=== PATIENT | female | born 1940 | race Caucasian/White ===

== ENCOUNTER 2016-12-29 13:54 | Emergency (ER) | payer MEDICARE, MEDICAID ==
[~2016-12-29 13:54] MED LIST: /AMLO25TA PO; ALLO300T2 PO; AMLO10TA2 PO; ARANESP IV; ATEN50TA2 PO; CAL-TAB2 PO; CALC25CA PO; COLA50CA3 PO; DOCU10CA PO; DOXYCYCLINE PO; DULC5TAB PO; FERR325T3 PO; FURO40TA2 PO; FURO80TA2 PO; HYDR100T13 PO; HYDR1CR EXT; HYDR50TA PO; INSULADS SC; INSULANT SC; K-TA1TAB PO; LASI80TA PO; MICR10CA PO; MINO2.5T PO; MULTTAB63 PO; NEPHTAB PO; NORV5TAB PO; OMEP10CASR PO; OMEP40CA2 PO; RENATAB5 PO; RENV2TAB PO; SEVE80TAB PO; SPIR25TA2 PO; TYLE325T5 PO; TYLE650T30 PO; VIBR100C PO; ZANT300T PO; [UNRECOGNIZED DRUG - OTHER]
[2016-12-29] MEDS ORDERED: RENV2TAB PO (14:22)
[2016-12-29] MEDS ORDERED: LOSA50TA20 PO (14:22)
[2016-12-29] MEDS ORDERED: ATEN50TA2 PO (14:22)
[2016-12-29 16:18] VITALS: BP 182/72
== END 2016-12-29 16:20 | disposition home or self-care (01) ==
LOC: EDBD 13:54 → M ED 13:54
DX: T82.838A Hemorrhage due to vascular prosthetic devices, implants and grafts, initial encounter (principal); Y92.9 Unspecified place or not applicable; Y93.9 Activity, unspecified; E11.9 Type 2 diabetes mellitus without complications; Z79.4 Long term (current) use of insulin; Z79.899 Other long term (current) drug therapy

== ENCOUNTER → 2017-03-03 | Outpatient (CLI) | payer MEDICARE, MEDICAID ==
[~2017-03-03] MED LIST changes: +ISOVUE-300 61% 50ML VIAL (Q9967) As Ordered ONE; +LOSA50TA20 PO; +MIDAZOLAM INJ 2 MG/2 ML VIAL (J2250) As Ordered ONE; +fentaNYL 100 MCG/2 ML INJECTION (J3010) As Ordered ONE
--- NOTE | 2017-03-17 14:21 | REPKIM ---
DATE OF PROCEDURE: 03/03/2017 ATTENDING SURGEON: Dr. Juan Hodge TRUCK CHAUFFEUR: Margie Cordova and Sarika Ibrahim. PREOPERATIVE DIAGNOSES: End-stage renal disease. Dysfunctional left brachiocephalic arteriovenous fistula with non-maturation. POSTOPERATIVE DIAGNOSES: End-stage renal disease. Dysfunctional left brachiocephalic arteriovenous fistula with non-maturation. PROCEDURE: Left brachiocephalic arteriovenous fistulogram. Retrograde left brachial artery angiogram. Left cephalic vein angioplasty with 8 x 200 balloon. Left subclavian vein angioplasty with 8 x 200 balloon. INDICATION: Patient is a 76-year-old female with a left brachiocephalic arteriovenous fistula with non-maturation and difficulty with cannulation and postoperative bleeding. Patient will undergo a fistulogram with possible angioplasty and/or stent. Risks, benefits, and alternative treatment options were discussed with the patient. ANESTHESIA: Local with sedation with 1 mg of versed, 50 mcg of fentanyl, and 4.5 mL of 2% lidocaine. Sedation time was from 1445 hours to 1500 hours, with the sedation administered by myself, the cardiopulmonary monitoring performed by the nurse in the room. The procedure was performed under my direction and direct supervision, and I was present for and directed the entire case. COMPLICATIONS: None. DRAINS: None. SPECIMENS: None. PROCEDURE: Patient was taken to the angiography suite, placed supine on the angiography room table, and then prepped and draped in standard surgical fashion. The fistula was then cannulated with a micropuncture needle after anesthetizing the overlying skin with 1% lidocaine. The micropuncture wire was advanced through the micropuncture needle which was upsized to a micropuncture sheath. A fistulogram was performed showing stenosis in the cephalic vein in the upper arm, which was approximately 60% as well as stenosis at the cephalic vein, subclavian vein junction, which was approximately 80%. The cephalic vein and subclavian vein were then angioplastied with an 8 x 200 mm balloon with a followup fistulogram showing resolution of the stenoses. A retrograde brachial artery angiogram was performed showing no intervention required. Catheters and wires were removed, and a #2-0 Prolene suture was placed at the puncture site for hemostasis. Dressings were then applied. Patient tolerated the procedure well. All instruments, sponge, and needle counts were correct at the end of the case. There were no complications. Dr. Hodge was present for and directed the entire case. Patient was transferred to the holding area and subsequently discharged once the #2-0 proline suture was removed, and good hemostasis was noted. RADIOLOGIC SUPERVISION AND INTERPRETATION: The initial fistulogram showed stenosis in the cephalic vein as well as the cephalic vein/subclavian vein junction. The cephalic vein and subclavian vein were angioplastied with an 8 x 200 mm balloon with a followup fistulogram showing resolution of the stenosis. A retrograde brachial angiogram was performed showing no stenosis in the translocated portion of cephalic vein, and no intervention required. There was a strong thrill in the fistula at the completion of the angioplasty, which was pulsatile prior to the intervention.
== END | disposition home or self-care (01) ==
LOC: M IRPRO 13:41
PROVIDERS: ATTEND Surgery Vascular Surgery
DX: T82.590A Other mechanical complication of surgically created arteriovenous fistula, initial encounter (principal); I87.1 Compression of vein; N18.6 End stage renal disease
CPT/HCPCS: 36902; 36907; 99152; 99153; C1725; C1769; C1894; J2250; J3010; Q9967

== ENCOUNTER → 2017-06-25 | Outpatient (CLI) | payer MEDICARE, MEDICAID ==
[~2017-06-25] MED LIST changes: -/AMLO25TA PO; -ALLO300T2 PO; -AMLO10TA2 PO; -ARANESP IV; -ATEN50TA2 PO; -CAL-TAB2 PO; -CALC25CA PO; -COLA50CA3 PO; -DOCU10CA PO; -DOXYCYCLINE PO; -DULC5TAB PO; -FERR325T3 PO; -FURO40TA2 PO; -FURO80TA2 PO; -HYDR100T13 PO; -HYDR1CR EXT; -HYDR50TA PO; -INSULADS SC; -INSULANT SC; +ISOVUE-300 61% 50ML VIAL (Q9967) As Ordered; -ISOVUE-300 61% 50ML VIAL (Q9967) As Ordered ONE; -K-TA1TAB PO; -LASI80TA PO; -LOSA50TA20 PO; -MICR10CA PO; +MIDAZOLAM INJ 2 MG/2 ML VIAL (J2250) As Ordered; -MIDAZOLAM INJ 2 MG/2 ML VIAL (J2250) As Ordered ONE; -MINO2.5T PO; -MULTTAB63 PO; -NEPHTAB PO; -NORV5TAB PO; -OMEP10CASR PO; -OMEP40CA2 PO; +ONDANSETRON 4 MG ORAL DISINTEGRATING TAB (S0181) As Ordered; -RENATAB5 PO; -RENV2TAB PO; -SEVE80TAB PO; -SPIR25TA2 PO; -TYLE325T5 PO; -TYLE650T30 PO; -VIBR100C PO; -ZANT300T PO; -[UNRECOGNIZED DRUG - OTHER]; +fentaNYL 100 MCG/2 ML INJECTION (J3010) As Ordered; -fentaNYL 100 MCG/2 ML INJECTION (J3010) As Ordered ONE
== END | disposition home or self-care (01) ==
LOC: M IRPRO 08:26
DX: T82.858A Stenosis of other vascular prosthetic devices, implants and grafts, initial encounter (principal); T82.838A Hemorrhage due to vascular prosthetic devices, implants and grafts, initial encounter; N18.6 End stage renal disease; M25.512 Pain in left shoulder
CPT/HCPCS: 36902

== ENCOUNTER 2017-07-13 21:28 | Emergency (ER) | payer MEDICARE, MEDICAID ==
[2017-07-13] MEDS ORDERED: ISOVUE-370 76% 100ML VIAL (Q9967) As Ordered ×3 (23:04)
[2017-07-13 23:33] LABS: BASO # 0.1 10^3/uL (0.0-0.2); BASO % 0.7 % (0.0-1.0); EOS # 0.3 10^3/uL (0.0-0.50); EOS % 2.8 % (0.0-3.0); HEMATOCRIT 35.6 % (36.0-47.0); HEMOGLOBIN 11.1 g/dl (12.0-16.0); IMMATURE GRANULOCYTE # 0.1 10^3/uL (0-0); IMMATURE GRANULOCYTE % 0.6 % (0-0); MEAN CORPUSCULAR HEMOGLOBIN 29.6 pg (27.0-33.0); MEAN CORPUSCULAR HGB CONC 31.2 g/dl (32.0-36.5); MEAN CORPUSCULAR VOLUME 94.9 fl (80.0-96.0); MONO # 0.4 10^3/uL (0.0-0.8); MONO % 4.8 % (0.0-5.0); NEUTROPHILS # 7.3 10^3/uL (1.8-7.7); NEUTROPHILS % 80.1 % (36.0-66.0); PLATELET COUNT, AUTOMATED 151 10^3/uL (150-450); RED BLOOD COUNT 3.75 10^6/uL (4.00-5.40); RED CELL DISTRIBUTION WIDTH 16.4 % (11.5-14.5); WHITE BLOOD COUNT 9.1 10^3/uL (4.0-10.0)
[2017-07-13 23:42] LABS: INR 1.05; PROTHROMBIN TIME 13.8 SECONDS (12.4-14.5)
[2017-07-13 23:43] LABS: PARTIAL THROMBOPLASTIN TIME 37.6 SECONDS (26.8-37.9)
[2017-07-13] MEDS: MORPHINE 4 MG/ML 1ML VIAL (J2270) IV (23:54)
[2017-07-13] MEDS: ONDANSETRON 4MG/2ML VIAL (J2405) IV ×3 (23:54)
[2017-07-13] MEDS: MORPHINE 4 MG/ML 1ML VIAL IV ×2 (23:54)
[2017-07-13 23:57] LABS: ALBUMIN 3.5 GM/DL (3.2-5.2); ALBUMIN/GLOBULIN RATIO 0.81 (1.00-1.93); ALKALINE PHOSPHATASE 25 U/L (45-117); ALT/SGPT 27 U/L (12-78); ANION GAP 10 MEQ/L (8-16); AST/SGOT 15 U/L (7-37); BILIRUBIN,DIRECT 0.2 MG/DL (0.0-0.2); BILIRUBIN,TOTAL 0.5 MG/DL (0.2-1.0); BLOOD UREA NITROGEN 50 MG/DL (7-18); CALCIUM LEVEL 9.2 MG/DL (8.8-10.2); CARBON DIOXIDE LEVEL 27 MEQ/L (21-32); CHLORIDE LEVEL 102 MEQ/L (98-107); CREATININE FOR GFR 7.31 MG/DL (0.55-1.30); GLOMERULAR FILTRATION RATE 5.8 (>39); GLUCOSE, FASTING 227 MG/DL (70-100); LIPASE 152 U/L (73-393); POTASSIUM SERUM 4.2 MEQ/L (3.5-5.1); SODIUM LEVEL 139 MEQ/L (136-145); TOTAL PROTEIN 7.8 GM/DL (6.4-8.2)
[2017-07-14 01:49] LABS: KETONE, URINE AUTO RFX NEGATIVE (NEGATIVE); NITRITE, URINE AUTO RFX NEGATIVE (NEGATIVE); RBC, URINE AUTO RFX TNTC /HPF (0-3); SPECIFIC GRAVITY UR AUTO RFX 1.024 (1.002-1.035); SQUAM EPITHELIAL CELL UR AURFX 2 /HPF (0-6)
[2017-07-14 01:50] LABS: LEUKOCYTE ESTERASE UR AUTO RFX 1+ (NEGATIVE); WBC, URINE AUTO RFX 34 /HPF (0-3)
[2017-07-14] MEDS: TAMSULOSIN 0.4 MG CAP PO ×3 (02:44)
== END 2017-07-14 05:18 | disposition home or self-care (01) ==
LOC: M ED 07-14 05:18
DX: N20.1 Calculus of ureter (principal); E11.9 Type 2 diabetes mellitus without complications; I10 Essential (primary) hypertension; Z99.2 Dependence on renal dialysis; N26.1 Atrophy of kidney (terminal); K86.89 Other specified diseases of pancreas; M51.36 Other intervertebral disc degeneration, lumbar region; M51.37 Other intervertebral disc degeneration, lumbosacral region; Z79.4 Long term (current) use of insulin; Z79.899 Other long term (current) drug therapy
CPT/HCPCS: J2270; J2405

== ENCOUNTER 2017-08-06 06:06 | Day surgery (SDC) | payer MEDICARE, MEDICAID ==
[2017-08-06] MEDS ORDERED: D5W/0.2% SODIUM CHLORIDE 1,000 ML IV (06:15)
[2017-08-06 06:56] LABS: POTASSIUM SERUM 3.9 MEQ/L (3.5-5.1)
[2017-08-06] MEDS ORDERED: PROPOFOL 200 MG/20 ML VIAL As Ordered (08:09)
[2017-08-06] MEDS ORDERED: LIDOCAINE 2% INJ 100 MG/5 ML SDV (FOR ANES.) As Ordered (08:09)
[2017-08-06] MEDS ORDERED: fentaNYL 100 MCG/2 ML INJECTION (J3010) As Ordered (08:09)
[2017-08-06] MEDS ORDERED: MIDAZOLAM INJ 2 MG/2 ML VIAL (J2250) As Ordered (08:10)
[2017-08-06 09:01] LABS: BEDSIDE GLUCOSE 249 MG/DL (83-110)
[2017-08-06] MEDS ORDERED: ePHEDrine INJ 50 MG/ML VIAL As Ordered (09:31)
[2017-08-06] MEDS: CONRAY-60 60% 50ML VIAL (Q9961) As Ordered (09:41)
[2017-08-06] MEDS ORDERED: ONDANSETRON 4MG/2ML VIAL (J2405) As Ordered (09:53)
[2017-08-06] MEDS ORDERED: HumaLOG INSULIN (NovoLOG) PER UNIT As Ordered (10:09)
[2017-08-06] MEDS: HumaLOG INSULIN (NovoLOG) PER UNIT SC (10:10)
[2017-08-06 10:14] LABS: BEDSIDE GLUCOSE 373 MG/DL (83-110)
[2017-08-06] MEDS ORDERED: ONDANSETRON 4MG/2ML VIAL (J2405) IV (10:30)
[2017-08-06] MEDS ORDERED: LR 1,000 ML IV (10:30)
[2017-08-06] MEDS ORDERED: ACETAMINOPHEN TAB 650MG DOSE (2X325MG) PO (10:30)
[2017-08-06] MEDS ORDERED: fentaNYL 100 MCG/2 ML INJECTION (J3010) IV (10:30)
[2017-08-06] MEDS ORDERED: PERCOCET 5MG/325MG TAB PO (10:30)
[2017-08-06] MEDS: PERCOCET 5MG/325MG TAB PO (11:42)
[2017-08-06 12:40] LABS: BEDSIDE GLUCOSE 209 MG/DL (83-110)
== END 2017-08-06 13:30 | disposition home or self-care (01) ==
LOC: M SDC 06:06
DX: N20.1 Calculus of ureter (principal); I10 Essential (primary) hypertension; E11.9 Type 2 diabetes mellitus without complications; D64.9 Anemia, unspecified; N17.9 Acute kidney failure, unspecified; Z99.2 Dependence on renal dialysis; M10.9 Gout, unspecified; Z91.048 Other nonmedicinal substance allergy status; Z79.899 Other long term (current) drug therapy; Z79.4 Long term (current) use of insulin
CPT/HCPCS: 52352

== ENCOUNTER → 2017-10-04 | Outpatient (CLI) | payer MEDICARE, OTHER, MEDICAID ==
[~2017-10-04] MED LIST changes: +LIDOCAINE 2% MDV 20 ML VIAL As Ordered; -ONDANSETRON 4 MG ORAL DISINTEGRATING TAB (S0181) As Ordered
== END | disposition home or self-care (01) ==
LOC: M IRPRO 07:37
DX: T82.838A Hemorrhage due to vascular prosthetic devices, implants and grafts, initial encounter (principal); E11.22 Type 2 diabetes mellitus with diabetic chronic kidney disease; I12.0 Hypertensive chronic kidney disease with stage 5 chronic kidney disease or end stage renal disease; N18.6 End stage renal disease; E78.00 Pure hypercholesterolemia, unspecified; I25.10 Atherosclerotic heart disease of native coronary artery without angina pectoris; C54.1 Malignant neoplasm of endometrium; Z99.2 Dependence on renal dialysis
CPT/HCPCS: 36902

== ENCOUNTER → 2018-01-07 | Outpatient (CLI) | payer MEDICARE, MEDICAID | END | disposition home or self-care (01) | LOC: M IRPRO 07:31 | DX: T82.858A Stenosis of other vascular prosthetic devices, implants and grafts, initial encounter (principal); T82.838A Hemorrhage due to vascular prosthetic devices, implants and grafts, initial encounter; N18.6 End stage renal disease; Z99.2 Dependence on renal dialysis | CPT/HCPCS: 36902 ==

== ENCOUNTER → 2018-05-02 | Outpatient (CLI) | payer MEDICARE, MEDICAID | END | disposition home or self-care (01) | LOC: M IRPRO 09:20 | DX: T82.898A Other specified complication of vascular prosthetic devices, implants and grafts, initial encounter (principal); N18.6 End stage renal disease; Z99.2 Dependence on renal dialysis | CPT/HCPCS: 36901 ==

== ENCOUNTER 2018-05-06 17:46 | Inpatient (IN) | payer MEDICARE, MEDICAID ==
[2018-05-06] MEDS: ONDANSETRON 4MG/2ML VIAL (J2405) IV (18:57)
[2018-05-06] MEDS: NS 250 ML IV ×6 (18:57→23:01)
[2018-05-06 19:15] LABS: BASO # 0.1 10^3/uL (0.0-0.2); BASO % 0.3 % (0.0-1.0); EOS # 0.2 10^3/uL (0.0-0.50); HEMATOCRIT 34.2 % (36.0-47.0); HEMOGLOBIN 10.9 g/dl (12.0-15.5); IMMATURE GRANULOCYTE % 0.8 % (0-3.0); LYMPH # 0.8 10^3/uL (1.5-4.5); LYMPH % 4.4 % (24.0-44.0); MEAN CORPUSCULAR HGB CONC 31.9 g/dl (32.0-36.5); MEAN CORPUSCULAR VOLUME 97.2 fl (80.0-96.0); MONO # 0.8 10^3/uL (0.0-0.8); MONO % 4.5 % (0.0-5.0); NEUTROPHILS # 15.3 10^3/uL (1.8-7.7); PLATELET COUNT, AUTOMATED 162 10^3/uL (150-450); RED BLOOD COUNT 3.52 10^6/uL (4.00-5.40); RED CELL DISTRIBUTION WIDTH 15.7 % (11.5-14.5); WHITE BLOOD COUNT 17.2 10^3/uL (4.0-10.0)
[2018-05-06 19:17] LABS: INR 0.94; PROTHROMBIN TIME 12.7 SECONDS (12.1-14.4)
[2018-05-06 19:27] LABS: LACTIC ACID SEPSIS PROTOCOL 3.1 MMOL/L (0.4-2.0)
[2018-05-06 19:39] LABS: ALBUMIN 3.4 GM/DL (3.2-5.2); ALBUMIN/GLOBULIN RATIO 0.77 (1.00-1.93); ALKALINE PHOSPHATASE 28 U/L (45-117); ALT/SGPT 22 U/L (12-78); ANION GAP 11 MEQ/L (8-16); AST/SGOT 17 U/L (7-37); BILIRUBIN,DIRECT 0.2 MG/DL (0.0-0.2); BILIRUBIN,TOTAL 0.4 MG/DL (0.2-1.0); BLOOD UREA NITROGEN 21 MG/DL (7-18); CALCIUM LEVEL 8.4 MG/DL (8.8-10.2); CARBON DIOXIDE LEVEL 27 MEQ/L (21-32); CHLORIDE LEVEL 103 MEQ/L (98-107); CK-MB VALUE MASS < 1.0 NG/ML (<3.6); CPK CREATINE PHOSPHOKINASE 62 U/L (26-192); CREATININE FOR GFR 5.55 MG/DL (0.55-1.30); GLOMERULAR FILTRATION RATE 7.9 (>39); GLUCOSE, FASTING 103 MG/DL (70-100); LIPASE 172 U/L (73-393); MB/CK RELATIVE INDEX 1.61 (< OR =4); POTASSIUM SERUM 4.2 MEQ/L (3.5-5.1); SODIUM LEVEL 141 MEQ/L (136-145); TOTAL PROTEIN 7.8 GM/DL (6.4-8.2); TROPONIN I < 0.02 NG/ML (< 0.10)
[2018-05-06] MEDS: SENOKOT S TAB PO (21:00)
[2018-05-06] MEDS: METOPROLOL TART 50 MG TAB PO (21:00)
[2018-05-06] MEDS: LOSARTAN 50 MG TAB PO (21:00)
[2018-05-06] MEDS: HumaLOG INSULIN (NovoLOG) PER UNIT SC (21:00)
[2018-05-06] MEDS: (RENVELA) SEVELAMER **CARBONate** 800 MG TAB PO (21:00)
[2018-05-07] MEDS: PIPERACILLIN/TAZOBACTAM SOD 2.25 GM in D5W MINI-BAG PLUS 50 ML IV
[2018-05-07] MEDS ORDERED: DEXTROSE 50% 50 ML SYRINGE IV (00:15)
[2018-05-07] MEDS ORDERED: ONDANSETRON 4MG/2ML VIAL (J2405) IV (00:15)
[2018-05-07] MEDS ORDERED: GLUCOSE 4 GM CHEW TABLET PO (00:15)
[2018-05-07] MEDS ORDERED: GLUCAGON FOR INJ 1 MG VIAL (J1610) SC (00:15)
[2018-05-07] MEDS: GASTROGRAFIN SOLUTION 30ML PO ×2 (00:50→01:20)
[2018-05-07 01:20] LABS: CK-MB VALUE MASS < 1.0 NG/ML (<3.6); CPK CREATINE PHOSPHOKINASE 71 U/L (26-192); MB/CK RELATIVE INDEX 1.41 (< OR =4); TROPONIN I 0.05 NG/ML (< 0.10)
[2018-05-07 01:20] LABS: LACTIC ACID SEPSIS PROTOCOL 2.1 MMOL/L (0.4-2.0)
[2018-05-07] MEDS: NS 1,000 ML IV (01:30)
[2018-05-07] MEDS ORDERED: ISOVUE-370 76% 100ML VIAL (Q9967) As Ordered (02:04)
[2018-05-07 05:03] LABS: HEMATOCRIT 28.3 % (36.0-47.0); HEMOGLOBIN 9.1 g/dl (12.0-15.5); MEAN CORPUSCULAR HEMOGLOBIN 31.3 pg (27.0-33.0); MEAN CORPUSCULAR HGB CONC 32.2 g/dl (32.0-36.5); MEAN CORPUSCULAR VOLUME 97.3 fl (80.0-96.0); PLATELET COUNT, AUTOMATED 137 10^3/uL (150-450); RED BLOOD COUNT 2.91 10^6/uL (4.00-5.40); RED CELL DISTRIBUTION WIDTH 15.7 % (11.5-14.5); WHITE BLOOD COUNT 14.9 10^3/uL (4.0-10.0)
[2018-05-07 05:30] LABS: ALBUMIN 2.8 GM/DL (3.2-5.2); ALBUMIN/GLOBULIN RATIO 0.68 (1.00-1.93); ALKALINE PHOSPHATASE 23 U/L (45-117); ALT/SGPT 22 U/L (12-78); ANION GAP 7 MEQ/L (8-16); AST/SGOT 15 U/L (7-37); BILIRUBIN,TOTAL 0.4 MG/DL (0.2-1.0); BLOOD UREA NITROGEN 26 MG/DL (7-18); CARBON DIOXIDE LEVEL 28 MEQ/L (21-32); CHLORIDE LEVEL 104 MEQ/L (98-107); CREATININE FOR GFR 5.86 MG/DL (0.55-1.30); GLOMERULAR FILTRATION RATE 7.4 (>39); GLUCOSE, FASTING 95 MG/DL (70-100); POTASSIUM SERUM 4.5 MEQ/L (3.5-5.1); SODIUM LEVEL 139 MEQ/L (136-145); TOTAL PROTEIN 6.9 GM/DL (6.4-8.2)
[2018-05-07] MEDS: HEPARIN SOD (PORCINE) 5000 UNITS/ML VIAL SC ×2 (06:00→17:03)
[2018-05-07 08:11] LABS: BEDSIDE GLUCOSE 123 MG/DL (83-110)
[2018-05-07] MEDS: HumaLOG INSULIN (NovoLOG) PER UNIT SC ×4 (08:33→20:36)
[2018-05-07] MEDS: METOPROLOL TART 50 MG TAB PO ×2 (08:34→20:36)
[2018-05-07] MEDS: SENOKOT S TAB PO ×2 (08:34→20:35)
[2018-05-07] MEDS: DOCUSATE SODIUM 100 MG CAP PO ×2 (08:34→20:35)
[2018-05-07] MEDS: LOSARTAN 50 MG TAB PO ×2 (08:34→20:35)
[2018-05-07] MEDS: LEVEMIR (INSULIN DETEMIR) 1 UNITS/0.01ML SC (09:32)
[2018-05-07] MEDS ORDERED: VANCOMYCIN HCL 750 MG, VIAL MATE ADAPTER 1 EACH in D5W 250 ML IV (12:15)
[2018-05-07] MEDS: VANCOMYCIN HCL 1,000 MG, VIAL MATE ADAPTER 1 EACH in D5W 250 ML IV (15:57)
[2018-05-07 16:19] LABS: ERYTHROCYTE SEDIMENTATION RATE 91 mm/hr (0-30)
[2018-05-07 16:20] LABS: C REACTIVE PROTEIN QUANTITATIV 9.72 MG/DL (0.00-0.30)
[2018-05-07 16:48] LABS: BEDSIDE GLUCOSE 170 MG/DL (83-110)
[2018-05-07 20:10] LABS: BEDSIDE GLUCOSE 84 MG/DL (83-110)
[2018-05-07] MEDS: VANCOMYCIN HCL 750 MG, VIAL MATE ADAPTER 1 EACH in D5W 250 ML IV (20:34)
[2018-05-07] MEDS: (RENVELA) SEVELAMER **CARBONate** 800 MG TAB PO (20:35)
[2018-05-07] MEDS: SLF 3 ML SYR IV (20:36)
[2018-05-07] MEDS ORDERED: ENTER DRUG NAME HERE (PATIENT'S OWN MED) OU ×2 (21:00)
[2018-05-08] MEDS: SLF 3 ML SYR IV ×3 (05:03→20:41)
[2018-05-08] MEDS: HEPARIN SOD (PORCINE) 5000 UNITS/ML VIAL SC ×2 (05:24→17:02)
[2018-05-08 05:31] LABS: HEMATOCRIT 27.2 % (36.0-47.0); HEMOGLOBIN 8.5 g/dl (12.0-15.5); MEAN CORPUSCULAR HEMOGLOBIN 30.2 pg (27.0-33.0); MEAN CORPUSCULAR HGB CONC 31.3 g/dl (32.0-36.5); MEAN CORPUSCULAR VOLUME 96.8 fl (80.0-96.0); PLATELET COUNT, AUTOMATED 121 10^3/uL (150-450); RED BLOOD COUNT 2.81 10^6/uL (4.00-5.40); RED CELL DISTRIBUTION WIDTH 15.8 % (11.5-14.5); WHITE BLOOD COUNT 7.1 10^3/uL (4.0-10.0)
[2018-05-08 05:50] LABS: ALBUMIN 2.4 GM/DL (3.2-5.2); ALKALINE PHOSPHATASE 21 U/L (45-117); ALT/SGPT 23 U/L (12-78); ANION GAP 7 MEQ/L (8-16); AST/SGOT 22 U/L (7-37); BILIRUBIN,TOTAL 0.3 MG/DL (0.2-1.0); BLOOD UREA NITROGEN 13 MG/DL (7-18); C REACTIVE PROTEIN QUANTITATIV 8.66 MG/DL (0.00-0.30); CALCIUM LEVEL 7.4 MG/DL (8.8-10.2); CARBON DIOXIDE LEVEL 29 MEQ/L (21-32); CHLORIDE LEVEL 102 MEQ/L (98-107); CREATININE FOR GFR 4.15 MG/DL (0.55-1.30); GLOMERULAR FILTRATION RATE 11.1 (>39); GLUCOSE, FASTING 118 MG/DL (70-100); MAGNESIUM LEVEL 1.9 MG/DL (1.8-2.4); SODIUM LEVEL 138 MEQ/L (136-145); TOTAL PROTEIN 6.4 GM/DL (6.4-8.2)
[2018-05-08 06:26] LABS: ERYTHROCYTE SEDIMENTATION RATE 79 mm/hr (0-30)
[2018-05-08] MEDS: LEVEMIR (INSULIN DETEMIR) 1 UNITS/0.01ML SC (08:07)
[2018-05-08] MEDS: HumaLOG INSULIN (NovoLOG) PER UNIT SC ×4 (08:07→20:40)
[2018-05-08] MEDS: LOSARTAN 50 MG TAB PO ×2 (08:08→20:39)
[2018-05-08] MEDS: SENOKOT S TAB PO ×2 (08:08→20:40)
[2018-05-08] MEDS: METOPROLOL TART 50 MG TAB PO ×2 (08:08→20:39)
[2018-05-08] MEDS: ACETAMINOPHEN TAB 650MG DOSE (2X325MG) PO (08:09)
[2018-05-08] MEDS: DOCUSATE SODIUM 100 MG CAP PO ×2 (08:09→20:39)
[2018-05-08 11:26] LABS: BEDSIDE GLUCOSE 129 MG/DL (83-110)
[2018-05-08] MEDS ORDERED: VANCOMYCIN HCL 1,000 MG, VIAL MATE ADAPTER 1 EACH in D5W 250 ML IV (12:30)
[2018-05-08] MEDS: **VANCO AFTER HD** MISC XX (13:19)
[2018-05-08 16:36] LABS: BEDSIDE GLUCOSE 83 MG/DL (83-110)
[2018-05-08] MEDS: DARBEPOETIN 100 MCG/0.5 ML *NON-DIALYSIS* SYRINGE (J0881) SQ (17:56)
[2018-05-08 20:06] LABS: BEDSIDE GLUCOSE 160 MG/DL (83-110)
[2018-05-08] MEDS: (RENVELA) SEVELAMER **CARBONate** 800 MG TAB PO (20:41)
[2018-05-09 05:24] LABS: HEMOGLOBIN 8.5 g/dl (12.0-15.5); MEAN CORPUSCULAR HEMOGLOBIN 30.5 pg (27.0-33.0); MEAN CORPUSCULAR HGB CONC 31.5 g/dl (32.0-36.5); MEAN CORPUSCULAR VOLUME 96.8 fl (80.0-96.0); PLATELET COUNT, AUTOMATED 126 10^3/uL (150-450); RED BLOOD COUNT 2.79 10^6/uL (4.00-5.40); RED CELL DISTRIBUTION WIDTH 15.8 % (11.5-14.5); WHITE BLOOD COUNT 5.6 10^3/uL (4.0-10.0)
[2018-05-09 05:43] LABS: ERYTHROCYTE SEDIMENTATION RATE 103 mm/hr (0-30)
[2018-05-09] MEDS: SLF 3 ML SYR IV ×3 (05:47→22:00)
[2018-05-09] MEDS: HEPARIN SOD (PORCINE) 5000 UNITS/ML VIAL SC ×2 (05:47→17:19)
[2018-05-09 06:04] LABS: ALBUMIN 2.5 GM/DL (3.2-5.2); ALBUMIN/GLOBULIN RATIO 0.76 (1.00-1.93); ALKALINE PHOSPHATASE 21 U/L (45-117); ALT/SGPT 25 U/L (12-78); ANION GAP 8 MEQ/L (8-16); AST/SGOT 22 U/L (7-37); BILIRUBIN,TOTAL 0.3 MG/DL (0.2-1.0); BLOOD UREA NITROGEN 23 MG/DL (7-18); C REACTIVE PROTEIN QUANTITATIV 5.57 MG/DL (0.00-0.30); CALCIUM LEVEL 7.5 MG/DL (8.8-10.2); CARBON DIOXIDE LEVEL 28 MEQ/L (21-32); CHLORIDE LEVEL 103 MEQ/L (98-107); FERRITIN 1475 NG/ML (8-252); GLOMERULAR FILTRATION RATE 7.7 (>39); GLUCOSE, FASTING 97 MG/DL (70-100); IRON (FE) 60 UG/DL (50-170); PERCENT SATURATION 47.6 % (13.2-45.0); POTASSIUM SERUM 4.2 MEQ/L (3.5-5.1); SODIUM LEVEL 139 MEQ/L (136-145); TOTAL IRON BINDING CAPACITY 126 UG/DL (250-450); TOTAL PROTEIN 5.8 GM/DL (6.4-8.2)
[2018-05-09] MEDS: HumaLOG INSULIN (NovoLOG) PER UNIT SC ×4 (07:30→21:00)
[2018-05-09] MEDS: SENOKOT S TAB PO ×2 (08:53→21:00)
[2018-05-09] MEDS: DOCUSATE SODIUM 100 MG CAP PO ×2 (08:53→21:00)
[2018-05-09] MEDS: LOSARTAN 50 MG TAB PO ×2 (08:55→21:58)
[2018-05-09] MEDS: cefTRIAXone SOD 1 GM in D5W MINI-BAG PLUS 50 ML IV (08:55)
[2018-05-09] MEDS: LEVEMIR (INSULIN DETEMIR) 1 UNITS/0.01ML SC (08:55)
[2018-05-09] MEDS: METOPROLOL TART 50 MG TAB PO ×2 (08:56→21:57)
[2018-05-09 11:46] LABS: BEDSIDE GLUCOSE 179 MG/DL (83-110)
[2018-05-09] MEDS: **VANCO AFTER HD** MISC XX (16:00)
[2018-05-09 17:11] LABS: BEDSIDE GLUCOSE 137 MG/DL (83-110)
[2018-05-09] MEDS: (RENVELA) SEVELAMER **CARBONate** 800 MG TAB PO (17:19)
[2018-05-09] MEDS: OMEPRAZOLE 20 MG CAP PO (17:19)
[2018-05-09 22:21] LABS: BEDSIDE GLUCOSE 145 MG/DL (83-110)
[2018-05-10 06:00] LABS: HEMATOCRIT 26.3 % (36.0-47.0); HEMOGLOBIN 8.3 g/dl (12.0-15.5); MEAN CORPUSCULAR HEMOGLOBIN 30.3 pg (27.0-33.0); MEAN CORPUSCULAR HGB CONC 31.6 g/dl (32.0-36.5); PLATELET COUNT, AUTOMATED 146 10^3/uL (150-450); RED BLOOD COUNT 2.74 10^6/uL (4.00-5.40); RED CELL DISTRIBUTION WIDTH 15.7 % (11.5-14.5); WHITE BLOOD COUNT 5.9 10^3/uL (4.0-10.0)
[2018-05-10] MEDS: HEPARIN SOD (PORCINE) 5000 UNITS/ML VIAL SC ×2 (06:07→21:47)
[2018-05-10] MEDS: SLF 3 ML SYR IV ×3 (06:07→21:54)
[2018-05-10 06:29] LABS: ERYTHROCYTE SEDIMENTATION RATE 81 mm/hr (0-30)
[2018-05-10 06:30] LABS: ALBUMIN 2.6 GM/DL (3.2-5.2); ALBUMIN/GLOBULIN RATIO 0.67 (1.00-1.93); ALKALINE PHOSPHATASE 22 U/L (45-117); ALT/SGPT 25 U/L (12-78); ANION GAP 7 MEQ/L (8-16); AST/SGOT 20 U/L (7-37); BILIRUBIN,TOTAL 0.3 MG/DL (0.2-1.0); BLOOD UREA NITROGEN 36 MG/DL (7-18); CARBON DIOXIDE LEVEL 29 MEQ/L (21-32); CHLORIDE LEVEL 101 MEQ/L (98-107); CREATININE FOR GFR 7.07 MG/DL (0.55-1.30); GLUCOSE, FASTING 92 MG/DL (70-100); MAGNESIUM LEVEL 2.1 MG/DL (1.8-2.4); POTASSIUM SERUM 4.1 MEQ/L (3.5-5.1); SODIUM LEVEL 137 MEQ/L (136-145); TOTAL PROTEIN 6.5 GM/DL (6.4-8.2)
[2018-05-10] MEDS: HumaLOG INSULIN (NovoLOG) PER UNIT SC ×4 (07:22→21:40)
[2018-05-10] MEDS: LEVEMIR (INSULIN DETEMIR) 1 UNITS/0.01ML SC (09:00)
[2018-05-10] MEDS: DOCUSATE SODIUM 100 MG CAP PO ×2 (09:00→21:00)
[2018-05-10] MEDS: SENOKOT S TAB PO ×2 (09:00→21:00)
[2018-05-10] MEDS: HEPARIN 1,000 UNITS/ML 10ML VIAL (FOR RADIOLOGY& DIALYSIS ONLY) IV (11:15)
[2018-05-10 12:38] LABS: BEDSIDE GLUCOSE 118 MG/DL (83-110)
[2018-05-10] MEDS: LOSARTAN 50 MG TAB PO ×2 (13:09→21:35)
[2018-05-10] MEDS: OMEPRAZOLE 20 MG CAP PO (13:09)
[2018-05-10] MEDS: METOPROLOL TART 50 MG TAB PO ×2 (13:10→21:35)
[2018-05-10] MEDS: cefTRIAXone SOD 1 GM in D5W MINI-BAG PLUS 50 ML IV (13:10)
[2018-05-10] MEDS: (RENVELA) SEVELAMER **CARBONate** 800 MG TAB PO (17:30)
[2018-05-10] MEDS ORDERED: PROPOFOL 200 MG/20 ML VIAL As Ordered (17:33)
[2018-05-10] MEDS ORDERED: fentaNYL 100 MCG/2 ML INJECTION (J3010) As Ordered (17:34)
[2018-05-10] MEDS ORDERED: MIDAZOLAM INJ 2 MG/2 ML VIAL (J2250) As Ordered (17:34)
[2018-05-10] MEDS: CETACAINE SPRAY 5GM As Ordered (17:42)
[2018-05-10] MEDS: LIDOCAINE VISCOUS 2% SOLN 15ML UDC As Ordered (17:42)
[2018-05-10] MEDS ORDERED: ONDANSETRON 4MG/2ML VIAL (J2405) IV (18:45)
[2018-05-10] MEDS: LR 1,000 ML IV (18:45)
[2018-05-10] MEDS ORDERED: fentaNYL 100 MCG/2 ML INJECTION (J3010) IV (18:45)
[2018-05-10 19:44] LABS: BEDSIDE GLUCOSE 258 MG/DL (83-110)
[2018-05-10 21:39] LABS: BEDSIDE GLUCOSE 283 MG/DL (83-110)
[2018-05-11] MEDS: HEPARIN SOD (PORCINE) 5000 UNITS/ML VIAL SC ×2 (05:29→17:39)
[2018-05-11] MEDS: SLF 3 ML SYR IV ×3 (05:30→21:31)
[2018-05-11 05:45] LABS: HEMATOCRIT 26.2 % (36.0-47.0); HEMOGLOBIN 8.3 g/dl (12.0-15.5); MEAN CORPUSCULAR HEMOGLOBIN 30.2 pg (27.0-33.0); MEAN CORPUSCULAR HGB CONC 31.7 g/dl (32.0-36.5); MEAN CORPUSCULAR VOLUME 95.3 fl (80.0-96.0); PLATELET COUNT, AUTOMATED 161 10^3/uL (150-450); RED BLOOD COUNT 2.75 10^6/uL (4.00-5.40); RED CELL DISTRIBUTION WIDTH 15.3 % (11.5-14.5); WHITE BLOOD COUNT 5.9 10^3/uL (4.0-10.0)
[2018-05-11 06:05] LABS: ERYTHROCYTE SEDIMENTATION RATE > 140 mm/hr (0-30)
[2018-05-11 06:12] LABS: ALBUMIN 2.6 GM/DL (3.2-5.2); ALBUMIN/GLOBULIN RATIO 0.63 (1.00-1.93); ALKALINE PHOSPHATASE 23 U/L (45-117); ALT/SGPT 27 U/L (12-78); ANION GAP 7 MEQ/L (8-16); AST/SGOT 17 U/L (7-37); BILIRUBIN,TOTAL 0.4 MG/DL (0.2-1.0); BLOOD UREA NITROGEN 17 MG/DL (7-18); C REACTIVE PROTEIN QUANTITATIV 6.21 MG/DL (0.00-0.30); CALCIUM LEVEL 8.5 MG/DL (8.8-10.2); CARBON DIOXIDE LEVEL 28 MEQ/L (21-32); CHLORIDE LEVEL 99 MEQ/L (98-107); CREATININE FOR GFR 4.34 MG/DL (0.55-1.30); GLOMERULAR FILTRATION RATE 10.5 (>39); GLUCOSE, FASTING 232 MG/DL (70-100); MAGNESIUM LEVEL 2.1 MG/DL (1.8-2.4); POTASSIUM SERUM 4.4 MEQ/L (3.5-5.1); SODIUM LEVEL 134 MEQ/L (136-145); TOTAL PROTEIN 6.7 GM/DL (6.4-8.2)
[2018-05-11] MEDS: LEVEMIR (INSULIN DETEMIR) 1 UNITS/0.01ML SC (08:26)
[2018-05-11] MEDS: METOPROLOL TART 50 MG TAB PO ×2 (08:27→21:00)
[2018-05-11] MEDS: OMEPRAZOLE 20 MG CAP PO (08:27)
[2018-05-11] MEDS: LOSARTAN 50 MG TAB PO ×2 (08:27→21:30)
[2018-05-11] MEDS: cefTRIAXone SOD 1 GM in D5W MINI-BAG PLUS 50 ML IV (08:27)
[2018-05-11] MEDS: HumaLOG INSULIN (NovoLOG) PER UNIT SC ×4 (09:46→21:00)
[2018-05-11 12:15] LABS: BEDSIDE GLUCOSE 254 MG/DL (83-110)
[2018-05-11 17:16] LABS: BEDSIDE GLUCOSE 104 MG/DL (83-110)
[2018-05-11] MEDS: (RENVELA) SEVELAMER **CARBONate** 800 MG TAB PO (17:40)
[2018-05-11 20:35] LABS: BEDSIDE GLUCOSE 214 MG/DL (83-110)
[2018-05-12] MEDS: HEPARIN SOD (PORCINE) 5000 UNITS/ML VIAL SC ×2 (05:33→18:01)
[2018-05-12] MEDS: SLF 3 ML SYR IV ×5 (05:33→21:03)
[2018-05-12 06:03] LABS: BEDSIDE GLUCOSE 177 MG/DL (83-110)
[2018-05-12] MEDS: OMEPRAZOLE 20 MG CAP PO (06:25)
[2018-05-12 06:38] LABS: HEMATOCRIT 25.3 % (36.0-47.0); HEMOGLOBIN 8.2 g/dl (12.0-15.5); MEAN CORPUSCULAR HEMOGLOBIN 30.7 pg (27.0-33.0); MEAN CORPUSCULAR HGB CONC 32.4 g/dl (32.0-36.5); MEAN CORPUSCULAR VOLUME 94.8 fl (80.0-96.0); PLATELET COUNT, AUTOMATED 156 10^3/uL (150-450); RED BLOOD COUNT 2.67 10^6/uL (4.00-5.40); RED CELL DISTRIBUTION WIDTH 15.5 % (11.5-14.5); WHITE BLOOD COUNT 5.4 10^3/uL (4.0-10.0)
[2018-05-12 07:00] LABS: ALBUMIN 2.4 GM/DL (3.2-5.2); ALKALINE PHOSPHATASE 19 U/L (45-117); ALT/SGPT 22 U/L (12-78); ANION GAP 7 MEQ/L (8-16); AST/SGOT 18 U/L (7-37); BILIRUBIN,TOTAL 0.4 MG/DL (0.2-1.0); BLOOD UREA NITROGEN 24 MG/DL (7-18); C REACTIVE PROTEIN QUANTITATIV 6.92 MG/DL (0.00-0.30); CALCIUM LEVEL 7.8 MG/DL (8.8-10.2); CARBON DIOXIDE LEVEL 29 MEQ/L (21-32); CHLORIDE LEVEL 99 MEQ/L (98-107); CREATININE FOR GFR 5.88 MG/DL (0.55-1.30); GLOMERULAR FILTRATION RATE 7.4 (>39); GLUCOSE, FASTING 157 MG/DL (70-100); MAGNESIUM LEVEL 1.9 MG/DL (1.8-2.4); SODIUM LEVEL 135 MEQ/L (136-145); TOTAL PROTEIN 6.4 GM/DL (6.4-8.2)
[2018-05-12] MEDS: HumaLOG INSULIN (NovoLOG) PER UNIT SC ×4 (07:28→20:28)
[2018-05-12] MEDS: LEVEMIR (INSULIN DETEMIR) 1 UNITS/0.01ML SC (08:42)
[2018-05-12] MEDS: METOPROLOL TART 50 MG TAB PO ×2 (09:00→20:23)
[2018-05-12] MEDS: LOSARTAN 50 MG TAB PO ×2 (09:02→20:23)
[2018-05-12 09:38] LABS: ERYTHROCYTE SEDIMENTATION RATE > 140 mm/hr (0-30)
[2018-05-12] MEDS: cefTRIAXone SOD 1 GM in D5W MINI-BAG PLUS 50 ML IV (10:00)
[2018-05-12 12:05] LABS: BEDSIDE GLUCOSE 256 MG/DL (83-110)
[2018-05-12] MEDS ORDERED: ISOVUE-370 76% 100ML VIAL (Q9967) As Ordered (13:10)
[2018-05-12 13:48] LABS: IMMEDIATE SPIN CROSSMATCH 1 1
[2018-05-12] MEDS: HEPARIN 1,000 UNITS/ML 10ML VIAL (FOR RADIOLOGY& DIALYSIS ONLY) IV (17:19)
[2018-05-12 17:52] LABS: BEDSIDE GLUCOSE 86 MG/DL (83-110)
[2018-05-12] MEDS: (RENVELA) SEVELAMER **CARBONate** 800 MG TAB PO (17:59)
[2018-05-12 19:58] LABS: BEDSIDE GLUCOSE 165 MG/DL (83-110)
[2018-05-13] MEDS: SLF 3 ML SYR IV ×2 (04:00→05:26)
[2018-05-13] MEDS: HEPARIN SOD (PORCINE) 5000 UNITS/ML VIAL SC (05:40)
[2018-05-13 06:00] LABS: HEMATOCRIT 31.4 % (36.0-47.0); MEAN CORPUSCULAR HEMOGLOBIN 30.1 pg (27.0-33.0); MEAN CORPUSCULAR HGB CONC 32.8 g/dl (32.0-36.5); MEAN CORPUSCULAR VOLUME 91.8 fl (80.0-96.0); PLATELET COUNT, AUTOMATED 184 10^3/uL (150-450); RED BLOOD COUNT 3.42 10^6/uL (4.00-5.40); RED CELL DISTRIBUTION WIDTH 16.3 % (11.5-14.5); WHITE BLOOD COUNT 6.7 10^3/uL (4.0-10.0)
[2018-05-13 06:03] LABS: HEMOGLOBIN 10.3 g/dl (12.0-15.5)
[2018-05-13 06:21] LABS: ERYTHROCYTE SEDIMENTATION RATE 86 mm/hr (0-30)
[2018-05-13 06:29] LABS: ALBUMIN 2.8 GM/DL (3.2-5.2); ALBUMIN/GLOBULIN RATIO 0.62 (1.00-1.93); ALKALINE PHOSPHATASE 22 U/L (45-117); ALT/SGPT 27 U/L (12-78); ANION GAP 6 MEQ/L (8-16); AST/SGOT 21 U/L (7-37); BILIRUBIN,TOTAL 0.4 MG/DL (0.2-1.0); BLOOD UREA NITROGEN 13 MG/DL (7-18); C REACTIVE PROTEIN QUANTITATIV 5.14 MG/DL (0.00-0.30); CALCIUM LEVEL 8.6 MG/DL (8.8-10.2); CARBON DIOXIDE LEVEL 30 MEQ/L (21-32); CHLORIDE LEVEL 99 MEQ/L (98-107); CREATININE FOR GFR 3.98 MG/DL (0.55-1.30); GLOMERULAR FILTRATION RATE 11.6 (>39); GLUCOSE, FASTING 157 MG/DL (70-100); MAGNESIUM LEVEL 1.8 MG/DL (1.8-2.4); SODIUM LEVEL 135 MEQ/L (136-145); TOTAL PROTEIN 7.3 GM/DL (6.4-8.2)
[2018-05-13] MEDS: OMEPRAZOLE 20 MG CAP PO (08:48)
[2018-05-13] MEDS: METOPROLOL TART 50 MG TAB PO (08:48)
[2018-05-13] MEDS: LOSARTAN 50 MG TAB PO (08:49)
[2018-05-13] MEDS: HumaLOG INSULIN (NovoLOG) PER UNIT SC (08:49)
[2018-05-13] MEDS: LEVEMIR (INSULIN DETEMIR) 1 UNITS/0.01ML SC (08:50)
[2018-05-13] MEDS: cefTRIAXone SOD 1 GM in D5W MINI-BAG PLUS 50 ML IV (08:50)
[2018-05-14] MEDS ORDERED: DARBEPOETIN 300 MCG/0.6 ML *DIALYSIS* SYRINGE (J0882) IV (08:00)
== END 2018-05-13 13:00 | disposition home or self-care (01) | DRG 391 ==
LOC: M ED INP 05-07 00:14 → M ED 17:46 → M PCU 05-07 15:35
PROC: B246ZZ4 Ultrasonography of Right and Left Heart, Transesophageal (ICD-10-PCS; principal; 2018-05-10 07:39)
PROC: 30233N1 Transfusion of Nonautologous Red Blood Cells into Peripheral Vein, Percutaneous Approach (ICD-10-PCS; 2018-05-10 17:40)
DX: A08.4 Viral intestinal infection, unspecified (principal); N18.6 End stage renal disease; R78.81 Bacteremia; E87.2 Acidosis; N20.1 Calculus of ureter; M10.9 Gout, unspecified; E11.9 Type 2 diabetes mellitus without complications; E78.5 Hyperlipidemia, unspecified; B95.5 Unspecified streptococcus as the cause of diseases classified elsewhere; N20.0 Calculus of kidney; Z79.4 Long term (current) use of insulin; Z79.899 Other long term (current) drug therapy; Z88.8 Allergy status to other drugs, medicaments and biological substances; Z88.5 Allergy status to narcotic agent; Z85.44 Personal history of malignant neoplasm of other female genital organs; D72.829 Elevated white blood cell count, unspecified; I15.0 Renovascular hypertension; D63.1 Anemia in chronic kidney disease; I08.1 Rheumatic disorders of both mitral and tricuspid valves

== ENCOUNTER → 2018-07-28 | Outpatient (CLI) | payer MEDICARE, MEDICAID ==
[~2018-07-28] MED LIST changes: +/AMLO25TA PO; +ACET1TAB55 PO; +ALLO300T2 PO; +AMLO10TA2 PO; +AMLO25TA PO; +ARANESP IV; +ATEN50TA2 PO; +B COTAB3 PO; +BIOT10008 PO; +BIOT300T3 PO; +CAL-TAB2 PO; +CALC25CA PO; +COLA50CA3 PO; +DOCU100C16 PO; +DOCU10CA PO; +DOXYCYCLINE PO; +DULC5TAB PO; +FERR325T3 PO; +FLOM0.4C39 PO; +FURO40TA2 PO; +FURO80TA2 PO; +HYDR100T13 PO; +HYDR1CR EXT; +HYDR50TA PO; +INSUHUMDS SC; +INSULADS SC; +INSULANT SC; -ISOVUE-300 61% 50ML VIAL (Q9967) As Ordered; +ISOVUE-300 61% 50ML VIAL (Q9967) As Ordered ONE; +K-TA1TAB PO; +LANTINJ4 SC; +LASI80TA3 PO; -LIDOCAINE 2% MDV 20 ML VIAL As Ordered; +LIDOCAINE 2% MDV 20 ML VIAL As Ordered ONE; +LOSA50TA88 PO; +METO50TA7 PO; +MICR10CA PO; -MIDAZOLAM INJ 2 MG/2 ML VIAL (J2250) As Ordered; +MIDAZOLAM INJ 2 MG/2 ML VIAL (J2250) As Ordered ONE; +MINO2.5T PO; +MULT1TAB18 PO; +MULTTAB63 PO; +NEPHTAB PO; +NORV5TAB PO; +OMEP10CASR PO; +OMEP40CA2 PO; +OXYC1TAB23 PO; +PERC5TAB12 PO; +PROBCAP14 PO; +RED1CAP5 PO; +RENATAB5 PO; +RENV2TAB PO; +SEVE80TAB PO; +SPIR25TA2 PO; +TYLE325T5 PO; +TYLE650T30 PO; +VIBR100C PO; +VITA200038 PO; +ZANT300T PO; +[UNRECOGNIZED DRUG - OTHER]; +[UNRECOGNIZED DRUG - OTHER]; -fentaNYL 100 MCG/2 ML INJECTION (J3010) As Ordered; +fentaNYL 100 MCG/2 ML INJECTION (J3010) As Ordered ONE
--- NOTE | 2018-07-28 11:19 | ROOPDOC ---
[facility] Report Of Operation Report of Operation DATE OF PROCEDURE: 07/28/18 PREPROCEDURE DIAGNOSES: End stage renal disease on hemodialysis with poorly functioning left upper extremity AV fistula. POSTPROCEDURE DIAGNOSES: Same. PROCEDURE: 1. US guided access left cephalic vein 2. LUE AV fistulagram and central venogram 3. Angioplasty left cephalic vein and cephalic-subclavian vein stent with 10mm Hydro balloon 4. Completion fistulagram SURGEON: Sherry Pandya MD ANESTHESIA: Local anesthesia 6 ml lidocaine Light sedation with Versed 0.5mg, Fentanyl 50mcg PROCEDURE START TIME: 856 PROCEDURE END TIME: 954 CONTRAST: 37cc Omnipaque INDICATION FOR PROCEDURE: Ms. Holloway is very pleasant 70-year-old patient with end-stage renal disease on hemodialysis, currently experiencing increased pulsatility in her left upper extremity AV fistula, along with very long bleeding times after dialysis in the past, she has had a problem with several areas of stenosis in the proximal cephalic vein and at this cephalic subclavian vein junction. Yesterday after dialysis. The patient had to hold pressure at her needle sites for over an hour due to significant bleeding. She has a history of stenting at the cephalic subclavian vein junction, and history of angioplasty at the stent and just proximal to it. We discussed the risks, benefits and alternatives to a fistulogram and potential intervention and all questions were answered and the patient was agreeable to proceed. We also discussed that if we were not able to improve flow in the fistula or salvage the fistula for dialysis use that we may need to place a PermCath depending on findings, and we discussed the possibility of failure of the fistula and need for new fistula, but we are hopeful that we will be able to intervene and provide improvement in her outflow. She understands this and is agreeable to proceed. IMAGING INTERPRETATION: 1. There is good inflow through the AV anastomosis with an aneurysmal dilation of the cephalic vein from the antecubital crease to 6 cm more proximal, and more proximal to this. The cephalic vein is approximately 9-10 mm dilated throughout its length except for a focal area of stenosis near the shoulder is approximately 90%. The stent across the cephalic subclavian junction is patent with an 80% stenosis at the distal end in the cephalic vein and a 60% stenosis at the proximal end of the stent in the subclavian vein. The central veins proximal to this are widely patent. 2. After angioplasty with a 10 mm Hydro balloon, the 90% stenosis in the cephalic vein had less than 10% residual stenosis. The 80% stenosis in the distal aspect of the stent within the cephalic vein improved to less than 15% stenosis after angioplasty. The 60% stenosis at the distal end of the stent in the subclavian vein improved to less than 5% stenosis after angioplasty. There was no extravasation, occlusion or dissection noted on completion fistulogram. PROCEDURE NOTE: The patient was brought to the angiographic suite in stable condition and placed supine on the fluoroscopic table. Her left upper extremity was prepped and draped in a sterile fashion. A timeout was performed. Ultrasound was used to examine the fistula in the left upper extremity and local anesthesia was administered to the skin and subcutaneous tissue over the cephalic vein near the antecubital crease just distal to the AV anastomosis microneedle was used to access the fistula under ultrasound guidance. A wire was passed through this access. The needle was removed and a 6 Armenian sheath was placed and flushed with saline. A fistulogram and central venogram were performed and identified stenosis in the cephalic vein proximally near the shoulder as well as at the proximal and distal ends of the stent across the cephalic subclavian junction with patent inflow at the AV anastomosis and outflow through the central veins. Stiff angled Glidewire was navigated under fluoroscopic guidance into the central system through her sheath. We then utilized a 10 x 80 Hydro balloon to angioplasty the proximal cephalic vein, which was slowly dilated up to 14 fly under fluoroscopic guidance until we noted release of the stenosis. We then reduce the atmospheres to 4 and left the balloon inflated for 3 minutes. Following this there was less than 20% stenosis residual at the area. We then balloon to cross the proximal and distal aspects of the stent in a similar fashion for three-minute inflations and less than 20% stenosis was noted after angioplasty. She still had a little bit of pulsatility in her fistula on palpation and a felt it would be worthwhile to perform a second angioplasty across the same areas to see if we can improve her outflow further. Unfortunately, we could not replace the 10 x 80 balloon through the sheath as it has lost some of its low-profile through repetitive inflations. We therefore selected a 10 x 40 testing balloon and placed this through the sheath and repeated angioplasties across each of the 3 areas for three-minute inflations. Following this, completion fistulogram showed remarkable improvement in all 3 areas, and there was an excellent thrill throughout her fistula. The balloon and wire removed through the sheath, and Prolene suture was used to close the access site upon removal of the sheath pressure was held at the site for 3 minutes and good hemostasis was noted and a sterile dressing was applied. The suture will be removed before discharge. The patient tolerated the procedure well. ESTIMATED BLOOD LOSS: Approximately 5 mL. COMPLICATIONS: None. DISCHARGE INSTRUCTIONS: It is okay for the patient to use her left upper extremity AV fistula for dialysis. SHERRY PANDYA MD Jul 28, 2018 11:19
== END | disposition home or self-care (01) ==
LOC: M IRPRO 07:42
PROVIDERS: ATTEND Surgery Vascular Surgery
DX: T82.858A Stenosis of other vascular prosthetic devices, implants and grafts, initial encounter (principal); T82.898A Other specified complication of vascular prosthetic devices, implants and grafts, initial encounter; N18.6 End stage renal disease; Z99.2 Dependence on renal dialysis
CPT/HCPCS: 36903; C1725; C1769; C1894; J2250; J3010; Q9967

== ENCOUNTER → 2018-10-14 | Outpatient (CLI) | payer MEDICARE, MEDICAID ==
[~2018-10-14] MED LIST changes: -/AMLO25TA PO; +CALC1CAP31 PO; -CALC25CA PO; +HYDR-4267 PO; -HYDR1CR EXT; +HYDR1CRE93 EXT; -HYDR50TA PO; +ISOVUE-300 61% 100ML VIAL (Q9967) As Ordered ONE; -ISOVUE-300 61% 50ML VIAL (Q9967) As Ordered ONE; +NEPH1TAB11 PO; -NEPHTAB PO; +NORV2TAB PO; -SEVE80TAB PO
--- NOTE | 2018-10-14 10:03 | ROOPDOC ---
[facility] Report Of Operation Report of Operation DATE OF PROCEDURE: 10/14/18 PREPROCEDURE DIAGNOSES: 1. End-stage renal disease on hemodialysis 2. Poorly functioning left upper extremity brachiocephalic AV fistula POSTPROCEDURE DIAGNOSES: Same PROCEDURE: 1. Left upper extremity fistulogram and central venogram 2. Angioplasty of the left cephalic vein, cephalic to subclavian vein stent, and subclavian vein with a 10 x 80 [place] balloon 3. Completion venogram SURGEON: Sherry Pandya MD ANESTHESIA: Local, 2 mL lidocaine. Moderate intravenous conscious sedation was supervised by Dr. Pandya. The patient was independently monitored by registered nurse assigned to the Department of radiology using automated blood pressure, EKG and pulse oximetry. The detailed conscious record is permanently stored in the hospital information system. The following is the conscious sedation record: Start time 08:28, end time 08:54, Versed 1 mg IV, fentanyl 75 g IV. The patient tolerated sedation without complication and was monitored during and postprocedure and discharged in stable condition. INDICATION FOR PROCEDURE: Ms. Holloway is a very pleasant 78-year-old patient with end-stage renal disease on hemodialysis. She has recently had increased pulsatility in her fistula and significant increase in bleeding times after dialysis access. She is also noted an increase in bruising of her left arm. On exam, there definitely is a significant increase in pulsatility and swelling in the arm. Wrist benefits and alternatives to a fistulogram and potential intervention were explained to the patient. She is agreeable to proceed. Informed consent was obtained. INTERPRETATION: 1. There is widely patent inflow through the AV anastomosis and into the cepha lic vein. There is some aneurysmal dilation of the cephalic vein near the AV anastomosis. 2. The cephalic vein in the upper arm has a focal 85% stenosis, and proximal to this there is a pre-existing proximal cephalic to distal subclavian vein stent that has 60% stenosis at the proximal aspect and 80% stenosis at the distal aspect. 3. There is a 70% stenosis in the subclavian vein across the thoracic outlet as well. Proximal to this, the central veins are widely patent. 4. After angioplasty, each of the areas had residual stenoses of less than 15%. No extravasation or spasm was noted in any of the areas of angioplasty. PROCEDURE: The patient was brought to the angiographic suite in stable condition and placed supine on the fluoroscopic table. Her left upper extremity was prepped and draped in a sterile fashion. A timeout was performed. AV anastomosis was examined with an ultrasound and found to be widely patent. Local anesthesia was administered to the skin and subcutaneous tissue over the cephalic vein near the AV anastomosis. A microneedle was used to access the vein and a wire was passed through this access and a micro-sheath was placed over the wire using a Seldinger technique. A Glidewire was then advanced through the micro-sheath into the central system under fluoroscopic guidance. We then exchanged for 6 Yi sheath and flushed the sheath was saline. Venograms were performed. We noted a focal stenosis in the cephalic vein near the shoulder approximately 85%, the pre-existing cephalic subclavian stent was patent with stenoses noted at both ends of 60% proximal and 80% distal, and there was also a 70% stenosis in the subclavian vein across the thoracic outlet. Central veins otherwise were widely patent. Due to the stenoses around the stent in the thoracic outlet, there was some reflux of contrast into the jugular vein and some other collateral veins prior to intervention. We placed in 10 x 80 [place] balloon across the stenoses in the upper arm and inflated this to 8 fly until the stenosis released and then diminished distal to atmospheres and left inflated for 3 minutes. We then deflated the balloon and advanced it a few centimeters until it was across the distal aspect of the stent within the subclavian vein and reinflated this for another 3 minutes. Venogram confirmed that there was improvement in both areas of stenosis with less than 15% residual stenosis and no extravasation or spasm was noted. We then advanced the balloon across the entire area stent so the proximal stenosis could also be angioplastied along with re-angioplasty the distal end of the stent. After a three-minute inflations, we then deflated the balloon and advanced it across the thoracic outlet and did another three-minute angioplasty in that location. Following this, completion venogram showed less than 15% residual stenosis in all areas of angioplasty proximally. Again, no extravasation or spasm of the vessels were noted. The patient had a dramatic improvement in her thrill and diminishment of pulsatility. There was also less reflux into the jugular vein and collateral veins. Local anesthesia was again administered around the area of the sheath and a Prolene suture was used to close her access site upon removal of the sheath. Pressure was held for 5 minutes and sterile dressings were cyndi lied. The patient was taken back to recovery and monitored. The suture at the access site was removed prior to discharge. She remained stable after her sedation, and was discharged in stable condition. ESTIMATED BLOOD LOSS: Approximately <5 mL. COMPLICATIONS: None. PLAN: We plan to see the patient back to check on her in a few months and make sure she is not having restenosis of these areas. We do not want to lose this access, and will be vigilant to try and maintain the access. We encouraged her to come back if she starts having increased pulsatility or bleeding times before we are scheduled to see her. It is okay to use her fistula for dialysis at this time. SHERRY PANDYA MD October 14, 2018 10:03
== END | disposition home or self-care (01) ==
LOC: M IRPRO 07:14
PROVIDERS: ATTEND Surgery Vascular Surgery
DX: T82.858A Stenosis of other vascular prosthetic devices, implants and grafts, initial encounter (principal); T82.856A Stenosis of peripheral vascular stent, initial encounter; N18.6 End stage renal disease; Z99.2 Dependence on renal dialysis
CPT/HCPCS: 36902; 36907; 99152; 99153; C1725; C1769; C1894; J2250; J3010; Q9967

== ENCOUNTER → 2018-12-23 | Outpatient (CLI) | payer MEDICARE, MEDICAID ==
[~2018-12-23] MED LIST changes: +ACET-683 PO; +AMLO5TAB6 PO; -BIOT300T3 PO; +BIOT300T8 PO; +IRBE300T10 PO; -ISOVUE-300 61% 100ML VIAL (Q9967) As Ordered ONE; +ISOVUE-300 61% 50ML VIAL (Q9967) As Ordered ONE; +METO1TAB7 PO; +METO1TAB87 PO; +MULTCAP PO; +ONDANSETRON 4MG/2ML VIAL (J2405) As Ordered ONE; +RANI150T14 PO; +ZOFR4TAB16 PO
[2018-12-23] MEDS: ONDANSETRON 4MG/2ML VIAL (J2405) IV ONE (14:53)
--- NOTE | 2018-12-23 15:08 | ROOPDOC ---
[facility] Report Of Operation Report of Operation DATE OF PROCEDURE: 12/23/18 PREPROCEDURE DIAGNOSES: End-stage renal disease on hemodialysis with poorly functioning left upper extremity fistula status post infiltration near the shoulder 3 weeks ago POSTPROCEDURE DIAGNOSES: Same PROCEDURE: 1. Right upper extremity venogram through peripheral IV 2. Ultrasound examination left upper extremity cephalic vein fistula and access left cephalic vein under ultrasound guidance 3. Left upper extremity fistulogram and central venogram 4. Angioplasty of the mid and proximal cephalic vein and stent with 10 x 80 Mus padron balloon 5. Completion fistulograms SURGEON: Sherry Pandya MD ANESTHESIA: Local anesthesia 5 mL lidocaine. Moderate intravenous conscious sedation was supervised by Dr. Pandya. The patient was independently monitored by registered nurse assigned to the Department of radiology using automated blood pressure, EKG, and pulse oximetry. The detail conscious sedation record is permanently start in the hospital information system. The following is a conscious sedation record: Start time 13:50, stop time 14:24, Versed 1 mg IV, fentanyl 75 g IV CONTRAST: 30 mL Isovue INDICATION FOR PROCEDURE: This is a very pleasant 78-year-old patient who dialyzes Wednesday for left upper extremity brachiocephalic AV fistula. Every few months, the patient develops pulsatility in her fistula, increased venous pressures, and is prone to infiltrations. She had an infiltration in the upper arm 3 weeks ago, mostly resolved, but they were able to continue using her fistula after that. She definitely has a lot of pulsatility on exam today. We suspected recurrence of her proximal cephalic vein stenosis at the proximal and distal ends of her stent, and at the shoulder. Risks benefits and alternatives to a fistulogram and potential intervention were explained to the patient and she is agreeable to proceed. Informed consent was obtained. Additionally, we have a peripheral IV in the right hand, and since there having so much trouble with the left upper extremity, I told the patient we would perform a quick venogram of the right upper extremity to see if her cephalic and basilic veins might be suitable for future fistulas. She is agreeable to proceed. Informed consent was obtained. INTERPRETATION: 1. RUE basilic an cephalic veins are widely patent. Subclavian vein appears patent, but the contrast washed out at the SVC junction and there may be outflow limitation- will evaluate with ultrasound. 2. US examination of the LUE cephalic vein fistula reveals that between the aneurysmal segments, but not aneurysmal segments R greater than 8 mm diameter and the proximal aspect of the vein is also approximately 8-9 mm diameter but it is approximately 1 cm deep 3. Left upper extremity fistulogram reveals a widely patent upper arm AV fistula, aneurysmal segments are bridged by 8-9 mm diameter segments, no stenosis between the aneurysmal segments is noted. The inflow is excellent. Outflow is somewhat limited by 1 area of 70% stenosis near the shoulder, and then 60% stenosis at the proximal and a visit cephalic subclavian stent, 70% stenosis at the distal end. 4. After angioplasty, there is widely patent outflow through the AV fistula. The pulsatility has resolved. There is an excellent thrill. There is less than 15% residual stenosis. There is no extravasation, embolization, or other complications noted. PROCEDURE: The patient was brought to the angiographic suite in stable condition. Her left upper extremity was prepped and draped in a sterile fashion. A timeout was performed. Prior to performing her left upper extremity fistulogr am, a quick right upper extremity venogram was performed through her peripheral IV in her right hand. This revealed that her cephalic and basilic vein were both widely patent, although they appear to be between 2-4 mm diameter. The subclavian vein is patent distally, but it is difficult to tell if it is patent proximally at the SVC junction. We will obtain an ultrasound to further map the veins in the right upper extremity for possible future fistula. Following this, ultrasound was used to examine the left upper extremity AV fistula. The aneurysmal segments are bridged by patent segments that are a little bit deeper in about 8-9 mm diameter. In the upper arm, the vein is also 8-9 mm diameter, but it is 1 cm deep and this may be too deep for access. Otherwise, I do not see any tight stenoses between the the aneurysmal segments or any concerns at the AV anastomosis. Ultrasound was used to guide access with a microneedle to the cephalic vein near the AV anastomosis. A wire was passed through this access under fluoroscopic guidance a micro-sheath was placed. Through the micro-sheath was advanced Glidewire into the central system under fluoroscopic guidance. We then placed a 6 Kisw[place]ili sheath and flushed the sheath with saline. A fistulogram and central venogram were performed. There was widely patent inflow through the AV anastomosis in the upper arm, but 3 areas of stenosis were noted at the shoulder, the proximal stent, and the distal stent. We advanced an 10 x 80 [place] balloon across the distal to stenoses, and a three-minute inflations low atmospheres was performed. There is a marked improvement in flow. We then passed the balloon into the distal aspect of the stent as well as the proximal aspect of the stent, and another three-minute inflations low atmospheres was performed. There is a marked improvement in flow in a definite improvement in the thrill of the AV fistula following angioplasty of the outflow. Next, we performed an angioplasty in the upper arm just proximal to the aneurysmal segments. The patient felt no pain here and I do not believe there is any stenosis that we have missed. Following angioplasty, completion arteriogram showed widely patent flow, no flow limitations, and no extravasation or embolization or other complications were noted. We then placed a suture at the sheath access site in the sheath was removed. Pressure was held for hemostasis and sterile dressings were applied. The patient was taken back to recovery and monitored postprocedure until standard criteria are met and then she will be discharged in stable condition. ESTIMATED BLOOD LOSS: Approximately 5 mL. COMPLICATIONS: None PLAN: The patient will be discharged home after standard postprocedure criteria are met. It is okay to use her left upper extremity AV fistula for dialysis. She asked me about "making it better in the upper arm "so they can access proximal to the aneurysmal segments, and this area is widely patent but may be too deep (approximately 1 cm deep on ultrasound) for the nurses to access. It measures approximately 8-9 mm in the upper arm. Additionally, we will obtain a vein mapping and bring the patient back to clinic to discuss possibly placing a new access in the right upper extremity. She would be able to use her left upper extremity axis in the interim for maturation of the right upper extremity access, but if they are having so much difficulty with the left upper extremity unfortunately I don't have much other interventions to offer. The fistula is widely patent, there is no stenosis between the aneurysmal segments, and the recurrent proximal cephalic vein stenosis is easily resolved with angioplasty. On her right upper extremity venogram, in the upper arm she has a small but widely patent cephalic vein, small but widely patent basilic vein, but it is difficult to see if she has some outflow obstruction at the proximal subclavian vein due to washout of contrast. I think this will be better visualized on ultrasound, as we are limited to how fast we can push contrast and how much contrast we can push through a peripheral IV in the hand. Further options once we evaluate her vein mapping. SHERRY PANDYA MD Dec 23, 2018 15:08
[2018-12-23 15:21] VITALS: BP 145/65
== END ==
LOC: M IRPRO 11:30
PROVIDERS: ATTEND Surgery Vascular Surgery
DX: N18.6 End stage renal disease (principal); T82.590A Other mechanical complication of surgically created arteriovenous fistula, initial encounter; X58.XXXA Exposure to other specified factors, initial encounter; Y93.9 Activity, unspecified; Y92.9 Unspecified place or not applicable; Y99.9 Unspecified external cause status
CPT/HCPCS: 36005; 36902; 75820; 99152; 99153; C1725; C1769; C1894; J2250; J2405; J3010; Q9967

== ENCOUNTER 2019-01-07 10:18 | Inpatient (IN) | payer MEDICARE, MEDICAID ==
[~2019-01-07] VITALS: Ht 149.9 cm; Wt 100.4 kg
[~2019-01-07 10:18] MED LIST changes: -ACET-683 PO; -AMLO5TAB6 PO; -ISOVUE-300 61% 50ML VIAL (Q9967) As Ordered ONE; -LIDOCAINE 2% MDV 20 ML VIAL As Ordered ONE; -METO1TAB87 PO; -MIDAZOLAM INJ 2 MG/2 ML VIAL (J2250) As Ordered ONE; -MULTCAP PO; -ONDANSETRON 4MG/2ML VIAL (J2405) As Ordered ONE; -RANI150T14 PO; -fentaNYL 100 MCG/2 ML INJECTION (J3010) As Ordered ONE
[2019-01-07] MEDS ORDERED: RANI150T14 PO (10:47)
[2019-01-07] MEDS ORDERED: ISOVUE-370 76% 100ML VIAL (Q9967) As Ordered ONE (11:09)
[2019-01-07] MEDS ORDERED: VANCOMYCIN HCL 1,000 MG, VIAL MATE ADAPTER 1 EACH in D5W 250 ML IV ONE (11:15)
[2019-01-07] MEDS ORDERED: PIPERACILLIN/TAZOBACTAM SOD 2.25 GM in D5W MINI-BAG PLUS 50 ML IV ONE (11:15)
[2019-01-07 11:17] LABS: BASO # 0.1 10^3/uL (0.0-0.2); BASO % 0.9 % (0.0-1.0); EOS # 0.6 10^3/uL (0.0-0.50); EOS % 9.5 % (0.0-3.0); HEMATOCRIT 30.7 % (36.0-47.0); HEMOGLOBIN 9.6 g/dl (12.0-15.5); LYMPH # 0.9 10^3/uL (1.5-4.5); LYMPH % 14.4 % (24.0-44.0); MEAN CORPUSCULAR HEMOGLOBIN 30.4 pg (27.0-33.0); MEAN CORPUSCULAR HGB CONC 31.3 g/dl (32.0-36.5); MEAN CORPUSCULAR VOLUME 97.2 fl (80.0-96.0); MONO # 0.5 10^3/uL (0.0-0.8); MONO % 8.3 % (0.0-5.0); NEUTROPHILS # 4.3 10^3/uL (1.8-7.7); NEUTROPHILS % 66.6 % (36.0-66.0); PLATELET COUNT, AUTOMATED 148 10^3/uL (150-450); RED BLOOD COUNT 3.16 10^6/uL (4.00-5.40); WHITE BLOOD COUNT 6.5 10^3/uL (4.0-10.0)
[2019-01-07 11:48] LABS: ERYTHROCYTE SEDIMENTATION RATE 83 mm/hr (0-30)
[2019-01-07 12:08] LABS: ALBUMIN 3.2 GM/DL (3.2-5.2); BILIRUBIN,TOTAL 0.5 MG/DL (0.2-1.0); C REACTIVE PROTEIN QUANTITATIV 1.86 MG/DL (0.00-0.30); CALCIUM LEVEL 8.7 MG/DL (8.8-10.2); CREATININE FOR GFR 2.3 MG/DL (0.55-1.30); GLOMERULAR FILTRATION RATE 21.8 (>39); POTASSIUM SERUM 3.3 MEQ/L (3.5-5.1); TOTAL PROTEIN 7.5 GM/DL (6.4-8.2)
[2019-01-07] MEDS ORDERED: MOM 30ML SUSPENSION UDC PO PRN (13:00)
[2019-01-07] MEDS ORDERED: ACETAMINOPHEN TAB 650MG DOSE (2X325MG) PO PRN (13:00)
[2019-01-07] MEDS ORDERED: MAALOX 30 ML SUSP *UDC PO PRN (13:00)
[2019-01-07] MEDS ORDERED: METO1TAB87 PO (13:21)
[2019-01-07] MEDS ORDERED: AMLO5TAB6 PO (13:21)
[2019-01-07] MEDS ORDERED: ACET-683 PO (13:21)
[2019-01-07] MEDS ORDERED: MULTCAP PO (13:21)
--- NOTE | 2019-01-07 13:51 | REP ---
Clinical: Left lower extremity pain and swelling Technique: Flores scale and color Doppler evaluation using linear high frequency transducer. Findings: Ultrasound examination of the left lower extremity deep venous structures from the common femoral vein to the popliteal vein demonstrates normal compressibility flow and wave patterns in response to respiration and augmentation. There is no evidence for deep venous thrombosis. Impression: No evidence for deep venous thrombosis. Electronically Signed by Arnie Villarreal MD 01/07/2019 01:42 P
[2019-01-07] MEDS ORDERED: SALIVA SUBSTITUTE(MOUTHKOTE) BTL MT PRN (14:45)
[2019-01-07] MEDS ORDERED: GLUCOSE 4 GM CHEW TABLET PO PRN (15:00)
[2019-01-07] MEDS ORDERED: ONDANSETRON 4 MG TAB (S0181) PO PRN (15:00)
[2019-01-07] MEDS ORDERED: DEXTROSE 50% 50 ML SYRINGE IV PRN (15:00)
[2019-01-07] MEDS ORDERED: GLUCAGON FOR INJ 1 MG VIAL (J1610) SC PRN (15:00)
--- NOTE | 2019-01-07 15:01 | HPEPDOC ---
General Date of Admission 01/07/19 Date of Service: Jan 07, 2019 Primary Care Physician: ARMANDO ROSADO MD Attending Physician: NIDHI GARCIA DO Chief Complaint The patient is a 78-year-old female admitted with a reason for visit of Gen Medical , Renal. Source: Patient Exam Limitations: No limitations Timing/Duration: Day(s) (2-3) Severity: Moderate Associated Symptoms: Loss of appetite, Nausea (chronic x 6 months), Other (dry mouth) History of Present Illness 78 yo female with ESRD developped swelling and pain along left back of neck to back of ear and front of left jaw 2-3 days ago. No associated fever. She had brief episode of clear ear drainage on the RIGHT 3 days ago, which resolved. no ear pain bilaterally. no hearing changes bilaterally. Was seen at ED in [facility] and told neck/jaw pain was "not from my heart" and sent home. She was seen today at dialysis by Dr Rosado and sent to ED for evaluation where she was fou nd to have parotiditis. Patient states no fever, no TAPIA, has chronic nausea x 6 months and no vomiting. occasional SOB , no CP, no Diarrhea, no Constipation. She follows a strict 36 ounce fluid restriction because of ESRD and noticed increasing dry mouth over past 3-4 days. She states she lives in [place], and malfunctioning city water filtration systems was reported. She states started norvasc 2 months ago and since then has had leg edema bilaterally. Home Medications Scheduled Amlodipine Besylate (Amlodipine Besylate) 5 Mg Tablet, 5 MG PO QHS, (Reported) Biotin (Biotin) 300 Mcg Tab, 300 MCG PO QHS, (Reported) Docusate Sodium (Docusate Sodium) 100 Mg Cap, 100 MG PO BID, (Reported) Insulin Glargine,Hum.rec.anlog (Lantus Solostar) 100 Unit/Ml Inj, 42 UNITS SC DAILY, (Reported) Insulin Human Lispro (Humalog) 1 Units/0.01 Ml Inj, 1 UNITS SC ACHS, (Reported) Irbesartan (Irbesartan) 300 Mg Tablet, 300 MG PO QHS, (Reported) Metoprolol Tartrate (Metoprolol Tartrate) 25 Mg Tablet, 25 MG PO BID, (Reported) Multivitamin (Multivitamins) 1 Each Capsule, 1 CAP PO QHS, (Reported) Ranitidine HCl (Ranitidine HCl) 150 Mg Tablet, 1 TAB PO DAILY, (Reported) Vitamin B Complex (Vitamin B Complex) 1 Tab Tab, 1 TAB PO QHS, (Reported) Scheduled PRN Acetaminophen (Acetaminophen) 500 Mg Tablet, 500 MG PO Q6H PRN for PAIN, (Reported) Ondansetron HCl (Zofran) 4 Mg Tablet, 4 MG PO Q6H PRN for NAUSEA OR VOMITING, (Reported) Allergies Coded Allergies: cetirizine (Verified Allergy, Intermediate, RASH, 01/07/19) prednisolone (Verified Allergy, Intermediate, RASH, 01/07/19) tamsulosin (Verified Allergy, Unknown, PER PT HAD A PROBLEM BUT UNSURE WHAT IT WAS, 01/07/19) Bhfdupl-Osd-Jgc Reductase Inhibitor (Verified Adverse Reaction, Severe, CRAMPS, 01/07/19) atorvastatin (Verified Adverse Reaction, Intermediate, CRAMPS, 01/07/19) TAPE (Verified Adverse Reaction, Mild, ITCHING, 05/07/18) oxycodone (Verified Adverse Reaction, Mild, CONSTIPATION, 01/07/19) benzonatate (Verified Adverse Reaction, Unknown, PER PT HAD A PROBLEM WITH IT BUT UNSURE WHY, 01/07/19) fenofibrate (Verified Adverse Reaction, Unknown, PER PT HAD A PROBLEM WITH IT BUT UNSURE WHY, 01/07/19) Past Medical History Medical History HTN ESRD GOUT NIDDM OA HYPERLIPIDEMIA PAST SURGICAL HISTORY: RIGHT ANKLE SURGERY TONSILLECTOMY HYSTERECTOMY DUE TO ENDOMETRIAL CANCER LEFT ARM FISTULA, DIALYSIS [facility] PLACEMENT KIDNEY STONE REMOVAL FAMILY HISTORY: FATHER WITH COPD MOTHER WITH COLON CANCER SOCIAL HISTORY: NO TOBACCO, NO ETOH, NO RECREATIONAL DRUGS A-FIB/CHADSVASC A-FIB History Current/History of A-Fib/PAF?: No Review of Systems Other systems 10 COMPREHENSIVE SYSTEMS REVIEWED AND NEGATIVE EXCEPT PER HPI Physical Examination General Exam: Positive: Alert, Cooperative, No Acute Distress Eye Exam: Positive: PERRLA, Conjunctiva & lids normal, EOMI ENT Exam: Positive: Atraumatic, Mucous membr. moist/pink, Pharynx Normal, Nares Patent, Tympanic Membranes Normal, Ext Auditory Canal Nml, Pinna Normal, Other ENT (swelling along left anterior ear, mandible and submandicular area; no palpable swelling to gum line, upper and lower dentures present; ) Neck Exam: Positive: Supple, +2 carotid pulse wo bruit, Lymphadenopathy (right posterior cervical) Chest Exam: Positive: Clear to auscultation, Normal air movement; Negative: Rales, Rhonchi, Wheezing, Diminished Heart Exam: Positive: Rate Normal, Regular Rhythm, Normal S1, Normal S2 Abdomen Exam: Positive: Normal bowel sounds, Soft (obese, NT ND) Extremity Exam: Positive: Edema (non pitting lymphedema bilateral lower legs (left more than right)); Negative: Clubbing, Cyanosis, Normal pulses, Tenderness, Swelling, Other Skin Exam: Positive: Nl turgor and temperature; Negative: Rash, Breakdown Neuro Exam: Positive: Normal Speech, Strength at 5/5 X4 ext, Normal Tone, Sensation Intact, Cranial Nerves 3-12 NL Psych Exam: Positive: Mental status NL, Mood NL, Oriented x [address] SCAN neck/face: (images/report not available for review thru [facility]) - verbal report from ED doc: parotiditis with cellulitis, no abscess US lower legs - pending Vital Signs Vital Signs Date Time Temp Pulse Resp B/P (MAP) Pulse Ox O2 Delivery O2 Flow Rate FiO2 01/07/19 10:23 96.8 80 16 193/76 97 Room Air Laboratory Data Labs 24H Laboratory Tests 2 01/07/19 11:09: Immature Granulocyte % (Auto) 0.3, White Blood Count 6.5, Red Blood Count 3.16L, Hemoglobin 9.6L, Hematocrit 30.7L, Mean Corpuscular Volume 97.2H, Mean Corpuscular Hemoglobin 30.4, Mean Corpuscular Hemoglobin Concent 31.3L, Red Cell Distribution Width 15.0H, Platelet Count 148L, Neutrophils (%) (Auto) 66.6H, Lymphocytes (%) (Auto) 14.4L, Monocytes (%) (Auto) 8.3H, Eosinophils (%) (Auto) 9.5H, Basophils (%) (Auto) 0.9, Neutrophils # (Auto) 4.3, Lymphocytes # (Auto) 0.9L, Monocytes # (Auto) 0.5, Eosinophils # (Auto) 0.6H, Basophils # (Auto) 0.1, Nucleated Red Blood Cells % (auto) 0.0, Erythrocyte Sedimentation Rate 83H, Anion Gap 5L, Glomerular Filtration Rate 21.8L, Blood Urea Nitrogen 5L, Creatinine 2.30H, Sodium Level 142, Potassium Level 3.3L, Chloride Level 104, Carbon Dioxide Level 33H, Calcium Level 8.7L, Aspartate Amino Transf (AST/SGOT) 16, Alanine Aminotransferase (ALT/SGPT) 23, Alkaline Phosphatase 23L, Total Bilirubin 0.5, Total Protein 7.5, Albumin 3.2, C-Reactive Protein, Quantitative 1.86H, Albumin/Globulin Ratio 0.74L 01/07/19 12:31: Bedside Glucose (Misc Panel) 107 CBC/BMP Laboratory Tests 01/07/19 11:09 Red Blood Count 3.16 L, Mean Corpuscular Volume 97.2 H, Mean Corpuscular Hemoglobin 30.4, Mean Corpuscular Hemoglobin Concent 31.3 L, Red Cell Distribution Width 15.0 H, Neutrophils (%) (Auto) 66.6 H, Lymphocytes (%) (Auto) 14.4 L, Monocytes (%) (Auto) 8.3 H, Eosinophils (%) (Auto) 9.5 H, Basophils (%) (Auto) 0.9, Neutrophils # (Auto) 4.3, Lymphocytes # (Auto) 0.9 L, Monocytes # (Auto) 0.5, Eosinophils # (Auto) 0.6 H, Basophils # (Auto) 0.1, Calcium Level 8.7 L, Aspartate Amino Transf (AST/SGOT) 16, Alanine Aminotransferase (ALT/SGPT) 23, Alkaline Phosphatase 23 L, Total Bilirubin 0.5, Total Protein 7.5, Albumin 3.2 Microbiology Microbiology 01/07/19 Blood Culture, Received Pending 01/07/19 Blood Culture, Received Pending Assessment/Plan 1) acute parotiditis with facial cellulitis and no abscess clear liquids until swelling decreases; given IV Vanc x1 and IV zosyn in ED. Will continue with IV amp/sublactam as per UpToDate recommendations. BC pending. If improved swelling after 48 hours, then d/c home with augmentin. If not improved after 48 hours IV antibiotcs, then consulte ENT or oral surgery for evaluation. 2) HTN - continue home regiimen 3) ESRD - on dialysis , and WED. received dialysis prior to coming to ED. Is on 36 ounce (1000cc) fluid restriction. Dr Rosado following 4) Diabetes - with long term insulin use and without hyperglycemia - SSI; decrease levemir from 42 units to 30 units while on clears in hospital, adjust to cover blood sugars. hold oral agents CODE: DNR DVT PROPHYLAXS: Enoxaprin renal dose Plan / VTE VTE Prophylaxis Ordered?: Yes NIDHI GARCIA DO Jan 07, 2019 12:58
[2019-01-07 15:41] VITALS: BP 139/64
[2019-01-07 15:45] VITALS: BP 139/64
[2019-01-07] MEDS: HumaLOG INSULIN (NovoLOG) PER UNIT SC SCH ×2 (17:30→20:51)
[2019-01-07] MEDS: AMPICILLIN SOD/SULBACTAM SOD 3 GM in D5W MINI-BAG PLUS 100 ML IV SCH (18:57)
[2019-01-07] MEDS: VITAMIN B COMPLEX/VIT C CAP PO SCH (18:57)
[2019-01-07] MEDS: ENOXAPARIN 30 MG/0.3 ML SYR (J1650) SC SCH (18:57)
[2019-01-07 20:34] VITALS: BP 140/62
[2019-01-07] MEDS ORDERED: LEVEMIR (INSULIN DETEMIR) 1 UNITS/0.01ML SC SCH (21:00)
[2019-01-07] MEDS: MULTIVITAMINS/MINERALS THERAP 1 TAB PO SCH (21:01)
[2019-01-07] MEDS: amLODIPine 5 MG TAB PO SCH (21:01)
[2019-01-07] MEDS: DOCUSATE SODIUM 100 MG CAP PO SCH (21:01)
[2019-01-07] MEDS: METOPROLOL TART 25 MG TABLET PO SCH (21:01)
[2019-01-07] MEDS: IRBESARTAN 150 MG TAB PO SCH (21:02)
[2019-01-08 06:06] VITALS: BP 140/60
[2019-01-08 06:50] LABS: ALBUMIN 2.7 GM/DL (3.2-5.2); BILIRUBIN,TOTAL 0.4 MG/DL (0.2-1.0); CALCIUM LEVEL 8.2 MG/DL (8.8-10.2); CREATININE FOR GFR 3.76 MG/DL (0.55-1.30); GLOMERULAR FILTRATION RATE 12.4 (>39); POTASSIUM SERUM 3.8 MEQ/L (3.5-5.1); TOTAL PROTEIN 7.1 GM/DL (6.4-8.2)
[2019-01-08] MEDS: HumaLOG INSULIN (NovoLOG) PER UNIT SC SCH ×4 (07:30→20:28)
[2019-01-08 08:36] LABS: HEMATOCRIT 30.1 % (36.0-47.0); HEMOGLOBIN 9.2 g/dl (12.0-15.5); MEAN CORPUSCULAR HEMOGLOBIN 30.3 pg (27.0-33.0); MEAN CORPUSCULAR HGB CONC 30.6 g/dl (32.0-36.5); PLATELET COUNT, AUTOMATED 146 10^3/uL (150-450); RED BLOOD COUNT 3.04 10^6/uL (4.00-5.40); WHITE BLOOD COUNT 6.6 10^3/uL (4.0-10.0)
[2019-01-08] MEDS ORDERED: PREVNAR 13 VACCINE SYRINGE (CPT CODE:90670) IM ONE (09:00)
[2019-01-08] MEDS ORDERED: FAMOTIDINE 20 MG TAB PO SCH (09:00)
--- NOTE | 2019-01-08 09:36 | IPNPDOC ---
Text Note Date of Service The patient was seen on 01/08/19. NOTE S: patient states feels better. no pain with swallowing, no pain to jaw. states swelling less. chronic nausea, no CP no SOB. had hypoglycemia this AM O: Vitals as below General: pleasant, NAD AAOX3 HEENT: left facial erythema - resolved; left swelling about 2cm (improved) preauricular/mandible area. no posterior or anterior cervical adenopathy HRRR LCTA A/P: 1) acute parotiditis with facial cellulitis and no abscess Advance diet. given IV Vanc x1 and IV zosyn in ED on 01/07/19. Continue with IV amp/sublactam as per UpToDate recommendations. Continue IV unasyn until dialysis on 01/10/19 and if continues to improve, change to po augmentin. If swelling worsens or fever - then consult oral surgeon or ENT for eval. 2) HTN - continue home regiimen 3) ESRD - on dialysis , TH and SAT. Is on 36 ounce (1000cc) fluid restriction. Dr Rosado following. Anticipate dialysis in hospital on 01/10/19 and then discharge if parotiditis resolved on 01/10 or 01/11 4) Diabetes - with long term insulin use and WITH HYPOGLYCEMIA, without hyperglycemia - SSI; decrease levemir from 25 units and advance diet. treat hypoglycemia per protocol. VS,Fishbone, I+O VS, Fishbone, I+O Laboratory Tests 01/07/19 11:09 Red Blood Count 3.16 L, Mean Corpuscular Volume 97.2 H, Mean Corpuscular Hemoglobin 30.4, Mean Corpuscular Hemoglobin Concent 31.3 L, Red Cell Distribution Width 15.0 H, Neutrophils (%) (Auto) 66.6 H, Lymphocytes (%) (Auto) 14.4 L, Monocytes (%) (Auto) 8.3 H, Eosinophils (%) (Auto) 9.5 H, Basophils (%) (Auto) 0.9, Neutrophils # (Auto) 4.3, Lymphocytes # (Auto) 0.9 L, Monocytes # (Auto) 0.5, Eosinophils # (Auto) 0.6 H, Basophils # (Auto) 0.1, Calcium Level 8.7 L, Aspartate Amino Transf (AST/SGOT) 16, Alanine Aminotransferase (ALT/SGPT) 23, Alkaline Phosphatase 23 L, Total Bilirubin 0.5, Total Protein 7.5, Albumin 3.2 01/08/19 06:01 Red Blood Count 3.04 L, Mean Corpuscular Volume 99.0 H, Mean Corpuscular Hemoglobin 30.3, Mean Corpuscular Hemoglobin Concent 30.6 L, Red Cell Distribution Width 15.3 H, Calcium Level 8.2 L, Aspartate Amino Transf (AST/SGOT) 12, Alanine Aminotransferase (ALT/SGPT) 17, Alkaline Phosphatase 21 L, Total Bilirubin 0.4, Total Protein 7.1, Albumin 2.7 L Vital Signs Date Time Temp Pulse Resp B/P (MAP) Pulse Ox O2 Delivery O2 Flow Rate FiO2 01/08/19 06:06 98.8 62 20 140/60 (86) 96 01/07/19 15:17 Room Air I&O- Last 24 Hours up to 6 AM 01/08/19 06:00 Intake Total 1070 ml Output Total 0 ml Balance 1070 ml NIDHI GARCIA DO Jan 08, 2019 09:36
[2019-01-08] MEDS: ENOXAPARIN 30 MG/0.3 ML SYR (J1650) SC SCH (09:40)
[2019-01-08] MEDS: METOPROLOL TART 25 MG TABLET PO SCH ×2 (09:41→20:27)
[2019-01-08] MEDS: DOCUSATE SODIUM 100 MG CAP PO SCH ×2 (09:42→20:28)
[2019-01-08] MEDS: VITAMIN B COMPLEX/VIT C CAP PO SCH (09:42)
[2019-01-08 14:00] VITALS: BP 176/100
[2019-01-08 17:41] VITALS: BP 132/66
[2019-01-08] MEDS: AMPICILLIN SOD/SULBACTAM SOD 3 GM in D5W MINI-BAG PLUS 100 ML IV SCH (18:46)
[2019-01-08 19:51] VITALS: BP 145/64
[2019-01-08] MEDS ORDERED: DARBEPOETIN 100 MCG/0.5 ML *DIALYSIS* SYRINGE (J0882) IV SCH (20:15)
[2019-01-08] MEDS: IRBESARTAN 150 MG TAB PO SCH (20:27)
[2019-01-08] MEDS: MULTIVITAMINS/MINERALS THERAP 1 TAB PO SCH (20:27)
[2019-01-08] MEDS: amLODIPine 5 MG TAB PO SCH (20:27)
[2019-01-08] MEDS ORDERED: LEVEMIR (INSULIN DETEMIR) 1 UNITS/0.01ML SC SCH (21:00)
--- NOTE | 2019-01-08 22:53 | CR ---
DATE OF CONSULTATION: 01/08/2019 REQUESTING PHYSICIAN: Alyssia Smith MD CONSULTING PHYSICIAN: Oralia Rosado MD REASON FOR CONSULTATION: Management of end-stage renal disease on hemodialysis. CHIEF COMPLAINT: The patient presents to the hospital because of left-sided facial tenderness and swelling. HISTORY OF PRESENT ILLNESS: Karolyn Holloway is a 78-year-old female with past medical history of end-stage renal disease on hemodialysis every Wednesday, , Wednesday, history of hypertension, diabetes mellitus, insulin dependent, multiple other comorbidities. She presented to the hospital yesterday after finishing dialysis. The patient reported that she was having left-sided jaw pain for about 3 days. She presented to [facility] initially for this pain; and at that time, she was diagnosed with otalgia. No imaging was done. However, since after visiting the emergency room (ER), she was not given any antibiotics. This swelling is getting worse and pain is getting worse as well. She denies any fevers or chills. The patient was evaluated in the emergency room (ER) she was found to have acute parotitis. She was admitted under the hospitalist service. She was started on IV antibiotics. Initially, she was given vancomycin and Zosyn in the ER. Nephrology service was called for further help in the management of end-stage renal disease and hemodialysis with its associated complications. I saw and evaluated the patient today morning at the bedside. The patient reported that after starting antibiotics, the pain and swelling is getting significantly better. She denies any other active complaints. 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 PAST SURGICAL HISTORY: History of right ankle surgery, history of tonsillectomy, hysterectomy due to endometrial cancer, left arm AV fistula and history of kidney stone removal in the past. ALLERGIES: The patient is allergic to STATINS, TAPE, BENZONATATE, CETIRIZINE, FENOFIBRATE, OXYCODONE, PREDNISONE TAMSULOSIN FAMILY HISTORY: No significant family history of end-stage renal disease requiring hemodialysis. REVIEW OF SYSTEMS: Constitutional: She denies any fevers and chills. Eyes: She denies any blurry vision. ENT: She reports left-sided facial pain. Otherwise no dysphagia, odynophagia. Cardiovascular: She denies any chest pain, palpitation. Respiratory: She denies any shortness of breath or cough. GI: She denies any nausea, vomiting. Genitourinary: She denies any dysuria or hematuria. Musculoskeletal: She denies any muscle aches and pains. Skin: She denies any rashes or ulcers. 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 Endocrine: She reports a history of diabetes. Hematology/Oncology: She denies any easy bleeding or bruising. All other review of systems is negative. PHYSICAL EXAMINATION: General: The patient is awake, alert, oriented x3, sitting up in the bed in no apparent distress. Vital signs: Temperature is 98.1 degrees Fahrenheit., blood pressure 132/66, pulse is 72, respiratory of 20, saturating 100% on room air. Head and neck exam: Extraocular muscles intact. Pupils equally round, reactive to light. The patient has a left-sided hard, tender swelling anterior to the left ear. Neck is supple. There is no jugular venous distension (JVD). There is no lymphadenopathy noted. Cardiovascular: S1, S2 regular rate. No edema of the bilateral lower extremities. Respiratory: Chest is clear to auscultation bilaterally. Bilateral equal air entry. No rales or rhonchi. Abdomen: Soft. Positive bowel sounds. No organomegaly. She has old surgical scars on the abdomen. Musculoskeletal: No clubbing or cyanosis. Pulses are 2+. 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 Power is 5/5 in all extremities. AV axis: The patient has a left arm AV fistula with positive thrill and bruit. LABORATORY REVIEW: Complete blood count (CBC) showed white blood count (WBC) of 6.6, hemoglobin 9.2, platelets 146. Basic metabolic panel (BMP) showed sodium 139, potassium 3.8, chloride 104, bicarb 29, BUN 9, creatinine is 3.7, calcium 8.2, albumin is 2.7. MICROBIOLOGY: Blood cultures are negative so far. IMAGING: CT scan of the head and neck was review. Official report is pending. The patient has less than 1 cm swelling in the left-sided parotid gland. CURRENT INPATIENT MEDICATIONS: The patient's medications were all reviewed by me. She is currently on Unasyn 3 grams IV q. 24 hourly. She is on Mylanta as needed, amlodipine 5 mg daily, Colace 100 mg by mouth twice a day, Lovenox 30 mg subcutaneous daily, Pepcid 20 mg every 48 hours, insulin Levemir 25 units subcutaneous daily, insulin lispro sliding scale, irbesartan 300 mg at bedtime (q.h.s.), metoprolol 25 mg by mouth twice a day, Milk of Magnesium as needed, multivitamin, Zofran as needed. She was started on saliva substitute one spray, every 1 hour as needed for dry mouth and vitamin B complex. ASSESSMENT: 78-year-old female with end-stage renal disease on hemodialysis, history of hypertension, insulin dependent diabetic, admitted at this time acute with acute the left-sided parotitis. PLAN: 1. Acute left-sided parotitis. The patient is currently on IV Unasyn, dose is adequate according to renal function. She was given a dose of vancomycin and Zosyn in the ER as well. She is clinically improving. Hopefully, she can be switched to oral antibiotics over the next 24 hours. 2. End-stage renal disease on hemodialysis. The patient's regular dialysis days are Wednesday, , Wednesday. She was dialyzed yesterday according to her regular schedule. No urgent need of dialysis at this time. However, she got IV contrast. If she stays overnight, she will be dialyzed tomorrow morning. 3. Hypertension with end-stage renal disease. Blood pressures are optimal. Continue current dose of amlodipine 5 mg daily, irbesartan 300 mg by mouth at bedtime (q.h.s.) and metoprolol 25 mg by mouth twice a day. 4. Anemia and end-stage renal disease, hemoglobin is 9.2. The patient will be given a dose of Aranesp with dialysis tomorrow morning. 5. Diabetes mellitus type 2 insulin dependent. The patient's insulin dose has been decreased to Levemir 25 units subcutaneous at bedtime (q.h.s) because of low blood sugar readings today. Continue insulin sliding scale as needed. Thank you for involving me in the care of this patient. I shall be happy to follow the patient along with you tomorrow morning.
[2019-01-09 05:55] VITALS: BP 148/57
[2019-01-09 05:56] VITALS: BP 148/57
[2019-01-09] MEDS: METOPROLOL TART 25 MG TABLET PO SCH (05:56)
[2019-01-09] MEDS: VITAMIN B COMPLEX/VIT C CAP PO SCH (05:56)
[2019-01-09] MEDS: DOCUSATE SODIUM 100 MG CAP PO SCH (05:57)
[2019-01-09] MEDS: ENOXAPARIN 30 MG/0.3 ML SYR (J1650) SC SCH (05:57)
--- NOTE | 2019-01-09 07:52 | REP ---
Clinical: Swelling. Rule out abscess. Technique: Axial contrast enhanced images through the maxillofacial region to include the mandible with coronal and sagittal re-formations using 75 ml Isovue 370 intravenous contrast material. Findings: Significant left facial subcutaneous inflammatory changes and swelling appreciated along with scattered reactive lymph nodes measuring up to approximately 10 mm extends along the left temporal region and through the left inframammary basilar subcutaneous tissues suggesting cellulitis and parotitis. No phlegmon, abnormal fluid collection or drainable abscess appreciated. The adjacent osseous structures are intact and normal. The left auditory canal appears normal. The sinuses and mastoid air cells are clear. The bilateral orbits are symmetric and normal. Impression: Left-sided inflammatory changes suggesting cellulitis and possible parotitis. No drainable collection/abscess. Electronically Signed by Arnie Villarreal MD 01/07/2019 11:39 A
[2019-01-09] MEDS: HumaLOG INSULIN (NovoLOG) PER UNIT SC SCH ×2 (08:26→12:00)
[2019-01-09] MEDS ORDERED: AUGMENTIN 500 MG TAB PO SCH (09:00)
[2019-01-09] MEDS ORDERED: AMOX500T2 PO (11:23)
[2019-01-09] MEDS ORDERED: HEPARIN 1,000 UNITS/ML 10ML VIAL (FOR RADIOLOGY& DIALYSIS ONLY) IV ONE (11:30)
--- NOTE | 2019-01-09 17:45 | IPN ---
DATE: 01/09/2019 SUBJECTIVE: Patient was seen and examined at the bedside today morning. She is afebrile, hemodynamically stable. She reports that her left-sided facial swelling is getting better. She continues to been intravenous (IV) antibiotics. Patient's regular dialysis days are Wednesday, , Wednesday; however, she is going to be dialyzed today because she got IV contrast when she came to the emergency room (ER). OBJECTIVE: VITAL SIGNS: Temperature is 96.8 degrees Fahrenheit, blood pressure 148/57, pulse is 68, respiratory rate of 16, saturating 98% on room air. INTAKE AND OUTPUT: There is no urine output recorded. Weight in the bed scale is not available. PHYSICAL EXAMINATION: GENERAL: Patient is awake, alert, oriented times three, sitting up in the bed in no apparent distress. HEAD AND NECK EXAM: Pupils equally round and reactive to light. Mucous membranes are moist. She has very mild swelling in front of the left ear, which is mildly tender. CARDIOVASCULAR: S1, S2. Regular rate. No edema of the bilateral lower extremities. RESPIRATORY: Chest is clear to auscultation bilaterally. Bilateral equal air entry. No rales or rhonchi. ABDOMEN: Soft, obese, positive bowel sounds. Nontender. No organomegaly. MUSCULOSKELETAL: No clubbing or cyanosis. Pulses are 2+. 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 Power is 5/5 in all extremities. LABORATORY REVIEW: Complete blood count (CBC) is from yesterday. Basic metabolic panel (BMP) is also from yesterday. IMAGING STUDIES: Maxilla facial CT scan was done on arrival. Report is available which showed left-sided inflammatory changes suggesting cellulitis and possible parotitis. No drainable abscess was noted. CURRENT INPATIENT MEDICATIONS: Patient's medications were all reviewed by me. She is currently on IV Unasyn, which has been stopped, and she has been started on Augmentin 500 mg by mouth daily. No other change in the medications today as compared with yesterday. ASSESSMENT AND PLAN: 1. End-stage renal disease on hemodialysis. Patient's regular dialysis days are Wednesday, , Wednesday; however, she will be dialyzed today to remove the contrast. If she gets dialyzed today, she will not need to be dialyzed again tomorrow morning. 2. Acute left-sided parotitis. Patient was on IV Unasyn. Swelling is better. She has been switched to oral Augmentin now. 3. Anemia in end-stage renal disease. Patient is going to get a dose of Aranesp with dialysis today. DISPOSITION: Hopefully, patient should be stable enough to be discharged tomorrow morning.
--- NOTE | 2019-01-09 21:54 | DS.PDOC ---
Discharge Summary General Date of Admission Jan 07, 2019 at 12:59 Date of Discharge 01/09/19 Attending Physician: NIDHI GARCIA DO Specialist/Consultants Involve: ARMANDO ADHIKARI MD Specialist/Consultants Involve SEND COPY OF NOTE TO PCP - DR Jose A LAMAR Discharge Summary PROCEDURES PERFORMED DURING STAY: Dialysis 01/09/19 ADMITTING DIAGNOSES: Acute parotiditis with facila cellulitis and no abscess HTN ESRD Diabetes with care home insulin use , with hypoglycemia, without hyperglycemia DISCHARGE DIAGNOSES: 1) acute parotiditis with facial cellulitis and no abscess 2) HTN 3) ESRD - 4) Diabetes - with care home insulin use and WITH HYPOGLYCEMIA, without hyperglycemia - COMPLICATIONS/CHIEF COMPLAINT: Parotiditis. HISTORY OF PRESENT ILLNESS: 78 yo female with ESRD developped swelling and pain along left back of neck to back of ear and front of left jaw 2-3 days ago. No associated fever. She had brief episode of clear ear drainage on the RIGHT 3 days ago, which resolved. no ear pain bilaterally. no hearing changes bilaterally. Was seen at ED in [facility] and told neck/jaw pain was "not from my heart" and sent home. She was seen today at dialysis by Dr Adhikari and sent to ED for evaluation where she was found to have parotiditis. Patient states no fever, no TAPIA, has chronic nausea x 6 months and no vomiting. occasional SOB , no CP, no Diarrhea, no Constipation. She follows a strict 36 ounce fluid restriction because of ESRD and noticed increasing dry mouth over past 3-4 days. She states she lives in [place], and malfunctioning city water filtration systems was reported. She states started norvasc 2 months ago and since then has had leg edema bilaterally. See H&P for details HOSPITAL COURSE: Patient admitted, started on Vanc and IV zosyn in ED and changed to IV unasyn for 2 days. Her facial erythema and parotid swelling on left greatly improved and she was transitioned to renal dose augmentin 500mg daily. She had episodes of hypoglycemia and insulin regimen adjusted. She had dialysis on 01/09/19 and per case management recommendation, since patient was medically improved, she discharged after dialysis. Patient had no further left face, neck or jaw pain after 24 hours of antibiotic. DISCHARGE MEDICATIONS: Please see below. ALLERGIES: Please see below. PHYSICAL EXAMINATION ON DISCHARGE: VITAL SIGNS: Please see below. General: pleasant NAD AAOX3 HEENT: minimal swelling (dime size) to left jaw anterior to pinna, no submandibular swelling , no facial erythema HRRR LCTA LABORATORY DATA: Please see below. ACTIVITY: as tolerated DIET: renal DISCHARGE PLAN: discharge home DISCHARGE INSTRUCTIONS: FOLLOW UP 5-7 DAYS WITH PCP - DR Jose A LAMAR FOR RECHECK OF CELLULITIS/PAROTIDITIS DISCHARGE CONDITION: stable TIME SPENT ON DISCHARGE: 30 minutes. Vital Signs/I&Os Vital Signs Date Time Temp Pulse Resp B/P (MAP) Pulse Ox O2 Delivery O2 Flow Rate FiO2 01/09/19 06:12 96.8 98 01/09/19 05:56 58 148/57 01/09/19 05:55 16 01/07/19 15:17 Room Air I&O- Last 24 Hours up to 6 AM 01/09/19 06:00 Intake Total 730 ml Output Total 100 ml Balance 630 ml Laboratory Data Labs 24H Laboratory Tests 2 01/08/19 11:58: Bedside Glucose (Misc Panel) 117H 01/08/19 17:02: Bedside Glucose (Misc Panel) 109 01/08/19 19:52: Bedside Glucose (Misc Panel) 150H 01/09/19 08:02: Bedside Glucose (Misc Panel) 174H FSBS Laboratory Tests Test 01/08/19 11:58 01/08/19 17:02 01/08/19 19:52 01/09/19 08:02 Range/Units Bedside Glucose (Misc Panel) 117 109 150 174 83-110 MG/DL Microbiology Microbiology 01/07/19 Blood Culture - Preliminary, Resulted No growth after 24 hours . All specim... 01/07/19 Blood Culture - Preliminary, Resulted No Growth after 48 hours. All Specime... Discharge Medications Scheduled Amlodipine Besylate (Amlodipine Besylate) 5 Mg Tablet, 5 MG PO QHS, (Reported) Amoxicillin/Potassium Clav (Amox-Clav 500-125 mg Tablet) 1 Each Tablet, 500 MG PO DAILY Biotin (Biotin) 300 Mcg Tab, 300 MCG PO QHS, (Reported) Docusate Sodium (Docusate Sodium) 100 Mg Cap, 100 MG PO BID, (Reported) Insulin Glargine,Hum.rec.anlog (Lantus Solostar) 100 Unit/Ml Inj, 42 UNITS SC DAILY, (Reported) Insulin Human Lispro (Humalog) 1 Units/0.01 Ml Inj, 1 UNITS SC ACHS, (Reported) Irbesartan (Irbesartan) 300 Mg Tablet, 300 MG PO QHS, (Reported) Metoprolol Tartrate (Metoprolol Tartrate) 25 Mg Tablet, 25 MG PO BID, (Reported) Multivitamin (Multivitamins) 1 Each Capsule, 1 CAP PO QHS, (Reported) Ranitidine HCl (Ranitidine HCl) 150 Mg Tablet, 1 TAB PO DAILY, (Reported) Vitamin B Complex (Vitamin B Complex) 1 Tab Tab, 1 TAB PO QHS, (Reported) Scheduled PRN Acetaminophen (Acetaminophen) 500 Mg Tablet, 500 MG PO Q6H PRN for PAIN, (Reported) Ondansetron HCl (Zofran) 4 Mg Tablet, 4 MG PO Q6H PRN for NAUSEA OR VOMITING, (Reported) Allergies Coded Allergies: cetirizine (Verified Allergy, Intermediate, RASH, 01/07/19) prednisolone (Verified Allergy, Intermediate, RASH, 01/07/19) tamsulosin (Verified Allergy, Unknown, PER PT HAD A PROBLEM BUT UNSURE WHAT IT WAS, 01/07/19) Aswybgw-Eme-Wkq Reductase Inhibitor (Verified Adverse Reaction, Severe, CRAMPS, 01/07/19) atorvastatin (Verified Adverse Reaction, Intermediate, CRAMPS, 01/07/19) TAPE (Verified Adverse Reaction, Mild, ITCHING, 05/07/18) oxycodone (Verified Adverse Reaction, Mild, CONSTIPATION, 01/07/19) benzonatate (Verified Adverse Reaction, Unknown, PER PT HAD A PROBLEM WITH IT BUT UNSURE WHY, 01/07/19) fenofibrate (Verified Adverse Reaction, Unknown, PER PT HAD A PROBLEM WITH IT BUT UNSURE WHY, 01/07/19) NIDHI GARCIA DO Jan 09, 2019 11:25
== END 2019-01-09 17:35 | disposition home or self-care (01) | DRG 154 ==
LOC: M ED 10:18 → EDBD 10:18 → M ED INP 12:59 → M MS5PR 15:20
PROVIDERS: ADMIT Family Medicine; ATTEND Family Medicine
PROC: 5A1D70Z Performance of Urinary Filtration, Intermittent, Less than 6 Hours Per Day (ICD-10-PCS; principal; 2019-01-07)
DX: K11.21 Acute sialoadenitis (principal); N18.6 End stage renal disease; I12.0 Hypertensive chronic kidney disease with stage 5 chronic kidney disease or end stage renal disease; L03.211 Cellulitis of face; E11.65 Type 2 diabetes mellitus with hyperglycemia; Z79.4 Long term (current) use of insulin; Z79.899 Other long term (current) drug therapy; Z88.5 Allergy status to narcotic agent; Z88.8 Allergy status to other drugs, medicaments and biological substances; M10.30 Gout due to renal impairment, unspecified site; M19.90 Unspecified osteoarthritis, unspecified site; Z87.442 Personal history of urinary calculi; Z66 Do not resuscitate; Z85.89 Personal history of malignant neoplasm of other organs and systems; D63.1 Anemia in chronic kidney disease

== ENCOUNTER → 2019-01-11 | Outpatient (CLI) | payer MEDICARE, MEDICAID ==
[~2019-01-11] MED LIST changes: +ACET-683 PO; +AMLO5TAB6 PO; +AMOX500T2 PO; +DIAL800T3 PO; +METO1TAB87 PO; +MULTCAP PO; -OMEP40CA2 PO; +OMEP40CA97 PO; +PANT40TA3 PO; +RANI150T14 PO; +RED600TA PO
--- NOTE | 2019-01-12 07:42 | REP ---
RIGHT UPPER EXTREMITY DUPLEX DOPPLER VENOUS AND ARTERIAL ULTRASOUND FOR MAPPING FOR ARTERIOVENOUS FISTULA. Real-time ultrasound evaluation and duplex Doppler interrogation of the right upper extremity venous and arterial systems performed. No definite deep vein thrombosis is seen of the right upper extremity deep venous system. There is partial nonocclusive thrombosis of the right median cubital vein. Right basilic vein measures 4 mm at the upper and lower humerus, 2 mm in the upper forearm and 1 mm in the lower forearm and wrist. The medial cubital vein measures 2 mm. Right cephalic vein measures 3 mm at the upper humerus, 4 mm at the lower humerus, 3 mm in the upper forearm and 2 mm in the lower forearm and wrist. Right upper extremity arterial structures demonstrate normal flow velocities with biphasic and triphasic waveforms. Right axillary artery measures 5 mm, brachial artery 4 mm, radial artery 3 mm and ulnar artery 4 mm. Electronically Signed by Robles Flores MD 01/12/2019 10:11 A
== END ==
LOC: M RAD 12:59
PROVIDERS: ATTEND Surgery Vascular Surgery
DX: N18.6 End stage renal disease (principal)

== ENCOUNTER 2019-02-22 07:00 | Observation (INO) | payer MEDICARE, MEDICAID ==
[~2019-02-22] VITALS: Ht 172.7 cm; Wt 97.9 kg
[~2019-02-22 07:00] MED LIST changes: -DIAL800T3 PO; +NS 1,000 ML IV ONE; +OMEP40CA2 PO; -OMEP40CA97 PO; +ceFAZolin SOD 2 GM in IV 1 EA IV ONE
[2019-02-22] MEDS ORDERED: LIDOCAINE 2% MDV *ALTO* 20 ML VIAL ONE (07:01)
[2019-02-22] MEDS ORDERED: dexameTHASONE 10 MG/1 ML VIAL PRES.FREE (J1100) ONE (07:01)
[2019-02-22] MEDS ORDERED: ROPIvacaine 0.5% 30 ML INJECTION (J2795 PER 1MG) ONE (07:01)
[2019-02-22] MEDS ORDERED: dexameTHASONE 4 MG/ML 1ML VIAL (J1100) As Ordered ONE (08:40)
[2019-02-22] MEDS ORDERED: ONDANSETRON 4MG/2ML VIAL (J2405) As Ordered ONE (08:40)
[2019-02-22] MEDS ORDERED: LIDOCAINE 2% INJ 100 MG/5 ML SDV (FOR ANES.) As Ordered ONE (08:40)
[2019-02-22] MEDS ORDERED: PROPOFOL 200 MG/20 ML VIAL As Ordered ONE (08:40)
[2019-02-22] MEDS ORDERED: fentaNYL 100 MCG/2 ML INJECTION (J3010) As Ordered ONE ×2 (08:41→10:12)
[2019-02-22] MEDS ORDERED: MIDAZOLAM INJ 2 MG/2 ML VIAL (J2250) As Ordered ONE (10:12)
[2019-02-22] MEDS: MIDAZOLAM INJ 2 MG/2 ML VIAL (J2250) IV SCH ×2 (10:41→10:42)
[2019-02-22] MEDS: fentaNYL 100 MCG/2 ML INJECTION (J3010) IV SCH ×2 (10:41→10:44)
[2019-02-22] MEDS ORDERED: HEPARIN SOD (PORCINE) 5000 UNITS/ML VIAL As Ordered ONE (10:56)
[2019-02-22] MEDS ORDERED: LIDOCAINE 1% SDV INJ 30 ML VIAL As Ordered ONE (10:56)
[2019-02-22] MEDS ORDERED: METOCLOPRAMIDE INJ 10MG/2ML VIAL (J2765) As Ordered ONE (12:00)
[2019-02-22] MEDS ORDERED: ONDANSETRON 4MG/2ML VIAL (J2405) IV PRN (13:30)
[2019-02-22] MEDS ORDERED: LR 1,000 ML IV SCH (13:30)
--- NOTE | 2019-02-22 14:33 | REP ---
REASON: Dyspnea. COMPARISON: 05/07/2018, the latest prior also portable. The technique utilized in obtaining the radiograph has magnified the cardiac silhouette and accentuated the interstitial markings. The interstitial markings are increased, however, the lung sanon are hypoexpanded. The cardiac silhouette is magnified by technique. There is cardiomegaly. No acute patchy parenchymal opacities or pleural effusions have developed. IMPRESSION: Technical factors as described above. The interstitial markings are increased, but accentuated by technique. There is cardiomegaly also accentuated by technique. Mild interstitial edema cannot be ruled out by this exam. Electronically Signed by Ariel Ford DO 02/22/2019 04:29 P
[2019-02-22 14:38] VITALS: BP 153/88
[2019-02-22] MEDS ORDERED: ONDANSETRON 4 MG TAB (S0181) PO PRN (14:45)
[2019-02-22] MEDS ORDERED: ACETAMINOPHEN 500 MG TAB PO PRN (14:45)
[2019-02-22 15:00] VITALS: BP 161/84
[2019-02-22] MEDS ORDERED: GLUCOSE 4 GM CHEW TABLET PO PRN (15:15)
[2019-02-22] MEDS ORDERED: GLUCAGON FOR INJ 1 MG VIAL (J1610) SC PRN (15:15)
[2019-02-22] MEDS ORDERED: DEXTROSE 50% 50 ML SYRINGE IV PRN (15:15)
--- NOTE | 2019-02-22 15:16 | HPEPDOC ---
[facility] Medical History & Physical Date of Admission Feb 22, 2019 Date of Service: Feb 22, 2019 History and Physical CHIEF COMPLAINT: Shortness of breath HISTORY OF PRESENT ILLNESS: This is a 78-year-old female with known end-stage renal disease on hemodialysis who is been having fluid taken off during her re gular HD sessions Wednesday. Patient presented today for outpatient elective creation of a right brachial AV fistula to be used as a future hemodialysis access. The seizure was completed and patient tolerated the procedure well by Dr. Pandya of vascular surgery. Following the procedure the patient was quite sleepy and hypoxic while sleeping and also complained of some shortness of breath which she did not have prior to the procedure. Patient was also noted to be hypertensive she did take her evening BP meds last night but held this a.m. is prior to the procedure. Patient did receive some normal saline and lactated Ringer's periprocedurally. At this time the patient tells me she is breathing well on 2 L although she has no baseline home O2 requirement or baseline shortness of breath Otherwise patient denies weight loss, hair loss, headache, visual changes, chest pain, cough, nausea, vomiting, diarrhea, abdominal pain, muscle aches, worsening arthritis, change in mood PAST MEDICAL HISTORY: 1. End-stage renal disease on hemodialysis Wednesday. 2. Anemia of end-stage renal disease. 3. And insulin-dependent diabetes mellitus 4. Hypertension 5. Os arthritis 6. Dyslipidemia 7. Endometrial cancer. HOME MEDICATIONS: Please see below. ALLERGIES: Please see below PAST SURGICAL HISTORY: 1. Right ankle surgery. 2. Tonsillectomy. 3. Hysterectomy for endometrial cancer 4. Left arm AV fistula development. SOCIAL HISTORY: Employment: Not working, Tobacco use: Denies. ETOH: Denies, [place] licit drug use: Denies, CODE STATUS: Full code FAMILY HISTORY:Reviewed and noncontributory REVIEW OF SYSTEMS: 10 systems reviewed and negative other than HPI PHYSICAL EXAMINATION: VITAL SIGNS: Temperature 97.5, pulse 64, respiratory rate 18, blood pressure 1 93/81, pulse oximetry 97 % on 2 L. GENERAL: Pleasant obese elderly womansitting up in bed awake alert oriented speaking in complete sentences no acute distress HEENT: Moist mucous membranes exam is difficult secondary to body habitus however there does appear to be some elevation in CVP CARDIOVASCULAR: S1 S2 regular no additional heart sounds appreciated. RESPIRATORY: Scattered bibasilar Rales ABDOMINAL: Bowel sounds present abdomen soft and nontender, obese EXTREMITIES: No clubbing cyanosis, 1+ edema, right surgical site dressing clean dry and intact left AV fistula palpable thrill NEUROLOGICAL: Spontaneously moves all 4 extremities cranial 2 through 12 grossly intact no gross focal deficits appreciated PSYCHOLOGICAL: Appropriate LABORATORY DATA: See below. MICROBIOLOGY: Please see below. IMAGING: Chest x-ray:Technical factors as described above. The interstitial markings are increased, but accentuated by technique. There is cardiomegaly also accentuated by technique. Mild interstitial edema cannot be ruled out by this exam. ASSESSMENT & PLAN: This is a 78-year-old female postop day 0 for right AV fistula creation who has been admitted for shortness of breath. PROBLEMS: 1. Shortness of breath: I suspect secondary to decompensated congestive heart failure related to her end-stage renal disease. I suspect that she had some extra fluid prior to her procedure and received additional fluids and has some mild pulmonary edema. I restart to the nephrology service will see the patient in consultation I suspect she'll benefit from inpatient hemodialysis session tomorrow on her regular day to see if she is able to have improvement in her blood pressure and breathing. Given that happened after anesthesia and while she slept there is also some concern for obstructive sleep apnea she certainly has the body habitus suggestive of this I will place on the OC protocol however I do feel this is less likely. 2. End-stage renal disease on hemodialysis: Normal schedule Wednesday nephrology consult placed and hopefully greatly appreciated 3. Hypertension: I will give her her home metoprolol at this time continue with her usual dosing as well as her usual irbesartan later this evening and monitor until hemodialysis tomorrow 4. Diabetes: I'll place her on a renal consistent carb diet put her on sliding scale as well as decrease her basal insulin 5. Gastroesophageal reflux disease: Continue with pantoprazole DVT PROPHYLAXIS: Heparin twice a day DISPOSITION: Admitted to [facility] observation status as per vascular surgery's post procedural orders Vital Signs Vital Signs Date Time Temp Pulse Resp B/P (MAP) Pulse Ox O2 Delivery O2 Flow Rate FiO2 02/22/19 14:00 97.5 64 18 193/81 (118) 97 2 Laboratory Data Labs 24H Laboratory Tests 2 02/22/19 08:37: Bedside Glucose (Misc Panel) 95 02/22/19 12:06: Bedside Glucose (Misc Panel) 92 02/22/19 13:08: Bedside Glucose (Misc Panel) 87 CBC/BMP Laboratory Tests 02/22/19 07:23 Home Medications Scheduled Amlodipine Besylate (Amlodipine Besylate) 5 Mg Tablet, 5 MG PO QHS Biotin (Biotin) 300 Mcg Tab, 300 MCG PO QHS Docusate Sodium (Docusate Sodium) 100 Mg Cap, 100 MG PO BID Insulin Glargine,Hum.rec.anlog (Lantus Solostar) 100 Unit/Ml Inj, 42 UNITS SC DAILY Insulin Human Lispro (Humalog) 1 Units/0.01 Ml Inj, 1 UNITS SC ACHS Irbesartan (Irbesartan) 300 Mg Tablet, 300 MG PO QHS Metoprolol Tartrate (Metoprolol Tartrate) 25 Mg Tablet, 25 MG PO BID Multivitamin (Multivitamins) 1 Each Capsule, 1 CAP PO QHS Pantoprazole Sodium (Pantoprazole Sodium) 40 Mg Tablet.dr, 40 MG PO QPM Ranitidine HCl (Ranitidine HCl) 150 Mg Tablet, 1 TAB PO DAILY Red Yeast Rice (Red Yeast Rice) 600 Mg Tablet, 600 MG PO DAILY Vitamin B Complex (Vitamin B Complex) 1 Tab Tab, 1 TAB PO QHS Scheduled PRN Acetaminophen (Acetaminophen) 500 Mg Tablet, 500 MG PO Q6H PRN for PAIN Ondansetron HCl (Zofran) 4 Mg Tablet, 4 MG PO Q6H PRN for NAUSEA OR VOMITING Allergies Coded Allergies: cetirizine (Verified Allergy, Intermediate, RASH, 02/22/19) Crsmgid-Cwv-Pdh Reductase Inhibitor (Verified Adverse Reaction, Intermediate, CRAMPS, 02/07/19) atorvastatin (Verified Adverse Reaction, Intermediate, CRAMPS, 01/07/19) prednisolone (Verified Adverse Reaction, Intermediate, ELEVATES BLOOD SUGAR, PT DIABETIC, 02/07/19) TAPE (Verified Adverse Reaction, Mild, ITCHING, 05/07/18) oxycodone (Verified Adverse Reaction, Mild, CONSTIPATION, 01/07/19) benzonatate (Verified Adverse Reaction, Unknown, PER PT HAD A PROBLEM WITH IT BUT UNSURE WHY, 01/07/19) fenofibrate (Verified Adverse Reaction, Unknown, PER PT HAD A PROBLEM WITH IT BUT UNSURE WHY, 01/07/19) tamsulosin (Verified Adverse Reaction, Unknown, PER PT HAD A PROBLEM BUT UNSURE WHAT IT WAS, 02/07/19) A-FIB/CHADSVASC A-FIB History Current/History of A-Fib/PAF?: No EMANUEL BLACKMON MD Feb 22, 2019 15:16
[2019-02-22 15:30] VITALS: BP 169/81
[2019-02-22 16:30] VITALS: BP 189/74
[2019-02-22] MEDS: HumaLOG INSULIN (NovoLOG) PER UNIT SC SCH (16:45)
[2019-02-22] MEDS: METOPROLOL TART 25 MG TABLET PO SCH ×2 (16:49→21:57)
--- NOTE | 2019-02-22 17:31 | ROOPDOC ---
[facility] Report Of Operation Report of Operation DATE OF PROCEDURE: 02/22/19 PREPROCEDURE DIAGNOSES: End-stage renal disease with poorly functioning left upper extremity AV fistula in need of new AV access. POSTPROCEDURE DIAGNOSES: Same PROCEDURE: Creation of right brachiocephalic AV fistula SURGEON: Sherry Pandya MD ANESTHESIA: LMA, nerve block, local anesthesia. INDICATION FOR PROCEDURE: This is a very pleasant 78-year-old patient who has been dialyzing for sometime with the left upper extremity AV fistula that has been challenging to maintain patency and she has had multiple problems with in filtrations, central stenosis, subclavian stenosis, and proximal cephalic vein stenosis. She requires frequent angioplasties to maintain patency, and this is still somewhat unsuccessful in keeping her for away from complications such as infiltrations and poor flows well on dialysis. We discussed the risks benefits and alternatives for a new AV fistula creation and vein mapping suggested the patient likely had a suitable right cephalic vein for fistula creation. Risks benefits and alternatives were thoroughly explained and she was agreeable to proceed. Informed consent was obtained. REPORT OF OPERATION: The patient was brought to the OR in stable condition after her right upper extremity scalene block was performed by our anesthesia colleagues in preop holding. LMA anesthesia and antibiotics were administered without complication. Her right upper extremity was prepped and draped in a sterile fashion. A timeout was performed. A transverse incision was made 1 cm distal to the antecubital crease over the brachial artery pulse. This was carried down to the subcutaneous tissue with Bovie cautery. The cephalic vein was identified and skeletonized proximally and distally within the incision. Distal branches were suture ligated divided and combined to make a larger patch for anastomosis. Small branches were also suture ligated and divided. The vein was serially dilated with dilators measuring 3 mm, 3.5 mm, 4 mm, 4.5 mm. All dilators passed easily. I felt the vein was suitable for fistula creation. We dissected through the fascia to the brachial artery and it was skeletonized proximally and distally. A vessel loop was placed proximally in the brachial artery and distally on the radial artery, ulnar artery, and interosseous artery. We then secured the vessel loops, and a 5 mm arteriotomy was made. We then anastomosis the vein to the artery and an end-to-side fashion with 6-0 Prolene suture. Before the final sutures were placed, we flushed the inflow and outflow arteries as well as the vein and irrigated with heparinized saline. We then placed our final sutures and restored flow first to the vein, second the inflow from the brachial artery and lastly restoring flow to the hand. We had a good pulse at the wrist in a good thrill in the fistula. There was a good strong signal with Doppler at the palmar arch and the hand was warm and pink and well perfused. We then irrigated our incision with copious amounts of saline. Local anesthesia was administered to the skin and subcutaneous tissue and the deeper tissues were reapproximated with 2 layers of 3-0 Vicryl suture. The skin was closed with a running septic Monocryl suture. Mastisol and Steri-Strips were p laced the length of the wound for final dressing. The patient was allowed to awaken from anesthesia and was taken to PACU in stable condition. DRAINS: None SPECIMENS: None ESTIMATED BLOOD LOSS: Approximately 25 mL. COMPLICATIONS: None. REMARKS: The patient was short of breath persistently postop in PACU, and I ordered a chest x-ray for evaluation. I have reviewed this chest x-ray, and it appears the patient has a new finding of right hemidiaphragm, possibly secondary to scalene nerve block, in addition to known cardiomegaly and diffuse infiltrates likely secondary to volume overload from chronic renal insufficiency. She will be monitored overnight, and depending on her respiratory condition in the morning, it is possible she may be discharged. We will see how she does. Frequently phrenic nerve palsies after scalene block are transient, and hopefully her respiratory status will improve by morning. SHERRY PANDYA MD Feb 22, 2019 17:31
[2019-02-22 18:22] LABS: BASO % 0.6 % (0.0-1.0); EOS % 0.3 % (0.0-3.0); HEMATOCRIT 39.2 % (36.0-47.0); HEMOGLOBIN 12.1 g/dl (12.0-15.5); LYMPH # 0.5 10^3/uL (1.5-5.0); LYMPH % 7.6 % (24.0-44.0); MEAN CORPUSCULAR HEMOGLOBIN 29.4 pg (27.0-33.0); MEAN CORPUSCULAR HGB CONC 30.9 g/dl (32.0-36.5); MEAN CORPUSCULAR VOLUME 95.1 fl (80.0-96.0); MONO # 0.1 10^3/uL (0.0-0.8); MONO % 0.9 % (0.0-5.0); NEUTROPHILS # 5.9 10^3/uL (1.5-8.5); PLATELET COUNT, AUTOMATED 141 10^3/uL (150-450); RED BLOOD COUNT 4.12 10^6/uL (4.00-5.40); WHITE BLOOD COUNT 6.6 10^3/uL (4.0-10.0)
[2019-02-22 18:43] LABS: ALBUMIN 3.3 GM/DL (3.2-5.2); BILIRUBIN,TOTAL 0.4 MG/DL (0.2-1.0); CALCIUM LEVEL 9.5 MG/DL (8.8-10.2); CREATININE FOR GFR 5.17 MG/DL (0.55-1.30); GLOMERULAR FILTRATION RATE 8.6 (>39); POTASSIUM SERUM 4.6 MEQ/L (3.5-5.1); TOTAL PROTEIN 7.1 GM/DL (6.4-8.2); TROPONIN I 0.02 NG/ML (< 0.10)
[2019-02-22] MEDS ORDERED: HumaLOG INSULIN (NovoLOG) PER UNIT SC SCH (21:00)
[2019-02-22] MEDS ORDERED: IRBESARTAN 150 MG TAB PO SCH (21:00)
[2019-02-22] MEDS ORDERED: PANTOPRAZOLE 40MG TAB (PROTONIX) PO SCH (21:00)
[2019-02-22] MEDS: HEPARIN SOD (PORCINE) 5000 UNITS/ML VIAL SC SCH (21:00)
[2019-02-22] MEDS: DOCUSATE SODIUM 100 MG CAP PO SCH (21:00)
[2019-02-22 22:00] VITALS: BP 151/95
--- NOTE | 2019-02-22 22:56 | CR ---
DATE OF CONSULTATION: 02/22/2019 REQUESTING PHYSICIAN: Dr. Martin Peralta CONSULTING PHYSICIAN: Oralia Rosado MD REASON FOR CONSULTATION: Management of end-stage renal disease and fluid overload. CHIEF COMPLAINT The patient was admitted to the hospital from same-day surgery center because of shortness of breath after the procedure. HISTORY OF PRESENT ILLNESS Karolyn Holloway is a 78-year-old female with past medical history of end-stage renal disease on hemodialysis every Wednesday, , Wednesday. She was dialyzed as per her regular schedule yesterday. She has an aneurysmal left upper arm AV fistula which is having a lot of issues including difficult cannulation and a lot of bleeding after dialysis. She came as outpatient to have a right upper arm AV fistula placed by vascular surgery. Fistula was placed under general anesthesia, however, after that she was very hypoxic and sleepy and her blood pressure was also elevated. Patient has also received some IV fluids including normal saline and Ringer's lactate perioperatively. He was placed on 2 liters by nasal cannula. Chest x-ray was done which showed some interstitial infiltrates. Nephrology service was called for further help in the management of end-stage renal disease and management of the volume status. The patient needed my immediate attention. I saw and evaluated the patient at the bedside in the evening. The patient reported that she was still short of breath and tomorrow morning is her regular day of dialysis. Given her shortness of breath, I advised her to do the hemodialysis tonight and she agreed to have dialysis inpatient in the hospital. PAST MEDICAL HISTORY Past medical history of end-stage renal disease on hemodialysis every Wednesday, , Wednesday, history of hypertension with hypertensive heart disease, diabetes mellitus type 2, insulin dependent, osteoarthritis, history of endometrial cancer in the past, hyperlipidemia. PAST SURGICAL HISTORY History of left upper arm AV fistula in the past, history of right ankle surgery, tonsillectomy in the past, hysterectomy for endometrial cancer and she got right upper arm AV fistula placed today. ALLERGIES: The patient is allergic to STATINS, TAPE, BENZONETATE, CETIRIZINE, FENOFEBRATE, OXYCODONE, PREDNISOLONE, AND TAMSULOSIN. FAMILY HISTORY No significant family history of end-stage renal disease. SOCIAL HISTORY She denies any smoking, illicit drug abuse or alcohol abuse. REVIEW OF SYSTEMS Constitutional: She denies any fevers and chills. Eyes: She denies any blurry vision, double vision. ENT: She denies any dysphagia, odynophagia. Cardiovascular: She does report some chest pressure and shortness of breath. Respiratory: She reports shortness of breath and some cough. She denies any fever. GI: She denies any nausea, vomiting. Genitourinary: She denies any dysuria, hematuria. Musculoskeletal: She denies any muscle aches and pains. Skin: She denies any rashes or ulcers. Psych: She denies any depression or anxiety. COMMUTATOR OPERATOR: She denies any strokes or seizures. All other review of systems is negative. PHYSICAL EXAMINATION General: The patient is awake, alert, oriented times three, laying in bed, mild respiratory distress. Vitals: T98F,BP170/60P68 RR18,Sat98% Head and neck examination: Extraocular muscles intact. Pupils equally round and reactive to light. Mucous membranes are moist. Neck is supple. There is mildly elevated JVD. Cardiovascular: S1, S2, regular rate. 1+ edema of the bilateral lower extremities. Respiratory: Decreased breath sounds at the bases, mild respiratory crackles bilaterally at the bases. Abdomen: Soft, obese, positive bowel sounds. Nontender. Musculoskeletal: No clubbing or cyanosis. Pulses are 2+. She has left upper arm aneurysmal AV fistula with thrill and bruit and she has a new AV fistula placed with a dressing on the right upper arm. COMMUTATOR OPERATOR: No focal deficit. Power is 5/5 in all extremities. LAB REVIEW: CBC showed a WBC 6.6, hemoglobin 12.1, platelets are 141. BMP showed sodium 139, potassium 4.6, chloride 104, bicarb 26, BUN 23, creatinine is 5.1. Pro-BNP is 14,181, albumin is 3.3. IMAGING STUDIES Chest x-ray was done which showed bilateral interstitial infiltrates. CURRENT INPATIENT MEDICATIONS The patient's medications were all reviewed by me. She is currently on Ancef 2 grams IV; one dose was given. She was getting normal saline at 100 mL an hour which has been stopped now. She is on Colace 100 mg by mouth (p.o.) twice a day, heparin subcutaneous, insulin Levemir 20 units subcu daily, insulin sliding scale, irbesartan 300 mg at bedtime, metoprolol 25 mg by mouth twice a day, Zofran as needed (p.r.n.), Protonix 40 mg at night. ASSESSMENT 78-year-old female with past medical history of end-stage renal disease on hemodialysis every Wednesday, , Wednesday status post right upper arm AV fistula placement admitted this time because of shortness of breath and fluid overload. PLAN 1. Acute decompensated congestive heart failure with preserved ejection fraction. The patient got IV fluids and she is due for dialysis tomorrow morning. Because of volume overload I have arranged for urgent hemodialysis to be done in the evening. I will dialyzed her for 3 hours and try to remove at least 2 kg of fluid as tolerated by blood pressure. Avoid further IV fluid hydration. I have stopped the IV fluids now. 2. End-stage renal disease, on hemodialysis. Normal dialysis day is tomorrow. However, because of fluid overload she will be dialyzed today. She can be discharged tomorrow morning and she can get her regular dialysis as outpatient. 3. Hypertension with hypertensive heart disease and end-stage renal disease. Continue current dose of irbesartan, avoid further use of IV fluids. 4. Diabetes mellitus type 2 insulin dependent. Continue current dose of insulin Levemir and insulin sliding scale. She can resume her medications when she goes home. Thank you for involving me in the care of this patient. I shall be happy to follow the patient along with you tomorrow morning. I am hopeful that by tomorrow morning her blood pressures and breathing status should improve and she should be able to go home. TERRYD
[2019-02-23 06:00] VITALS: BP 154/49
[2019-02-23] MEDS: DOCUSATE SODIUM 100 MG CAP PO SCH (07:53)
[2019-02-23] MEDS: HEPARIN SOD (PORCINE) 5000 UNITS/ML VIAL SC SCH (07:53)
[2019-02-23] MEDS: HumaLOG INSULIN (NovoLOG) PER UNIT SC SCH (07:59)
[2019-02-23 08:14] VITALS: BP 126/50
[2019-02-23] MEDS: METOPROLOL TART 25 MG TABLET PO SCH (08:14)
[2019-02-23 09:00] VITALS: BP 126/50
[2019-02-23] MEDS ORDERED: LEVEMIR (INSULIN DETEMIR) 1 UNITS/0.01ML SC SCH (09:00)
--- NOTE | 2019-02-23 09:09 | IPNPDOC ---
Date Seen The patient was seen on 02/23/19. Progress Note Ms Holloway is a very pleasant 78-year-old patient one day postop from the right brachiocephalic AV fistula creation. The patient underwent a preoperative nerve block with our anesthesia colleagues and was and was monitored overnight due to shortness of breath in PACU. I ordered a chest x-ray which reveals a right hemidiaphragm, as well as significant infiltrates secondary to volume overload. The patient did not go to dialysis on her to stay schedule, and our nephrology colleagues were kind enough to dialyze her last night which significantly improved her oxygen saturation. She may dialyze again today at their discretion, since this is her scheduled day, but we will leave this decision to Dr. Yanez. I would like the patient to have respiratory teacher incentive spirometry to help with expansion of her lungs, and I would like her to be consistent with her dialysis. Frequently phrenic nerve palsies will resolve with time, and she already seems to be improved this morning. She is currently off oxygen at rest with saturations 96-98%, but I would like her to walk with physical therapy and make sure she does not have exercise-induced hypoxemia. If she is stable from a respiratory standpoint, it is okay for discharge from a vascular surgery standpoint. On my exam, the patient is stable in no distress, and says she is feeling well. Her left upper extremity fistula is pulsatile, and will likely need another fistulogram and central vein angioplasty to maintain patency while developing her new right upper extremity brachiocephalic AV fistula. Her right upper extremity brachiocephalic fistula has a good thrill, no pulsatility, and the incision is clean dry and intact with minimal bruising. She has a good pulse at the wrist, and her hand is warm and well-perfused. PLAN: 1. Ambulate with physical therapy and monitor for hypoxia. Incentive spirometry. Okay to discharge from vascular surgery standpoint when stable from respiratory standpoint. 2. Patient dialyzes Wednesday, and we will leave additional dialysis today up to the discretion of the nephrology team. 3. We will continue to try to maintain patency in her left upper extremity fistula until we can mature her right upper extremity brachiocephalic fistula. 4. It is okay for blood draws in the distal forearms and hands bilaterally. 5. Follow up in clinic within a week to discuss fistulogram left upper extremity and check incision and thrill in new fistula in the right upper extremity. VS, I&O, 24H, [facility] Vital Signs/I&O Vital Signs Date Time Temp Pulse Resp B/P (MAP) Pulse Ox O2 Delivery O2 Flow Rate FiO2 02/23/19 08:14 71 126/50 02/23/19 06:00 98.0 16 96 02/22/19 22:00 0.5 I&O- Last 24 Hours up to 6 AM 02/23/19 05:59 Intake Total 260 ml Output Total 2025 ml Balance -1765 ml Laboratory Data 24H LABS Laboratory Tests 2 02/22/19 12:06: Bedside Glucose (Misc Panel) 92 02/22/19 13:08: Bedside Glucose (Misc Panel) 87 02/22/19 16:27: Bedside Glucose (Misc Panel) 139H 02/22/19 17:58: Immature Granulocyte % (Auto) 0.6, White Blood Count 6.6, Red Blood Count 4.12, Hemoglobin 12.1, Hematocrit 39.2, Mean Corpuscular Volume 95.1, Mean Corpuscular Hemoglobin 29.4, Mean Corpuscular Hemoglobin Concent 30.9L, Red Cell Distribution Width 15.7H, Platelet Count 141L, Neutrophils (%) (Auto) 90.0H, Lymphocytes (%) (Auto) 7.6L, Monocytes (%) (Auto) 0.9, Eosinophils (%) (Auto) 0.3, Basophils (%) (Auto) 0.6, Neutrophils # (Auto) 5.9, Lymphocytes # (Auto) 0.5L, Monocytes # (Auto) 0.1, Eosinophils # (Auto) 0.0, Basophils # (Auto) 0.0, Nucleated Red Blood Cells % (auto) 0.0, Anion Gap 9, Glomerular Filtration Rate 8.6L, Blood Urea Nitrogen 23H, Creatinine 5.17H, Sodium Level 139, Potassium Level 4.6, Chloride Level 104, Carbon Dioxide Level 26, Calcium Level 9.5, Phosphorus Level 4.0, Aspartate Amino Transf (AST/SGOT) 18, Alanine Aminotransferase (ALT/SGPT) 16, Alkaline Phosphatase 23L, Total Bilirubin 0.4, Total Protein 7.1, Albumin 3.3, Troponin I 0.02, XA-Nak-Z-Type Natriuretic Peptide 10307U, Albumin/Globulin Ratio 0.87L 02/22/19 20:56: Troponin I < 0.02 02/22/19 21:46: Bedside Glucose (Misc Panel) 142H 02/23/19 06:48: Bedside Glucose (Misc Panel) 190H CBC/BMP Laboratory Tests 02/22/19 17:58 Red Blood Count 4.12, Mean Corpuscular Volume 95.1, Mean Corpuscular Hemoglobin 29.4, Mean Corpuscular Hemoglobin Concent 30.9 L, Red Cell Distribution Width 15.7 H, Neutrophils (%) (Auto) 90.0 H, Lymphocytes (%) (Auto) 7.6 L, Monocytes (%) (Auto) 0.9, Eosinophils (%) (Auto) 0.3, Basophils (%) (Auto) 0.6, Neutrophils # (Auto) 5.9, Lymphocytes # (Auto) 0.5 L, Monocytes # (Auto) 0.1, Eosinophils # (Auto) 0.0, Basophils # (Auto) 0.0, Calcium Level 9.5, Phosphorus Level 4.0, Aspartate Amino Transf (AST/SGOT) 18, Alanine Aminotransferase (ALT/SGPT) 16, Alkaline Phosphatase 23 L, Total Bilirubin 0.4, Total Protein 7.1, Albumin 3.3 SHERRY JACOME MD Feb 23, 2019 09:09
[2019-02-23 09:33] LABS: HEMOGLOBIN 10.9 g/dl (12.0-15.5); MEAN CORPUSCULAR HEMOGLOBIN 28.6 pg (27.0-33.0); MEAN CORPUSCULAR HGB CONC 31.1 g/dl (32.0-36.5); MEAN CORPUSCULAR VOLUME 91.9 fl (80.0-96.0); PLATELET COUNT, AUTOMATED 151 10^3/uL (150-450); RED BLOOD COUNT 3.81 10^6/uL (4.00-5.40); WHITE BLOOD COUNT 6.6 10^3/uL (4.0-10.0)
[2019-02-23 10:05] LABS: BLOOD UREA NITROGEN 16 MG/DL (7-18); CALCIUM LEVEL 8.8 MG/DL (8.8-10.2); CARBON DIOXIDE LEVEL 28 MEQ/L (21-32); CHLORIDE LEVEL 101 MEQ/L (98-107); CREATININE FOR GFR 3.73 MG/DL (0.55-1.30); GLOMERULAR FILTRATION RATE 12.5 (>39); GLUCOSE, FASTING 194 MG/DL (70-100); POTASSIUM SERUM 4.3 MEQ/L (3.5-5.1); SODIUM LEVEL 137 MEQ/L (136-145); TROPONIN I < 0.02 NG/ML (< 0.10)
--- NOTE | 2019-02-23 10:07 | IPNPDOC ---
Text Note Date of Service SHERYL,Annemarie, I+O VS, Annemarie, I+O Laboratory Tests 02/22/19 17:58 Red Blood Count 4.12, Mean Corpuscular Volume 95.1, Mean Corpuscular Hemoglobin 29.4, Mean Corpuscular Hemoglobin Concent 30.9 L, Red Cell Distribution Width 15.7 H, Neutrophils (%) (Auto) 90.0 H, Lymphocytes (%) (Auto) 7.6 L, Monocytes (%) (Auto) 0.9, Eosinophils (%) (Auto) 0.3, Basophils (%) (Auto) 0.6, Neutrophils # (Auto) 5.9, Lymphocytes # (Auto) 0.5 L, Monocytes # (Auto) 0.1, Eosinophils # (Auto) 0.0, Basophils # (Auto) 0.0, Calcium Level 9.5, Phosphorus Level 4.0, Aspartate Amino Transf (AST/SGOT) 18, Alanine Aminotransferase (ALT/SGPT) 16, Alkaline Phosphatase 23 L, Total Bilirubin 0.4, Total Protein 7.1, Albumin 3.3 02/23/19 09:05 Red Blood Count 3.81 L, Mean Corpuscular Volume 91.9, Mean Corpuscular Hemoglobin 28.6, Mean Corpuscular Hemoglobin Concent 31.1 L, Red Cell Distribution Width 15.7 H, Calcium Level 8.8 Vital Signs Date Time Temp Pulse Resp B/P (MAP) Pulse Ox O2 Delivery O2 Flow Rate FiO2 02/23/19 09:00 96.8 71 16 126/50 (75) 97 02/22/19 22:00 0.5 I&O- Last 24 Hours up to 6 AM 02/23/19 06:00 Intake Total 410 ml Output Total 5 ml Balance -1615 ml CARLOS MATAMOROS OMS-3 Feb 23, 2019 10:07 EMANUEL BLACKMON MD Feb 24, 2019 09:50 NAVDEEP CHUNG DO Feb 25, 2019 17:23
--- NOTE | 2019-02-23 10:20 | REP ---
PA and lateral chest: Comparison is 02/22/2019. The interstitial infiltrates have improved. Cardiomegaly persists. The blanca, mediastinum, skeletal structures are unchanged. There is an endovascular stent in the left axilla. This is unchanged. Impression: Improved interstitial infiltrates. Electronically Signed by Robles Loyd MD 02/23/2019 10:11 A
--- NOTE | 2019-02-23 11:29 | DS.PDOC ---
Discharge Summary General Date of Admission Feb 23, 2019 at 07:57 Date of Discharge 02/23/2019 Attending Physician: EMANUEL BLACKMON MD Specialist/Consultants Involve: SHERRY JACOME MD Specialist/Consultants Involve Dr. Rosado Discharge Summary PROCEDURES PERFORMED DURING STAY: None. 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 Patient presented for elective outpatient procedure and creation of a right brachial AV fistula to be used as a future site for hemodialysis access. Procedure was completed successfully by Dr. Quinonez of vascular surgery and any postop area the patient became sleepy and hypoxic, complaining of shortness of breath which was not present prior to the procedure. She was placed on supplemental oxygen and a chest x-ray was done that showed some signs of fluid overload in the setting of mild pulmonary edema. Nephrology service was consulted and the patient was dialyzed that night. Her shortness of breath impr augustus and she had no problems overnight with difficulty breathing. The following morning a repeat x-ray was done which showed improvement in the pulmonary edema and also demonstrated a right hemidiaphragm likely caused by the scalene nerve block, which was thought to also have contributed to her shortness of breath. Patient was evaluated by physical therapy off of oxygen and was deemed stable for discharge. DISCHARGE MEDICATIONS: Please see below. ALLERGIES: Please see below. Vitals: (see below) General: No acute distress, laying comfortably in bed. HEENT: Normocephalic, atraumatic. EOMI. No scleral icterus. Moist mucous membranes. Neck: No JVD, lymphadenopathy, or thyromegaly. Cardiac: RRR, Normal S1 and S2, No murmurs, gallops, rubs. Pulm: Clear to auscultation b/l. Symmetric thorax. No wheezing, crackles, rhonchi Abd: Bowel Sounds present. Abdomen is soft, non-tender, non-distended. Ext: Non-pitting edema in bilateral lower extremities. Bilateral fistulas in bilateral upper extremities. Skin: No skin changes Neuro: No focal neuro deficits Psych: Appropriate affect LABORATORY DATA: Please see below. IMAGIN02/23/19 Chest x-ray: Technical factors as described above. The interstitial markings are increased, but accentuated by technique. There is cardiomegaly also accentuated by technique. Mild interstitial edema cannot be ruled out by this exam. 02/23/2019 chest x-ray: The interstitial infiltrates have improved. Cardiomegaly persists. The blanca, mediastinum, skeletal structures are unchanged. There is an endovascular stent in the left axilla. This is unchanged. Impression: Improved interstitial infiltrates. PROGNOSIS: fair ACTIVITY: As tolerated. DIET: renal and consistent carb diet DISCHARGE PLAN: Discharge to home, dialysis at 12:15PM today DISCHARGE INSTRUCTIONS: 1. Please follow up with PCP in the next 7-10 days. 2. Please follow-up with Dr. Danielson's office in the next 7-10 days and resume regular dialysis schedule 3. Please follow-up with vascular surgery within a week to discuss fistulogram of left upper extremity, check incision, and check thrill in new fistula. Per vascular surgery, blood draws ok in distal forearms and hands bilaterally. DISCHARGE CONDITION: Stable. I saw and evaluated the patient. I agree with the findings and plan of care as documented in the documenters note. I spent 45 minutes coordinating this patient's discharge. Vital Signs/I&Os Vital Signs Date Time Temp Pulse Resp B/P (MAP) Pulse Ox O2 Delivery O2 Flow Rate FiO2 02/23/19 09:00 96.8 71 16 126/50 (75) 97 02/22/19 22:00 0.5 I&O- Last 24 Hours up to 6 AM 02/23/19 06:00 Intake Total 410 ml Output Total 2025 ml Balance -1615 ml Laboratory Data Labs 24H Laboratory Tests 2 02/22/19 12:06: Bedside Glucose (Misc Panel) 92 02/22/19 13:08: Bedside Glucose (Misc Panel) 87 02/22/19 16:27: Bedside Glucose (Misc Panel) 139H 02/22/19 17:58: Immature Granulocyte % (Auto) 0.6, White Blood Count 6.6, Red Blood Count 4.12, Hemoglobin 12.1, Hematocrit 39.2, Mean Corpuscular Volume 95.1, Mean Corpuscular Hemoglobin 29.4, Mean Corpuscular Hemoglobin Concent 30.9L, Red Cell Distribution Width 15.7H, Platelet Count 141L, Neutrophils (%) (Auto) 90.0H, Lymphocytes (%) (Auto) 7.6L, Monocytes (%) (Auto) 0.9, Eosinophils (%) (Auto) 0.3, Basophils (%) (Auto) 0.6, Neutrophils # (Auto) 5.9, Lymphocytes # (Auto) 0.5L, Monocytes # (Auto) 0.1, Eosinophils # (Auto) 0.0, Basophils # (Auto) 0.0, Nucleated Red Blood Cells % (auto) 0.0, Anion Gap 9, Glomerular Filtration Rate 8.6L, Blood Urea Nitrogen 23H, Creatinine 5.17H, Sodium Level 139, Potassium Level 4.6, Chloride Level 104, Carbon Dioxide Level 26, Calcium Level 9.5, Phosphorus Level 4.0, Aspartate Amino Transf (AST/SGOT) 18, Alanine Aminotransferase (ALT/SGPT) 16, Alkaline Phosphatase 23L, Total Bilirubin 0.4, Total Protein 7.1, Albumin 3.3, Troponin I 0.02, DT-Owc-H-Type Natriuretic Peptide [id number], Albumin/Globulin Ratio 0.87L 02/22/19 20:56: Troponin I < 0.02 02/22/19 21:46: Bedside Glucose (Misc Panel) 142H 02/23/19 06:48: Bedside Glucose (Misc Panel) 190H 02/23/19 09:05: Troponin I < 0.02, Nucleated Red Blood Cells % (auto) 0.0, Anion Gap 8, Glomerular Filtration Rate 12.5L, Blood Urea Nitrogen 16, Creatinine 3.73H, Sodium Level 137, Potassium Level 4.3, Chloride Level 101, Carbon Dioxide Level 28, Calcium Level 8.8 02/23/19 10:40: CBC/BMP Laboratory Tests 02/22/19 17:58 Red Blood Count 4.12, Mean Corpuscular Volume 95.1, Mean Corpuscular Hemoglobin 29.4, Mean Corpuscular Hemoglobin Concent 30.9 L, Red Cell Distribution Width 15.7 H, Neutrophils (%) (Auto) 90.0 H, Lymphocytes (%) (Auto) 7.6 L, Monocytes (%) (Auto) 0.9, Eosinophils (%) (Auto) 0.3, Basophils (%) (Auto) 0.6, Neutrophils # (Auto) 5.9, Lymphocytes # (Auto) 0.5 L, Monocytes # (Auto) 0.1, Eosinophils # (Auto) 0.0, Basophils # (Auto) 0.0, Calcium Level 9.5, Phosphorus Level 4.0, Aspartate Amino Transf (AST/SGOT) 18, Alanine Aminotransferase (ALT/SGPT) 16, Alkaline Phosphatase 23 L, Total Bilirubin 0.4, Total Protein 7.1, Albumin 3.3 02/23/19 09:05 Red Blood Count 3.81 L, Mean Corpuscular Volume 91.9, Mean Corpuscular Hemoglobin 28.6, Mean Corpuscular Hemoglobin Concent 31.1 L, Red Cell Distribution Width 15.7 H, Calcium Level 8.8 FSBS Laboratory Tests Test 02/22/19 12:06 02/22/19 13:08 02/22/19 16:27 02/22/19 21:46 Range/Units Bedside Glucose (Misc Panel) 92 87 139 142 83-110 MG/DL Test 02/23/19 06:48 Range/Units Bedside Glucose (Misc Panel) 190 83-110 MG/DL Discharge Medications Scheduled Amlodipine Besylate (Amlodipine Besylate) 5 Mg Tablet, 5 MG PO QHS, (Reported) Biotin (Biotin) 300 Mcg Tab, 300 MCG PO QHS, (Reported) Docusate Sodium (Docusate Sodium) 100 Mg Cap, 100 MG PO BID, (Reported) Insulin Glargine,Hum.rec.anlog (Lantus Solostar) 100 Unit/Ml Inj, 42 UNITS SC DAILY, (Reported) Insulin Human Lispro (Humalog) 1 Units/0.01 Ml Inj, 1 UNITS SC ACHS, (Reported) Irbesartan (Irbesartan) 300 Mg Tablet, 300 MG PO QHS, (Reported) Metoprolol Tartrate (Metoprolol Tartrate) 25 Mg Tablet, 25 MG PO BID, (Reported) Multivitamin (Multivitamins) 1 Each Capsule, 1 CAP PO QHS, (Reported) Pantoprazole Sodium (Pantoprazole Sodium) 40 Mg Tablet.dr, 40 MG PO QPM, (Reported) Ranitidine HCl (Ranitidine HCl) 150 Mg Tablet, 1 TAB PO DAILY, (Reported) Red Yeast Rice (Red Yeast Rice) 600 Mg Tablet, 600 MG PO DAILY, (Reported) Vitamin B Complex (Vitamin B Complex) 1 Tab Tab, 1 TAB PO QHS, (Reported) Scheduled PRN Acetaminophen (Acetaminophen) 500 Mg Tablet, 500 MG PO Q6H PRN for PAIN, (Reported) Ondansetron HCl (Zofran) 4 Mg Tablet, 4 MG PO Q6H PRN for NAUSEA OR VOMITING, (Reported) Allergies Coded Allergies: cetirizine (Verified Allergy, Intermediate, RASH, 02/22/19) Sdeyqjg-Rbv-Omm Reductase Inhibitor (Verified Adverse Reaction, Intermediate, CRAMPS, 02/07/19) atorvastatin (Verified Adverse Reaction, Intermediate, CRAMPS, 01/07/19) prednisolone (Verified Adverse Reaction, Intermediate, ELEVATES BLOOD SUGAR, PT DIABETIC, 02/07/19) TAPE (Verified Adverse Reaction, Mild, ITCHING, 05/07/18) oxycodone (Verified Adverse Reaction, Mild, CONSTIPATION, 01/07/19) benzonatate (Verified Adverse Reaction, Unknown, PER PT HAD A PROBLEM WITH IT BUT UNSURE WHY, 01/07/19) fenofibrate (Verified Adverse Reaction, Unknown, PER PT HAD A PROBLEM WITH IT BUT UNSURE WHY, 01/07/19) tamsulosin (Verified Adverse Reaction, Unknown, PER PT HAD A PROBLEM BUT UNSURE WHAT IT WAS, 02/07/19) GME ATTESTATION GME ATTESTATION My faculty preceptor for this patient encounter was physically present during the encounter and was fully available. All aspects of the patient interview, examination, medical decision making process, and medical care plan development were reviewed and approved by the faculty preceptor. The faculty preceptor is aware and concurs with the plan as stated in the body of this note and will at test to such by his/her cosignature. NAVDEEP CHUNG DO Feb 23, 2019 11:29 EMANUEL BLACKMON MD Feb 24, 2019 09:58
--- NOTE | 2019-02-23 13:40 | IPN ---
DATE: 02/23/2019 SUBJECTIVE: The patient was seen and examined the bedside this morning. She was dialyzed yesterday emergently because of fluid overload. She tolerated the hemodialysis procedure well. 2 liters of fluid was removed. The patient reports that she is feeling much better today and today's the regular day of dialysis but she is getting ready to be discharged today and she would need dialysis as outpatient. OBJECTIVE: VITAL SIGNS: Temperature is 96.8 degrees Fahrenheit, blood pressure 126/50, pulse is 71, respiratory of 16, saturating 97% on room air. Intake and output: There is no urine output recorded. Ultrafiltration with hemodialysis was 2 liters. Weight in the bed scale is 97.9. kg. PHYSICAL EXAMINATION GENERAL: The patient is awake, alert, oriented times three, laying in bed in no apparent distress. HEAD AND NECK EXAM: Extraocular muscles intact. Pupils equally round and reactive to light. Mucous membranes are moist. NECK: Neck is supple. There is no jugular venous distention (JVD). CARDIOVASCULAR: S1, S2 regular rate. No edema of the bilateral lower extremities. RESPIRATORY: Chest is clear to auscultation bilaterally. Bilateral equal air entry. No rales or rhonchi. ABDOMEN: Soft, obese, positive bowel sounds. Nontender. MUSCULOSKELETAL: No clubbing or cyanosis. Pulses are 2+. AV AXIS: She has a left upper arm arteriovenous fistula with thrill and bruit and a new right upper arm AV fistula which was placed yesterday. CENTRAL NERVOUS SYSTEM (AUTOMATIC PRESSER): No focal deficit. Power is 5/5 in all extremities. LAB REVIEW: CBC showed WBC of 6.6, hemoglobin 10.9, platelets of 151. BMP showed sodium 137, potassium 4.3, chloride 101, bicarb 28, BUN 16, creatinine is 3.7. IMAGING STUDIES: A chest x-ray was done this morning which showed improved interstitial infiltrates. CURRENT INPATIENT MEDICATIONS: The patient's medications were all reviewed by me. There is no change in the medications today as compared with yesterday. ASSESSMENT/PLAN: 1. End-stage renal disease on hemodialysis: The patient's regular dialysis days are Wednesday, and Wednesday. She will be dialyzed today as outpatient. 2. Acute decompensated diastolic congestive heart failure. The patient was dialyzed emergency yesterday. 2 liter of fluid was removed. Volume status is optimal. Chest x-ray is clear. 3. Hypertension with hypertensive heart disease. Continue current dose of irbesartan. Blood pressures are significantly better with fluid removal. DISPOSITION: It is okay to discharge the patient from nephrology standpoint. She will be dialyzed in the afternoon as outpatient.
== END 2019-02-23 11:40 | disposition home or self-care (01) ==
LOC: M SDC 07:00 → M MSPAV 07:01 → M SDC 14:20 → M MSPAV 02-23 07:56 → UNDOADMOB 02-23 07:57 → M MSPAV 02-23 07:57 → UNDODISOB 02-23 11:40
PROVIDERS: ADMIT Internal Medicine; ATTEND Internal Medicine
DX: N18.6 End stage renal disease (principal); D63.1 Anemia in chronic kidney disease; I50.9 Heart failure, unspecified; J98.6 Disorders of diaphragm; I12.0 Hypertensive chronic kidney disease with stage 5 chronic kidney disease or end stage renal disease; E11.9 Type 2 diabetes mellitus without complications; K21.9 Gastro-esophageal reflux disease without esophagitis; E78.5 Hyperlipidemia, unspecified; I73.9 Peripheral vascular disease, unspecified; C54.1 Malignant neoplasm of endometrium; Z88.5 Allergy status to narcotic agent; Z88.8 Allergy status to other drugs, medicaments and biological substances; Z79.4 Long term (current) use of insulin; Z79.899 Other long term (current) drug therapy
CPT/HCPCS: 36415; 36821; 64415; 71045; 71046; 80048; 80053; 83880; 84132; 84484; 85025; 85027; 87641; 97116; 97161; G0257; G0378; J0690; J1100; J2250; J2405; J2765; J2795; J3010

== ENCOUNTER → 2019-03-03 | Outpatient (CLI) | payer MEDICARE, MEDICAID ==
[~2019-03-03] MED LIST changes: +ISOVUE-300 61% 50ML VIAL (Q9967) As Ordered ONE; +LIDOCAINE 1% MDV 20ML VIAL As Ordered ONE; +MIDAZOLAM INJ 2 MG/2 ML VIAL (J2250) As Ordered ONE; -NS 1,000 ML IV ONE; -ceFAZolin SOD 2 GM in IV 1 EA IV ONE; +fentaNYL 100 MCG/2 ML INJECTION (J3010) As Ordered ONE
[2019-03-03 14:19] VITALS: BP 109/72
--- NOTE | 2019-03-03 14:34 | ROOPDOC ---
[facility] Report Of Operation Report of Operation DATE OF PROCEDURE: 03/03/19 PREPROCEDURE DIAGNOSES: End-stage renal disease on hemodialysis with increased pulsatility and bleeding after dialysis treatments left upper extremity AV fistula POSTPROCEDURE DIAGNOSES: Same PROCEDURE: 1. Ultrasound-guided access left brachial cephalic AV fistula 2. Left upper extremity fistulogram and central venogram 3. Angioplasty of the cephalic vein and subclavian vein stent with 10 x 80 [place] ang balloon 4. Completion venogram SURGEON: Sherry Pandya MD ANESTHESIA: Local anesthesia of 5 mL lidocaine. Moderate intravenous conscious sedation was supervised by Dr. Pandya. The patient was independent we monitored by a registered nurse assigned to the Department of radiology using automated blood pressure, EKG, and pulse oximetry. The detail conscious sedation record is probably started in the hospital information system. The following is a conscious sedation record: Start time 13:33, stop time 14:11, fentanyl 50 g IV, Versed 0.5 mg IV. INDICATION FOR PROCEDURE: Ms. 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 Because of this, we did place a new right upper extremity brachiocephalic AV fistula but it will take a few months before it is ready for use. In the meantime, we'll bring her back today for another angioplasty of her left upper extremity AV access in order to maintain patency and improve flow rates and decreased bleeding times after the procedures. Risks benefits and alternatives were explained. Informed consent was obtained. INTERPRETATION: There is a few areas of mild stenosis proximal to the aneurysmal segments in the cephalic vein in the mid upper arm, and then a 90% stenosis near the shoulder, and 80% stenosis is at the distal end of the subclavian stent, and a 40% stenosis at the proximal end of the subclavian stent. After angioplasty, there is less than 20% residual stenosis in each area and widely patent flow to the central system. The pulsatility had resolved, and there was an excellent thrill and the fistula. No extravasation or spasm was noted after angioplasty. REPORT OF OPERATION: The patient was brought to the angiographic suite in stable condition. Her left upper extremity was prepped and draped in sterile fashion. A timeout was performed. Local anesthesia was a tensioning machine operator to skin and subcutaneous tissue over the cephalic vein near the AV anastomosis. A microneedle was used to access under ultrasound guidance and a wire was passed through this access under fluoroscopic guidance and then a micro-sheath was placed. Through this access, I would Glidewire was advanced into the central system under fluoroscopic guidance and the sheath was exchanged for 6 Vietnamese sheath and flushed with saline. A fistulogram and central venogram were performed. Several areas of stenosis in the cephalic vein and proximal and distal to the subclavian stent were noted and these are the areas of her current stenosis that we have had to angioplasty repeatedly in the past. We advanced a 10 x 80 balloon for three-minute inflations across the proximal and distal aspects of the stent, then several times across the tight stenosis in the shoulder, then more distally towards the aneurysmal segments near the AV anastomosis. After completing three-minute inflations across all areas, we had widely patent flow through the central system and dramatic improvement in the thrill in resolution of the pulsatility within the fistula. There was no extravasation or venous injury noted. There was less than 20% residual stenosis at any of the areas noted prior to angioplasty. This concluded her procedure. A [id number] suture was placed at the sheath site the sheath was removed and the suture was secured Steri-Strips were placed in a sterile dressing pressure was held for 2 minutes for good hemostasis and the patient was taken to recovery in stable condition and will remove the suture prior to her leaving and monitor for for at least 30 minutes after the procedure to make sure she does well after sedation area and so far she tolerated the sensation very well. ESTIMATED BLOOD LOSS: Approximately 5 mL. COMPLICATIONS: None. PLAN: Our plan is for the patient to discharge today. It is okay to use her left upper extremity AV fistula for dialysis. We plan to see her back in 2-3 weeks to check her new right upper extremity AV fistula maturation and see how she is doing with her left upper extremity fistula during dialysis. SHERRY PANDYA MD Mar 03, 2019 14:34
== END ==
LOC: M IRPRO 11:12
PROVIDERS: ATTEND Surgery Vascular Surgery
DX: T82.598A Other mechanical complication of other cardiac and vascular devices and implants, initial encounter (principal); N18.6 End stage renal disease
CPT/HCPCS: 36902; 99152; 99153; C1725; C1769; C1894; J2250; J3010; Q9967

== ENCOUNTER → 2019-04-14 | Outpatient (CLI) | payer MEDICARE, MEDICAID ==
[~2019-04-14] MED LIST changes: +DIAL800T3 PO; -OMEP40CA2 PO; +OMEP40CA97 PO
--- NOTE | 2019-04-14 08:41 | ROOPDOC ---
[facility] Report Of Operation Report of Operation DATE OF PROCEDURE: 04/14/19 PREPROCEDURE DIAGNOSES: End-stage renal disease on hemodialysis with poorly functioning left upper extremity AV fistula with increased bleeding times after dialysis and high venous pressures POSTPROCEDURE DIAGNOSES: Same PROCEDURE: 1. Ultrasound-guided access left brachiocephalic fistula 2. Left upper extremity fistulogram and central venogram 3. Angioplasty cephalic vein and stent from cephalic vein to subclavian vein with 8 x 20 time balloon and 10 x 80 [place] balloon 4. Completion venograms SURGEON: Sherry Pandya MD ANESTHESIA: Local anesthesia 2 mL lidocaine. Moderate intravenous conscious sedation was administered by Dr. Pandya. The patient was independently monitored by registered nurse assigned to the Department of radiology using automated blood pressure, EKG, and pulse oximetry. The detailed sedation record is permanently [facility] information system. The following is the brief sedation record: Start time 07:58, stop time 08:23, Versed 1 mg IV, fentanyl 25 g IV. CONTRAST: 30 mL Isovue INDICATION FOR PROCEDURE: Ms. Holloway is a very pleasant 78-year-old patient with end-stage renal disease currently dialyzing with her left upper extremity brachiocephalic AV fistula. In the past, she has had extensive amount work done on this fistula by Dr. Hodge including a left cephalic to subclavian stent. She has recurrent stenosis in the cephalic vein near the shoulder, as well as at the proximal and distal ends of the stent. This is required extensive angioplasty to maintain patency. Because of this frequent angioplasty and recurrent stenosis, a right upper extremity brachiocephalic fistula was created, but it is still maturing. In the meantime, we are trying to help her maintain use of her left upper extremity access for dialysis. The patient is experiencing increased bleeding times with 55 minutes of pressure held at dialysis times. She is also having poor venous flows and high venous pressures on dialysis. Wrist benefits and alternatives to a fistulogram and intervention were explained to the patient and she is agreeable to proceed. Informed consent was obtained. INTERPRETATION: 1. There is widely patent inflow through the AV anastomosis and an aneurysmal segment 5 cm proximal to the AV anastomosis. More proximally up the arm, the cephalic vein is patent and then narrowest to an 80% stenosis near the shoulder focally, and then has 70% stenosis at the proximal and distal end of the cepha lic subclavian stent. The central veins are widely patent. 2. After angioplasty with an 8 x 20 cutting balloon and 10 x 80 [place] balloon, there is still 30% residual stenosis in the cephalic vein at the shoulder, and 20% residual stenosis at the proximal distal end of the stent. Despite repeat angioplasty, the stenoses persists, but there is definitely an improvement. The pulsatility in the fistula has resolved on exam and there is an excellent thrill. No extravasation is noted on imaging after angioplasty. REPORT OF OPERATION: The patient was brought to the angiographic suite in stable condition and placed supine on the fluoroscopic table. Her left upper extremity was prepped and draped in a sterile fashion. A timeout was performed. Local anesthesia was a commercial green retrofit architect to skin and subcutaneous tissue near the AV anastomosis over the cephalic vein. Ultrasound was used to guide access with a microneedle. A wire was passed through this access the needle was removed and a micro-sheath was placed using a Seldinger technique. The inner cannula and wire were removed and a Glidewire was advanced through this access into the central system under fluoroscopic guidance. We then placed a 6 Welsh sheath and flushed sheath with saline. A fistulogram and central venogram were performed. Please see interpretation above. We exchange the Glidewire for an O18 wire and advanced an 8 x 20 cutting balloon across the stenosis in the shoulder and repeated angioplasty was performed, and we advanced the balloon to the proximal end of th e stent and repeat angioplasty was performed and then the distal end of the stent and repeat angioplasty was performed. Following this, there was no extravasation noted on venogram. We then removed the cutting balloon and placed a 10 x 80 [place] balloon and angioplasty across all areas of stenosis for three-minute inflations at first high atmospheres of pressure and then two atmos pheres. Following this, there was still 30% residual stenosis in the cephalic vein at the shoulder and 20% at the proximal and distal end of the stent, and repeat angioplasty was performed, and we also angioplasty along the entire length of the cephalic vein proximal to the aneurysmal segment to make sure there were no stenoses that we were missing on imaging. We did not note any new stenoses other than the 3 we had addressed previously, and after repeat angioplasty across those areas are still was the same amount of residual stenosis. The stenoses are very resistant to angioplasty, but definitely a significant improvement from her original imaging. This concluded her procedure. A Prolene suture was placed at the access site and the sheath was removed. Press ure was held for 5 minutes for good hemostasis and the patient was taken to recovery in stable condition. ESTIMATED BLOOD LOSS: Approximately 2 mL. COMPLICATIONS: None. PLAN: Our plan is to try to continue maintaining flow through the left upper extremity until the right upper extremity fistula is matured and able to be used for dialysis. It has an excellent thrill, but also little bit of pulsatility and we may need to do an angioplasty to help with maturation in the right upper extremity, but not urgently. We will see the patient in clinic in 1-2 weeks and see how she is doing. Continue to use left upper extremity access for dialysis at this time. SHERRY PANDYA MD Apr 14, 2019 08:41
[2019-04-14 09:09] VITALS: BP 127/53
== END ==
LOC: M IRPRO 06:35
PROVIDERS: ATTEND Surgery Vascular Surgery
DX: T82.898A Other specified complication of vascular prosthetic devices, implants and grafts, initial encounter (principal); N18.6 End stage renal disease; X58.XXXA Exposure to other specified factors, initial encounter; Y93.9 Activity, unspecified; Y92.9 Unspecified place or not applicable; Y99.9 Unspecified external cause status
CPT/HCPCS: 36902; 36907; 99152; 99153; C1725; C1769; C1894; J2250; J3010; Q9967

== ENCOUNTER → 2019-05-19 | Outpatient (CLI) | payer MEDICARE, MEDICAID ==
--- NOTE | 2019-05-19 17:18 | ROOPDOC ---
[facility] Report Of Operation Report of Operation DATE OF PROCEDURE: 05/19/19 PREPROCEDURE DIAGNOSES: End-stage renal disease with increased pulsatility and increased postdialysis bleeding left upper extremity AV fistula. POSTPROCEDURE DIAGNOSES: Same. PROCEDURE: 1. Ultrasound-guided access left upper extremity brachiocephalic AV fistula 2. Left upper extremity fistulogram and central venogram 3. Angioplasty left cephalic vein, subclavian vein, and stent through cephalic subclavian junction with 10 x 80 [place] balloon 4. Completion venograms SURGEON: Sherry Pandya MD ANESTHESIA: Local anesthesia 1 mL lidocaine. Intravenous moderate conscious sedation was administered by Dr. Pandya. The patient was independently monitored by a registered nurse at signs at the Department of radiology using automated blood pressure, EKG, and pulse oximetry. The detailed sedation record is terminally stored in the hospital information system. Following is a presedation Recker: Start time 16:14, stop time 16:40, Versed 1 mg IV, fentanyl 50 g IV. CONTRAST: 20 mL Isovue-300 INDICATION FOR PROCEDURE: Ms. Holloway is a very pleasant 78-year-old patient with end-stage renal disease currently dialyzing with a left upper extremity brachiocephalic AV fistula that has severe frequent restenosis causing increased bleeding, pulsatility and poor venous outflow. We placed a new right upper extremity fistula but it is not yet mature or ready for use and we are trying to maintain patency in the left upper extremity until it is mature. Today we break the patient in for a fistulogram and intervention due to of 1 hour bleeding time yesterday postdialysis. Risks benefits and alternatives were explained and she is agreeable to proceed. Informed consent was obtained. INTERPRETATION: 1. The AV anastomosis and inflow through the aneurysmal segment proximal to the AV anastomosis is widely patent. The cephalic vein in the upper arm is widely patent except for an area of 80% stenosis near the shoulder. There is then a 50% stenosis at the proximal and distal end of the stent that crosses from the cephalic vein into the subclavian vein. There is a 40% stenosis in the subclavian vein proximal to the stent near the thoracic outlet. The central veins are widely patent. 2. After angioplasty of the cephalic vein and subclavian vein, there is less than 20% stenosis remaining in each area of severe stenosis. There is a remarkable improvement in thrill in the fistula, and diminishment of pulsatility. REPORT OF OPERATION: Patient was brought to the angiographic suite in stable condition. She was placed supine on the fluoroscopic table. Her left upper extremity was prepped and draped in a sterile fashion. A timeout was performed. Local anesthesia was administered to the skin and subcutaneous tissue over the cephalic vein near the AV anastomosis and ultrasound was used to guide access with a microneedle. A wire was passed through this under fluoroscopic guidance and a small incision was made at the skin and the needle was exchanged for micro-sheath. Through this access Glidewire was advanced into the central system under fluoroscopic guidance in the sheath was exchanged for 6 Serbian sheath and flushed with saline. A fistulogram and central venogram were performed, please see interpretation above. Next, we performed an angioplasty for centrally across the stent for three-minute inflations, then across the distal aspect of the stent and the tight stenosis in the shoulder within the cephalic vein for three- minute inflations, then across the proximal end of the stent and the subclavian vein stenosis near the thoracic outlet for three-minute inflations, and then to be sure we do not miss any stenoses in the upper arm, we did a quick inflation across the entire cephalic vein. Following this, there was a marked improvement inflow and less than 20% residual stenosis at each area of focal stenosis. There was no extravasation noted. This concluded the procedure. We placed a Prolene suture at the sheath site and removed the sheath and secured the suture with Steri-Strips. We were removed the suture prior to discharge. We then placed sterile dressings and held pressure for 5 minutes for good hemostasis and the patient was taken to recovery in stable condition. ESTIMATED BLOOD LOSS: Approximately 2 mL. COMPLICATIONS: None. PLAN: It is okay to use her left upper extremity fistula for dialysis. We'll see her back in a few weeks to check the progress of her right upper extremity fistula. She should continue to use her squeeze ball to help with maturation. SHERRY PANDYA MD May 19, 2019 17:18
[2019-05-19 17:49] VITALS: BP 128/49
== END ==
LOC: M IRPRO 13:51
PROVIDERS: ATTEND Surgery Vascular Surgery
DX: T82.858A Stenosis of other vascular prosthetic devices, implants and grafts, initial encounter (principal); N18.6 End stage renal disease; I12.0 Hypertensive chronic kidney disease with stage 5 chronic kidney disease or end stage renal disease; E11.22 Type 2 diabetes mellitus with diabetic chronic kidney disease; M19.90 Unspecified osteoarthritis, unspecified site; X58.XXXA Exposure to other specified factors, initial encounter; Y93.9 Activity, unspecified; Y92.9 Unspecified place or not applicable; Y99.9 Unspecified external cause status; Z85.42 Personal history of malignant neoplasm of other parts of uterus
CPT/HCPCS: 36902; C1725; C1769; C1894; J2250; J3010; Q9967

== ENCOUNTER → 2019-06-27 | Outpatient (CLI) | payer MEDICARE, MEDICAID ==
[~2019-06-27] MED LIST changes: +RANI150T PO
--- NOTE | 2019-06-27 14:28 | ROOPDOC ---
[facility] Report Of Operation Report of Operation DATE OF PROCEDURE: 06/27/19 PREPROCEDURE DIAGNOSES: End-stage renal disease with poorly functioning left upper extremity AV fistula with increased bleeding times after dialysis up to 1 hour. POSTPROCEDURE DIAGNOSES: Same. PROCEDURE: 1. Left upper extremity fistulogram and central venogram 2. Angioplasty left cephalic vein and pre-existing cephalic to subclavian vein stent with 10 x 80 [place] balloon 3. Completion venogram SURGEON: Sherry Pandya MD ANESTHESIA: Local anesthesia 4 cc lidocaine. Moderate intravenous conscious sedation was administered by Dr. Pandya. The patient was independently monitored by registered nurse + at the Department of radiology using automated blood pressure, EKG, and pulse oximetry. The detailed sedation record is permanently stored in the hospital information system. The following is the brief sedation record: Start time 13:30, stop time 14:02, Versed 1 mg IV fentanyl 25 g IV. CONTRAST: 28 mL Isovue 300 INDICATION FOR PROCEDURE: This is a very pleasant 78-year-old patient with a poorly functioning left upper extremity AV fistula. The fistula has had recurrent stenosis in the cephalic vein near the shoulder and in the cephalic vein to subclavian vein for existing stent proximally and distally that has required frequent re-interventions for angioplasty to keep the vessel open and the fistula running. The patient had to hold pressure for an hour after dialysis on Wednesday, and notified us and we bring her in today for repeat fistulogram and angioplasty. Unfortunately, she is only lasting about 5 weeks between these procedures before needing a repeat angioplasty, therefore a few months ago we placed the right upper extremity brachiocephalic AV fistula so she will have a new access, but it is still maturing. We plan to bring her back in the next few weeks for right upper [place] a fistulogram and angioplasty. I've ultrasounded her right arm and the fistula is approximately 1 cm deep and I estimate it is about 5 or 6 mm diameter we would like to get it to about 8 or 9 mm diameter. I think it angioplasty will be helpful to accelerate her maturation so hopefully we can abandon this left upper extremity axis that has been so problematic for her. Risks benefits and alternatives to fistulogram on the left upper extremity were explained to the patient she is agreeable to proceed. Informed consent was obtained. INTERPRETATION: 1. There is rapid inflow through the AV access and through the upper arm mildly aneurysmal segments. There is a 90% stenosis focally in the cephalic vein in the shoulder, and then 60% stenosis at the origin of the cephalic subclavian pre- existing stent, and 50% stenosis within the subclavian vein at the end of the stent. The central veins are widely patent. 2. After repeat angioplasties across all 3 areas for three-minute inflations, there was widely patent flow to the central system. The pulsatility in the fistula had resolved, and there was an excellent thrill. There was less than 20% residual stenoses at each area. The residual stenoses were not flow-limiting. REPORT OF OPERATION: The patient was brought to the angiographic suite in stable condition and placed supine on the fluoroscopic table. Her left upper extremity was prepped and draped in a sterile fashion. A timeout was performed. Local anesthesia was a resin mixer to skin and subcutaneous tissue over the fistula and a microneedle was used to access the fistula and a wire was passed through this access under fluoroscopic guidance and the needle was removed. A micro-sheath was placed over the wire using a Seldinger technique in the inner cannula and wire were removed. A Glidewire was advanced through the micro-sheath into the central system under fluoroscopic guidance. We exchanged sheath for 6 Latvian sheath and flushed the sheath with saline. A fistulogram and central venogram were performed, please see interpretation above. We advanced a 10 x 80 [place] balloon across the proximal stenoses for three-minute inflations and then across the more distal stenoses for three-minute inflations. Following this, there was still residual stenosis in the cephalic vein at the shoulder and a repeat angioplasty for 3 minutes was performed. Following this repeat angioplasty, there was widely patent flow the central system with less than 20% residual stenosis that was not flow-limiting and an excellent thrill and the fistula. This concluded our procedure. A Prolene suture was placed in a [id number] fashion at the sheath exit site and the sheath was removed. Pressure was held for 5 minutes for good hemostasis Steri-Strips were placed across the suture and sterile dressings were applied. The patient tolerated the procedure and sedation well and there were no complications. ESTIMATED BLOOD LOSS: Approximately 4 mL. COMPLICATIONS: None PLAN: It is okay to use left upper extremity fistula for dialysis. We will set the patient up for a right upper extremity fistulogram and angioplasty to help accelerate maturation, so hopefully we can begin using the right upper extremity fistula and 1 successful, we can abandon the problematic left upper extremity AV access. SHERRY PANDYA MD Jun 27, 2019 14:28
[2019-06-27 15:05] VITALS: BP 130/55
== END ==
LOC: M IRPRO 10:56
PROVIDERS: ATTEND Surgery Vascular Surgery
DX: T82.898A Other specified complication of vascular prosthetic devices, implants and grafts, initial encounter (principal); N18.6 End stage renal disease; X58.XXXA Exposure to other specified factors, initial encounter; Y93.9 Activity, unspecified; Y92.9 Unspecified place or not applicable; Y99.9 Unspecified external cause status
CPT/HCPCS: 36902; 36907; 99152; 99153; C1725; C1769; C1894; J2250; J3010; Q9967

== ENCOUNTER → 2019-07-04 | Outpatient (CLI) | payer MEDICARE, MEDICAID ==
[2019-07-04 16:40] VITALS: BP 94/44
--- NOTE | 2019-07-04 18:24 | ROOPDOC ---
[facility] Report Of Operation Report of Operation DATE OF PROCEDURE: 07/04/19 PREPROCEDURE DIAGNOSES: End-stage renal disease with slow maturation right brachiocephalic AV fistula POSTPROCEDURE DIAGNOSES: Same PROCEDURE: 1. Ultrasound-guided access right cephalic vein near AV anastomosis 2. Right upper extremity fistulogram and central venogram 3. Angioplasty of the cephalic vein throughout the upper arm across into the subclavian vein with a 7 x 200 [place] balloon 4. Completion arteriograms SURGEON: Sherry Pandya MD ANESTHESIA: Local anesthesia only, 5 mL lidocaine INDICATION FOR PROCEDURE: This is a very pleasant 78-year-old patient with end- stage renal disease currently dialyzing with a failing left upper extremity AV access that is requiring aggressive intervention every 4-5 weeks to maintain patency. We have placed a new right brachiocephalic AV fistula and/or trying to help this to mature so we can abandon the left upper extremity failing access. It has been a bit slow to mature and is still a little smaller in size and we would like before trying to access. Risks benefits and alternatives to a fistulogram and potential intervention were explained to the patient and she is agreeable to proceed. Informed consent was obtained. INTERPRETATION: 1. AV anastomosis is widely patent and there is a large cephalic vein near the AV anastomosis. On fistulogram it appears that there is a mild stenosis where the sheath is accessing the vein, but on ultrasound it was widely patent and this is likely just due to some spasm from the sheath placement. There is a large retrograde branch near the AV anastomosis. The cephalic vein throughout the upper arm is widely patent without stenosis, but is smaller in size estimated about 5 mm diameter. There is good inflow through the subclavian vein into the central system and no stenosis is noted in that area. 2. After angioplasty at the cephalic vein along its length with a 7 x 200 [place] balloon for 2 three-minute inflations, there was widely patent inflow through the vein with no spasm noted an excellent thrill. No extravasation was noted. REPORT OF OPERATION: The patient was brought to the angiographic suite in stable condition and placed supine on the fluoroscopic table. Her right upper extremity was prepped and draped in a sterile fashion. A timeout was performed. Her blood pressure was a bit low after dialysis, and we discussed with her that we would try to do the procedure if she could tolerate it without any sedation. She was agreeable to this plan. Local anesthesia was administered to the skin and subcutaneous tissue over the cephalic vein near the AV anastomosis and a microneedle was used to access the vein under ultrasound guidance. A wire was passed through this access and the needle was removed and a micro-sheath was placed and flushed with saline. We advanced a Glidewire through the sheath into the central system under fluoroscopic guidance exchanged sheath for 6 Bulgarian sheath and flushed sheath with saline. We then performed a fistulogram and central venogram. Please see interpretation above. We advanced a 7 x 200 [place] balloon across the proximal cephalic vein into the subclavian vein and due to three-minute inflations, and retracted the balloon following this into the cephalic vein at the sheath, and it is second three-minute inflations. Following this there was widely patent inflow to the central system with an excellent thrill. The 7 mm balloon is 2 mm bigger than the vessel, and I felt this was enough dilation for single procedure with a 2 mm difference. Hopefully this will help with maturation. We then secured a Prolene suture at at the sheath site and secured it and removed the sheath. Pressure was held for 5 minutes for good hemostasis and Steri-Strips were applied. That suture will be removed prior to leaving today. The patient was then taken to recovery in stable condition. Her blood pressure continued to improve with eating and drinking after the procedure, and was likely secondary to dialysis earlier today with little PO intake and also that we have to measure her blood pressure on her forearms fistulas in both upper extremities. The patient was feeling well and discharged in stable condition. No sedation was used for the procedure. ESTIMATED BLOOD LOSS: Approximately 2 mL. COMPLICATIONS: None. PLAN: Continue to use left upper extremity feeling AV access until right upper extremity access is suitably matured. I'm hoping that we'll be within the next few weeks. We plan to see the patient back in clinic to check and see how she is doing and we will assess the fistula at that time. Okay to resume home diet medications. SHERRY PANDYA MD Jul 04, 2019 18:24
== END ==
LOC: M IRPRO 14:02
PROVIDERS: ATTEND Surgery Vascular Surgery
DX: T82.590A Other mechanical complication of surgically created arteriovenous fistula, initial encounter (principal); N18.6 End stage renal disease; I12.0 Hypertensive chronic kidney disease with stage 5 chronic kidney disease or end stage renal disease; E11.22 Type 2 diabetes mellitus with diabetic chronic kidney disease; X58.XXXA Exposure to other specified factors, initial encounter; Y92.9 Unspecified place or not applicable; Y93.9 Activity, unspecified; Y99.9 Unspecified external cause status
CPT/HCPCS: 36902; C1725; C1769; C1894; J1644; Q9967

== ENCOUNTER → 2019-08-01 | Outpatient (CLI) | payer MEDICARE, MEDICAID ==
[~2019-08-01] MED LIST changes: -IRBE300T10 PO; +IRBE300T7 PO
--- NOTE | 2019-08-01 17:11 | ROOPDOC ---
[facility] Report Of Operation Report of Operation DATE OF PROCEDURE: 08/01/19 PREPROCEDURE DIAGNOSES: End-stage renal disease with increased bleeding times and poor flows on dialysis with left upper extremity AV access. POSTPROCEDURE DIAGNOSES: Same PROCEDURE: 1. Ultrasound-guided access left cephalic vein 2. Fistulogram and central venogram left upper extremity 3. Angioplasty cephalic vein and cephalic vein into subclavian pre-existing stent with 10 x 80 Taylor balloon 4. Completion venograms SURGEON: Sherry Pandya MD ANESTHESIA: Local anesthesia with 4 mL lidocaine. Moderate intravenous conscious sedation was supervised by Dr. Pandya. The patient's detail sedation crackers probably stored in the hospital information system. The following is a brief sedation record: Start time 16:39, stop time 17:04, Versed 0.5 mg IV, fentanyl 25 g IV. CONTRAST: 15 mL Isovue 300 INDICATION FOR PROCEDURE: This is a very pleasant 79-year-old patient with a failing left upper extremity AV access that we are trying to maintain for use for dialysis until her right upper extremity new brachiocephalic AV axis is ready for use. Risks benefits and alternatives to a fistulogram and potential intervention were explained to the patient. She had an hour of bleeding time after her most recent dialysis with the left upper extremity, and poor flows as well. We plan on angioplasty in her stent and her cephalic vein in the shoulder which are areas of frequent restenosis. Informed consent was obtained. INTERPRETATION: 1. The AV anastomosis is widely patent and the cephalic vein proximal to the AV anastomosis is largely aneurysmal. The cephalic vein in the upper arm is widely patent at about 9 mm diameter but there is a 90% stenosis at the shoulder. Proximal to this, there is a stent from the cephalic vein through into the the subclavian vein which has stenosis at the proximal and distal ends, proximally 70%. The rest of the central vein outflow is widely patent. 2. After angioplasty with an 8 x 20 cutting balloon and a 10 x 80 Taylor balloon, there is widely patent inflow through to the central system with less than 20% residual stenosis at each of the 3 areas. The patient has an excellent thrill although she still has some pulsatility in the fistula, likely from the area stented, as there is recurrent intimal hyperplasia proximally and distally that can only be treated somewhat with angioplasty. There is always still some residual stenosis, although less than 20% today. No extravasation dissection or embolization noted after angioplasty. REPORT OF OPERATION: The patient was brought to the angiographic suite in stable condition. Her left upper extremity was prepped and draped in a sterile fashion. A timeout was performed. Local anesthesia was administered to skin and subcutaneous tissue over the cephalic vein near the AV anastomosis. Ultrasound was used to guide access with a microneedle, and a wire was passed through this access and a micro-sheath was placed. A Glidewire was advanced through this acc ess into the central system under fluoroscopic guidance and a 7 Bengali sheath was placed and flushed with saline. A fistulogram and central venogram were performed. Please see interpretation above. An O18 wire was advanced into the central system and an 8 x 20 cutting balloon was advanced over the wire and used to angioplasty the cephalic vein and the stent from the cephalic vein to the subclavian vein with multiple angioplasties. Following this, a 10 x 80 Taylor balloon was used to angioplasty across both areas for three-minute inflations. Completion venogram showed some residual stenosis at this shoulder that I felt might be better treated with a second angioplasty, and another three-minute ablation was performed. Following this, there is widely patent outflow through the central system with no flow limitations. There is still 20% residual stenosis at the proximal and distal end of the stent from the cephalic vein to the subclavian vein, due to intimal hyperplasia. However, it was much improved. There is still some pulsatility in the fistula, but overall it has a marked improvement in thrill and I believe outflow is markedly improved. A Prolene suture was placed in a [id number] pattern at the sheath site and the sheath was removed. Pressure was held for 3 minutes for good hemostasis and dressings were applied. The patient was taken to recovery in stable condition. She tolerated the procedure and the sedation well without complication. ESTIMATED BLOOD LOSS: Approximately 2 mL. COMPLICATIONS: None. PLAN: Until the right upper extremity access is ready for use, it is okay to continue to use left upper extremity fistula for dialysis. We will see the patient on Wednesday for balloon-assisted maturation and intervention including possible coiling of branches to try to help with maturation of her right upper extremity brachiocephalic AV fistula so we can abandon the failing left upper extremity access. Okay to resume home medications and diet. SHERRY PANDYA MD Aug 01, 2019 17:11
[2019-08-01 17:30] VITALS: BP 115/50
== END ==
LOC: M IRPRO 14:24
PROVIDERS: ATTEND Surgery Vascular Surgery
DX: T82.590A Other mechanical complication of surgically created arteriovenous fistula, initial encounter (principal); N18.6 End stage renal disease; X58.XXXA Exposure to other specified factors, initial encounter; Y93.9 Activity, unspecified; Y92.9 Unspecified place or not applicable; Y99.9 Unspecified external cause status
CPT/HCPCS: 36902; 99152; 99153; C1725; C1769; C1894; J1644; J2250; J3010; Q9967

== ENCOUNTER → 2019-08-11 | Outpatient (CLI) | payer MEDICARE, MEDICAID ==
[2019-08-11 13:55] VITALS: BP 118/67
--- NOTE | 2019-08-11 15:48 | ROOPDOC ---
[facility] Report Of Operation Report of Operation DATE OF PROCEDURE: 08/11/19 PREPROCEDURE DIAGNOSES: End-stage renal disease with slow maturation right upper extremity AV fistula and failing left upper extremity AV fistula POSTPROCEDURE DIAGNOSES: Same PROCEDURE: 1. Ultrasound-guided access right brachiocephalic AV fistula 2. Left upper extremity fistulogram and central venogram 3. Coiling of cephalic vein branch proximal to AV anastomosis with 8 x 8 sherrell coil and 5 x 3 Tornado coil 4. Angioplasty cephalic vein with 8 x 200 [place] 5. Completion venogram SURGEON: Sherry Pandya MD ANESTHESIA: Local anesthesia 3 mL lidocaine. Moderate intravenous conscious sedation was supervised by Dr. Pandya. The patient was independently monitored by a registered nurse assigned to the Department of radiology using automated blood pressure, EKG, and pulse oximetry. The detailed sedation record is primarily stored in the hospital information system. The following is the brief sedation record: Start time 12:47, stop time 13:06, Versed 0.5 mg IV, fentanyl 25 g IV. INDICATION FOR PROCEDURE: This is a very pleasant 79-year-old patient with end- stage renal disease currently dialyzing with a left upper extremity failing AV fistula that's requiring aggressive intervention to maintain patency, and this has become more and more frequent. We placed a right brachiocephalic AV fistula and are trying to mature this so we can abandon the failing left upper extremity AV fistula. Risks benefits and alternatives to a fistulogram and potential intervention to help with maturation were explained to the patient and she is agreeable to proceed. Informed consent was obtained. INTERPRETATION: 1. The AV anastomosis is widely patent and there is a large branch off of the cephalic vein near the AV anastomosis that is stealing a considerable amount of blood flow in the fistula. Proximal to this, there is a mild stenosis in the mid cephalic vein in the upper arm and no severe stenosis is noted along the length of the cephalic vein to the junction with the subclavian vein and the central veins are widely patent. 2. An 8 mm and a 5 mm coil or successfully placed in the branch of the cephalic vein proximal to the AV anastomosis, and although the coils incompletely occlude the branch on completion imaging, the flow is markedly reduced and I suspect it will thrombose over the next week. 3. After angioplasty of the cephalic vein, subclavian vein, back to the central veins with an 8 x 200 [place] balloon for three-minute inflations along the outflow tract, there is no significant residual stenosis along the tract in the vessel shows widely patent flow to the central system. There is a marked improvement in thrill after angioplasty and coiling. REPORT OF OPERATION: Patient was brought to the angiographic suite in stable condition. Her right upper extremity was prepped and draped in a sterile fas hion. A timeout was performed. Ultrasound was used to examine the fistula. There is wide the patent flow through the AV anastomosis and the vein is dilated to approximately 9 mm near the AV anastomosis and then diminishes in size proximal to a large branch that appears to be stealing quite a bit of flow from the fistula. Local anesthesia was administered to the skin and subcutaneous tissue over the cephalic vein near the AV anastomosis. A microneedle was used to access the vein under ultrasound guidance. A wire was passed through this access and a 4 Namibian glide sheath was placed and flushed with saline. A fistulogram and central venogram were performed. Please see interpretation above. We then passive Glidewire through this access and an Omni flushed catheter and accessed the branch in a retrograde fashion. We confirm we were well into the branch with adequate contrast injection and then flushed the catheter with heparinized saline. Next, we deployed and 8 x 8 sherrell coil into the branch, and followed this with a 5 x 3 [place]orn[place] coil. It was difficult to tell if we could add another coil without the catheter bouncing out of the branch into the main fistula, so we elected to stop with just two coils placed. This did not completely occlude the branch, but flow was markedly diminished and I suspect the branch we'll slowly clot off over the next week. It certainly slow down the amount of flow from the fistula into the branch, which is the main goal of the coiling. Now more flow can go into the fistula proper to help with maturation and to improve flows with dialysis access in the future. We then exchange the sheath over wire for 6 [place] sheath and flushed the sheath with saline. An 8 x 200 [place] balloon was passed through the sheath and we did three-minute inflations angioplasty across the cephalic vein in the upper arm and the proximal cephalic vein into the subclavian vein and the central system. Following this, there was a marked improvement in flow and dilation of the vein and we're hopeful this will significantly help maturation. There were no residual significant stenoses, no embolization, no extravasation. There was an excellent thrill and the fistula. We then placed additional local anesthesia around the sheath and a Prolene suture was placed in a [id number] pattern around the sheath and secured as the sheath was removed. Pressure was held for 5 minutes for good hemostasis and sterile dressings were applied. The suture will be removed before the patient leaves the hospital. ESTIMATED BLOOD LOSS: Approximately 2 mL. COMPLICATIONS: None. PLAN: The patient should continue use her left upper extremity fistula for now. We will see her back in 2 weeks to check her right upper extremity fistula. Hopefully, by that point, the vein will be suitable for cannulation and to start using for dialysis. Once we are successful with the right upper extremity access, we can abandon the left upper extremity access. It is okay for the patient to resume her home diet and medications and activity. We appreciate the opportunity to produce patent the care of this patient. SHERRY PANDYA MD Aug 11, 2019 15:48
== END ==
LOC: M IRPRO 10:43
PROVIDERS: ATTEND Surgery Vascular Surgery
DX: T82.590A Other mechanical complication of surgically created arteriovenous fistula, initial encounter (principal); N18.6 End stage renal disease; X58.XXXA Exposure to other specified factors, initial encounter; Y93.9 Activity, unspecified; Y92.9 Unspecified place or not applicable; Y99.9 Unspecified external cause status
CPT/HCPCS: 36902; 99152; 99153; C1725; C1769; C1887; C1894; J1644; J2250; J3010; Q9967

== ENCOUNTER → 2019-08-30 | Outpatient (CLI) | payer MEDICARE, MEDICAID ==
--- NOTE | 2019-08-30 08:37 | ROOPDOC ---
[facility] Report Of Operation Report of Operation DATE OF PROCEDURE: 08/30/19 PREPROCEDURE DIAGNOSES: End-stage renal disease with failing left upper extremity AV access and poorly maturing right upper extremity brachiocephalic AV fistula POSTPROCEDURE DIAGNOSES: Same PROCEDURE: 1. Ultrasound-guided access right cephalic vein 2. Right upper extremity fistulogram and central venogram 3. Angioplasty of the cephalic vein and subclavian vein with an 8 x 200 Ideal balloon and 9 x 80 Ideal balloon 4. Completion venograms SURGEON: Yasmine Pandya MD ANESTHESIA: Local anesthesia with 3 mL lidocaine. Moderate intravenous conscious sedation was administered by Dr. Pandya. The patient was independently monitored by a registered nurse assigned to the Department of radiology using automated blood pressure, EKG, and pulse oximetry. The detailed sedation record is permanently stored in the hospital information system. The following is the brief sedation record: Start time 07:49, stop time 08:22, Versed 1.5 mg IV, fentanyl 75 g IV. INDICATION FOR PROCEDURE: This is a very pleasant 79-year-old patient with end- stage renal disease on dialysis who has a failing left upper extremity AV access requiring monthly angioplasty to maintain patency. The repeated procedures have gotten stressful for the patient and we placed a right upper extremity brachiocephalic AV fistula as a new access, but it is been slow to mature. The patient is elderly and has small fragile veins, but we have slowly been able to angioplasty the vein sequentially over time up to a diameter 7 mm and today we will try to dilate to 8 mm. We coiled a large branch at her last procedure that was stealing blood, and we would like to see if this has also helped with maturation. The patient is obese, and her veins are somewhat fragile, and I believe she will have an easier time with cannulation if we get the vein to a larger size to make it easier for the nurses. Risks benefits and alternatives to intervention were explained and the patient is agreeable to proceed. Informed consent was obtained. INTERPRETATION: 1. On ultrasound, the patient has a widely patent AV anastomosis. Successful single-stick cannulation with ultrasound guidance. 2. Fistulogram reveals the cephalic vein to be widely patent. It appears to be approximately 7 mm diameter. The large branch is successfully coiled although there is a small amount of flow out through a small branch off of the proximal branch just proximal to the coils. I do not believe this is an flow to sterile blood from the fistula however, and therefore we did not place additional coils. Near the shoulder, the cephalic vein is slightly more diminutive in size, and I estimate about 6 mm diameter, and about 5 mm at the cephalic subclavian juncti on. She also has a 50% stenosis in the subclavian near its junction with the SVC. Otherwise, central veins are widely patent. 3. After angioplasty of the entire cephalic vein and across the subclavian vein with an 8 x 200 [place] balloon for three-minute inflations, there was a marked improvement in flow, but we still saw irregularity and stenosis in the subclavian and proximal cephalic vein in the shoulder. After second angioplasty with a 9 x 80 Ideal balloon along these areas for three-minute inflations, there was a marked improvement and central flow as well. No extravasation was noted. There was less than 10% residual stenosis at any of the areas and a marked improvement in thrill in the fistula near the AV anastomosis. REPORT OF OPERATION: The patient was brought to the angiographic suite in stable condition. Her right upper extremity was prepped and draped in a sterile fashi on. A timeout was performed. Ultrasound was used to examine the AV anastomosis and it was found to be widely patent. Local anesthesia was administered to the skin and subcutaneous tissue over the right cephalic vein and a microneedle was used to access the vein under ultrasound guidance. A wire was passed through this access under fluoroscopic guidance the needle was removed and a 4 Slovak glide sheath was placed and flushed with saline. A Glidewire was advanced under fluoroscopy into the central system. Sedation was administered without complication. A fistulogram and central venogram were performed. Please interpretation's above. An 8 x 200 Ideal balloon was advanced into the central system across the subclavian and the proximal cephalic vein and a three-minute inflation was performed. We then retracted the balloon across the shoulder and the upper arm and another three-minute inflation was performed. We then retracted the balloon back towards the AV anastomosis and another three-minute inflation was performed. Following this, there is widely patent inflow with an increase in diameter after balloon-assisted maturation. No extravasation was noted. We then exchange the balloon for 9 x 80 Ideal balloon and did three- minute inflations across the subclavian and proximal cephalic vein, and the subclavian vein in the shoulder. Following this, there was widely patent flow with no significant residual stenosis noted. There is a marked improvement in thrill. No extravasation was noted. We then placed a [id number] Prolene suture at the she site and removed the sheath and held pressure for 5 minutes for good hemostasis. Sterile dressings were applied. The patient was taken back to recovery in stable condition. ESTIMATED BLOOD LOSS: Approximately 2 mL. COMPLICATIONS: None. PLAN: Our plan will be to see the patient back in clinic in a week and at that time we will ajay her fistula and allow the nurses to try to access. For now, the patient should continue to use her left upper extremity AV access for dialysis and it is okay to resume her home medications and diet. YASMINE PANDYA MD Aug 30, 2019 08:37
[2019-08-30 10:00] VITALS: BP 111/47
== END ==
LOC: M IRPRO 06:00
PROVIDERS: ATTEND Surgery Vascular Surgery
DX: T82.590A Other mechanical complication of surgically created arteriovenous fistula, initial encounter (principal); N18.6 End stage renal disease; X58.XXXA Exposure to other specified factors, initial encounter

== ENCOUNTER → 2019-09-13 | Outpatient (CLI) | payer MEDICARE, MEDICAID ==
[~2019-09-13] MED LIST changes: +DEXTROSE 50% 50 ML VIAL As Ordered ONE; +OSTE1TAB2 PO
[2019-09-13 14:58] LABS: BEDSIDE GLUCOSE 63 MG/DL (83-110)
[2019-09-13 17:45] VITALS: BP 105/51
[2019-09-13 17:49] LABS: BEDSIDE GLUCOSE 104 MG/DL (83-110)
--- NOTE | 2019-09-13 17:49 | ROOPDOC ---
[facility] Report Of Operation Report of Operation DATE OF PROCEDURE: 09/13/19 PREPROCEDURE DIAGNOSES: End-stage renal disease with poorly functioning left upper extremity AV fistula and increased bleeding with treatments POSTPROCEDURE DIAGNOSES: Same PROCEDURE: 1. Left upper extremity fistulogram and central venogram 2. Angioplasty left cephalic vein, cephalic to subclavian pre-existing stent, and subclavian vein with 10 x 80 [place] balloon 3. Completion venogram SURGEON: Yasmine Pandya MD ANESTHESIA: Local anesthesia with 4 mL lidocaine. Moderate intravenous conscious sedation was administered by Dr. Pandya. The patient was independently monitored by registered nurse assigned to the Department of radiology using au tomated blood pressure, EKG, and pulse oximetry. The detailed sedation record is permanently stored in the hospital information system. The following is a brief sedation record: Start time 16:42, stop time 17:14, half an amp of D50 IV, Versed 1.5 mg IV, fentanyl 75 g IV. Preop the patient had an Accu-Chek of 63, but she was asymptomatic and feeling fine. We therefore did give her half an amp of D50 IV prior to starting the procedure and we'll recheck her Accu-Chek postprocedure. She will also get a late lunch postprocedure is well. CONTRAST: 12 mL Isovue-300 INDICATION FOR PROCEDURE: This is a very pleasant 79-year-old patient with end- stage renal disease currently dialyzing with the failing left upper extremity brachiocephalic AV fistula with pre-existing cephalic to subclavian stent placed by a different provider. She has recurrent stenosis at 3 areas, including the proximal and distal aspect of the stent, and also in her cephalic vein at the shoulder. We basically have to angioplasty these areas every 4-5 weeks in order to maintain patency and function of her fistula, and towards the end of that time. The patient usually experiences bleeding times of 20-40 minutes with each dialysis treatment. This is obviously problematic for her. We placed a new right upper extremity brachiocephalic AV fistula and have done multiple fistulograms and balloon-assisted maturation's as well as coiling of her branch to improve thrill and help the fistula to mature. I feel it is almost ready to start using, but after her last balloon-assisted maturation, I wanted to give it enough time to settle prior to trying cannulation. The vein can be a bit weak directly after angioplasty, but this usually resolves after a week or 2. We plan to see the patient back next week to examine her fistula with ultrasound and ajay the fistula on the skin for the nurses to try cannulation. Unfortunately, new fistula's can be difficult to cannulate, especially with obesity, therefore we bike to keep the left arm running until the nurses are very satisfied with her right upper extremity access. Currently, the patient is having 20-30 minutes bleeding time after her procedures, she has increased pulsatility in the fistula, she has pain in the shoulder, and she has poor circulation on dialysis. Risks benefits and alternatives to a left upper extremity fistulogram and intervention were explained and the patient was agreeable to proceed. Informed consent was obtained. INTERPRETATION: 1. The cephalic vein is widely patent in the upper arm, aneurysmal near the areas of frequent access near the AV anastomosis, but approximately 10 mm diameter throughout the upper arm over the bicep and the shoulder. There is then a 90% stenosis at the shoulder, this is focal, and then again the vein is approximately 10 mm. It then narrows 60% at the proximal aspect of the cephalic to subclavian stent, and 70% at the distal aspect of the stent. There is also a 50% stenosis in the mid subclavian artery as well. The central veins are otherwise widely patent. 2. After angioplasty of the cephalic vein, the stent, and the subclavian vein, there is widely patent inflow through to the central system with a marked improvement in thrill in the fistula, and no extravasation or embolization were noted. REPORT OF OPERATION: The patient was brought to the angiographic suite in stable condition and placed supine on the fluoroscopic table. Her left upper extremity was prepped and draped in a sterile fashion. A timeout was performed. Local anesthesia was administered to the skin and subcutaneous tissue over the left cephalic vein and a microneedle was used to access the vein. A wire was passed through this access and the needle was removed and a 4 [place] glide sheath was placed and flushed with saline. Through this access, half an amp of D50 was a dministered, along with sedation. We then performed a fistulogram and central venogram, please interpretation above. We then advanced a Glidewire across to the central system and we advanced a 10 x 80 [place] balloon into the central system. Three-minute inflations were done across the subclavian stenosis, the stenoses at the proximal and distal end of the stent, and the cephalic vein in the shoulder. Following this there was widely patent flow to the central system with less than 10% residual stenosis at any of the areas of previous stenoses. There is no extravasation or embolization noted and there was a marked improvement in thrill. We then added additional local anesthesia around the sheath and a Prolene suture was placed in a [id number] pattern around the sheath exit site at the skin. We secured the suture upon removal of the sheath and pressure was held for 2 minutes for good hemostasis and Steri-Strips were applied to secure the suture along with sterile dressings. The suture will be removed prior to discharge today. The patient was then taken to recovery in stable condition. She tolerated the sedation in the procedure well. ESTIMATED BLOOD LOSS: Approximately 2 mL. COMPLICATIONS: None. PLAN: We plan to see the patient back next week to do an office ultrasound exam of her right upper extremity fistula and hopefully it is ready for use and we will ajay it for access at that time. However, the patient is obese and has a large amount of adipose tissue in her upper arm, and I anticipate it may be a bit challenging for the nurses to access her fistula until it has been used consistently for a while. Therefore, until were sure it won't infiltrate frequently or they will have difficulty, and like to keep the left upper extremity access going. Eventually, we like to ligate the left upper extremity access once we are satisfied with using the right upper extremity access. However, I think this may be a few months away. Wire, the patient can use her left upper extremity fistula for dialysis. It is also okay for her to resume her home diet medications. YASMINE PANDYA MD Sep 13, 2019 17:49
== END ==
LOC: M IRPRO 14:40
PROVIDERS: ATTEND Surgery Vascular Surgery
DX: T82.590A Other mechanical complication of surgically created arteriovenous fistula, initial encounter (principal); N18.6 End stage renal disease; X58.XXXA Exposure to other specified factors, initial encounter; Y93.9 Activity, unspecified; Y92.9 Unspecified place or not applicable; Y99.9 Unspecified external cause status

== ENCOUNTER → 2019-12-15 | Outpatient (CLI) | payer MEDICARE, MEDICAID ==
[~2019-12-15] MED LIST changes: -DEXTROSE 50% 50 ML VIAL As Ordered ONE; -ISOVUE-300 61% 50ML VIAL (Q9967) As Ordered ONE; +ISOVUE-300 61% 50ML VIAL As Ordered ONE; -MIDAZOLAM INJ 2 MG/2 ML VIAL (J2250) As Ordered ONE; +MIDAZOLAM INJ 2MG/2ML VIAL (J2250 PER 1MG) As Ordered ONE
--- NOTE | 2019-12-15 14:17 | ROOPDOC ---
[facility] Report Of Operation Report of Operation DATE OF PROCEDURE: 12/15/19 PREPROCEDURE DIAGNOSES: End-stage renal disease with increased bleeding and venous pressures after dialysis. POSTPROCEDURE DIAGNOSES: Same PROCEDURE: 1. Ultrasound-guided access right brachiocephalic AV fistula 2. Right upper extremity fistulogram and central venogram 3. Angioplasty right cephalic vein and subclavian vein with 9 x 80 [place] balloon 4. Completion venogram SURGEON: Sherry Pandya MD ANESTHESIA: Local anesthesia 3 mL lidocaine. Moderate intravenous conscious sedation was administered by Dr. Pandya. The patient was independently monitored by registered nurse assigned to the Department of radiology using automated blood pressure, EKG, and pulse oximetry. The detailed sedation record is permanently stored in the hospital information system. The following is a brief sedation record: Start time 13:40, stop time 14:02, Versed 1 mg IV, fentanyl 50 g IV. INDICATION FOR PROCEDURE: This is a very pleasant 79-year-old patient with end- stage renal disease currently dialyzing with her new right upper extremity br achiocephalic AV fistula. She has noticed some difficulty with cannulation depending on the nurse, as well as a bit more increased bleeding and increased venous pressures during dialysis. Risks benefits alternatives to a fistulogram potential intervention were explained to the patient she is agreeable to proceed. Informed consent was obtained. INTERPRETATION: 1. The arteriovenous anastomosis is widely patent. 2. The cephalic vein is widely patent throughout the upper arm, with only a few areas of focal 30% stenoses. One of the stenoses is located near the large branch that we coiled on an earlier procedure, one is in the mid arm over the bicep, the others is more proximal towards the shoulder. The junction of the subclavian vein with the SVC has a 50% stenosis. Otherwise, the central veins are widely patent. 3. After angioplasty of the cephalic vein and the subclavian vein SVC junction with 9 x 80 [place] balloon, there was widely patent flow throughout the cephalic vein into the central system with no significant residual stenosis. There is an excellent thrill and the fistula. REPORT OF OPERATION: The patient was brought to the angiographic suite in stable condition. Her right upper extremity was prepped and draped in a sterile fashion. A timeout was performed. Local anesthesia was administered to the skin and subcutaneous tissue over the right cephalic vein near the AV anastomosis. Ultrasound was used to examine AV anastomosis and we saw good flow without signs of stenosis, and an ultrasound was used to guide access with a microneedle. A wire was passed through this access and confirmed to be in the true lumen of the fistula with ultrasound. The needle was removed and a 4 [place] sheath was placed and flushed with saline. A fistulogram and central venogram were performed. Please see interpretation above. A Glidewire was advanced into the central system under fluoroscopic guidance and the sheath was exchanged for 6 [place] sheath and flushed with saline. A 9 x 80 [place] balloon was used to perform sequential angioplasty from the subclavian SVC junction back towards the AV anastomosis. Remitted inflations were performed proximally and shorter inflations were performed more distally towards the AV anastomosis. Following this, there is widely patent flow throughout the fistula with an excellent thrill. No significant residual stenosis was noted. No extravasation was noted. This concluded the procedure. Local anesthesia was administered around the sheath and a gzayjc-ex-rrwoz Prolene suture was secured as the sheath was removed. Pressure was held for 2 minutes for good hemostasis and sterile dressings were applied. The patient was then taken to recovery in stable condition. She tolerated the sedation and the procedure well. ESTIMATED BLOOD LOSS: Approximately 2 mL. COMPLICATIONS: None. PLAN: It is okay to use right upper extremity AV fistula for dialysis. Patient may resume home diet medications. She is very good at monitoring her fistula and letting us know when there are any problems and we would like to see her back whenever she needs are assistance in the future. She has been counseled about this and is agreeable. We appreciate the opportunity to participate in the care of this patient. SHERRY PANDYA MD Dec 15, 2019 14:17
[2019-12-15 16:06] VITALS: BP 133/59
== END ==
LOC: M IRPRO 12:24
PROVIDERS: ATTEND Surgery Vascular Surgery
DX: T82.590A Other mechanical complication of surgically created arteriovenous fistula, initial encounter (principal); N18.6 End stage renal disease; X58.XXXA Exposure to other specified factors, initial encounter
CPT/HCPCS: 36902; 99152; C1725; C1769; C1894; J1644; J2250; J3010; Q9967

== ENCOUNTER → 2020-02-02 | Outpatient (CLI) | payer MEDICARE, MEDICAID ==
[~2020-02-02] MED LIST changes: +AMLO1TAB24 PO; -AMLO5TAB6 PO; +DEXTROSE 50% 50 ML SYRINGE As Ordered ONE; +PANT40TA29 PO; -PANT40TA3 PO; +VELP5CHW PO; +VITAMIN D PO
--- NOTE | 2020-02-02 16:22 | ROOPDOC ---
[facility] Report Of Operation Report of Operation DATE OF PROCEDURE: 02/02/20 PREPROCEDURE DIAGNOSES: End-stage renal disease increased bleeding after dialysis procedures POSTPROCEDURE DIAGNOSES: Same PROCEDURE: 1. Ultrasound-guided access right brachiocephalic AV fistula 2. Right upper extremity fistulogram and central venogram 3. Angioplasty subclavian vein and thoracic outlet with a 10 x 40 [place] balloon 4. Completion venogram SURGEON: Yasmine Pandya MD ANESTHESIA: Local anesthesia 2 mL lidocaine. Moderate intravenous conscious sedation was administered by Dr. Pandya. The patient was independently monitored by registered nurse assigned to the Department of radiology using automated blood pressure, EKG, and pulse oximetry. The detailed sedation record is permanently stored in the hospital information system. The following is a brief sedation record: Start time 15:48, stop time 16:00, Versed 0.5 mg IV, fentanyl 50 g IV, dextrose 25 g IV. CONTRAST: 12 mL Isovue-300 INDICATION FOR PROCEDURE: This is a very pleasant 79-year-old patient with end- stage renal disease currently dialyzing with her right upper extremity brachiocephalic AV fistula. She said dialysis going well, but she starting to have increased bleeding after dialysis treatments. Risks benefits and alternatives to a fistulogram potential intervention were explained to the patient she is agreeable to proceed. Informed consent was obtained. INTERPRETATION: 1. Ultrasound was used to examine the AV anastomosis and it was noted to be widely patent. 2. The cephalic vein is widely patent throughout its course and no areas of stenosis were noted. 3. The subclavian vein is widely patent but narrows 70% at the thoracic outlet and then the central veins are widely patent. 4. After angioplasty the subclavian vein with a 10 x 40 [place] balloon for four-minute inflation, there is widely patent flow with less than 20% residual stenosis and an excellent thrill and AV fistula. REPORT OF OPERATION: The patient was brought to the angiographic suite in stable condition and placed supine on the table. Her right upper extremity was prepped and draped in a sterile fashion. A timeout was performed. Local anesthesia was administered to skin and subcutaneous tissue over the cephalic vein near the AV anastomosis. Ultrasound was used to examine the AV anastomosis and it was noted to be widely patent. Ultrasound was used to access the cephalic vein with a microneedle and a wire was passed through this access and the needle was removed. 4 [place] sheath was placed and flushed with saline. A fistulogram and central venogram were performed. Please see interpretation above. Next, a Glidewire was advanced into the central system under fluoroscopic guidance in the sheath was exchanged for a 6 [place] sheath and flushed with saline. We advanced a 10 x 40 [place] balloon across the thoracic outlet stenosis in the subclavian vein and a four-minute inflation was performed. Following this, there was a dramatic improvement in flow with little residual stenosis, no extravasation noted. This concluded the procedure. The patient had an excellent thrill and her fistula. Local anesthesia was administered around the sheath and a rjfmma-cw-smqxe Prolene suture was placed and secured as the sheath was removed. Sterile dressings were applied. We then utilized ultrasound to ajay the fistula on the skin. It is okay to use the fistula for dialysis. The patient was then taken to recovery in stable condition. She tolerated the procedure and the sedation well. ESTIMATED BLOOD LOSS: Approximately 2 mL. COMPLICATIONS: None. PLAN: It is okay to use the fistula for dialysis. I've asked the patient to let us know if she has any problems in the future, with increased bleeding or with increased venous pressures during dialysis. She is agreeable to this plan. She is excellent at keeping track of her fistula and letting us know when she is having any difficulties. We appreciate the opportunity a chest pain in the care of this patient. YASMINE PANDYA MD Feb 02, 2020 16:22
[2020-02-02 16:55] VITALS: BP 129/60
== END ==
LOC: M IRPRO 12:36
PROVIDERS: ATTEND Surgery Vascular Surgery
DX: T82.590A Other mechanical complication of surgically created arteriovenous fistula, initial encounter (principal); N18.6 End stage renal disease; E11.22 Type 2 diabetes mellitus with diabetic chronic kidney disease; I12.0 Hypertensive chronic kidney disease with stage 5 chronic kidney disease or end stage renal disease; E78.00 Pure hypercholesterolemia, unspecified; M12.9 Arthropathy, unspecified; X58.XXXA Exposure to other specified factors, initial encounter; Z79.899 Other long term (current) drug therapy; Z79.4 Long term (current) use of insulin; Z88.5 Allergy status to narcotic agent; Z88.8 Allergy status to other drugs, medicaments and biological substances; Z91.048 Other nonmedicinal substance allergy status; Z99.2 Dependence on renal dialysis
CPT/HCPCS: 36902; 99152; C1725; C1769; C1894; J1644; J2250; J3010; Q9967

== ENCOUNTER 2020-03-04 13:01 | Emergency (ER) | payer MEDICARE, MEDICAID ==
[~2020-03-04] VITALS: Ht 149.9 cm; Wt 101.3 kg
[~2020-03-04 13:01] MED LIST changes: -DEXTROSE 50% 50 ML SYRINGE As Ordered ONE; -ISOVUE-300 61% 50ML VIAL As Ordered ONE; -LIDOCAINE 1% MDV 20ML VIAL As Ordered ONE; -MIDAZOLAM INJ 2MG/2ML VIAL (J2250 PER 1MG) As Ordered ONE; -fentaNYL 100 MCG/2 ML INJECTION (J3010) As Ordered ONE
[2020-03-04 14:32] LABS: BASO # 0.1 10^3/uL (0.0-0.2); BASO % 0.5 % (0.0-1.0); EOS # 0.4 10^3/uL (0.0-0.5); EOS % 3.5 % (0.0-3.0); HEMATOCRIT 28.9 % (36.0-47.0); HEMOGLOBIN 9.2 g/dl (12.0-15.5); LYMPH % 8.8 % (24.0-44.0); MEAN CORPUSCULAR HEMOGLOBIN 30.7 pg (27.0-33.0); MEAN CORPUSCULAR HGB CONC 31.8 g/dl (32.0-36.5); MEAN CORPUSCULAR VOLUME 96.3 fl (80.0-96.0); MONO # 0.6 10^3/uL (0.0-0.8); MONO % 5.4 % (0.0-5.0); NEUTROPHILS # 9.3 10^3/uL (1.5-8.5); NEUTROPHILS % 81.2 % (36.0-66.0); PLATELET COUNT, AUTOMATED 203 10^3/uL (150-450); WHITE BLOOD COUNT 11.5 10^3/uL (4.0-10.0)
[2020-03-04 14:55] LABS: ALBUMIN 2.9 GM/DL (3.2-5.2); BILIRUBIN,DIRECT 0.1 MG/DL (0.0-0.2); BILIRUBIN,TOTAL 0.5 MG/DL (0.2-1.0); TOTAL PROTEIN 6.9 GM/DL (6.4-8.2)
[2020-03-04] MEDS: GASTROGRAFIN SOLUTION 30ML PO SCH ×2 (16:24→16:53)
[2020-03-04] MEDS ORDERED: ISOVUE-370 76% 100ML VIAL As Ordered ONE (17:24)
--- NOTE | 2020-03-04 18:27 | REPVR ---
PROCEDURE INFORMATION: Exam: CT Abdomen And Pelvis With Contrast Exam date and time: 03/04/2020 5:48 PM Age: 79 years old Clinical indication: Abdominal pain; Additional info: Llq pain, R/O diverticulitis (esrd with dialysis tomorrow) TECHNIQUE: Imaging protocol: Computed tomography of the abdomen and pelvis with intravenous contrast. Radiation optimization: All CT scans at this facility use at least one of these dose optimization techniques: automated exposure control; mA and/or kV adjustment per patient size (includes targeted exams where dose is matched to clinical indication); or iterative reconstruction. Contrast material: ISOVUE 370; Contrast volume: 100 ml; Contrast route: INTRAVENOUS (IV); COMPARISON: CT ABD PELVIS WITH CONTRAST 05/07/2018 2:10 AM FINDINGS: Heart: Cardiomegaly. Liver: There is a diffuse decrease in hepatic parenchymal density, consistent with steatosis. Gallbladder and bile ducts: Normal. No calcified stones. No ductal dilation. Pancreas: There are punctate pancreatic parenchymal calcifications, consistent with chronic pancreatitis. Diffuse pancreatic atrophy. Stable dilatation of the pancreatic duct. Spleen: Stable indeterminate hypodensity in the inferior aspect of the spleen. Spleen otherwise unremarkable. Adrenals: Normal. No mass. Kidneys and ureters: Multiple bilateral nonobstructive renal calculi measure up to 8 mm in the right kidney. Bilateral renal parenchymal atrophy consistent with advanced patient age/ESRD. There is a 6mm. obstructive ureteral calculus located proximal right ureter at the UP junction resulting in mild proximal hydroureteronephrosis. There is no significant periureteral and perinephric stranding. No urinoma demonstrated. Small renal cysts measure up to 1.2 cm in the left kidney. No follow-up suggested. Stomach and bowel: Unremarkable. No obstruction. No mucosal thickening. Appendix: No evidence of appendicitis. Intraperitoneal space: Unremarkable. No free air. No significant fluid collection. Vasculature: The aortoiliac vessels demonstrate moderate atherosclerotic calcification. Lymph nodes: Unremarkable. No enlarged lymph nodes. Urinary bladder: Unremarkable as visualized. Reproductive: There has been a hysterectomy. Bones/joints: Severe central spinal stenosis at L4-L5 with endplate irregularity at the inferior endplate of L4 and superior endplate of L5 with sclerosis. Findings may be the sequelae of age indeterminate discitis. Of note the endplate irregularity appears to have progressed in comparison to the 2018 examination. Bilateral facet joint arthropathy L5-S1. Soft tissues: Large diastasis in the abdomen with marked thinning of the rectus musculature. IMPRESSION: 1. Severe central spinal stenosis at L4-L5 with endplate irregularity at the inferior endplate of L4 and superior endplate of L5 with sclerosis. Findings may be the sequelae of age indeterminate discitis. Of note the endplate irregularity appears to have progressed in comparison to the 2018 examination. 2. There is a diffuse decrease in hepatic parenchymal density, consistent with steatosis. 3. There are punctate pancreatic parenchymal calcifications, consistent with chronic pancreatitis. Diffuse pancreatic atrophy. Stable dilatation of the pancreatic duct. 4. Multiple bilateral nonobstructive renal calculi measure up to 8 mm in the right kidney. 5. Bilateral renal parenchymal atrophy consistent with advanced patient age/ESRD. 6. There is a 6mm. obstructive ureteral calculus located proximal right ureter at the UP junction resulting in mild proximal hydroureteronephrosis. There is no significant periureteral and perinephric stranding. No urinoma demonstrated. 7. There has been a hysterectomy. 8. Large diastasis in the abdomen with marked thinning of the rectus musculature. Electronically signed by: Carroll Dunham On 03/04/2020 18:27:36 PM
[2020-03-04 19:45] VITALS: BP 143/64
--- NOTE | 2020-03-05 09:07 | ECGEPIP ---
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 Order Number: [id number] Reading MD: Rocael Mcnally Measurements Intervals [place] Rate: 73 P: 55 IN: 202 QRS: -56 QRSD: 151 T: 60 QT: 427 QTc: 472 Interpretive Statements SINUS RHYTHM WITH SINUS ARRHYTHMIA RIGHT BUNDLE BRANCH BLOCK LEFT ANTERIOR FASCICULAR BLOCK LEFT VENTRICULAR HYPERTROPHY AND ST-T CHANGE SIMILAR TO 05/06/18 Electronically Signed on 03-05-2020 9:07:08 EDT by Rocael Mcnally
--- NOTE | 2020-03-06 18:26 | ED PDOC ---
Post-Departure Follow-Up ct abd/p faxed formal report to [facility]ia [place] for Vianney Arellano MD Mar 06, 2020 18:26
== END 2020-03-04 20:03 | disposition home or self-care (01) ==
LOC: M ED 13:01
DX: A08.4 Viral intestinal infection, unspecified (principal); I12.0 Hypertensive chronic kidney disease with stage 5 chronic kidney disease or end stage renal disease; Z99.2 Dependence on renal dialysis; N13.1 Hydronephrosis with ureteral stricture, not elsewhere classified; N20.0 Calculus of kidney; R94.31 Abnormal electrocardiogram [ECG] [EKG]; M48.061 Spinal stenosis, lumbar region without neurogenic claudication; K86.89 Other specified diseases of pancreas; E11.9 Type 2 diabetes mellitus without complications; E78.5 Hyperlipidemia, unspecified; Z90.710 Acquired absence of both cervix and uterus; Z88.8 Allergy status to other drugs, medicaments and biological substances; Z88.6 Allergy status to analgesic agent; Z79.899 Other long term (current) drug therapy
CPT/HCPCS: 36415; 74177; 80047; 80076; 83690; 84484; 85025; 87040; 93005; 93041; 94760; 99285; Q9963; Q9967

== ENCOUNTER → 2020-04-05 | Outpatient (CLI) | payer MEDICARE, MEDICAID ==
[~2020-04-05] MED LIST changes: +ISOVUE-300 61% 50ML VIAL As Ordered ONE; +LIDOCAINE 1% MDV 20ML VIAL As Ordered ONE; +MIDAZOLAM INJ 2MG/2ML VIAL (J2250 PER 1MG) As Ordered ONE; +fentaNYL 100 MCG/2 ML INJECTION (J3010) As Ordered ONE
[2020-04-05 12:30] VITALS: BP 101/63
--- NOTE | 2020-04-05 13:20 | ROOPDOC ---
[facility] Report Of Operation Report of Operation DATE OF PROCEDURE: 04/05/20 PREPROCEDURE DIAGNOSES: End-stage renal disease with infiltration and increased pulsatility right upper extremity brachiocephalic AV fistula POSTPROCEDURE DIAGNOSES: Same PROCEDURE: 1. Ultrasound-guided access right cephalic vein 2. Right upper extremity fistulogram and central venogram 3. Angioplasty subclavian vein at the thoracic outlet with 10 x 40 Walthall balloon and 10 x 40 conquest balloon 4. Completion venogram SURGEON: Sherry Pandya MD ANESTHESIA: Local anesthesia 2 mL lidocaine. Moderate intravenous conscious sedation was administered by Dr. Pandya. The patient was independent we monitored by registered nurse + at the Department of radiology using automated blood pressure, EKG, and pulse oximetry. A detailed sedation record is permanently stored in the hospital information system. The following is a brief sedation record: Start time 11:56, stop time 12:18, Versed 0.5 mg IV, fentanyl 50 g IV. CONTRAST: 16 mL Isovue-300 INDICATION FOR PROCEDURE: This is a very pleasant 79-year-old patient with end-stage renal disease who has had infiltration of her right upper extremity fistula and increased pulsatility. Risks benefits alternatives to a fistulogram were explained and she is agreeable to proceed. Informed consent was obtained. INTERPRETATION: 1. AV anastomosis was examined with ultrasound and noted to be widely patent. We also examined the cephalic vein over the arm in the area of infiltration. It appears that the patient likely had a needle that went through the side of her fistula more proximally over the bicep from the area of frequent access. The vein is a little tortuous in this area, which may have led to the extravasation event. I marked the fistula on the skin to make access easier for dialysis nurses. 2. Fistulogram reveals widely patent cephalic vein over the bicep in the shoulder with a widely patent junction with the subclavian vein, 60% stenosis in the subclavian vein for thoracic outlet and widely patent inflow into the central veins. 3. After angioplasty of the subclavian vein with a 10 x 40 Walthall balloon, there was still 40-50% residual stenosis, 70 exchanged the balloon for A. fib 10 x 40 conquest high-pressure balloon and a three-minute inflations was performed. Following this there was a marked improvement flow through the subclavian vein with no significant residual stenosis in a marked improvement in thrill in the fistula. No extravasation noted. REPORT OF OPERATION: Patient was brought the angiographic suite in stable condition. Her right upper extremity was prepped and draped in a sterile fashion. A timeout was performed. Local anesthesia was administered to the skin and subcutaneous tissue over the cephalic vein near the AV anastomosis. Ultrasound was used to examine the AV anastomosis and the cephalic vein in the area of infiltration, please interpretation above. We then accessed the vein under ultrasound guidance a wire was passed through this access needle was removed and a 4 Luxembourger sheath was placed and flushed with saline. Sedation was administered without complication. Fistulogram was performed, please interpretation above. Next, an O35 Glidewire was advanced into the central system under fluoroscopic guidance. The sheath was exchanged for some Luxembourger sheath and flushed with saline. Angioplasty was performed with a 10 x 40 Walthall balloon across the subclavian at the thoracic outlet for three-minute inflations area following this, there was not a significant improvement inflow at the area of stenosis, and the balloon was exchanged for high-pressure conquest balloon, 10 x 40, and another three-minute inflations higher pressures was performed. Following this, there was a widely patent inflow through the subclavian vein with no significant residual stenosis. her sensation was noted. This concluded the procedure. Local anesthesia was a service center appraiser around the sheath in a [id number] Prolene suture was secured at the sheath was removed. Good hemostasis was noted and sterile dressings were applied. Patient was then taken to recovery stable condition. She tolerated the procedure and the sedation well. ESTIMATED BLOOD LOSS: Approximately 2 mL. COMPLICATIONS: None. PLAN: It is okay to use the fistula for dialysis. It is okay to resume home diet and medications. Follow-up for any fistula concerns. We appreciate the opportunity to participate in the care of this patient. SHERRY PANDYA MD Apr 05, 2020 13:20
== END ==
LOC: M IRPRO 10:59
PROVIDERS: ATTEND Surgery Vascular Surgery
DX: T82.590A Other mechanical complication of surgically created arteriovenous fistula, initial encounter (principal); N18.6 End stage renal disease; X58.XXXA Exposure to other specified factors, initial encounter
CPT/HCPCS: 36902; 99152; C1725; C1769; C1894; J1644; J2250; J3010; Q9967

== ENCOUNTER 2020-05-16 11:05 | Inpatient (IN) | payer MEDICARE, MEDICAID ==
[~2020-05-16] VITALS: Ht 147.3 cm; Wt 98.1 kg
[~2020-05-16 11:05] MED LIST changes: -ISOVUE-300 61% 50ML VIAL As Ordered ONE; -LIDOCAINE 1% MDV 20ML VIAL As Ordered ONE; -MIDAZOLAM INJ 2MG/2ML VIAL (J2250 PER 1MG) As Ordered ONE; -fentaNYL 100 MCG/2 ML INJECTION (J3010) As Ordered ONE
--- NOTE | 2020-05-16 12:22 | REP ---
INDICATION: hip pain. COMPARISON: Comparison study 02/23/2019.. TECHNIQUE: Upright AP radiograph. FINDINGS: Moderate cardiac enlargement is again noted. Pulmonary vasculature is cephalized. No focal infiltrate is seen. The pleural angles are sharp. There is a vascular stent projecting in the left subclavicular soft tissues as before. No significant bony abnormality. IMPRESSION: Cardiomegaly. Vascular stent in the left subclavian region. Otherwise no acute disease. <Electronically signed by Nahun Cole > 05/16/20 [id number]
--- NOTE | 2020-05-16 12:23 | REP ---
INDICATION: hip pain. COMPARISON: None. TECHNIQUE: AP view of the pelvis. FINDINGS: The bony pelvic ring is intact. No pelvic or sacral fracture is seen. There is degenerative sclerosis in the symphysis pubis. Femoral heads are smooth and rounded hip joint spaces are preserved. There is mild diffuse osteopenia. Vascular calcification is noted overlying the sacrum. IMPRESSION: No fracture seen. Degenerative sclerosis at the symphysis pubis. <Electronically signed by Nahun Cole > 05/16/20 [id number]
--- NOTE | 2020-05-16 12:27 | REP ---
INDICATION: hip pain. COMPARISON: Abdomen pelvis CT dated 03/04/2020. TECHNIQUE: There are three views. FINDINGS: There is no fracture or dislocation. There is joint space narrowing suggestive of arthropathy. There is no femoral head deformity. There are no calcifications or foreign bodies. IMPRESSION: Joint space narrowing, otherwise negative left hip. <Electronically signed by Robles Loyd > 05/16/20 [id number]
[2020-05-16 12:46] LABS: BASO # 0.1 10^3/uL (0.0-0.2); BASO % 0.6 % (0.0-1.0); EOS # 0.3 10^3/uL (0.0-0.5); EOS % 3.5 % (0.0-3.0); HEMATOCRIT 29.8 % (36.0-47.0); HEMOGLOBIN 9.1 g/dl (12.0-15.5); LYMPH % 10.8 % (24.0-44.0); MEAN CORPUSCULAR HEMOGLOBIN 30.2 pg (27.0-33.0); MEAN CORPUSCULAR HGB CONC 30.5 g/dl (32.0-36.5); MONO # 0.6 10^3/uL (0.0-0.8); MONO % 6.5 % (0.0-5.0); NEUTROPHILS # 7.5 10^3/uL (1.5-8.5); NEUTROPHILS % 77.9 % (36.0-66.0); PLATELET COUNT, AUTOMATED 167 10^3/uL (150-450); RED BLOOD COUNT 3.01 10^6/uL (4.00-5.40); WHITE BLOOD COUNT 9.6 10^3/uL (4.0-10.0)
[2020-05-16 13:17] LABS: ALBUMIN 2.8 GM/DL (3.2-5.2); ALT/SGPT 20 U/L (12-78); BILIRUBIN,DIRECT < 0.1 MG/DL (0.0-0.2); BILIRUBIN,TOTAL 0.4 MG/DL (0.2-1.0); BLOOD UREA NITROGEN 28 MG/DL (7-18); C REACTIVE PROTEIN QUANTITATIV 4.65 MG/DL (0.00-0.30); CALCIUM LEVEL 8.2 MG/DL (8.8-10.2); CARBON DIOXIDE LEVEL 25 MEQ/L (21-32); CHLORIDE LEVEL 104 MEQ/L (98-107); CREATININE FOR GFR 6.39 MG/DL (0.55-1.30); GLOMERULAR FILTRATION RATE 6.7 (>39); GLUCOSE, FASTING 179 MG/DL (70-100); LIPASE 89 U/L (73-393); POTASSIUM SERUM 3.7 MEQ/L (3.5-5.1); SODIUM LEVEL 138 MEQ/L (136-145); TOTAL PROTEIN 6.9 GM/DL (6.4-8.2)
[2020-05-16 13:46] LABS: ERYTHROCYTE SEDIMENTATION RATE 82 mm/hr (0-30)
[2020-05-16] MEDS ORDERED: D31000TA2 PO (15:10)
[2020-05-16] MEDS ORDERED: ULTR5TAB PO (15:10)
[2020-05-16] MEDS ORDERED: CALC1CAP31 PO (15:10)
[2020-05-16] MEDS ORDERED: COLA100C5 PO (15:10)
[2020-05-16 15:25] LABS: RSV AMPLIFICATION NEGATIVE (NEGATIVE)
[2020-05-16] MEDS ORDERED: GLUCAGON INJ 1MG VIAL SC PRN (16:15)
[2020-05-16] MEDS ORDERED: MOM 30ML SUSPENSION UDC PO PRN (16:15)
[2020-05-16] MEDS ORDERED: DEXTROSE 50% 50 ML SYRINGE IV PRN (16:15)
[2020-05-16] MEDS ORDERED: GLUCOSE 4GM CHEW TABLET PO PRN (16:15)
[2020-05-16] MEDS ORDERED: traMADol 50 MG TAB PO PRN (16:45)
[2020-05-16] MEDS: HumaLOG INSULIN (NovoLOG) PER UNIT SC SCH ×2 (17:30→20:07)
--- NOTE | 2020-05-16 17:59 | HPEPDOC ---
[facility] Medical History & Physical Date of Admission May 16, 2020 Date of Service: May 16, 2020 Attending Physician: ROSA DEAN MD History and Physical CHIEF COMPLAINT: Left hip pain HISTORY OF PRESENT ILLNESS: Ms. Holloway is a 79 year old female presenting with left hip pain. PMH includes end-stage renal disease on hemodialysis, anemia of end-stage renal disease, insulin dependent diabetes mellitus, HTN, osteoarthritis, dyslipidemia and hx of endometrial cancer s/p complete hysterectomy. Pts hip pain started around 2 weeks ago and has progressively worsened to the point where she can hardly walk. This morning, it was the worst its been and that prompted her to come to the ED. She denies any recent fall or trauma. Pt describes the pain as sharp that wraps around the side of her hip with the most tenderness on the side. Pain is worst when standing and bearing weight, making it difficult for her to get around. She was seen at [facility] recently where imaging was negative for any acute trauma and she was prescribed topical diclofenac which did not provide any relief. She has also been taking Tylenol 500 mg 3 times a day and using ice/heat which also did not provide any pain relief. Imaging done in the ED was negative for fracture. PAST MEDICAL HISTORY: End-stage renal disease on hemodialysis //Wed. Anemia of end-stage renal disease Insulin-dependent diabetes mellitus HTN Osteoarthritis Dyslipidemia Hx of endometrial cancer s/p hysterectomy 1994 PAST SURGICAL HISTORY: Right ankle surgery Tonsillectomy Hysterectomy for endometrial cancer SOCIAL HISTORY: Tobacco Never. Alcohol Very rarely Recreational drug use Never. No recent travel. 13 year old granddaughter recently moved in with her. FAMILY HISTORY: Mother colon cancer Father emphysema, arthritis Maternal grandmother OR Paternal grandmother HTN Paternal grandfather throat cancer MEDICATIONS: See below ALLERGIES: See below REVIEW OF SYSTEMS: CONSTITUTIONAL: Denies fever, chills, night sweats and weight changes. HEENT: Denies headache, vision changes, ear pain, sinus congestion or trouble swallowing. CARDIOVASCULAR: Denies chest pain, palpitations, and racing heart. RESPIRATORY: Denies shortness of breath, cough and wheezing. GASTROINTESTINAL: Admits to some chronic nausea for the last year and some periodic diarrhea and constipation. Denies blood in stool. GENITOURINARY: Denies dysuria, hematuria. Pt admits to producing very little urine due to CKD. SKIN: Denies skin changes, rashes, lesions, wounds and itching. MUSCULOSKELETAL: Admits to left hip pain. Admits to some chronic arthritis pain in neck and right ankle. NEUROLOGICAL: Denies dizziness, lightheadedness, numbness and tingling in hands and feet. PSYCHIATRIC: Denies anxiety and depression. PHYSICAL EXAMINATION GENERAL: Appears comfortable lying in bed with no respiratory distress. HEENT: PERRL. EOM intact. No difficulty swallowing. Moist mucus membranes. Pt wears dentures. NECK: Supple. No lymphadenopathy present. CARDIOVASCULAR: S1S2 normal. RRR. 3/6 systolic ejection murmur appreciated in upper left sternal border. No rubs or gallops. RESPIRATORY: Clear to auscultation in all lung sanon. No wheezing, rhonchi or rales appreciated. GASTROINTESTINAL: Soft, nontender, nondistended abdomen. Normoactive bowel sounds heard in all 4 quadrants. MUSCULOSKELETAL: Tenderness to palpation on lateral hip. Unable to raise leg against resistance due to pain. Otherwise normal ROM in all other joints. EXTREMITIES: AV fistula present in bilateral upper extremities, thrill auscultated. 1+ bilateral LE edema noted up to the mid calf. NEUROLOGICAL: AAO x3, All CN intact. No obvious focal neurologic deficits. PSYCHIATRIC: Normal mood and affect LABORATORY DATA: See below MICROBIOLOGY: See below IMAGING: (interpretation per radiologist report) - CXR: Cardiomegaly. Vascular stent in the left subclavian region. Otherwise no acute disease. - Hip XR: Joint space narrowing, otherwise negative left hip. - Pelvis XR: No fracture seen. Degenerative sclerosis at the symphysis pubis. ASSESSMENT: Ms. Holloway is a 79 year old female with PMH of end-stage renal disease on hemodialysis, anemia of end-stage renal disease, insulin dependent diabetes mellitus, HTN, osteoarthritis, dyslipidemia and hx of endometrial cancer s/p complete hysterectomy presents with left hip pain. Imaging done in ED was negative for acute fracture or trauma. Pt is being admitted for pain management, hemodialysis, and PT evaluation and treatment. PLAN: #Left hip pain -Hip and Pelvis X-ray showed no fracture or dislocation. -Tramadol HCl 50 mg Q6H PRN. Tylenol 650 mg Q4H PRN. -PT/OT evaluation and treatment #End-stage renal disease requiring hemodialysis -Pt was unable to make dialysis appointment today. -Nephrology consult placed for hemodialysis treatment during hospital stay. #Diabetes Mellitus type 2 -Insulin Detemir 20 units BID -SSI with FSBS ACHS. consistent carb diet -Hypoglycemic protocol # Chronic anemia - likely 2/2 ESRD. monitor CBC daily DVT PROPHYLAXIS: Heparin 5000 units Q12H DISPOSITION: Pending PT/OT eval and treatment Vital Signs Vital Signs Date Time Temp Pulse Resp B/P (MAP) Pulse Ox O2 Delivery O2 Flow Rate FiO2 05/16/20 16:20 77 18 100 Room Air 05/16/20 16:00 111/59 (76) 05/16/20 11:13 97.9 Laboratory Data Labs 24H Laboratory Tests 2 05/16/20 11:58: Immature Granulocyte % (Auto) 0.7, Neutrophils (%) (Auto) 77.9H, Lymphocytes (%) (Auto) 10.8L, Monocytes (%) (Auto) 6.5H, Eosinophils (%) (Auto) 3.5H, Basophils (%) (Auto) 0.6, Neutrophils # (Auto) 7.5, Lymphocytes # (Auto) 1.0L, Monocytes # (Auto) 0.6, Eosinophils # (Auto) 0.3, Basophils # (Auto) 0.1, Nucleated Red Blood Cells % (auto) 0.0, Erythrocyte Sedimentation Rate 82H, Anion Gap 9, Corinna merular Filtration Rate 6.7L, Calcium Level 8.2L, Total Bilirubin 0.4, Direct Bilirubin < 0.1, Aspartate Amino Transf (AST/SGOT) 24, Alanine Aminotransferase (ALT/SGPT) 20, Alkaline Phosphatase 32L, C-Reactive Protein, Quantitative 4.65H, Total Protein 6.9, Albumin 2.8L, Albumin/Globulin Ratio 0.7L, Lipase 89 05/16/20 14:42: Coronavirus (COVID-19)(PCR) NEGATIVE, Influenza Type A (RT-PCR) NEGATIVE, Influenza Type B (RT-PCR) NEGATIVE, Respiratory Syncytial Virus (PCR) NEGATIVE CBC/BMP Laboratory Tests 05/16/20 11:58 Home Medications Scheduled Biotin (Biotin) 5,000 Mcg Tab.rapdis, 5,000 MCG PO QHS Calcitriol (Calcitriol) 0.25 Mcg Capsule, 0.25 MCG PO 3XW TUES, THURS, SAT AT DIALYSIS Cholecalciferol (Vitamin D3) (Vitamin D3) 1,000 Unit Tablet, 5,000 UNITS PO QHS Docusate Sodium (Docusate Sodium) 100 Mg Cap, 100 MG PO 3XW DAILY AFTER DIALYSIS Docusate Sodium (Colace) 100 Mg Capsule, 100 MG PO 4XWK BID ON SUN Wed Folic Acid/Vit B Complex and C (Dialyvite 800 Tablet) 0.8 Mg Tablet, 1 TAB PO QHS Insulin Glargine,Hum.rec.anlog (Lantus Solostar) 100 Unit/Ml Inj, 42 UNITS SC DAILY Insulin Human Lispro (Humalog) 1 Units/0.01 Ml Inj, 1 DOSE SC ACHS PER SLIDING SCALE Red Yeast Rice (Red Yeast Rice) 600 Mg Tablet, 600 MG PO QHS Allergies Coded Allergies: cetirizine (Verified Allergy, Intermediate, RASH, 02/22/19) amlodipine (Verified Allergy, Unknown, 03/04/20) pantoprazole (Verified Allergy, Unknown, 03/04/20) Kgklwxz-Wqp-Tst Reductase Inhibitor (Verified Adverse Reaction, Intermediate, CRAMPS, 02/07/19) atorvastatin (Verified Adverse Reaction, Intermediate, CRAMPS, 01/07/19) prednisolone (Verified Adverse Reaction, Intermediate, ELEVATES BLOOD SUGAR, PT DIABETIC, 02/07/19) TAPE (Verified Adverse Reaction, Mild, ITCHING, 05/07/18) oxycodone (Verified Adverse Reaction, Mild, CONSTIPATION, 01/07/19) benzonatate (Verified Adverse Reaction, Unknown, PER PT HAD A PROBLEM WITH IT BUT UNSURE WHY, 01/07/19) fenofibrate (Verified Adverse Reaction, Unknown, PER PT HAD A PROBLEM WITH IT BUT UNSURE WHY, 01/07/19) tamsulosin (Verified Adverse Reaction, Unknown, PER PT HAD A PROBLEM BUT UNSURE WHAT IT WAS, 02/07/19) VANDANA BRANCH D.O. May 16, 2020 17:59
[2020-05-16 19:20] VITALS: BP 127/58
[2020-05-16] MEDS: VITAMIN D 1,000 INTERNATIONAL UNITS TABLET PO SCH (20:14)
[2020-05-16] MEDS: HEPARIN SOD (PORCINE) 5000UNITS/ML 1ML VIAL/SYRINGE SC SCH (20:15)
[2020-05-16] MEDS: LEVEMIR (INSULIN DETEMIR) 1 UNITS/0.01ML SC SCH (20:15)
[2020-05-17 06:00] VITALS: BP 110/54
[2020-05-17 07:04] LABS: HEMATOCRIT 27.2 % (36.0-47.0); HEMOGLOBIN 8.5 g/dl (12.0-15.5); MEAN CORPUSCULAR HEMOGLOBIN 30.6 pg (27.0-33.0); MEAN CORPUSCULAR HGB CONC 31.3 g/dl (32.0-36.5); MEAN CORPUSCULAR VOLUME 97.8 fl (80.0-96.0); PLATELET COUNT, AUTOMATED 163 10^3/uL (150-450); RED BLOOD COUNT 2.78 10^6/uL (4.00-5.40); WHITE BLOOD COUNT 9.1 10^3/uL (4.0-10.0)
[2020-05-17 07:27] LABS: CALCIUM LEVEL 8.5 MG/DL (8.8-10.2); CREATININE FOR GFR 7.31 MG/DL (0.55-1.30); GLOMERULAR FILTRATION RATE 5.7 (>39); MAGNESIUM LEVEL 2.3 MG/DL (1.8-2.4); POTASSIUM SERUM 3.3 MEQ/L (3.5-5.1)
[2020-05-17] MEDS: HumaLOG INSULIN (NovoLOG) PER UNIT SC SCH ×4 (07:30→21:00)
[2020-05-17] MEDS: LEVEMIR (INSULIN DETEMIR) 1 UNITS/0.01ML SC SCH ×2 (08:07→21:23)
[2020-05-17] MEDS: DOCUSATE SODIUM 100MG CAPSULE PO SCH (08:21)
[2020-05-17] MEDS: HEPARIN SOD (PORCINE) 5000UNITS/ML 1ML VIAL/SYRINGE SC SCH ×2 (08:22→21:24)
[2020-05-17] MEDS ORDERED: DARBEPOETIN 100 MCG/0.5 ML *DIALYSIS* SYRINGE (J0882) IV SCH (11:00)
[2020-05-17 11:14] LABS: PERCENT SATURATION 19.5 % (13.2-45.0)
--- NOTE | 2020-05-17 13:00 | IPNPDOC ---
Text Note Date of Service The patient was seen on 05/17/20. NOTE SUBJECTIVE: Patient was seen and examined this morning at bedside. She states she is feeling well. Her hip pain has improved somewhat. She has not yet had hemodialysis or worked with physical therapy. She has not required any tramadol for pain. She does note some lesions on her abdomen from her cat scratching her. She states one of these is very red and tender at times. OBJECTIVE: VITAL SIGNS: See below GENERAL: Alert, comfortable, in no acute distress HEENT: Normocephalic, atraumatic, EOMI, moist mucous membranes CARDIOVASCULAR: Regular rate and rhythm, normal S1 and S2. III/ systolic ejection murmur appreciated in upper left sternal border. RESPIRATORY: Clear to auscultation bilaterally with equal air entry bilaterally. No wheezing, rhonchi, or rales. ABDOMEN: Soft, nontender, nondistended, bowel sounds present, no masses or hepatosplenomegaly appreciated EXTREMITIES: Bilateral 2+ pitting edema up to the mid calf. AV fistulas present in bilateral upper extremities SKIN: Small superficial wound on the right lower abdominal wall with surround erythema, warmth, and tenderness. No drainage or fluctuance. MUSCULOSKELETAL: Tenderness to palpation on lateral hip. Unable to raise leg against resistance due to pain. Otherwise normal ROM in all other joints. NEUROLOGIC: Alert and oriented x3 to person, place and time. Cranial nerves 2-12 grossly intact. No focal deficits appreciated PSYCHIATRIC: Mood and affect appropriate ASSESSMENT/PLAN: 79 year old female who presents with left hip pain, found to have decreased functional status and unable to care for herself at home, admitted for pain management, hemodialysis, and PT evaluation and treatment. #Left hip pain -Hip and Pelvis X-ray showed no fracture or dislocation. -Tylenol 650 mg Q4H PRN. Will d/c tramadol as she has not needed this and her pain is improved. -PT/OT evaluation and treatment # Cellulitis on abdomen - pt reports cat scratches often cause these spots on her body - started doxycycline 100mg BID day #1 of #End-stage renal disease on hemodialysis -Missed HD session on the day of admission -Nephrology consult placed for hemodialysis treatment during hospital stay -Plan for HD today. #Diabetes Mellitus type 2 -Insulin Detemir 20 units BID -SSI with FSBS ACHS. consistent carb diet -Hypoglycemic protocol # Chronic anemia - iron studies suggest anemia of chronic disease, likely 2/2 ESRD - monitor CBC daily. consider transfusion for Hg<7 DVT PROPHYLAXIS: Heparin 5000 units Q12H DISPOSITION: Pending PT/OT eval and treatment, possible rehab prior to return home. Attending note: Patient seen and examined independently. Agree with resident's note. VS,Fishbone, I+O VS, Fishbone, I+O Laboratory Tests 05/17/20 06:33 Vital Signs Date Time Temp Pulse Resp B/P (MAP) Pulse Ox O2 Delivery O2 Flow Rate FiO2 05/17/20 06:00 98.5 82 18 110/54 (72) 92 Room Air I&O- Last 24 Hours up to 6 AM 05/17/20 06:00 Intake Total 0 ml Output Total 0 ml Balance 0 ml VANDANA BRANCH D.O. May 17, 2020 12:51 ROSA DEAN MD May 18, 2020 18:06
[2020-05-17 14:00] VITALS: BP 117/43
[2020-05-17] MEDS: DOXYCYCLINE HYCLATE 100MG TABLET PO SCH ×2 (14:10→21:26)
[2020-05-17] MEDS: VITAMIN D 1,000 INTERNATIONAL UNITS TABLET PO SCH (21:24)
[2020-05-17 22:00] VITALS: BP 138/45
[2020-05-18] MEDS: HEPARIN SOD (PORCINE) 5000UNITS/ML 1ML VIAL/SYRINGE SC SCH ×2 (05:52→21:28)
[2020-05-18] MEDS: DOCUSATE SODIUM 100MG CAPSULE PO SCH (05:52)
[2020-05-18] MEDS: DOXYCYCLINE HYCLATE 100MG TABLET PO SCH ×2 (05:53→21:32)
[2020-05-18] MEDS: ACETAMINOPHEN TAB 650MG DOSE (2X325MG) PO PRN ×3 (05:54→21:33)
[2020-05-18 06:00] VITALS: BP 101/47
[2020-05-18] MEDS: HumaLOG INSULIN (NovoLOG) PER UNIT SC SCH ×4 (07:30→21:29)
[2020-05-18] MEDS: LEVEMIR (INSULIN DETEMIR) 1 UNITS/0.01ML SC SCH ×2 (09:00→21:30)
[2020-05-18 09:08] LABS: HEMATOCRIT 30.4 % (36.0-47.0); HEMOGLOBIN 9.4 g/dl (12.0-15.5); MEAN CORPUSCULAR HEMOGLOBIN 30.6 pg (27.0-33.0); MEAN CORPUSCULAR HGB CONC 30.9 g/dl (32.0-36.5); PLATELET COUNT, AUTOMATED 168 10^3/uL (150-450); RED BLOOD COUNT 3.07 10^6/uL (4.00-5.40); WHITE BLOOD COUNT 7.7 10^3/uL (4.0-10.0)
[2020-05-18 09:26] LABS: ALBUMIN 2.7 GM/DL (3.2-5.2); CALCIUM LEVEL 8.9 MG/DL (8.8-10.2); CREATININE FOR GFR 4.65 MG/DL (0.55-1.30); GLOMERULAR FILTRATION RATE 9.7 (>39); PHOSPHORUS LEVEL 3.2 MG/DL (2.5-4.9); POTASSIUM SERUM 3.6 MEQ/L (3.5-5.1)
--- NOTE | 2020-05-18 09:40 | IPNPDOC ---
Text Note Date of Service The patient was seen on 05/18/20. NOTE SUBJECTIVE: Patient was seen and examined this morning at bedside. She states she worked with PT yesterday. She states her hip was more sore afterward but she is feeling well this morning. No fevers. OBJECTIVE: VITAL SIGNS: See below GENERAL: Alert, comfortable, in no acute distress HEENT: Normocephalic, atraumatic, EOMI, moist mucous membranes CARDIOVASCULAR: Regular rate and rhythm, normal S1 and S2. III/ systolic ejection murmur appreciated in upper left sternal border. RESPIRATORY: Clear to auscultation bilaterally with equal air entry bilaterally. No wheezing, rhonchi, or rales. ABDOMEN: Soft, nontender, nondistended, bowel sounds present, no masses or hepatosplenomegaly appreciated EXTREMITIES: Bilateral 2+ pitting edema up to the mid calf. AV fistulas present in bilateral upper extremities SKIN: Small superficial wound on the right lower abdominal wall with surround erythema, warmth, and tenderness. No drainage or fluctuance. MUSCULOSKELETAL: Tenderness to palpation on lateral hip. Unable to raise leg against resistance due to pain. Otherwise normal ROM in all other joints. NEUROLOGIC: Alert and oriented x3 to person, place and time. No focal deficits appreciated PSYCHIATRIC: Mood and affect appropriate ASSESSMENT/PLAN: 79 year old female who presents with left hip pain, found to have decreased functional status and unable to care for herself at home, admitted for pain management, hemodialysis, and PT evaluation and treatment. #Left hip pain -Hip and Pelvis X-ray showed no fracture or dislocation. -Tylenol 650 mg Q4H PRN. Will d/c tramadol as she has not needed this and her pain is improved. -PT/OT evaluation and treatment, will likely need rehab before return home # Cellulitis on abdomen - pt reports cat scratches often cause these spots on her body - started doxycycline 100mg BID day #2 of 7 #End-stage renal disease on hemodialysis -Missed HD session on the day of admission -Nephrology consult placed for hemodialysis treatment during hospital stay -She had HD yesterday, plan for HD again today -continue calcitriol #Diabetes Mellitus type 2 -has been hypoglycemic the past two mornings. She takes 42 units basal insulin at home and is on 20 BID in the hospital -hold AM levemir. will decrease levemir insulin to 10 units BID -SSI with FSBS ACHS. consistent carb diet -Hypoglycemic protocol # Chronic anemia - iron studies suggest anemia of chronic disease, likely 2/2 ESRD - receiving venofer and aranesp with HD - monitor CBC daily. consider transfusion for Hg<7 DVT PROPHYLAXIS: Heparin 5000 units Q12H DISPOSITION: Pending possible rehab prior to return home Attending note: Patient seen and examined independently. Agree with resident's note. VS,Fishbone, I+O VS, Fishbone, I+O Laboratory Tests 05/18/20 06:19 Vital Signs Date Time Temp Pulse Resp B/P (MAP) Pulse Ox O2 Delivery O2 Flow Rate FiO2 05/18/20 06:00 97.7 79 16 101/47 (65) 93 Room Air I&O- Last 24 Hours up to 6 AM 05/18/20 05:59 Intake Total 920 ml Output Total 2000 ml Balance -1080 ml VANDANA BRANCH D.O. May 18, 2020 09:40 ROSA DEAN MD May 18, 2020 18:09
[2020-05-18] MEDS: IRON SUCROSE 100MG 5ML VIAL (J1756 PER 1MG) IV SCH (10:49)
[2020-05-18 14:11] VITALS: BP 100/47
[2020-05-18] MEDS: CALCITRIOL 0.25 MCG CAP (S0169) PO SCH (17:37)
[2020-05-18] MEDS: VITAMIN D 1,000 INTERNATIONAL UNITS TABLET PO SCH (21:30)
[2020-05-18 22:00] VITALS: BP 102/57
[2020-05-19 06:00] VITALS: BP 105/46
[2020-05-19] MEDS: DOXYCYCLINE HYCLATE 100MG TABLET PO SCH ×2 (07:58→20:47)
[2020-05-19] MEDS: DOCUSATE SODIUM 100MG CAPSULE PO SCH (07:58)
[2020-05-19] MEDS: HumaLOG INSULIN (NovoLOG) PER UNIT SC SCH ×4 (07:59→20:47)
[2020-05-19] MEDS: LEVEMIR (INSULIN DETEMIR) 1 UNITS/0.01ML SC SCH ×2 (07:59→20:48)
[2020-05-19] MEDS: HEPARIN SOD (PORCINE) 5000UNITS/ML 1ML VIAL/SYRINGE SC SCH ×2 (08:00→20:45)
--- NOTE | 2020-05-19 12:04 | IPNPDOC ---
Text Note Date of Service The patient was seen on 05/19/20. NOTE SUBJECTIVE: Patient seen and examined at bedside. No acute overnight events reported. No new medical complaints today. OBJECTIVE: VITAL SIGNS: See below GENERAL: Alert, comfortable, in no acute distress HEENT: Normocephalic, atraumatic, EOMI, moist mucous membranes CARDIOVASCULAR: Regular rate and rhythm, normal S1 and S2. III/ systolic ejection murmur appreciated in upper left sternal border. RESPIRATORY: Clear to auscultation bilaterally with equal air entry bilaterally. No wheezing, rhonchi, or rales. ABDOMEN: Soft, nontender, nondistended, bowel sounds present, no masses or hepatosplenomegaly appreciated EXTREMITIES: Bilateral 2+ pitting edema up to the mid calf. AV fistulas present in bilateral upper extremities SKIN: Small superficial wound on the right lower abdominal wall with surround erythema, warmth, and tenderness. No drainage or fluctuance. MUSCULOSKELETAL: Tenderness to palpation on left lateral hip. Unable to raise leg against resistance due to pain. Otherwise normal ROM in all other joints. NEUROLOGIC: Alert and oriented x3 to person, place and time. No focal deficits appreciated PSYCHIATRIC: Mood and affect appropriate A/P: 79F with left hip pain, found to have decreased functional status and unable to care for herself at home, admitted for pain management, hemodialysis, and PT evaluation and treatment. #Left hip pain -Hip and Pelvis X-ray showed no fracture or dislocation. - will obtain CT hip/pelvis/femus today - ortho c/s pending -Tylenol 650 mg Q4H PRN. Will d/c tramadol as she has not needed this and her pain is improved. -PT/OT evaluation and treatment, will likely need rehab before return home # Cellulitis on abdomen - pt reports cat scratches often cause these spots on her body - started doxycycline 100mg BID day #3 of 7 #ESRD/HD -Missed HD session on the day of admission -Nephrology consult placed for hemodialysis treatment during hospital stay -continue calcitriol #DM2 -has been hypoglycemic the past two mornings. She takes 42 units basal insulin at home and is on 20 BID in the hospital -hold AM levemir. will decrease levemir insulin to 10 units BID -SSI with FSBS ACHS. consistent carb diet -Hypoglycemic protocol # Chronic anemia - iron studies suggest anemia of chronic disease, likely 2/2 ESRD - receiving venofer and aranesp with HD - monitor CBC daily. consider transfusion for Hg<7 DVT PROPHYLAXIS: Heparin 5000 units Q12H DISPOSITION: Pending further imaging for left hip pain, clinical improvement VS,Annemarie, I+O VS, Annemarie, I+O Vital Signs Date Time Temp Pulse Resp B/P (MAP) Pulse Ox O2 Delivery O2 Flow Rate FiO2 05/19/20 06:00 98.0 71 18 105/46 (65) 96 05/18/20 14:00 Room Air I&O- Last 24 Hours up to 6 AM 05/19/20 06:00 Intake Total 1120 ml Output Total 1000 ml Balance 120 ml ROSA DEAN MD May 19, 2020 12:04
--- NOTE | 2020-05-19 12:56 | REP ---
INDICATION: hip pain/ eval for fracture. COMPARISON: 03/04/2020. TECHNIQUE: CT pelvis performed in the axial plane. Sagittal and coronal reconstruction images are performed. FINDINGS: I see no evidence of acute fracture or dislocation. Moderate degenerative changes are seen of the visualized lower lumbar spine. There is mild narrowing with subchondral sclerosis at the sacroiliac joints bilaterally. There are mild arthritic changes at both hips. There is a 7 mm calculus at the right ureteral pelvic junction. No hydronephrosis is seen of the visualized kidneys. There is a 5 mm calculus in the distal end of the left ureter without dilatation of the ureter more proximally. There are bilateral renal calculi in the visualized lower poles of the kidneys. There is an oval mildly hyperdense nodule in the lower pole the left kidney with a maximum diameter of 1.4 cm. This could represent a hyperdense cyst or solid nodule. No abnormality is seen of the visualized bowel loops. Patient has had a prior hysterectomy. Urinary bladder is not well distended and not well evaluated. No adenopathy is seen in the pelvis. There is no free fluid. IMPRESSION: No evidence of fracture of the visualized osseous structures. In the visualized lower kidneys renal calculi are seen. There is a 7 mm calculus at the right ureteral pelvic junction without evidence of right hydronephrosis. There is a 5 mm calculus in the distal end of the left ureter without evidence of left-sided hydroureteronephrosis. There is an oval mildly hyperdense nodule in the lower pole of the left kidney with a maximum diameter of 1.4 cm. This could represent a hyperdense cyst or a solid nodule. Recommend further evaluation with dedicated pre and post contrast CT or MRI of the kidneys. <Electronically signed by Robles Flores > 05/19/20 [id number]
--- NOTE | 2020-05-19 12:59 | REP ---
INDICATION: hip pain/ eval for fracture. COMPARISON: None. TECHNIQUE: CT left femur performed in the axial plane. Sagittal and coronal reconstruction images are performed. FINDINGS: There is no evidence of fracture or dislocation. No bone lesion is seen. There are mild degenerative changes at the hip joint. There degenerative changes at the knee joint. Scattered vascular calcifications are seen in the soft tissues. There appears to be a small joint effusion of the knee. IMPRESSION: No evidence of acute fracture. Degenerative changes of hip and knee. <Electronically signed by Robles Flores > 05/19/20 0456
[2020-05-19 14:00] VITALS: BP 115/48
[2020-05-19] MEDS: VITAMIN D 1,000 INTERNATIONAL UNITS TABLET PO SCH (20:45)
--- NOTE | 2020-05-19 20:45 | IPN ---
PROGRESS NOTE DATE: 05/19/2020 SUBJECTIVE: Mrs. Holloway is seen this morning on her bedside. She is sitting in the chair at the time of my visit. She reports left hip pain when she walks. Her initial hip x-ray was negative for any fracture. She has difficulty walking into her house and walking out to the curb side to get into the transportation for dialysis. She denies any falls or trauma. PHYSICAL EXAMINATION: VITALS: Temperature 98 degrees Fahrenheit, heart rate 70 per minute, respiratory rate 18 per minute, blood pressure 105/46 mmHg and oxygen saturation 96% on room air. HEENT: Head is atraumatic. Neck is supple and without JVD or thyroid enlargement. HEART: Heart sounds are regular. LUNGS: Clear to auscultation. ABDOMEN: Obese, soft and nontender. Bowel sounds are normal. EXTREMITIES: Without any cyanosis or clubbing. Right arm AV fistula is patent. NEUROLOGIC: She is without a focal deficit. PROBLEMS: 1. End-stage renal disease: Patient was dialyzed yesterday and she will be due for next dialysis on 05/21/2020. A present, there is no emergent need for dialysis today. 2. Congestive heart failure: Volume status is very well compensated at present and no emergent need for dialysis. I think she can wait for next dialysis treatment on 05/21/2020. 3. Anemia: Her anemia has been stable and there is no need for any urgent intervention. 4. Left hip pain: Initial x-ray was negative for fracture. I have discussed with Dr. Gutierrez and suggested to consider getting a CT scan to rule out any subclinical fracture which may have been missed by x-rays. She has been getting physical therapy and wants to go home. From a renal standpoint, she can probably be discharged and will try to get the motorcycle delivery driver to come into her driveway and pick her up and drop her off in the driveway. It remains to be seen if that can be achieved.
[2020-05-19] MEDS: ACETAMINOPHEN TAB 650MG DOSE (2X325MG) PO PRN (20:49)
[2020-05-19 22:00] VITALS: BP 126/51
[2020-05-20 06:00] VITALS: BP 130/45
--- NOTE | 2020-05-20 07:39 | CR ---
CONSULTATION DATE: 05/19/2020 at 7:00 p.m. SERVICE CONSULTED: Orthopedic Surgery. PHYSICIAN CONSULTED: Jared Sanders M.D. HISTORY OF PRESENT ILLNESS: This was a 79-year-old female who presented to [facility] with left hip pain on the May. The patient endorsed 2 1/2 weeks of left hip pain which has affected her ability to ambulate. Patient requires use of a walker for ambulation at this point in time. The patient did not report any traumatic event and reports increased pain with weightbearing to the left lower extremity which he localizes to the left hip, groin and greater trochanteric region. PAST MEDICAL HISTORY: Endstage renal disease on hemodialysis, anemia of endstage renal disease, insulin dependent diabetes mellitus, hypertension, osteoarthritis, dyslipidemia and a history of endometrial cancer status post complete hysterectomy. The patient was recently seen at [facility] where her imaging was negative for any acute trauma or obvious hip fracture in which she was prescribed local analgesic as well as Tylenol 500 three times a day. This did not provide any relief and so she presented to the [facility]. PAST MEDICAL HISTORY: 1. Endstage renal disease on hemodialysis. 2. Anemia of endstage renal disease. 3. Insulin dependent diabetes mellitus. 4. Hypertension. 5. Osteoarthritis. 6. Dyslipidemia. 7. History of endometrial cancer status post hysterectomy in 1994. PAST SURGICAL HISTORY: 1. Right ankle surgery, ORIF. 2. Tonsillectomy. 3. Hysterectomy. SOCIAL HISTORY: Tobacco: Never. Alcohol: Very rarely. Recreational drug use: Never. No recent travel. She lives with 13-year-old granddaughter. FAMILY HISTORY: Mother had colon cancer, father had emphysema and arthritis. Maternal grandmother had an [place]. Maternal grandfather had hypertension. Paternal grandfather had throat cancer. MEDICATIONS: Please see Hospitalist note. ALLERGIES: Please see Hospitalist note. REVIEW OF SYSTEMS: A 14 point review of systems is negative unless otherwise as stated in HPI above. PHYSICAL EXAMINATION: GENERAL: Alert to person, time and place. LEFT LOWER EXTREMITY: The patient had a palpable dorsalis pedis and posterior tibial arterial pulse, 5/5 motor strength of the EHL, FHL, tibialis anterior and gastroc soleus complex musculature. Sensation intact to light touch to the deep and superficial peroneal, sural, saphenous and tibial nerve distributions. She did have tenderness to palpation about the left greater trochanter. Positive log roll exam and pain with partial weightbearing to the left lower extremity. There is no ecchymosis about the left hip. IMAGING: The left hip imaging demonstrated no obvious fracture line. There did appear to be a very small radiolucent body within the femoral head/neck juncture. CT scan demonstrated possible radiolucencies within the inferior half of the femoral head and neck juncture which may be concerning for a possible metastatic lesion. IMPRESSION: This is a 79-year-old female with a history of endometrial cancer and left hip pain of unknown etiology. At this point in time, she requires a further workup. PLAN: Given the fact that this patient had left hip pain for three weeks limiting her weightbearing status and a history of endometrial cancer, it is important that we rule out metastatic disease of the left hip. Given the questionable findings of her CT scan which include based on my assessment radiolucencies, I feel that a thorough workup for metastatic disease is warranted. I do believe that we also need to rule out an occult hip fracture at this point in time despite negative x-ray and CT scan, she would be indicated for a left hip MRI which is the most sensitive examination for hip fractures to rule out an occult left hip fracture at this point in time. In addition to that, she does require a more extensive metastatic disease workup which include complete left femur x-rays, left knee x-ray, labs to include a CMC, CMP (serum calcium, magnesium, phosphorus, albumin, LDH, ALT), PT/PTT/INR and cancer markers if indicated. She also will require either a total body scan versus a PET CT. I believe that a total body bone scan can be acquired at [facility]. After this workup is complete and the imaging is complete, I have requested that the Hospitalist follow-up with Orthopedic Surgery in order to continue our plan of care. We will be able to proceed with a treatment plan from an Orthopedic Surgery standpoint once we have established a diagnosis. Given either of these two diagnoses of occult left hip fracture of the femoral neck or a metastatic lesion, she may be a candidate for surgical intervention. ROSELINE
--- NOTE | 2020-05-20 08:39 | IPNPDOC ---
Text Note Date of Service The patient was seen on 05/20/20. NOTE SUBJECTIVE: Patient seen and examined at bedside. No acute overnight events reported. No new medical complaints today. OBJECTIVE: VITAL SIGNS: See below GENERAL: NAD, lying comfortably in bed, hirsute, pleasant HEENT: Normocephalic, atraumatic, EOMI, moist mucous membranes CARDIOVASCULAR: Regular rate and rhythm, normal S1 and S2. III/ systolic ejection murmur appreciated in upper left sternal border. RESPIRATORY: Clear to auscultation bilaterally with equal air entry bilaterally. No wheezing, rhonchi, or rales. ABDOMEN: Soft, nontender, nondistended, obese, bowel sounds present, no masses or hepatosplenomegaly appreciated EXTREMITIES: Bilateral 2+ pitting edema up to the mid calf. AV fistulas present in bilateral upper extremities SKIN: Small superficial wound on the right lower abdominal wall with surround erythema, warmth, and tenderness. No drainage or fluctuance. MUSCULOSKELETAL: Tenderness to palpation on left lateral hip A/P: 79F with left hip pain, found to have decreased functional status and unable to care for herself at home, admitted for pain management, hemodialysis, and PT evaluation and treatment. #Left hip pain -Hip and Pelvis X-ray showed no fracture or dislocation. - discussed with ortho - assistance appreciated - some concern for metastatic disease based on CT - MRI and bone scan pending -Tylenol 650 mg Q4H PRN -PT/OT evaluation and treatment, will likely need rehab before return home # Cellulitis on abdomen - pt reports cat scratches often cause these spots on her body - started doxycycline 100mg BID day #4 of 7 #ESRD/HD -Missed HD session on the day of admission -Nephrology consult placed for hemodialysis treatment during hospital stay -continue calcitriol #DM2 -SSI with FSBS ACHS. consistent carb diet; decreased her home insulin regimen while in hospital -Hypoglycemic protocol # Chronic anemia - iron studies suggest anemia of chronic disease, likely 2/2 ESRD - receiving venofer and aranesp with HD - monitor CBC daily. consider transfusion for Hg<7 DVT PROPHYLAXIS: Heparin 5000 units Q12H DISPOSITION: Pending further imaging for left hip pain, clinical improvement VS,Fishbone, I+O VS, Fishbone, I+O Vital Signs Date Time Temp Pulse Resp B/P (MAP) Pulse Ox O2 Delivery O2 Flow Rate FiO2 05/20/20 06:00 98.2 77 18 130/45 (73) 98 Room Air I&O- Last 24 Hours up to 6 AM 05/20/20 06:00 Intake Total 300 ml Output Total 0 ml Balance 300 ml ROSA DEAN MD May 20, 2020 08:39
[2020-05-20 09:34] LABS: HEMATOCRIT 29.5 % (36.0-47.0); HEMOGLOBIN 8.8 g/dl (12.0-15.5); MEAN CORPUSCULAR HEMOGLOBIN 29.4 pg (27.0-33.0); MEAN CORPUSCULAR HGB CONC 29.8 g/dl (32.0-36.5); MEAN CORPUSCULAR VOLUME 98.7 fl (80.0-96.0); PLATELET COUNT, AUTOMATED 166 10^3/uL (150-450); RED BLOOD COUNT 2.99 10^6/uL (4.00-5.40); WHITE BLOOD COUNT 5.8 10^3/uL (4.0-10.0)
[2020-05-20] MEDS: DOXYCYCLINE HYCLATE 100MG TABLET PO SCH ×2 (09:50→22:32)
[2020-05-20] MEDS: LEVEMIR (INSULIN DETEMIR) 1 UNITS/0.01ML SC SCH ×2 (09:50→22:31)
[2020-05-20] MEDS: HumaLOG INSULIN (NovoLOG) PER UNIT SC SCH ×4 (09:50→21:00)
[2020-05-20] MEDS: HEPARIN SOD (PORCINE) 5000UNITS/ML 1ML VIAL/SYRINGE SC SCH ×2 (09:51→22:31)
[2020-05-20] MEDS: DOCUSATE SODIUM 100MG CAPSULE PO SCH (09:51)
[2020-05-20] MEDS: ACETAMINOPHEN TAB 650MG DOSE (2X325MG) PO PRN ×2 (09:51→22:31)
[2020-05-20 10:12] LABS: ALBUMIN 2.7 GM/DL (3.2-5.2); BILIRUBIN,TOTAL 0.4 MG/DL (0.2-1.0); CALCIUM LEVEL 8.9 MG/DL (8.8-10.2); CREATININE FOR GFR 5.37 MG/DL (0.55-1.30); GLOMERULAR FILTRATION RATE 8.2 (>39); TOTAL PROTEIN 6.6 GM/DL (6.4-8.2)
--- NOTE | 2020-05-20 12:03 | REP ---
INDICATION: metastatic/ occult? fx. COMPARISON: Comparison is made with CT study of the pelvis and left femur from May 19, 2020. Pelvic radiograph 05/16/2020 is also reviewed.. TECHNIQUE: A larger field of view coronal T1 and T2 fat sat images are acquired of both hips. Smaller [id number] T2 fat sat images of the left hip were acquired in all 3 planes. FINDINGS: There is no evidence of a hip joint effusion on either side. There is an area of somewhat asymmetric low T1 signal intensity in the distal femoral neck region on the left. No pathologic fracture is seen. No definite signal abnormality is observed to correspond with this on T2 fat sat images. There is no other evidence of focal skeletal metastatic disease. There are mild degenerative spur changes at the SI joints and the symphysis pubis. No pelvic mass is seen. Urinary bladder is unremarkable. No soft tissue mass is seen. There is some soft tissue edema adjacent to the inter trochanteric femur on the left. Hamstring tendon insertion sites are unremarkable. No periarticular cyst is seen. IMPRESSION: There is a asymmetric 2 cm area of low T1 signal intensity in the femoral neck on the left medially. This is nonspecific. There is no evidence of pathologic fracture. There is some soft tissue edema in the Christine trochanteric soft tissues adjacent to the left proximal femur. Otherwise negative. <Electronically signed by Nahun Cole > 05/20/20 1200
--- NOTE | 2020-05-20 13:26 | CR ---
CONSULTATION DATE: 05/19/2020 REQUESTING PHYSICIAN: Dr. Gutierrez CONSULTING PHYSICIAN: Sumit Paez DO REASON FOR CONSULTATION: Management of end-stage renal disease. CHIEF COMPLAINT: Left hip pain. HISTORY OF PRESENT ILLNESS: Karolyn is 78-year-old female well-known to me from the outpatient hemodialysis unit with a past medical history of end-stage renal disease every Wednesday, and Wednesday. She missed her dialysis yesterday. She complains of left hip pain that has been progressing over the past two weeks and she has been having increased difficulty with ambulation. She has voluntary divers to transport her to and from her hemodialysis unit. She was unable to walk out of the home and down the [address] to the end of the driveway where the volunteer assembly line driver transportation was; so she missed her dialysis on and she subsequently came to the emergency room at [facility] for further evaluation and then came subsequently to [facility]. Hip x-ray was negative for fracture. She was admitted for pain control and the nephrology evaluation was requested for arrangement of her hemodialysis. PAST MEDICAL HISTORY: 1. Endstage renal disease on hemodialysis. 2. Anemia of endstage renal disease. 3. Insulin dependent diabetes mellitus. 4. Hypertension 5. Osteoarthritis. 6. Dyslipidemia. 7. History of endometrial cancer status post hysterectomy in 1994 8. secondary hyperparthyroidism PAST SURGICAL HISTORY: Left arm AV fistula, right ankle surgery, tonsillectomy, hysterectomy, right arm AV fistula ALLERGIES: STATINS, TAPE and BENZONATATE, CETIRIZINE, FENOFIBRATE, OXYCODONE, PREDNISOLONE and FLOMAX. FAMILY HISTORY: No significant family history of end-stage renal disease. SOCIAL HISTORY: She denies smoking or illicit drug use or alcohol abuse. She lives at home. REVIEW OF SYSTEMS: Constitutional: She denies fevers or chills. Eyes: She denies visual tearing or blurriness. ENT: Denies rhinorrhea or odynophagia. Cardiac: Denies chest pain or palpitations. Respiratory: Denies shortness of breath or cough. Gastrointestinal: Denies nausea, vomiting or diarrhea. Endocrine: Reports secondary hyperparathyroidism and diabetes. Hematologic: Reports anemia. Denies anticoagulant use. Musculoskeletal: Complains of trouble ambulating and left hip pain and denies any new rashes or ulcers. Neurologic: No seizures or syncope. Remainder of review of systems is negative or as history of present illness. PHYSICAL EXAMINATION: Temperature 98.5, pulse 82, respiratory rate 18, blood pressure 110/54, saturating 92 to 99% on room air. General: The patient is seen in the hemodialysis unit receiving her treatment. She is awake, alert, oriented times three, comfortable and in no apparent distress. Extraocular muscles are intact. Tongue is moist. Neck is supple. Jugular veins are mildly elevated. Heart: Sounds S1, S2, regular rate and rhythm, 1+ leg edema. Lungs: Anterior auscultation only. Clear bilaterally. No wheezing, rale or rhonchi. Abdomen: Soft and obese and nontender. Extremities: There is 1+ leg edema. There is a fistula in the arm, which is presently in use. Neurologic: She is oriented times 3, interactive and at baseline mentation. Psychiatric: Appropriate mood and affect. LABORATORY DATA: White count 9.1, hemoglobin 8.5, platelets 163. Sodium 138, potassium 3.3, bicarbonate 26, transferrin saturation 19%. Hip x-ray: No acute fracture. Pelvis x-ray: Degenerative sclerosis of symphysis pubis. INPATIENT MEDICATIONS: Tylenol as needed, Mylanta as needed, calcitriol 0.25 mcg Wednesday, , Wednesday, Aranesp 100 mcg IV dialysis, Colace 100 mg by mouth daily, doxycycline 100 mg by mouth bid, heparin 5000 units subcutaneous q12 hours, insulin, milk of magnesia as needed, vitamin D 5000 units by mouth q.h.s. PROBLEMS: 1. End-stage renal disease on hemodialysis on Tuesdays, , Wednesday schedule. The patient missed her dialysis on . She is dialyzed this morning with 2 liters of fluid removed. She will be dialyzed again on Wednesday to get her back to her usual schedule. She missed her outpt dialysis on because she could not walk down the length of her driveway to reach the volunteer medical transport. 2. Anemia of chronic renal failure. Hemoglobin is suboptimal at 8.5. She is in for Aranesp and we will also give Venofer with dialysis. Her transferrin saturation is less than 20%. 3. Progressive left hip pain. Her hip and pelvic x-rays were negative for hip fracture. She states her pain is improved since she was admitted. Further workup as per primary team and she is getting physical therapy evaluation and treatment. 4. Abdominal cellulitis, primary team is treated for doxycycline. There is no leukocytosis and no fever. 5. Hypokalemia. She was treated with a higher potassium of concentration dialysis bath. MTDD
[2020-05-20 14:00] VITALS: BP 125/46
--- NOTE | 2020-05-20 14:37 | IPN ---
PROGRESS NOTE DATE: 05/19/2020 The patient is seen during hemodialysis this morning. She has complained of pain in her left hip, and nursing staff just gave her Tylenol. She denies any nausea or vomiting. She did miss one dialysis due to inability to get to outpatient dialysis clinic. Apparently she has a long driveway, and her volunteer local company hazmat driver can only pickup driver at the curbside. She is not able to walk down her driveway due to left hip pain, due to which she was admitted. PHYSICAL EXAMINATION: Temperature 97.7 degrees Fahrenheit, heart rate 80 per minute, and respiratory rate 16 per minute, blood pressure 130/45 mm of mercury, and oxygen saturation 97% on room air. HEAD: Traumatic. NECK: Supple and jugular venous distention (JVD) not abnormally elevated. HEART: Sounds are irregular in rhythm, and lungs sound clear to auscultation. ABDOMEN: Obese and nontender, and bowel sounds are normal. EXTREMITIES: Without any cyanosis or clubbing. Left hip area is tender to deep pressure. NEUROLOGIC: She is awake and at her baseline mentation. Today's labs show WBC count 7.7, hemoglobin 9.5, and hematocrit 30.4. Sodium 139, potassium 3.6, CO2 of 30, BUN 19, and creatinine 4.65. Glucose 58 and calcium 8.9. PROBLEMS: 1. End-stage renal disease. Patient is being dialyzed today, and she is tolerating her dialysis treatment very well. Her volume status is well compensated, and electrolytes are within normal range. 2. Hypokalemia. Yesterday her potassium was 3.3 and improved to 3.6 today. We will dialyze her with high potassium bath today. 3. Hypertension. Blood pressure well controlled on current antihypertensive medications, and no changes are being made today. 4. Anemia. Her anemia is stable at this time, and we will continue to monitor without any further intervention. She will receive intravenous iron and Mircera with hemodialysis. 5. Left hip pain. Most likely this is degenerative arthritis, and she should continue with analgesics. She will need orthopedic evaluation if her pain persists.
--- NOTE | 2020-05-20 15:52 | REP ---
INDICATION: r/o fx. Patient gives a history of uterine cancer. End-stage renal disease on dialysis. COMPARISON: No comparison bone scan. Comparison MRI study of the left hip is from 05/20/2020. Recent CT study left hip and pelvis x-ray and hip x-rays also reviewed.. TECHNIQUE: 21.4 mCi of technetium 99 M MDP is injected and standard 3 phase imaging is acquired. Imaging of the pelvis and hips. FINDINGS: Anterior and posterior flow study is normal. Blood pool imaging shows no abnormal tracer localization in or about the pelvis or hips. Delayed scan images demonstrate a focus of increased uptake asymmetrically involving the left proximal femur on posterior images in the region of the base of the femoral neck or intertrochanteric region. This is felt to correspond with the area of low signal intensity on today's MRI study. No other abnormal tracer localization is seen. Very faint bilateral renal uptake is observed. IMPRESSION: Focus of increased uptake in the left proximal femur neck/intertrochanteric region. This corresponds to an area of low signal intensity on T1 weighted MR images today. Absence of T2 edema mitigates against fracture. I cannot exclude an early metastatic focus in this location. No other focal abnormality is seen on scintigraphy. <Electronically signed by Nahun Cole > 05/20/20 0900
[2020-05-20 22:00] VITALS: BP 126/51
[2020-05-20] MEDS: VITAMIN D 1,000 INTERNATIONAL UNITS TABLET PO SCH (22:30)
[2020-05-20] MEDS: MAALOX 30 ML SUSP *UDC PO PRN (22:31)
[2020-05-21 06:00] VITALS: BP 134/80
[2020-05-21] MEDS: DOXYCYCLINE HYCLATE 100MG TABLET PO SCH (06:12)
[2020-05-21] MEDS: HEPARIN SOD (PORCINE) 5000UNITS/ML 1ML VIAL/SYRINGE SC SCH ×2 (06:13→21:39)
[2020-05-21 08:10] LABS: BASO # 0.1 10^3/uL (0.0-0.2); BASO % 1.4 % (0.0-1.0); EOS # 0.4 10^3/uL (0.0-0.5); EOS % 6.4 % (0.0-3.0); HEMOGLOBIN 9.3 g/dl (12.0-15.5); LYMPH # 1.3 10^3/uL (1.5-5.0); LYMPH % 20.6 % (24.0-44.0); MEAN CORPUSCULAR HEMOGLOBIN 29.5 pg (27.0-33.0); MEAN CORPUSCULAR VOLUME 98.4 fl (80.0-96.0); MONO # 0.6 10^3/uL (0.0-0.8); MONO % 9.4 % (0.0-5.0); NEUTROPHILS # 3.9 10^3/uL (1.5-8.5); NEUTROPHILS % 60.8 % (36.0-66.0); PLATELET COUNT, AUTOMATED 179 10^3/uL (150-450); RED BLOOD COUNT 3.15 10^6/uL (4.00-5.40); WHITE BLOOD COUNT 6.4 10^3/uL (4.0-10.0)
[2020-05-21] MEDS: MAALOX 30 ML SUSP *UDC PO PRN (08:12)
[2020-05-21 08:27] LABS: CALCIUM LEVEL 8.8 MG/DL (8.8-10.2); CREATININE FOR GFR 6.6 MG/DL (0.55-1.30); GLOMERULAR FILTRATION RATE 6.5 (>39); MAGNESIUM LEVEL 2.2 MG/DL (1.8-2.4); POTASSIUM SERUM 4.4 MEQ/L (3.5-5.1)
[2020-05-21] MEDS: LEVEMIR (INSULIN DETEMIR) 1 UNITS/0.01ML SC SCH ×2 (08:41→21:39)
[2020-05-21] MEDS: HumaLOG INSULIN (NovoLOG) PER UNIT SC SCH ×4 (08:41→21:00)
[2020-05-21] MEDS: IRON SUCROSE 100MG 5ML VIAL (J1756 PER 1MG) IV SCH (09:59)
--- NOTE | 2020-05-21 10:18 | IPNPDOC ---
Text Note Date of Service The patient was seen on 05/21/20. NOTE Subjective: Patient is a 79-year-old female with left hip pain and decreased mobility presented to the ER for further evaluation. Patient was admitted to hospital service and orthopedic surgery was called on consultation. Patient was seen and examined at the bedside, during HD. Currently patient denies any chest pain, shortness of breath or palpitations. Does report that she feels weak today was seen during dialysis. Patient reports that her left hip pain is constant 3 out of 10. However, when she gets up to ambulate it does worsen. Objective: Vitals (See below) General: Lying in bed, no acute distress, comfortable, AAOx3 HEENT: NC, AT CVS: +S1S2 Lungs: Fair air entry b/l, -w/r/r Abdomen: Soft, ND, NT Extremities: No evidence of edema, - Calf tenderness Assessment and plan: Left hip pain - Imaging reviewed without any evidence of fracture, however, suggesting possibly metastatic lesion - Orthopedic surgery has ordered a bone biopsy to confirm lesion - c/w pain control and PT/OT - May require further rehabilitation - Orthopedic surgery on consultation; we appreciate their input Cellulitis on abdomen - possibly 2/2 cat scratches often cause these spots on her body - c/w Doxycycline 100mg BID (Day #5 of 7) ESRD on HD (TTS) - Missed HD session on the day of admission - Nephrology on consultation IDDM2 - c/w ISS and adjusted dose of Levemir Chronic anemia - iron studies suggest anemia of chronic disease, likely 2/2 ESRD - c/w Venofer and Aranesp DVT prophylaxis - c/w Heparin Disposition: - Plan for IR guided biopsy of left femoral neck VS,Annemarie, I+O VS, Fishbone, I+O Laboratory Tests 05/21/20 07:36 Vital Signs Date Time Temp Pulse Resp B/P (MAP) Pulse Ox O2 Delivery O2 Flow Rate FiO2 05/21/20 06:00 97.9 69 18 134/80 (98) 97 Room Air I&O- Last 24 Hours up to 6 AM 05/21/20 06:00 Intake Total 870 ml Output Total 0 ml Balance 870 ml SCOTTIE RANKIN MD May 21, 2020 10:18
[2020-05-21 14:00] VITALS: BP 118/48
[2020-05-21] MEDS ORDERED: LIDOCAINE 1% MDV 20ML VIAL As Ordered ONE (14:36)
[2020-05-21] MEDS: CALCITRIOL 0.25 MCG CAP (S0169) PO SCH (17:00)
[2020-05-21] MEDS: DOCUSATE SODIUM 100MG CAPSULE PO SCH (17:00)
--- NOTE | 2020-05-21 17:18 | REP ---
INDICATION: bone biopsy left hip r/o metastasis. COMPARISON: None. TECHNIQUE: The procedure was performed under the personal supervision of Dr. Cole. The risks and benefits of the procedure were explained to the patient and informed consent was obtained. The left femoral neck lesion was localized using CT guidance. The skin was prepped and draped in a sterile fashion. 1% lidocaine was used as a local anesthetic. Using CT guidance an 11 gauge bone biopsy needle system was inserted and 3 core biopsy samples were obtained and sent to the lab. The patient tolerated the procedure well and there were no immediate complications. After the appropriate amount to monitor convalescence the patient was discharged from the department. FINDINGS: None IMPRESSION: CT-guided left femoral neck bone biopsy yielding 3 cores. <Electronically signed by Tim Mckinley > 05/21/20 [id number] <Electronically signed by Nahun Cole > 05/21/20 [id number]
[2020-05-21] MEDS ORDERED: traMADol 50 MG TAB PO PRN (18:15)
--- NOTE | 2020-05-21 18:53 | IPN ---
PROGRESS NOTE DATE: 05/21/2020 SUBJECTIVE: Mrs. Holloway is seen this morning during hemodialysis. She is feeling well and denies any new complaints. Her left hip pain is gradually improving. She had an MRI and bone scan, which did show a suspicious area in the neck of the left femur. No pathological fracture is noticed. She has a remote history of endometrial cancer in 1994, but no other recent history of any malignancy. OBJECTIVE: VITAL SIGNS: Temperature 97.4 degrees Fahrenheit, heart rate 70 per minute, respiratory rate 18 per minute, blood pressure 134/80 mmHg, and oxygen saturation 97% on room air. HEENT: Head is atraumatic. NECK: Supple and without JVD or thyroid enlargement. HEART: Sounds are regular. LUNGS: Clear to auscultation. ABDOMEN: Soft and nontender. Bowel sounds are normal. EXTREMITIES: Without any cyanosis or clubbing. Her AV fistula is being used for dialysis in her right arm. NEUROLOGIC: She is awake, alert, and oriented x3. LABORATORY DATA: Today's labs show WBC count 6.4, hemoglobin 9.3, hematocrit 31. Sodium 136, potassium 4.4, CO2 of 26, BUN 41, and creatinine 6.6. PROBLEMS: 1. End-stage renal disease. The patient is currently being dialyzed and she is tolerating her dialysis treatment well. Electrolytes are within normal range. Volume status is well compensated and we are removing about 1.5 liters of fluid. 2. Hypertension. Blood pressure has been well controlled on current antihypertensive medications and no changes are being made today. 3. Anemia. Her anemia is related to end-stage renal disease and is currently stable. She will be given Aranesp 100 mcg once a week with dialysis treatment. She is also receiving intravenous iron 100 mg with each dialysis. 4. Hyperparathyroidism. The patient remains on Calcitriol 0.25 mcg three times a week. 5. Left hip pain. Etiology remains uncertain. She certainly has some arthritis, but there is also a suspicious area in the neck of the left femur. Her endometrial cancer was in 1994 and I doubt that this is recurrence of her endometrial cancer. Further workup will be per orthopedic recommendations.
[2020-05-21] MEDS: VITAMIN D 1,000 INTERNATIONAL UNITS TABLET PO SCH (21:39)
[2020-05-21 22:00] VITALS: BP 126/45
[2020-05-22 06:00] VITALS: BP 131/55
[2020-05-22 08:22] LABS: BASO # 0.1 10^3/uL (0.0-0.2); BASO % 0.9 % (0.0-1.0); EOS # 0.3 10^3/uL (0.0-0.5); EOS % 5.4 % (0.0-3.0); HEMATOCRIT 31.3 % (36.0-47.0); HEMOGLOBIN 9.5 g/dl (12.0-15.5); LYMPH # 1.2 10^3/uL (1.5-5.0); LYMPH % 20.5 % (24.0-44.0); MEAN CORPUSCULAR HEMOGLOBIN 30.3 pg (27.0-33.0); MEAN CORPUSCULAR HGB CONC 30.4 g/dl (32.0-36.5); MEAN CORPUSCULAR VOLUME 99.7 fl (80.0-96.0); MONO # 0.7 10^3/uL (0.0-0.8); MONO % 12.5 % (0.0-5.0); NEUTROPHILS # 3.4 10^3/uL (1.5-8.5); NEUTROPHILS % 59.7 % (36.0-66.0); PLATELET COUNT, AUTOMATED 155 10^3/uL (150-450); RED BLOOD COUNT 3.14 10^6/uL (4.00-5.40); WHITE BLOOD COUNT 5.8 10^3/uL (4.0-10.0)
[2020-05-22 08:53] LABS: CALCIUM LEVEL 9.2 MG/DL (8.8-10.2); CREATININE FOR GFR 4.15 MG/DL (0.55-1.30); MAGNESIUM LEVEL 2.2 MG/DL (1.8-2.4); POTASSIUM SERUM 4.1 MEQ/L (3.5-5.1)
[2020-05-22] MEDS: DOCUSATE SODIUM 100MG CAPSULE PO SCH (09:00)
[2020-05-22] MEDS ORDERED: LANTINJ4 SC (09:05)
[2020-05-22] MEDS ORDERED: TRAM-533 PO ×2 (09:05→11:57)
[2020-05-22] MEDS: HumaLOG INSULIN (NovoLOG) PER UNIT SC SCH ×2 (09:07→12:00)
[2020-05-22] MEDS: LEVEMIR (INSULIN DETEMIR) 1 UNITS/0.01ML SC SCH (09:08)
[2020-05-22] MEDS: HEPARIN SOD (PORCINE) 5000UNITS/ML 1ML VIAL/SYRINGE SC SCH (09:08)
--- NOTE | 2020-05-22 11:33 | DS.PDOC ---
Discharge Summary General Date of Admission May 19, 2020 at 11:47 Date of Discharge 05/22/2020 Discharge Summary PROCEDURES PERFORMED DURING STAY: IR Guided biopsy of L femoral neck 05/21/2020 ADMITTING DIAGNOSES / DISCHARGE DIAGNOSES: Left hip pain Cellulitis on abdomen - possibly 2/2 cat scratches often cause these spots on her body ESRD on HD (TTS) IDDM2 Chronic anemia DVT prophylaxis COMPLICATIONS/CHIEF COMPLAINT: Left hip pain HISTORY OF PRESENT ILLNESS: Patient is a 79-year-old female with left hip pain and decreased mobility presented to the ER for further evaluation. Patient was admitted to hospital service and orthopedic surgery was called on consultation. HOSPITAL COURSE: Left hip pain - Imaging reviewed without any evidence of fracture, however, suggesting possibly metastatic lesion - s/p bone biopsy to confirm lesion; pathology pending - c/w pain control and PT/OT - cleared for DC home - Orthopedic surgery on consultation; will have outpatient follow up within 7 days fro results of biopsy Cellulitis on abdomen - possibly 2/2 cat scratches often cause these spots on her body - c/w Doxycycline 100mg BID (Day #6 of 7) ESRD on HD (TTS) - Missed HD session on the day of admission - Nephrology on consultation IDDM2 - c/w ISS and adjusted dose of Levemir Chronic anemia - Iron studies suggest anemia of chronic disease, likely 2/2 ESRD - c/w Venofer and Aranesp DVT prophylaxis - c/w Heparin DISCHARGE MEDICATIONS: Please see below. ALLERGIES: Please see below. PHYSICAL EXAMINATION ON DISCHARGE: Vitals (See below) General: Lying in bed, appears comfortable, AAOx3 HEENT: NC, AT CVS: +S1S2 Lungs: Fair air entry b/l, no appreciable wheezing, rhonchi or rales Abdomen: Soft, non-distended, non-tender Extremities: LE are without any edema, - Calf tenderness LABORATORY DATA: Please see below. ACTIVITY: [As tolerated]. DISCHARGE PLAN: Follow up with PCP within 7 days and Ortho within 1 week Remain compliant with treatment plan and medications Return to the ER if you experience any problems DISPOSITION: Home with services DISCHARGE CONDITION: [Stable]. TIME SPENT ON DISCHARGE: 35 minutes Vital Signs/I&Os Vital Signs Date Time Temp Pulse Resp B/P (MAP) Pulse Ox O2 Delivery O2 Flow Rate FiO2 05/22/20 06:00 98.2 77 18 131/55 (80) 98 Room Air I&O- Last 24 Hours up to 6 AM 05/22/20 05:59 Intake Total 950 ml Output Total 1500 ml Balance -550 ml Laboratory Data Labs 24H Laboratory Tests 2 05/21/20 12:42: Hepatitis B Surface Antigen NEGATIVE 05/21/20 13:37: Bedside Glucose (Misc Panel) 69L 05/21/20 16:54: Bedside Glucose (Misc Panel) 101 05/21/20 21:29: Bedside Glucose (Misc Panel) 154H 05/22/20 07:55: Immature Granulocyte % (Auto) 1.0, Neutrophils (%) (Auto) 59.7, Lymphocytes (%) (Auto) 20.5L, Monocytes (%) (Auto) 12.5H, Eosinophils (%) (Auto) 5.4H, Basophils (%) (Auto) 0.9, Neutrophils # (Auto) 3.4, Lymphocytes # (Auto) 1.2L, Monocytes # (Auto) 0.7, Eosinophils # (Auto) 0.3, Basophils # (Auto) 0.1, Nucleated Red Blood Cells % (auto) 0.3H, Anion Gap 9, Glomerular Filtration Rate 11.0L, Calcium Level 9.2, Magnesium Level 2.2 CBC/BMP Laboratory Tests 05/22/20 07:55 FSBS Laboratory Tests Test 05/21/20 13:37 05/21/20 16:54 05/21/20 21:29 Range/Units Bedside Glucose (Misc Panel) 69 101 154 83-110 MG/DL Discharge Medications Scheduled Biotin (Biotin) 5,000 Mcg Tab.rapdis, 5,000 MCG PO QHS, (Reported) Calcitriol (Calcitriol) 0.25 Mcg Capsule, 0.25 MCG PO 3XW, (Reported) , , SAT AT DIALYSIS Cholecalciferol (Vitamin D3) (Vitamin D3) 1,000 Unit Tablet, 5,000 UNITS PO QHS, (Reported) Docusate Sodium (Docusate Sodium) 100 Mg Cap, 100 MG PO 3XW, (Reported) DAILY AFTER DIALYSIS Docusate Sodium (Colace) 100 Mg Capsule, 100 MG PO 4XWK, (Reported) BID ON SUN Wed Folic Acid/Vit B Complex and C (Dialyvite 800 Tablet) 0.8 Mg Tablet, 1 TAB PO QHS, (Reported) Insulin Glargine,Hum.rec.anlog (Lantus Solostar) 100 Unit/Ml Inj, 10 UNITS SC BID Insulin Human Lispro (Humalog) 1 Units/0.01 Ml Inj, 1 DOSE SC ACHS, (Reported) PER SLIDING SCALE Red Yeast Rice (Red Yeast Rice) 600 Mg Tablet, 600 MG PO QHS, (Reported) Scheduled PRN Tramadol HCl (Tramadol Hydrochloride) 50 Mg Tablet, 1 TAB PO BIDP PRN for pain Allergies Coded Allergies: cetirizine (Verified Allergy, Intermediate, RASH, 02/22/19) amlodipine (Verified Allergy, Unknown, 03/04/20) pantoprazole (Verified Allergy, Unknown, 03/04/20) Fbustke-Ava-Hfy Reductase Inhibitor (Verified Adverse Reaction, Intermediate, CRAMPS, 02/07/19) atorvastatin (Verified Adverse Reaction, Intermediate, CRAMPS, 01/07/19) prednisolone (Verified Adverse Reaction, Intermediate, ELEVATES BLOOD SUGAR, PT DIABETIC, 02/07/19) TAPE (Verified Adverse Reaction, Mild, ITCHING, 05/07/18) oxycodone (Verified Adverse Reaction, Mild, CONSTIPATION, 01/07/19) benzonatate (Verified Adverse Reaction, Unknown, PER PT HAD A PROBLEM WITH IT BUT UNSURE WHY, 01/07/19) fenofibrate (Verified Adverse Reaction, Unknown, PER PT HAD A PROBLEM WITH IT BUT UNSURE WHY, 01/07/19) tamsulosin (Verified Adverse Reaction, Unknown, PER PT HAD A PROBLEM BUT UNSURE WHAT IT WAS, 02/07/19) SCOTTIE RANKIN MD May 22, 2020 11:33
--- NOTE | 2020-05-22 12:35 | IPN ---
NEPHROLOGY PROGRESS NOTE DATE: 05/22/2020 SUBJECTIVE: Ms. Rosenthal seen this morning on her bedside. She is feeling well and reports that her left hip pain is better. She had a biopsy done yesterday under CT guidance. Results are still pending. Patient denies any fever, chills, dyspnea or chest pain. She was dialyzed yesterday which she tolerated well. PHYSICAL EXAMINATION: Temperature 98.2 degrees Fahrenheit, heart rate 76 per minute and respiratory rate 18 per minute. Blood pressure 131/55 mmHg and oxygen saturation 98% on room air. Head: Atraumatic. Neck: Supple and without JVD or thyroid enlargement. Heart: Sounds are irregular in rhythm. Lungs: Clear to auscultation. Abdomen: Soft and nontender and bowel sounds are normal. Extremities: Without any cyanosis or clubbing. Neurologically: She is awake, alert an oriented times 3. LABORATORY DATA: Today's labs show WBC count 5.8, hemoglobin 9.5, hematocrit 31.3 and platelets 155. Sodium 139, potassium 4.1, CO2 30, BUN 20, creatinine 4.1, glucose 147 and calcium 9.2. PROBLEMS/PLAN: 1. End-stage renal disease: Patient was dialyzed yesterday and she tolerated her dialysis treatment very well. Her next dialysis is due tomorrow. 2. Hypertension: Blood pressure very well controlled on current medications and she should continue with the same. 3. Anemia: Her anemia is stable and no intervention is needed at present. We will give her Aranesp if she is still here for her next dialysis treatment. 4. Left hip pain: Patient had needle biopsy of her hip lesion yesterday and results are still pending. Her pain has improved and she gets pain only when she walks more than 50 foot.
== END 2020-05-22 13:38 | disposition home or self-care (01) | DRG 477 ==
LOC: EDBD 11:05 → M ED 11:05 → M ED INP 11:06 → ENRESERV 18:27 → M MSPAV 19:40 → OBSVTOIN 05-19 11:47 → EEVIPCON 05-19 11:47
PROVIDERS: ADMIT Internal Medicine; ATTEND Internal Medicine
PROC: 0QB73ZX Excision of Left Upper Femur, Percutaneous Approach, Diagnostic (ICD-10-PCS; principal; 2020-05-21 15:00)
DX: M25.552 Pain in left hip (principal); N18.6 End stage renal disease; L03.311 Cellulitis of abdominal wall; I13.11 Hypertensive heart and chronic kidney disease without heart failure, with stage 5 chronic kidney disease, or end stage renal disease; E11.9 Type 2 diabetes mellitus without complications; D64.9 Anemia, unspecified; Z79.899 Other long term (current) drug therapy; Z88.8 Allergy status to other drugs, medicaments and biological substances; Z88.5 Allergy status to narcotic agent; D63.1 Anemia in chronic kidney disease; Z79.4 Long term (current) use of insulin; M19.90 Unspecified osteoarthritis, unspecified site; Z85.41 Personal history of malignant neoplasm of cervix uteri; E78.5 Hyperlipidemia, unspecified; I50.9 Heart failure, unspecified; E87.6 Hypokalemia

== ENCOUNTER 2020-06-11 12:49 | Inpatient (IN) | payer MEDICARE, MEDICAID ==
[~2020-06-11] VITALS: Ht 147.3 cm; Wt 95.6 kg
[2020-06-11] MEDS: VITAMIN D 1,000 INTERNATIONAL UNITS TABLET PO SCH (00:43)
[2020-06-11] MEDS: NYSTATIN 100,000 UNITS/GM TOPICAL PWD 15 GM TOP SCH (01:47)
[~2020-06-11 12:49] MED LIST changes: +COLA100C5 PO; +D31000TA2 PO; +LEVEMIR (INSULIN DETEMIR) 1 UNITS/0.01ML SC SCH; +TRAM-533 PO; +ULTR5TAB PO
[2020-06-11] MEDS ORDERED: MORPHINE 4 MG/ML 1ML VIAL/SYRINGE (J2270) IV ONE (13:30)
--- NOTE | 2020-06-11 13:46 | REP ---
INDICATION: trauma COMPARISON: 05/30/2014 TECHNIQUE: Axial noncontrast images from the skull base to the thoracic inlet with coronal reformations. This CT examination was performed using the following dose reduction techniques: Automated exposure control, adjustment of mA and/or kv according to the patient's size, and use of iterative reconstruction technique. FINDINGS: Age-related atrophy and microvascular ischemic changes are appreciated. The ventricles and sulci are symmetric. Flores-white differentiation is maintained. There is no evidence for acute intracranial hemorrhage, mass/mass effect, pathology or infarction. No extra-axial fluid collection. Calvarium is intact with evidence for benign hyperostosis frontalis. Paranasal sinuses and mastoid air cells are clear. IMPRESSION: Age related atrophy and microvascular ischemic changes. No acute intracranial hemorrhage, infarction, or mass/mass effect. <Electronically signed by Arnie Villarreal > 06/11/20 [id number]
--- NOTE | 2020-06-11 13:47 | REP ---
INDICATION: trauma. COMPARISON: None. TECHNIQUE: Helical scanning is acquired and overlapping 2 mm high resolution axial images were generated and reviewed at bone and soft tissue window settings. Coronal and sagittal multiplanar re-formations images are generated. FINDINGS: There is no evidence of cervical spine element fracture. No skull base fracture is seen. Cervical vertebral body heights are preserved. Alignment is normal. Facet joints are normally aligned bilaterally at each cervical level on multiplanar re-formations images. There is no evidence of intraspinal or paraspinal hematoma. No extra vertebral abnormality is seen. Vascular calcification is noted. There are degenerative spondylosis changes in the cervical spine with diffuse disc bulging at C3-4 and disc bulging and osteophytic ridging at C4-5 and C5-6 mild in degree. IMPRESSION: Degenerative spondylosis changes, otherwise negative CT study of the cervical spine. No traumatic abnormality is observed.. <Electronically signed by Nahun Cole > 06/11/20 [id number]
--- NOTE | 2020-06-11 13:59 | REP ---
INDICATION: trauma Nontraumatic hip pain. COMPARISON: None. TECHNIQUE: Frontal view of the pelvis with neutral and frog lateral views of the left hip. FINDINGS: Angulated fracture through the left femoral neck. Remainder of the visualized osseous structures are intact. IMPRESSION: Acute angulated left femoral neck fracture. <Electronically signed by Arnie Villarreal > 06/11/20 [id number]
--- NOTE | 2020-06-11 14:00 | REP ---
INDICATION: trauma COMPARISON: Left hip series of the same day TECHNIQUE: AP and cross-table lateral views of the mid to distal femur. FINDINGS: Visualized portions of the femur are intact. Evaluation of the knee is incomplete. IMPRESSION: No fracture to the visualized mid to distal femur. Known acute femoral neck fracture. <Electronically signed by Arnie Villarreal > 06/11/20 [id number]
[2020-06-11] MEDS ORDERED: LANTINJ4 SC (14:02)
--- NOTE | 2020-06-11 14:09 | REP ---
INDICATION: trauma COMPARISON: 05/16/2020 TECHNIQUE: Portable AP view of the chest FINDINGS: The mediastinum and cardiac silhouette are stable and marked cardiomegaly is again noted. The lung sanon are clear without acute consolidation, effusion, or pneumothorax. Skeletal structures appear intact. Left subclavian stent again identified. IMPRESSION: Stable marked cardiomegaly. No acute consolidation or effusion. <Electronically signed by Arnie Villarreal > 06/11/20 [id number]
[2020-06-11 14:27] LABS: BASO # 0.1 10^3/uL (0.0-0.2); BASO % 0.8 % (0.0-1.0); EOS # 0.1 10^3/uL (0.0-0.5); EOS % 1.9 % (0.0-3.0); HEMATOCRIT 36.6 % (36.0-47.0); HEMOGLOBIN 11.1 g/dl (12.0-15.5); LYMPH # 0.9 10^3/uL (1.5-5.0); LYMPH % 11.5 % (24.0-44.0); MEAN CORPUSCULAR HGB CONC 30.3 g/dl (32.0-36.5); MEAN CORPUSCULAR VOLUME 98.9 fl (80.0-96.0); MONO # 0.4 10^3/uL (0.0-0.8); MONO % 5.7 % (0.0-5.0); NEUTROPHILS % 78.9 % (36.0-66.0); PLATELET COUNT, AUTOMATED 177 10^3/uL (150-450); WHITE BLOOD COUNT 7.6 10^3/uL (4.0-10.0)
[2020-06-11 14:39] LABS: INR 1.04; PROTHROMBIN TIME 13.8 SECONDS (12.5-14.3)
[2020-06-11 14:40] LABS: PARTIAL THROMBOPLASTIN TIME 37.9 SECONDS (24.2-38.5)
[2020-06-11 15:00] LABS: ALBUMIN 3.1 GM/DL (3.2-5.2); ALT/SGPT 22 U/L (12-78); BILIRUBIN,DIRECT 0.1 MG/DL (0.0-0.2); BILIRUBIN,TOTAL 0.4 MG/DL (0.2-1.0); BLOOD UREA NITROGEN 9 MG/DL (7-18); CALCIUM LEVEL 8.9 MG/DL (8.8-10.2); CARBON DIOXIDE LEVEL 27 MEQ/L (21-32); CHLORIDE LEVEL 104 MEQ/L (98-107); CK-MB VALUE MASS 1.3 NG/ML (<3.6); CPK CREATINE PHOSPHOKINASE 44 U/L (26-192); CREATININE FOR GFR 3.61 MG/DL (0.55-1.30); GLOMERULAR FILTRATION RATE 12.9 (>39); GLUCOSE, FASTING 131 MG/DL (70-100); MB/CK RELATIVE INDEX 2.95 (< OR =4); POTASSIUM SERUM 3.4 MEQ/L (3.5-5.1); SODIUM LEVEL 140 MEQ/L (136-145); TOTAL PROTEIN 7.2 GM/DL (6.4-8.2); TROPONIN I < 0.02 NG/ML (< 0.10)
[2020-06-11 15:10] LABS: RSV AMPLIFICATION NEGATIVE (NEGATIVE)
--- NOTE | 2020-06-11 15:10 | HPEPDOC ---
[facility] Medical History & Physical Date of Admission Jun 11, 2020 Date of Service: Jun 11, 2020 History and Physical CHIEF COMPLAINT: Fall HISTORY OF PRESENT ILLNESS: 79 female with PMHx as indicated presents for left hip pain after mechanical fall. She states after HD she returned home and slipped on some ice and fell down. She denied head trauma, headaches, dizziness, or any prodromal symptoms. She denies shortness of breath, abdominal pain, N/V/D. She was otherwise in her usual state of health last night, and this mor lida. She states she is able to walk several blocks without any chest pain or shortness of breath. She denies every having any anginal symptoms. PAST MEDICAL HISTORY: #Left hip pain - biopsy negative for metastatic disease - remote history of endometrial CA #recent Cellulitis on abdomen - possibly 2/2 cat scratches #ESRD on HD (TTS) #IDDM2 #Chronic anemia ALLERGIES: Please see below. REVIEW OF SYSTEMS: Negative except as per HPI. HOME MEDICATIONS: Please see below. PHYSICAL EXAMINATION: VITAL SIGNS: See below General: NAD, lying comfortably in bed HEENT: NC/AT, EOMI Lungs: CTA B/L Heart: +S1S2, irregular, no murmurs, rubs or gallops Abd: obese, soft, NT, ND, +BS Ext: no edema LABORATORY DATA: See below. MICROBIOLOGY: Please see below. A/P: 79 F for mechanical fall today, slipping on ice, sustaining left femoral neck fracture, with PMHx ESRD/HD #Left hip pain - s/p mechanical fall - was recently admitted for same - workup grossly unrevealing, with imaging with some suspicion for early metastatic disease - biopsy negative for metastatic disease - she states she easily attains 4 METS activity with no anginal symptoms, has no history of CHF, CVA or ischemic cardiac disease. #arrhythmia - she has a history of a sinus arrhtyhmia as per documentation, and PVC's - today's ECG is suspicious for a-fib - waiting for official read - telemetry monitoring, echocardiogram, check thyroid panel #ESRD on HD (TTS) - follow as per nephrology - appears well compensated with regards to volume status - had HD this morning #IDDM2 - insulin sliding scale - npo for anticipated surgery #Chronic anemia - H/H stable Dispo: Patient is medically optimized for surgical intervention, and is considered Class II risk, scoring one point using the revised cardiac risk index for pre-operative risk. Vital Signs Vital Signs Date Time Temp Pulse Resp B/P (MAP) Pulse Ox O2 Delivery O2 Flow Rate FiO2 06/11/20 14:22 18 06/11/20 13:16 96.4 85 147/63 99 Room Air Laboratory Data Labs 24H Laboratory Tests 2 06/11/20 14:18: Immature Granulocyte % (Auto) 1.2, Neutrophils (%) (Auto) 78.9H, Lymphocytes (%) (Auto) 11.5L, Monocytes (%) (Auto) 5.7H, Eosinophils (%) (Auto) 1.9, Basophils (%) (Auto) 0.8, Neutrophils # (Auto) 6.0, Lymphocytes # (Auto) 0.9L, Monocytes # (Auto) 0.4, Eosinophils # (Auto) 0.1, Basophils # (Auto) 0.1, Nucleated Red Blood Cells % (auto) 0.0, Prothrombin Time 13.8, Prothromb Time International Ratio 1.04, Activated Partial Thromboplast Time 37.9, Anion Gap 9, Glomerular Filtration Rate 12.9L, Calcium Level 8.9, Total Bilirubin 0.4, Direct Bilirubin 0.1, Aspartate Amino Transf (AST/SGOT) 20, Alanine Aminotransferase (ALT/SGPT) 22, Alkaline Phosphatase 35L, Total Creatine Kinase 44, Creatine Kinase MB 1.3, Creatine Kinase MB Relative Index 2.95, Troponin I < 0.02, Total Protein 7.2, Albumin 3.1L, Albumin/Globulin Ratio 0.8L CBC/BMP Laboratory Tests 06/11/20 14:18 Home Medications Scheduled Biotin (Biotin) 5,000 Mcg Tab.rapdis, 5,000 MCG PO QHS Calcitriol (Calcitriol) 0.25 Mcg Capsule, 0.25 MCG PO 3XW TU, TH, SAT AT DIALYSIS Cholecalciferol (Vitamin D3) (Vitamin D3) 1,000 Unit Tablet, 5,000 UNITS PO QHS Docusate Sodium (Docusate Sodium) 100 Mg Cap, 100 MG PO 3XW DAILY AFTER DIALYSIS TUE//SAT Docusate Sodium (Colace) 100 Mg Capsule, 100 MG PO 4XWK BID ON SUN Wed Folic Acid/Vit B Complex and C (Dialyvite 800 Tablet) 0.8 Mg Tablet, 1 TAB PO QHS Insulin Glargine,Hum.rec.anlog (Lantus Solostar) 100 Unit/1 Ml Insuln.pen, 30 UNITS SC DAILY Insulin Human Lispro (Humalog) 1 Units/0.01 Ml Inj, 1 DOSE SC ACHS PER SLIDING SCALE Red Yeast Rice (Red Yeast Rice) 600 Mg Tablet, 600 MG PO QHS Scheduled PRN Tramadol HCl (Tramadol Hydrochloride) 50 Mg Tablet, 1 TAB PO BIDP PRN for pain . Allergies Coded Allergies: cetirizine (Verified Allergy, Intermediate, RASH, 02/22/19) amlodipine (Verified Allergy, Unknown, 03/04/20) pantoprazole (Verified Allergy, Unknown, 03/04/20) Tkxvemv-Spq-Rec Reductase Inhibitor (Verified Adverse Reaction, Intermedi ate, CRAMPS, 02/07/19) atorvastatin (Verified Adverse Reaction, Intermediate, CRAMPS, 01/07/19) prednisolone (Verified Adverse Reaction, Intermediate, ELEVATES BLOOD SUGAR, PT DIABETIC, 02/07/19) TAPE (Verified Adverse Reaction, Mild, ITCHING, 05/07/18) oxycodone (Verified Adverse Reaction, Mild, CONSTIPATION, 01/07/19) benzonatate (Verified Adverse Reaction, Unknown, PER PT HAD A PROBLEM WITH IT BUT UNSURE WHY, 01/07/19) fenofibrate (Verified Adverse Reaction, Unknown, PER PT HAD A PROBLEM WITH IT BUT UNSURE WHY, 01/07/19) tamsulosin (Verified Adverse Reaction, Unknown, PER PT HAD A PROBLEM BUT UNSURE WHAT IT WAS, 02/07/19) A-FIB/CHADSVASC A-FIB History Current/History of A-Fib/PAF?: No ROSA DEAN MD Jun 11, 2020 15:10
[2020-06-11] MEDS ORDERED: ceFAZolin SOD 2 GM in IV 1 EA IV ONE (15:30)
[2020-06-11] MEDS ORDERED: ceFAZolin SOD 3 GM in IV 1 EA IV ONE (15:30)
[2020-06-11] MEDS ORDERED: ceFAZolin SOD 1 GM in D5W MINI-BAG PLUS 50 ML IV ONE (15:30)
[2020-06-11] MEDS ORDERED: GLUCOSE 4GM CHEW TABLET PO PRN (15:45)
[2020-06-11] MEDS ORDERED: DEXTROSE 50% 50 ML SYRINGE IV PRN (15:45)
[2020-06-11] MEDS ORDERED: GLUCAGON INJ 1MG VIAL SC PRN (15:45)
--- NOTE | 2020-06-11 15:47 | CR ---
CONSULTATION DATE: 06/11/2020 CHIEF COMPLAINT: Left hip pain. HISTORY: This is a 79 woman with multiple medical problems, who was actually in the hospital approximately 3 weeks ago with a left hip pain, difficulty walking. She had a biopsy done under interventional radiology that came back negative for cancer. She then was discharged. Was able to get around okay but then earlier today had a fall, injuring her left hip. She says her leg slipped out from under her, and she landed hard, inuring her left hip. She was noted to have a left femoral neck fracture. She denies any other injury. I as asked to see her for displaced femoral neck fracture. She does have a history of endometrial cancer many years ago treated with hysterectomy but has not reported any evidence of metastatic disease. MEDICAL HISTORY: Notable for: 1. End-stage renal disease. 2. Anemia. 3. Insulin-dependent diabetes for many years. 4. Hypertension. 5. Osteoarthritis. 6. Dyslipidemia. 7. History of endometrial cancer. 8. Morbid obesity. SURGICAL HISTORY: 1. Right ankle surgery. 2. Tonsillectomy. 3. Hysterectomy. SOCIAL HISTORY: Denies tobacco use. Occasionally uses alcohol. Never uses drugs. No recent travel. She lives with a caregiver and her 13-year-old granddaughter. FAMILY HISTORY: Notable for colon cancer, emphysema, myocardial infarction (ME), hypertension, throat cancer. MEDICATIONS: Biotin, calcitriol, vitamin D3, Colace, folic acid, vitamin B, insulin, red yeast rice. ALLERGIES: CETIRIZINE, AMLODIPINE, PANTOPRAZOLE, STATINS, ATORVASTATIN, PREDNISONE, TAPE, OXYCODONE, BENZONATATE, FENOFIBRATE, TAMSULOSIN. PHYSICAL EXAMINATION: She is an alert and oriented, obese woman in no acute distress. She has slight shortening of the left lower extremity. HEENT: Extraocular muscles intact. PULMONARY: She has nonlabored breathing. CARDIAC: Some irregularity of her pulse with a history of atrial fibrillation. ABDOMEN: Obese. Left hip demonstrates mild shortening. Irritability with any range of motion of her hip. She has some bilateral lower extremity edema. Grossly neurologically intact in terms of moving her foot and ankle. REVIEW OF SYSTEMS: Denies any current chest pain, cough, shortness of breath. Denies any abdominal pain. Does have a history of some chronic nausea intermittently. Denies hematuria. MUSCULOSKELETAL: Left hip pain as noted above. PSYCHIATRIC: Denies anxiety or depression. X-ray is reviewed, and it shows evidence of a displaced femoral neck fracture. It looks like a basilar neck fracture. IMPRESSION: A 79-year-old with multiple medical problems with morbid obesity with a left femoral neck fracture with a recent biopsy having been done that did not show any evidence of metastatic disease or cancer. This appears to be a traumatic fracture stemming from a fall. No other injury noted. I would recommend that if the patient is cleared from a medical standpoint that we could proceed with a left hip hemiarthroplasty. I have explained this and the nature of the procedure. I have not gone through the formal consent form, because I am not sure who is going to be proceeding with the surgery. For now, since she has been nothing by mouth for only a couple of hours, we will have her admitted to the hospitalist service, wait for clearance, and in the meantime thromboembolic deterrents (TEDs) and sequentials for deep venous thrombosis (DVT) prophylaxis.
[2020-06-11 17:04] LABS: FREE THYROXINE INDEX 2.3 % (1.3-4.8); MAGNESIUM LEVEL 2.2 MG/DL (1.8-2.4); T UPTAKE 33 % (30-39)
--- NOTE | 2020-06-11 17:42 | ECGEPIP ---
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
[2020-06-11] MEDS: HumaLOG INSULIN (NovoLOG) PER UNIT SC SCH (18:00)
[2020-06-11] MEDS: MORPHINE 2 MG/ML 1ML VIAL (J2270) IV PRN (23:50)
[2020-06-11 23:55] VITALS: BP 141/65
[2020-06-12] VITALS (7 sets, daily range): BP systolic 108–129; BP diastolic 50–76
[2020-06-12] MEDS ORDERED: ONDANSETRON 4MG/2ML VIAL IV ONE (01:00)
[2020-06-12] MEDS: HumaLOG INSULIN (NovoLOG) PER UNIT SC SCH ×4 (06:00→18:00)
[2020-06-12 06:22] LABS: HEMATOCRIT 34.6 % (36.0-47.0); HEMOGLOBIN 10.2 g/dl (12.0-15.5); MEAN CORPUSCULAR HEMOGLOBIN 29.5 pg (27.0-33.0); MEAN CORPUSCULAR HGB CONC 29.5 g/dl (32.0-36.5); PLATELET COUNT, AUTOMATED 180 10^3/uL (150-450); RED BLOOD COUNT 3.46 10^6/uL (4.00-5.40); WHITE BLOOD COUNT 7.6 10^3/uL (4.0-10.0)
[2020-06-12 06:50] LABS: CREATININE FOR GFR 4.69 MG/DL (0.55-1.30); GLOMERULAR FILTRATION RATE 9.6 (>39); POTASSIUM SERUM 3.7 MEQ/L (3.5-5.1)
[2020-06-12] MEDS: LEVEMIR (INSULIN DETEMIR) 1 UNITS/0.01ML SC SCH (07:41)
[2020-06-12] MEDS: NYSTATIN 100,000 UNITS/GM TOPICAL PWD 15 GM TOP SCH ×2 (08:59→20:49)
[2020-06-12] MEDS: MORPHINE 2 MG/ML 1ML VIAL (J2270) IV PRN (08:59)
[2020-06-12] MEDS ORDERED: ceFAZolin SOD 2 GM in IV 1 EA IV ONE (12:00)
--- NOTE | 2020-06-12 12:03 | IPNPDOC ---
Text Note Date of Service The patient was seen on 06/12/20. NOTE Subjective: Patient seen and examined at bedside. No acute overnight events reported. Patient notes left hip pain, otherwise no other medical complaints. Objective: VITAL SIGNS: See below General: NAD, lying comfortably in bed HEENT: NC/AT, EOMI Lungs: CTA B/L Heart: +S1S2, irregular, no murmurs, rubs or gallops Abd: obese, soft, NT, ND, +BS Ext: no edema A/P: 79 F for mechanical fall today, slipping on ice, sustaining left femoral neck fracture, with PMHx ESRD/HD, recent left hip pain - biopsy negative for metastatic disease - remote history of endometrial CA, IDDM, chronic anemia. #left femoral neck fracture/Left hip pain - s/p mechanical fall - was recently admitted for same - workup grossly unrevealing, with imaging with some suspicion for early metastatic disease - biopsy negative for metastatic disease #arrhythmia/afib - she has a history of a sinus arrhtyhmia as per documentation, and PVC's - telemetry monitoring, echocardiogram, check thyroid panel #ESRD on HD (TTS) - follow as per nephrology #IDDM2 - insulin sliding scale - npo for anticipated surgery #Chronic anemia - H/H stable Dispo: Pending surgical intervention today VS,Kinzae, I+O VS, Jonathanbone, I+O Laboratory Tests 06/11/20 14:18 06/12/20 06:04 Vital Signs Date Time Temp Pulse Resp B/P (MAP) Pulse Ox O2 Delivery O2 Flow Rate FiO2 06/12/20 09:09 18 06/12/20 06:00 97.9 83 129/76 (93) 96 Room Air I&O- Last 24 Hours up to 6 AM 06/12/20 05:59 Intake Total 0 ml Balance 0 ml ROSA DEAN MD Jun 12, 2020 12:03
--- NOTE | 2020-06-12 13:00 | CR ---
CONSULTATION DATE: 06/12/2020 REQUESTING PHYSICIAN: ROSA DEAN M.D. CONSULTING PHYSICIAN: ROBYN GREENE DO REASON FOR CONSULTATION: Management of endstage renal disease on hemodialysis. CHIEF COMPLAINT: Displaced left femoral neck fracture. HISTORY OF PRESENT ILLNESS: Ms. Holloway is well-known to me. She is a 78-year-old female with a past medical history of endstage renal disease on hemodialysis on Wednesday, and Wednesday schedule and other comorbid conditions mentioned below. The patient was returning from her uneventful dialysis treatment yesterday and was walking in her driveway to her home after being dropped off by the volunteer medical assisting instructor. She felt her leg buckle under her and sustained a fall with subsequent fracture of the left femoral neck and she is admitted to the hospital for the same and a Nephrology evaluation is requested for management of her hemodialysis. The patient is seen and examined this morning at the bedside. She is pending OR later this afternoon and she reports her pain is adequately controlled. She denies any dizziness or presyncopal feelings that provoked the fall. She simply felt her legs give out underneath her. PAST MEDICAL HISTORY: 1. Endstage renal disease on hemodialysis (compliant). 2. Anemia of endstage renal disease. 3. Insulin dependent diabetes mellitus. 4. Hypertension. 5. Osteoarthritis. 6. Obesity. 7. Dyslipidemia. 8. History of endometrial cancer status post hysterectomy in 1994. 9. Secondary hyperparathyroidism of renal origin. PAST SURGICAL HISTORY: 1. Left arm AV fistula. 2. Right ankle surgery. 3. Tonsillectomy. 4. Hysterectomy. 5. Right arm AV fistula. ALLERGIES: Statin, tape, benzonatate, cetrizine, fenofibrate, oxycodone, prednisolone and Flomax. FAMILY HISTORY: No significant family history of endstage renal disease. SOCIAL HISTORY: She denies smoking, illicit drug use or alcohol use. REVIEW OF SYSTEMS: Constitutional: Denies fevers or chills. Eyes: Denies visual tearing or blurring. ENT: Denies rhinorrhea or odynophagia. Cardiac: Denies chest pain or palpitations. Respiratory: Denies shortness of breath or cough. Gastrointestinal: Denies nausea, vomiting or diarrhea. Endocrine: Reports secondary hyperparathyroidism and diabetes. Hematologic: Reports anemia. Denies anticoagulant use. Musculoskeletal: Recent left femoral neck fracture and fall. Reports pain is controlled. Neurologic: Denies seizures or syncope. Psychiatric: Denies anxiety or depression. Skin: Denies any new rashes or ulcers. REVIEW OF SYSTEMS: The remainder of the review of systems is negative or as per HPI. PHYSICAL EXAMINATION: VITAL SIGNS: Temperature is 97.9, pulse is 83, respiratory rate 18, blood pressure is 129/76, saturating 96% on room air. GENERAL: The patient is seen lying completely flat in bed. HEENT: Extraocular muscles are intact. Tongue is moist. NECK: Supple. Jugular veins are not elevated. HEART: Heart sounds are regular. S1 and S2. There is no edema. LUNGS: Clear to auscultation bilaterally. No crackle or rale. ABDOMEN: Soft, obese and nontender. EXTREMITIES: Negative for clubbing, cyanosis or edema. There is a fistula in the arm which is patent with thrill and bruit. NEUROLOGIC: She is oriented x3, interactive and conversational. LABS: White count is 7.6, hemoglobin is 10.2, platelets 180,000, sodium 140, potassium 3.7, bicarbonate 31, BUN 13, creatinine 4.6. Head CT done yesterday shows no acute findings. Chest x-ray done yesterday shows clear lung sanon. Femur x-ray done yesterday shows acute femoral neck fracture. INPATIENT MEDICATIONS: Cefazolin 1 gram IV x1, insulin 15 units sub q. daily, Morphine 2 mg IV q. 4 hourly, Zofran 4 mg IV x1, vitamin D 5000 units p.o. q.h.s. PROBLEMS: 1. Endstage renal disease on hemodialysis on a Wednesday, and Wednesday schedule. Patient is well dialyzed, volume status is well-compensated. Electrolytes are acceptable. Anemia is optimized. From a Nephrology point of view, she is stable for the OR for left hip hemiarthroplasty. Her next hemodialysis treatment will be on June 13. 2. Left acute femoral neck fracture status post fall and pending left hip hemiarthroplasty. Pain management, anticoagulation is all per primary and orthopedic team. Patient is pending OR later today. 3. Anemia of chronic renal failure. Hemoglobin is stable and at goal. We will resume Aranesp when appropriate. 4. Insulin dependent diabetes mellitus. The patient is presently NPO pending OR. She had a fingerstick reading of 78 this afternoon. Her insulin is as per primary team. She has p.r.n. glucose and D50 ordered as well. Thank you for involving me in the care of Ms. Holloway. I would happy to follow her along with you.
[2020-06-12] MEDS ORDERED: TRANEXAMIC ACID 100 MG/ML 10ML VIAL As Ordered ONE (14:40)
[2020-06-12] MEDS ORDERED: EPINEPHrine INJ 1 MG/ML 1ML AMP As Ordered ONE ×2 (14:40→15:11)
[2020-06-12] MEDS ORDERED: BUPIVACAINE HCL 0.25% 10ML VIAL As Ordered ONE (14:40)
[2020-06-12] MEDS ORDERED: ceFAZolin 1GM VIAL (J0690 PER 500MG) As Ordered ONE ×2 (14:40→15:30)
[2020-06-12] MEDS ORDERED: BUPIVACAINE LIPOSOME/PF 1.3% 20ML VIAL (13.3MG/ML)(EXPAREL)(C9290 PER1MG) As Ordered ONE (14:41)
--- NOTE | 2020-06-12 15:26 | IPN ---
PROGRESS NOTE DATE: 06/12/2020 Patient seen and examined. She wishes to proceed with a left hip hemiarthroplasty for a femoral neck fracture. She understands the nature of the procedure, the risks of bleeding, infection, damage to nerves and/or vessels, persistent pain, wear, loosening, dislocation, leg length inequality, blood clots, medical problems, and among others. Preop clearance was obtained. She was consented.
[2020-06-12] MEDS ORDERED: ceFAZolin 2 GM/D5W 50 ML IV BAG (J0690 PER 500MG) As Ordered ONE (15:30)
[2020-06-12] MEDS ORDERED: LIDOCAINE 2% 100MG/5ML SDV (FOR ANES.) As Ordered ONE (16:01)
[2020-06-12] MEDS ORDERED: MIDAZOLAM INJ 2MG/2ML VIAL (J2250 PER 1MG) As Ordered ONE (16:01)
[2020-06-12] MEDS ORDERED: ROCURONIUM BROMIDE 50 MG/5 ML VIAL As Ordered ONE (16:01)
[2020-06-12] MEDS ORDERED: fentaNYL 100 MCG/2 ML INJECTION (J3010) As Ordered ONE ×3 (16:01→17:35)
[2020-06-12] MEDS ORDERED: propofoL 200 MG/20 ML VIAL As Ordered ONE (16:01)
[2020-06-12] MEDS ORDERED: PHENYLephrine HCL 500 MCG/5 ML (100MCG/ML) SYRINGE (J2370) As Ordered ONE (16:37)
[2020-06-12] MEDS ORDERED: SUGAMMADEX SODIUM 500 MG/5 ML VIAL (BRIDION) As Ordered ONE (16:38)
[2020-06-12] MEDS ORDERED: ONDANSETRON 4MG/2ML VIAL As Ordered ONE (16:38)
[2020-06-12] MEDS ORDERED: HYDROmorphone HCL 2 MG/ML 1ML VIAL (J1170) As Ordered ONE (17:09)
[2020-06-12] MEDS ORDERED: oxyCODONE 5MG TAB As Ordered ONE (17:35)
[2020-06-12] MEDS ORDERED: HYDROMORPHONE HCL 0.5 MG/ 0.5 ML SYRINGE (J1170 PER 1) As Ordered ONE (17:46)
[2020-06-12] MEDS: HYDROMORPHONE HCL 0.5 MG/ 0.5 ML SYRINGE (J1170 PER 1) IV PRN ×2 (17:48→18:38)
[2020-06-12] MEDS ORDERED: PERCOCET 5MG/325MG TAB PO PRN (18:15)
[2020-06-12] MEDS ORDERED: ACETAMINOPHEN TAB 650MG DOSE (2X325MG) PO PRN (18:15)
[2020-06-12] MEDS ORDERED: MORPHINE 2 MG/ML 1ML VIAL (J2270) IV PRN (18:15)
[2020-06-12] MEDS ORDERED: oxyCODONE 5MG TAB PO PRN (18:15)
[2020-06-12] MEDS ORDERED: ONDANSETRON 4MG/2ML VIAL IV PRN (18:15)
[2020-06-12] MEDS ORDERED: LR 1,000 ML IV SCH (18:15)
[2020-06-12] MEDS ORDERED: MORPHINE 4 MG/ML 1ML VIAL/SYRINGE (J2270) IV PRN (18:15)
[2020-06-12] MEDS ORDERED: fentaNYL 100 MCG/2 ML INJECTION (J3010) IV PRN (18:15)
--- NOTE | 2020-06-12 18:16 | REP ---
INDICATION: POST OP. COMPARISON: 06/11/2020. TECHNIQUE: AP and cross-table lateral views of the left hip performed. FINDINGS: Metallic prosthesis is noted of the proximal left femur, in good position. The visualized osseous structures are intact and well aligned. Metallic skin andressa are seen laterally. Vascular calcifications are seen medially. IMPRESSION: Metallic prosthesis proximal left femur in good position. <Electronically signed by Robles Flores > 06/12/20 [id number]
--- NOTE | 2020-06-12 18:54 | RO ---
OPERATIVE NOTE DATE OF OPERATION: 06/12/2020 PREOPERATIVE DIAGNOSIS: Left hip femoral neck fracture, displaced. POSTOPERATIVE DIAGNOSIS: Left hip femoral neck fracture, displaced. PROCEDURE: Left hip hemiarthroplasty using a size 2 cemented stem, 42 ball and a +0 neck. SURGEON: Jarert Castillo M.D. DIRECTOR OF REAL ESTATE: Jordan Jaramillo PA-C ANESTHESIA: General ESTIMATED BLOOD LOSS: 200. COMPLICATIONS: None. INDICATIONS: A 79-year-old woman with multiple medical problems, fell yesterday and sustained a displaced hip fracture. She wished to go ahead with surgical treatment. She understood the nature of this, the risks of bleeding, infection, damage to nerves and vessels, persistent pain, wear, loosening, dislocation, leg length inequality, blood clots, medical problems, among others. She and her daughter understood that she has a significantly higher risk for this fracture and the required surgery due to her multiple medical problems and her morbid obesity. Her BMI is close to 45. PROCEDURE: The patient was taken to the operating room and placed in the right lateral decubitus position on a [place] positioner. All areas were padded appropriately. The left hip was prepped and draped in the usual sterile fashion. I the created a longitudinal incision over the lateral aspect of the left hip after a timeout was performed. Sharp dissection was carried down through subcutaneous tissue which was very deep until I identified the fascia kitty and incised this. I then identified the abductors and divided the anterior 40% of the abductors off of the anterior aspect of the hip and exposing the fracture which was actually quite low just above the lesser trochanter. I then used a canal initiating reamer, the canal finding reamer and the lateralizing reamer and then used one reamer which had actually good purchase. She had pretty small bone. I then removed the femoral head, measured it to be a 42. I removed any remaining debris and soft tissue from the acetabulum. The canal was prepared. I irrigated copiously. I then used the canal brush irrigation system and placed the size 3 cement restrictor an appropriate distance down the canal. I then used an epinephrine soaked vaginal pack and the dry sponges down the canal. The executive marketing assistant prepared the bone cement in the modern technique. Prior to this, I had broached up to a size 2 which had a good fit and fill and did a trial reduction with a +0, 42 ball and this actually had good soft tissue tension and minimal shuck in full extension, excellent stability in extension, external rotation, flexion and internal rotation so we had selected these sizes. I then continued to prepare the canal and once the canal was carefully dried, I retrograde filled the canal with the cement, pressurized it and then placed a size 2 cemented Clay stem with the cementralizer on down the canal and held it in place while the cement hardened. The anteversion was dialed in based on the patient's anatomy. Once the cement hardened, I again copiously irrigated, checked the acetabulum. I removed sponges from there that I had previously placed to protect the cement from getting in the acetabulum. I then dried the [place] taper and impacted it on the +0, 42 ball-neck combination, made sure it was well seated and then reduced the hip with the executive marketing assistant's help, put the hip through a range of motion. I again was very pleased with the stability and position and soft tissue tension. I then copiously irrigated, placed a TXA deep in the wound, the repaired the minimus with #1 Vicryl suture, the abductor with #1 Vicryl suture and a reasonably good repair was obtained given her soft tissue quality. I then repaired the fascia kitty with #1 Vicryl suture and a running Stratafix in both directions and then placed the Exparel deep in the tissues. I then again irrigated and repaired the subcu in layers. I used a running double-ended Stratafix to close the deep subcu which was again very copious. This closed the fairly well. I then closed the subcu with 2-0 Vicryl and the skin with andressa. A sterile dressing was applied and she was taken to the recovery room in stable condition. There were no known complications. The plan will be routine postop. The executive marketing assistant was instrumental in holding retractors and assisting in reducing and dislocating the hip and assisting in wound closure. This is coded as an unusually difficult procedure due to the patient's morbid obesity. This added significant difficulty and time to the case and the exposure. It made it much more difficult to access the femur and to carry out the procedure and reduce and dislocate the hip. The bone will be sent for pathologic specimen because there was some concern a few weeks ago about her having a lesion in the femoral neck.
[2020-06-12] MEDS: VITAMIN D 1,000 INTERNATIONAL UNITS TABLET PO SCH (20:47)
[2020-06-13] MEDS: ceFAZolin SOD 1 GM in D5W MINI-BAG PLUS 50 ML IV SCH ×2 (00:47→06:33)
[2020-06-13] MEDS: ceFAZolin SOD 2 GM in IV 1 EA IV SCH ×2 (01:40→10:10)
[2020-06-13 02:00] VITALS: BP 106/72
[2020-06-13] MEDS: PERCOCET 5MG/325MG TAB PO PRN ×3 (05:47→18:20)
[2020-06-13 06:00] VITALS: BP 121/60
[2020-06-13 06:29] LABS: HEMOGLOBIN 10.2 g/dl (12.0-15.5); MEAN CORPUSCULAR HEMOGLOBIN 30.4 pg (27.0-33.0); MEAN CORPUSCULAR VOLUME 101.2 fl (80.0-96.0); PLATELET COUNT, AUTOMATED 158 10^3/uL (150-450); RED BLOOD COUNT 3.36 10^6/uL (4.00-5.40); WHITE BLOOD COUNT 9.1 10^3/uL (4.0-10.0)
[2020-06-13] MEDS: HumaLOG INSULIN (NovoLOG) PER UNIT SC SCH ×4 (06:32→18:00)
[2020-06-13 06:57] LABS: CALCIUM LEVEL 8.1 MG/DL (8.8-10.2); CREATININE FOR GFR 6.03 MG/DL (0.55-1.30); GLOMERULAR FILTRATION RATE 7.2 (>39); POTASSIUM SERUM 4.1 MEQ/L (3.5-5.1)
[2020-06-13] MEDS: LEVEMIR (INSULIN DETEMIR) 1 UNITS/0.01ML SC SCH (07:13)
[2020-06-13] MEDS: MIRALAX *UNIT DOSE* 17GM PACKET PO SCH (09:00)
[2020-06-13] MEDS: MOM 30ML SUSPENSION UDC PO SCH (09:00)
[2020-06-13 10:00] VITALS: BP 114/45
[2020-06-13] MEDS: NYSTATIN 100,000 UNITS/GM TOPICAL PWD 15 GM TOP SCH ×2 (10:11→21:13)
[2020-06-13] MEDS ORDERED: SODIUM CHLORIDE 0.9% 1000ML IV PRN (10:30)
[2020-06-13] MEDS ORDERED: LIDOCAINE 1% SDV 5ML VIAL SC PRN (10:30)
[2020-06-13 13:01] LABS: PERCENT SATURATION 20.3 % (13.2-45.0)
--- NOTE | 2020-06-13 13:08 | IPN ---
PROGRESS NOTE DATE: 06/13/2020 SUBJECTIVE: Patient is seen and examined this morning at the bedside. She is postoperative day #1 from left hip hemiarthroplasty. Her pain is well controlled. She is tolerating clear liquid diet. Anticoagulation is being started this evening. She is for dialysis this afternoon. She denies any shortness of breath. Temperature 98.9, pulse 95, respiratory rate 17, blood pressure 121/60, saturating 94% on room air. Intake yesterday was 410. Weight in the bed scale today is not recorded. General: Patient is seen lying flat in bed. Elderly female in no apparent distress. Appears fatigued. Extraocular muscles are intact. Tongue is moist. Neck is supple. Jugular veins are not elevated. Heart sounds are regular, S1, S2. There is no edema in the right lower extremity, but there is 1+ edema all throughout the left leg. Lungs are clear to auscultation bilaterally. No crackle or rale. Abdomen is soft, obese, and nontender. There are bowel sounds. Extremities are negative for clubbing or cyanosis. There is a fistula in the right arm, which is patent with thrill and bruit. There is dressing on the left hip at the site of hemiarthroplasty. Neurologic: She is alert and oriented times three, interactive and conversational. Skin: Normal temperature and turgor. LABORATORY DATA: White count 9.1, hemoglobin 10.2, platelets 158. Sodium 136, potassium 4.1, BUN 19, creatinine 6.0. INPATIENT MEDICATIONS: Reviewed by myself, and perioperative medications are noted. Her insulin was adjusted by the primary service. Her oxycodone and morphine were adjusted as well. She is to start on Xarelto 10 mg at 6 p.m. tonight along with MiraLax as well. Remainder of medications are unchanged from prior. PROBLEMS: 1. End-stage renal disease, on hemodialysis on Wednesday, , Wednesday schedule. Patient is going to be dialyzed this afternoon. We will reduce her heparin with dialysis given that she is going to be on a low-dose Xarelto now as well. Her electrolytes are acceptable, as is her volume status. Her anemia is stable. No change to the current dialysis prescription. 2. Left acute femoral neck fracture, status post left hemiarthroplasty, postoperative day #1. Pain management, bowel management, and diet is as per orthopedics/primary team. 3. Anemia of chronic renal failure. Hemoglobin is stable and at goal. We will resume Aranesp when indicated. I will check iron panels as well. 4. Insulin-dependent diabetes mellitus. She is on a clear liquid diet. Insulin is adjusted by primary team, and sugars are well controlled.
--- NOTE | 2020-06-13 13:46 | IPNPDOC ---
Text Note Date of Service The patient was seen on 06/13/20. NOTE Subjective: Patient seen and examined at bedside. POD#1 left hip hemiarthoplasty. No acute overnight events reported. Patient notes left hip pain, otherwise no other medical complaints. Objective: VITAL SIGNS: See below General: NAD, lying comfortably in bed HEENT: NC/AT, EOMI Lungs: CTA B/L Heart: +S1S2, irregular, no murmurs, rubs or gallops Abd: obese, soft, NT, ND, +BS Ext: no edema A/P: 79 F for mechanical fall today, slipping on ice, sustaining left femoral neck fracture, with PMHx ESRD/HD, recent left hip pain - biopsy negative for metastatic disease - remote history of endometrial CA, IDDM, chronic anemia. #left femoral neck fracture/Left hip pain - POD #1 left hip hemiarthroplasty - follow as per ortho #arrhythmia/afib - she has a history of a sinus arrhtyhmia as per documentation, and PVC's - echo pending - can dc tele #ESRD on HD (TTS) - follow as per nephrology #IDDM2 - insulin sliding scale #Chronic anemia - H/H stable Dispo: follow as per ortho VS,Fishbone, I+O VS, Fishbone, I+O Laboratory Tests 06/13/20 06:07 Vital Signs Date Time Temp Pulse Resp B/P (MAP) Pulse Ox O2 Delivery O2 Flow Rate FiO2 06/13/20 13:21 18 06/13/20 10:00 99.1 101 114/45 (68) 94 Room Air 06/12/20 19:13 2.0 I&O- Last 24 Hours up to 6 AM 06/13/20 06:00 Intake Total 710 ml Output Total 200 ml Balance 510 ml ROSA DEAN MD Jun 13, 2020 13:46
[2020-06-13 14:00] VITALS: BP 115/55
[2020-06-13] MEDS: RIVAROXABAN 10 MG TAB (XARELTO) PO SCH (18:20)
[2020-06-13] MEDS: VITAMIN D 1,000 INTERNATIONAL UNITS TABLET PO SCH (21:13)
[2020-06-13 22:00] VITALS: BP 121/57
[2020-06-14 02:00] VITALS: BP 113/58
[2020-06-14] MEDS: PERCOCET 5MG/325MG TAB PO PRN ×3 (05:22→19:55)
[2020-06-14 06:00] VITALS: BP 118/55
[2020-06-14 06:57] LABS: HEMATOCRIT 32.7 % (36.0-47.0); HEMOGLOBIN 9.8 g/dl (12.0-15.5); MEAN CORPUSCULAR HEMOGLOBIN 29.9 pg (27.0-33.0); MEAN CORPUSCULAR VOLUME 99.7 fl (80.0-96.0); PLATELET COUNT, AUTOMATED 147 10^3/uL (150-450); RED BLOOD COUNT 3.28 10^6/uL (4.00-5.40)
[2020-06-14] MEDS: HumaLOG INSULIN (NovoLOG) PER UNIT SC SCH ×4 (06:59→18:00)
[2020-06-14 07:21] LABS: CALCIUM LEVEL 8.6 MG/DL (8.8-10.2); CREATININE FOR GFR 3.97 MG/DL (0.55-1.30); GLOMERULAR FILTRATION RATE 11.6 (>39); POTASSIUM SERUM 4.3 MEQ/L (3.5-5.1)
[2020-06-14] MEDS: LEVEMIR (INSULIN DETEMIR) 1 UNITS/0.01ML SC SCH (08:28)
[2020-06-14] MEDS: MOM 30ML SUSPENSION UDC PO SCH (08:28)
[2020-06-14] MEDS: NYSTATIN 100,000 UNITS/GM TOPICAL PWD 15 GM TOP SCH ×2 (08:32→19:55)
[2020-06-14] MEDS: MIRALAX *UNIT DOSE* 17GM PACKET PO SCH (09:16)
[2020-06-14] MEDS ORDERED: DARBEPOETIN 100 MCG/0.5 ML *DIALYSIS* SYRINGE (J0882) IV SCH (10:00)
[2020-06-14] MEDS ORDERED: IRON SUCROSE 100MG 5ML VIAL (J1756 PER 1MG) IV SCH (10:00)
--- NOTE | 2020-06-14 11:56 | IPN ---
PROGRESS NOTE DATE: 06/14/2020 SUBJECTIVE: Karolyn is seen and examined this morning at the bedside. She reports no complaints. No shortness of breath. Pain is adequately controlled. She was dialyzed yesterday and her treatment was uneventful. PHYSICAL EXAMINATION: VITAL SIGNS: Temperature was 97.5, pulse 88, respiratory rate 19, blood pressure 118/55, saturating 95% on room air. INTAKE AND OUTPUT: Intake yesterday was 1 liter, dialysis removed 1 liters, equivalent fluid balance. GENERAL: The patient is seen lying in bed, elderly and morbidly obese female in no apparent distress. HEENT: Extraocular muscles are intact. Tongue is moist. NECK: Supple. Jugular veins are not elevated. HEART: Heart sounds are regular. S1 and S2. There is 1+ leg edema in the left lower extremity. No edema in the right leg. LUNGS: Clear to auscultation bilaterally. No crackle or rale. ABDOMEN: Soft, obese and nontender. There are bowel sounds. EXTREMITIES: Fistula in the right arm which is patent with thrill and bruit. There is 1+ edema in the left leg and no clubbing or cyanosis. There is a dressing also at the left hip site of hemiarthroplasty. NEUROLOGIC: She is oriented x3, interactive and conversational. SKIN: Normal temperature and turgor. LABORATORY DATA: Today's labs show white count 11.0, hemoglobin 9.8, platelets 147,000, sodium 136, potassium 4.3, iron of 28 and transferrin saturation of 20%. INPATIENT MEDICATIONS: She is ordered for Venofer with hemodialysis and Aranesp with hemodialysis. Her remainder of medications are unchanged as compared to yesterday. PROBLEMS: 1. Endstage renal disease on hemodialysis on a Wednesday, and Wednesday schedule. Continue maintenance schedule. One liter was removed yesterday and her next dialysis will be on June 15. Her electrolytes and volume status are acceptable. No changes made to the current dialysis prescription. 2. Left acute femoral neck fracture status post left hemiarthroplasty, postoperative day #2, the patient is doing well. She is on a bowel regime and reports adequate pain control and diet is advanced as per the Orthopedics Primary Team. Her intake has been on the low side, hence we only removed 1 liter with her dialysis treatment yesterday. She is going to need rehab. 3. Anemia of chronic renal failure along with iron deficiency, hemoglobin is below goal. Aranesp is ordered and Venofer is ordered as well.
[2020-06-14] MEDS: ONDANSETRON 4MG/2ML VIAL IV PRN (13:23)
--- NOTE | 2020-06-14 13:58 | IPNPDOC ---
Text Note Date of Service The patient was seen on 06/14/20. NOTE Subjective: Patient seen and examined at bedside. POD#2 left hip hemiarthoplasty. No acute overnight events reported. Feels much better today. Objective: VITAL SIGNS: See below General: NAD, lying comfortably in bed, hirsute HEENT: NC/AT, EOMI Lungs: CTA B/L Heart: +S1S2, irregular, no murmurs, rubs or gallops Abd: obese, soft, NT, ND, +BS Ext: no edema A/P: 79 F for mechanical fall today, slipping on ice, sustaining left femoral neck fracture, with PMHx ESRD/HD, recent left hip pain - biopsy negative for metastatic disease - remote history of endometrial CA, IDDM, chronic anemia. #left femoral neck fracture/Left hip pain - POD #2 left hip hemiarthroplasty - follow as per ortho #arrhythmia/afib - she has a history of a sinus arrhtyhmia as per documentation, and PVC's - echo pending - can dc tele #ESRD on HD (TTS) - follow as per nephrology #IDDM2 - insulin sliding scale #Chronic anemia - H/H stable Dispo: follow as per ortho VS,Fishbone, I+O VS, Fishbone, I+O Laboratory Tests 06/14/20 06:27 Vital Signs Date Time Temp Pulse Resp B/P (MAP) Pulse Ox O2 Delivery O2 Flow Rate FiO2 06/14/20 13:21 18 06/14/20 06:00 97.5 88 118/55 (76) 95 Room Air 06/12/20 19:13 2.0 I&O- Last 24 Hours up to 6 AM 06/14/20 06:00 Intake Total 850 ml Output Total 1000 ml Balance -150 ml ROSA DEAN MD Jun 14, 2020 13:58
[2020-06-14 14:00] VITALS: BP 109/49
[2020-06-14 14:30] VITALS: BP 133/74
[2020-06-14] MEDS: RIVAROXABAN 10 MG TAB (XARELTO) PO SCH (18:41)
[2020-06-14 19:53] VITALS: BP 103/52
[2020-06-14] MEDS: VITAMIN D 1,000 INTERNATIONAL UNITS TABLET PO SCH (19:55)
[2020-06-15 05:27] VITALS: BP 99/49
[2020-06-15] MEDS: HumaLOG INSULIN (NovoLOG) PER UNIT SC SCH ×4 (06:00→18:36)
[2020-06-15] MEDS: PERCOCET 5MG/325MG TAB PO PRN ×2 (06:19→20:14)
[2020-06-15] MEDS: LEVEMIR (INSULIN DETEMIR) 1 UNITS/0.01ML SC SCH (06:57)
[2020-06-15] MEDS: MOM 30ML SUSPENSION UDC PO SCH (07:40)
[2020-06-15] MEDS: MIRALAX *UNIT DOSE* 17GM PACKET PO SCH (07:40)
[2020-06-15] MEDS ORDERED: LIDOCAINE 1% SDV 5ML VIAL SC PRN (08:00)
[2020-06-15 08:19] LABS: HEMATOCRIT 31.3 % (36.0-47.0); HEMOGLOBIN 9.4 g/dl (12.0-15.5); MEAN CORPUSCULAR HEMOGLOBIN 29.7 pg (27.0-33.0); MEAN CORPUSCULAR VOLUME 98.7 fl (80.0-96.0); PLATELET COUNT, AUTOMATED 165 10^3/uL (150-450); RED BLOOD COUNT 3.17 10^6/uL (4.00-5.40); WHITE BLOOD COUNT 9.5 10^3/uL (4.0-10.0)
[2020-06-15 08:51] LABS: CALCIUM LEVEL 8.3 MG/DL (8.8-10.2); CREATININE FOR GFR 5.4 MG/DL (0.55-1.30); GLOMERULAR FILTRATION RATE 8.1 (>39); POTASSIUM SERUM 4.6 MEQ/L (3.5-5.1)
--- NOTE | 2020-06-15 11:11 | ECGEPIP ---
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
[2020-06-15] MEDS: NYSTATIN 100,000 UNITS/GM TOPICAL PWD 15 GM TOP SCH ×2 (12:35→20:14)
[2020-06-15 14:00] VITALS: BP 106/52
--- NOTE | 2020-06-15 15:59 | IPNPDOC ---
Text Note Date of Service The patient was seen on 06/15/20. NOTE Subjective: Patient seen and examined at bedside. POD#2 left hip hemiarthoplasty. No acute overnight events reported. Feels much better today. Objective: VITAL SIGNS: See below General: NAD, lying comfortably in bed, hirsute HEENT: NC/AT, EOMI Lungs: CTA B/L Heart: +S1S2, irregular, no murmurs, rubs or gallops Abd: obese, soft, NT, ND, +BS Ext: no edema A/P: 79 F for mechanical fall today, slipping on ice, sustaining left femoral neck fracture, with PMHx ESRD/HD, recent left hip pain - biopsy negative for metastatic disease - remote history of endometrial CA, IDDM, chronic anemia. #left femoral neck fracture/Left hip pain - POD #3 left hip hemiarthroplasty - follow as per ortho #arrhythmia/afib - she has a history of a sinus arrhtyhmia as per documentation, and PVC's - echo pending - can dc tele #ESRD on HD (TTS) - follow as per nephrology #IDDM2 - insulin sliding scale #Chronic anemia - H/H stable Dispo: follow as per ortho, likely placement for rehab VS,Fishbone, I+O VS, Fishbone, I+O Laboratory Tests 06/15/20 07:50 Vital Signs Date Time Temp Pulse Resp B/P (MAP) Pulse Ox O2 Delivery O2 Flow Rate FiO2 06/15/20 14:00 97.7 96 19 106/52 (70) 97 Room Air 06/12/20 19:13 2.0 I&O- Last 24 Hours up to 6 AM 06/15/20 06:00 Intake Total 810 ml Output Total 25 ml Balance 785 ml ROSA DEAN MD Jun 15, 2020 15:58
[2020-06-15] MEDS: ONDANSETRON 4MG/2ML VIAL IV PRN (18:35)
[2020-06-15] MEDS: RIVAROXABAN 10 MG TAB (XARELTO) PO SCH (18:35)
[2020-06-15] MEDS: VITAMIN D 1,000 INTERNATIONAL UNITS TABLET PO SCH (20:14)
[2020-06-15 20:38] VITALS: BP 99/49
--- NOTE | 2020-06-15 21:57 | IPN ---
PROGRESS NOTE DATE: 06/15/2020 SUBJECTIVE: The patient was seen and examined at the bedside today getting hemodialysis procedure. She is tolerating the hemodialysis procedure well. Her blood pressures were softer. Her ultrafiltration goal was set at one kg only. She reports mild pain in the left hip. Otherwise she denies any active complaints. OBJECTIVE: VITAL SIGNS: Temperature is 97.7 degrees Fahrenheit, blood pressure 106/52, pulse is 93, respiratory rate of 90, saturating 97% on room air. INTAKE AND OUTPUT: Urine output recorded as only 25 mL yesterday. Weight in the bed scale is not available. PHYSICAL EXAMINATION: HEAD AND NECK: Extraocular muscles intact. Pupils are equally round and reactive to light. Mucous membranes are moist. Neck is supple. There is no jugular venous distention. CARDIOVASCULAR: S1, S2, regular rate. EXTREMITIES: No edema of the bilateral lower extremities. RESPIRATORY: Chest is clear to auscultation bilaterally. Bilaterally currently no rales or rhonchi. ABDOMEN: Soft, positive bowel sounds, nontender. MUSCULOSKELETAL: She has a right arm AV fistula which is being used for dialysis and a left hip surgical site with a dressing. 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 Power is 5/5 in bilateral upper extremities. LABORATORY REVIEW: CBC showed a WBC of 9.5, hemoglobin 9.4, platelet count 765. BMP showed sodium 136, potassium 4.6, chloride 101, bicarbonate 25, BUN 27, creatinine is 5.4. CURRENT INPATIENT MEDICATIONS: The patient's medications were all reviewed by myself. She was started on Aranesp with dialysis, and she has also been started on Venofer for dialysis. No other significant change in the medications today as compared with yesterday. ASSESSMENT AND PLAN: 1. End-stage renal disease the patient is being dialyzed according to her regular schedule. Ultrafiltration goal is one liter, one liter, this is optimal. 2. Anemia and end-stage renal disease along with iron deficiency - The patient is getting Venofer and Aranesp with dialysis. Hemoglobin level is stable and improving. No need of blood transfusion at this time. 3. Left hip fracture - status post left hip hemiarthroplasty. The patient is at rehab at this time and recuperating with physical therapy now.
[2020-06-16 05:36] VITALS: BP 99/56
[2020-06-16] MEDS: HumaLOG INSULIN (NovoLOG) PER UNIT SC SCH ×4 (06:00→17:07)
[2020-06-16] MEDS: PERCOCET 5MG/325MG TAB PO PRN (06:51)
[2020-06-16 06:59] LABS: CALCIUM LEVEL 8.5 MG/DL (8.8-10.2); CREATININE FOR GFR 3.76 MG/DL (0.55-1.30); GLOMERULAR FILTRATION RATE 12.3 (>39); POTASSIUM SERUM 4.6 MEQ/L (3.5-5.1)
[2020-06-16] MEDS ORDERED: traMADol 50 MG TAB PO PRN ×2 (07:00)
[2020-06-16] MEDS: MOM 30ML SUSPENSION UDC PO SCH (08:23)
[2020-06-16] MEDS: MIRALAX *UNIT DOSE* 17GM PACKET PO SCH (08:23)
[2020-06-16] MEDS: NYSTATIN 100,000 UNITS/GM TOPICAL PWD 15 GM TOP SCH ×2 (08:24→21:51)
[2020-06-16] MEDS: LEVEMIR (INSULIN DETEMIR) 1 UNITS/0.01ML SC SCH (08:24)
[2020-06-16 08:41] LABS: HEMATOCRIT 33.2 % (36.0-47.0); MEAN CORPUSCULAR HEMOGLOBIN 30.8 pg (27.0-33.0); MEAN CORPUSCULAR HGB CONC 30.1 g/dl (32.0-36.5); MEAN CORPUSCULAR VOLUME 102.2 fl (80.0-96.0); PLATELET COUNT, AUTOMATED 168 10^3/uL (150-450); RED BLOOD COUNT 3.25 10^6/uL (4.00-5.40); WHITE BLOOD COUNT 9.9 10^3/uL (4.0-10.0)
--- NOTE | 2020-06-16 11:30 | IPNPDOC ---
Text Note Date of Service The patient was seen on 06/16/20. NOTE Subjective: Patient seen and examined at bedside. POD#4 left hip hemiarthoplasty. No acute overnight events reported. No new medical complaints this morning. Objective: VITAL SIGNS: See below General: NAD, lying comfortably in bed, hirsute HEENT: NC/AT, EOMI Lungs: CTA B/L Heart: +S1S2, irregular, no murmurs, rubs or gallops Abd: obese, soft, NT, ND, +BS Ext: no edema A/P: 79 F for mechanical fall today, slipping on ice, sustaining left femoral neck fracture, with PMHx ESRD/HD, recent left hip pain - biopsy negative for metastatic disease - remote history of endometrial CA, IDDM, chronic anemia. #left femoral neck fracture/Left hip pain - POD #4 left hip hemiarthroplasty - follow as per ortho #arrhythmia/afib - she has a history of a sinus arrhtyhmia as per documentation, and PVC's - echo pending - can dc tele #ESRD on HD (TTS) - follow as per nephrology #IDDM2 - insulin sliding scale #Chronic anemia - H/H stable Dispo: follow as per ortho, likely placement for rehab VS,Fishbone, I+O VS, Fishbone, I+O Laboratory Tests 06/16/20 05:32 06/16/20 08:14 Vital Signs Date Time Temp Pulse Resp B/P (MAP) Pulse Ox O2 Delivery O2 Flow Rate FiO2 06/16/20 06:51 18 Room Air 06/16/20 05:36 97.2 134 99/56 (70) 97 06/12/20 19:13 2.0 I&O- Last 24 Hours up to 6 AM 06/16/20 06:00 Intake Total 960 ml Output Total 1000 ml Balance -40 ml ROSA DEAN MD Jun 16, 2020 11:30
[2020-06-16] MEDS: ACETAMINOPHEN 500 MG TAB PO SCH ×2 (12:52→21:51)
[2020-06-16 14:00] VITALS: BP 105/58
[2020-06-16] MEDS: RIVAROXABAN 10 MG TAB (XARELTO) PO SCH (17:36)
[2020-06-16] MEDS: VITAMIN D 1,000 INTERNATIONAL UNITS TABLET PO SCH (21:51)
--- NOTE | 2020-06-16 21:56 | IPN ---
NEPHROLOGY PROGRESS NOTE DATE: 06/16/2020 SUBJECTIVE: The patient was seen and examined at the bedside today morning. She was afebrile, hemodynamically stable. She dialyzed yesterday. She tolerated the hemodialysis procedure well. She denies any active complaints at this time. OBJECTIVE: VITAL SIGNS: Temperature is 96.7 degrees Fahrenheit, blood pressure 105/58, pulse is 101, respiratory rate of 19, saturating 98% on room air. INTAKE AND OUTPUT: There is no urine output recorded. Ultrafiltration with hemodialysis was one liter yesterday. Weight in the bed scale is 95.6 kg. PHYSICAL EXAMINATION: GENERAL APPEARANCE: The patient is awake, alert, oriented x3, laying in bed in no apparent distress. HEAD AND NECK: Extraocular muscles intact. Pupils are equally round and reactive to light. Mucous membranes are moist. Neck is supple. There is no jugular venous distention. CARDIOVASCULAR: S1, S2, regular rate. EXTREMITIES: No edema of the bilateral lower extremities. RESPIRATORY: Chest is clear to auscultation bilaterally. Bilaterally currently no rales or rhonchi. ABDOMEN: Soft, positive bowel sounds, nontender, no organomegaly. MUSCULOSKELETAL: She has a dressing in the left hip surgical site. No significant edema of the extremities. 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 Power is 5/5 in all extremities. LAB REVIEW: CBC done today showed a WBC of 9.9, hemoglobin is 10, platelet count 168. BMP showed sodium 136, potassium 4.6, chloride 100, bicarbonate 27, BUN 19, creatinine is 3.7. CURRENT INPATIENT MEDICATIONS: The patient's medications were all reviewed by myself. There is no significant change in the medications today as compared with yesterday. ASSESSMENT AND PLAN: 1. End-stage renal disease - The patient was dialyzed according to her regular schedule yesterday. Next hemodialysis will be on Wednesday as per her regular schedule. 2. Anemia and end-stage renal disease - hemoglobin level is improving. Continue current dose of Venofer and Aranesp with dialysis. 3. Left hip fracture, status post left hip hemiarthroplasty - The patient reports that she has started walking with the help of a walker. 4. Diabetes mellitus type 2 the patient is currently on insulin sliding scale and Levemir. Glucose levels are within the acceptable range.
[2020-06-16 22:00] VITALS: BP 104/53
[2020-06-17] MEDS: ACETAMINOPHEN 500 MG TAB PO SCH ×2 (05:27→13:04)
[2020-06-17 06:00] VITALS: BP 99/52
[2020-06-17] MEDS: HumaLOG INSULIN (NovoLOG) PER UNIT SC SCH ×3 (06:00→12:24)
[2020-06-17] MEDS: MIRALAX *UNIT DOSE* 17GM PACKET PO SCH (08:26)
[2020-06-17] MEDS: MOM 30ML SUSPENSION UDC PO SCH (08:26)
[2020-06-17] MEDS: NYSTATIN 100,000 UNITS/GM TOPICAL PWD 15 GM TOP SCH (08:27)
[2020-06-17] MEDS: LEVEMIR (INSULIN DETEMIR) 1 UNITS/0.01ML SC SCH (08:27)
[2020-06-17] MEDS ORDERED: QC A650T3 PO (08:33)
[2020-06-17] MEDS ORDERED: TRAM50TA2 PO (08:33)
[2020-06-17] MEDS ORDERED: XARE10TA PO (08:33)
[2020-06-17 08:48] LABS: CREATININE FOR GFR 5.1 MG/DL (0.55-1.30); GLOMERULAR FILTRATION RATE 8.7 (>39); POTASSIUM SERUM 4.7 MEQ/L (3.5-5.1)
[2020-06-17 10:49] LABS: PHOSPHORUS LEVEL 3.1 MG/DL (2.5-4.9)
[2020-06-17 12:58] LABS: PTH INTACT 33.9 PG/ML (18.5-88.0)
--- NOTE | 2020-06-17 15:07 | DS.PDOC ---
Discharge Summary General Date of Admission Jun 11, 2020 at 15:59 Date of Discharge 06/17/20 Specialist/Consultants Involve orthopedics, nephrology Discharge Summary PROCEDURES PERFORMED DURING STAY: left hip repair ADMITTING DIAGNOSES: #left hip fracture secondary to fall SECONDARY DIAGNOSES: #Left hip pain - biopsy negative for metastatic disease - remote history of endometrial CA #recent Cellulitis on abdomen - possibly 2/2 cat scratches #ESRD on HD (TTS) #IDDM2 #Chronic anemia COMPLICATIONS/CHIEF COMPLAINT: Closed Left Hip Fracture. HISTORY OF PRESENT ILLNESS: 79 female with PMHx as indicated presents for left hip pain after mechanical fall. She states after HD she returned home and slipped on some ice and fell down. She denied head trauma, headaches, dizziness, or any prodromal symptoms. She denies shortness of breath, abdominal pain, N/V/D. She was otherwise in her usual state of health last night, and this morning. She states she is able to walk several blocks without any chest pain or shortness of breath. She denies every having any anginal symptoms. Admitted for surgical intervention. Hospital stay unremarkable. Discharged to ARU for continued rehab. DISCHARGE MEDICATIONS: Please see below. ALLERGIES: Please see below. PHYSICAL EXAMINATION ON DISCHARGE: VITAL SIGNS: See below General: NAD, lying comfortably in bed HEENT: NC/AT, EOMI Lungs: CTA B/L Heart: +S1S2, irregular, no murmurs, rubs or gallops Abd: obese, soft, NT, ND, +BS Ext: no edema LABORATORY DATA: Please see below. ACTIVITY: [As tolerated]. DISPOSITION: 62 D/T Rehab Facility. DISCHARGE INSTRUCTIONS: 1. As per rehab DISCHARGE CONDITION: [Stable]. TIME SPENT ON DISCHARGE: 35 minutes. Vital Signs/I&Os Vital Signs Date Time Temp Pulse Resp B/P (MAP) Pulse Ox O2 Delivery O2 Flow Rate FiO2 06/17/20 06:00 97.9 103 18 99/52 (68) 95 Room Air 06/12/20 19:13 2.0 I&O- Last 24 Hours up to 6 AM 06/17/20 06:00 Intake Total 1140 ml Output Total 0 ml Balance 1140 ml Laboratory Data Labs 24H Laboratory Tests 2 06/16/20 17:04: Bedside Glucose (Misc Panel) 113H 06/17/20 00:23: Bedside Glucose (Misc Panel) 115H 06/17/20 06:02: Bedside Glucose (Misc Panel) 111H 06/17/20 07:28: Anion Gap 9, Glomerular Filtration Rate 8.7L, Calcium Level 9.0, Phosphorus Level 3.1, Parathyroid Hormone (Intact) 33.9 06/17/20 11:47: Bedside Glucose (Misc Panel) 179H CBC/BMP Laboratory Tests 06/17/20 07:28 FSBS Laboratory Tests Test 06/16/20 17:04 06/17/20 00:23 06/17/20 06:02 06/17/20 11:47 Range/Units Bedside Glucose (Misc Panel) 113 115 111 179 83-110 MG/DL Discharge Medications Scheduled Acetaminophen (Acetaminophen 8 Hour) 650 Mg Tablet.er, 1,000 MG PO TID Biotin (Biotin) 5,000 Mcg Tab.rapdis, 5,000 MCG PO QHS, (Reported) Calcitriol (Calcitriol) 0.25 Mcg Capsule, 0.25 MCG PO 3XW, (Reported) TUES, THURS, SAT AT DIALYSIS Cholecalciferol (Vitamin D3) (Vitamin D3) 1,000 Unit Tablet, 5,000 UNITS PO QHS, (Reported) Docusate Sodium (Docusate Sodium) 100 Mg Cap, 100 MG PO 3XW, (Reported) DAILY AFTER DIALYSIS WED//SAT Docusate Sodium (Colace) 100 Mg Capsule, 100 MG PO 4XWK, (Reported) BID ON SUN Wed Folic Acid/Vit B Complex and C (Dialyvite 800 Tablet) 0.8 Mg Tablet, 1 TAB PO Q HS, (Reported) Insulin Glargine,Hum.rec.anlog (Lantus Solostar) 100 Unit/1 Ml Insuln.pen, 30 UNITS SC DAILY, (Reported) Insulin Human Lispro (Humalog) 1 Units/0.01 Ml Inj, 1 DOSE SC ACHS, (Reported) PER SLIDING SCALE Red Yeast Rice (Red Yeast Rice) 600 Mg Tablet, 600 MG PO QHS, (Reported) Rivaroxaban (Xarelto) 10 Mg Tablet, 10 MG PO DAILY Scheduled PRN Tramadol HCl (Tramadol HCl) 50 Mg Tablet, 1 TAB PO Q4H PRN for PAIN Allergies Coded Allergies: cetirizine (Verified Allergy, Intermediate, RASH, 02/22/19) amlodipine (Verified Allergy, Unknown, 03/04/20) pantoprazole (Verified Allergy, Unknown, 03/04/20) Udmajlz-Tov-Mno Reductase Inhibitor (Verified Adverse Reaction, Inter mediate, CRAMPS, 02/07/19) atorvastatin (Verified Adverse Reaction, Intermediate, CRAMPS, 01/07/19) prednisolone (Verified Adverse Reaction, Intermediate, ELEVATES BLOOD SUGAR, PT DIABETIC, 02/07/19) TAPE (Verified Adverse Reaction, Mild, ITCHING, 05/07/18) oxycodone (Verified Adverse Reaction, Mild, CONSTIPATION, 01/07/19) benzonatate (Verified Adverse Reaction, Unknown, PER PT HAD A PROBLEM WITH IT BUT UNSURE WHY, 01/07/19) fenofibrate (Verified Adverse Reaction, Unknown, PER PT HAD A PROBLEM WITH IT BUT UNSURE WHY, 01/07/19) tamsulosin (Verified Adverse Reaction, Unknown, PER PT HAD A PROBLEM BUT UNSURE WHAT IT WAS, 02/07/19) ROSA DEAN MD Jun 17, 2020 15:07
[2020-06-18] MEDS ORDERED: LIDOCAINE 1% SDV 5ML VIAL SC PRN (08:00)
== END 2020-06-17 13:45 | DRG 521 ==
LOC: M ED 12:49 → M ED INP 15:59 → M MSPAV 23:55 → M MS5PR 06-14 14:31
PROVIDERS: ADMIT Internal Medicine; ATTEND Internal Medicine
PROC: 0SRB0J9 Replacement of Left Hip Joint with Synthetic Substitute, Cemented, Open Approach (ICD-10-PCS; principal; 2020-06-12 14:00)
PROC: 5A1D70Z Performance of Urinary Filtration, Intermittent, Less than 6 Hours Per Day (ICD-10-PCS; 2020-06-13)
DX: S72.002A Fracture of unspecified part of neck of left femur, initial encounter for closed fracture (principal); N18.6 End stage renal disease; Z68.41 Body mass index [BMI] 40.0-44.9, adult; I12.0 Hypertensive chronic kidney disease with stage 5 chronic kidney disease or end stage renal disease; E66.01 Morbid (severe) obesity due to excess calories; E11.9 Type 2 diabetes mellitus without complications; D63.1 Anemia in chronic kidney disease; W00.0XXA Fall on same level due to ice and snow, initial encounter; Y92.009 Unspecified place in unspecified non-institutional (private) residence as the place of occurrence of the external cause; Z79.899 Other long term (current) drug therapy; Z79.4 Long term (current) use of insulin; Z88.8 Allergy status to other drugs, medicaments and biological substances; M19.90 Unspecified osteoarthritis, unspecified site; E78.5 Hyperlipidemia, unspecified; I48.91 Unspecified atrial fibrillation

== ENCOUNTER 2020-06-17 10:03 | Inpatient (IN) | payer MEDICARE, OTHER ==
[~2020-06-17] VITALS: Ht 147.3 cm; Wt 91.5 kg
[2020-06-17] MEDS: CALCITRIOL 0.25 MCG CAP (S0169) PO SCH (09:00)
[~2020-06-17 10:03] MED LIST changes: -LEVEMIR (INSULIN DETEMIR) 1 UNITS/0.01ML SC SCH; +QC A650T3 PO; +TRAM50TA2 PO; +XARE10TA PO
[2020-06-17 14:10] VITALS: BP 119/54
--- OUTSIDE RECORDS SUMMARY | 2020-06-17 14:55 | CCD ---
Author Author [facility] Organization [facility] Address Unknown Phone Unavailable Care Team Providers Care [employer] Name Role Phone Leila Pandya MD Unavailable Unavailable RogertranLeila hartman MD Unavailable Unavailable RogertranLeila hartman MD Unavailable Unavailable Leila Pandya MD Unavailable Unavailable Leila Pandya MD Unavailable Unavailable Leila Pandya MD Unavailable Unavailable Leila Pandya MD Unavailable Unavailable Leila Pandya MD Unavailable Unavailable Leila Pandya MD Unavailable Unavailable Leila Pandya MD Unavailable Unavailable Leila Pandya MD Unavailable Unavailable Leila Pandya MD Unavailable Unavailable Leila Pandya MD Unavailable Unavailable [place]eder[place], Leila Underwood MD Unavailable Unavailable SYMENOW, G CHRISTOPHER PA Unavailable Unavailable SYMENOW, G CHRISTOPHER PA Unavailable Unavailable SYMENOW, G CHRISTOPHER PA Unavailable Unavailable SYMENOW, G CHRISTOPHER PA Unavailable Unavailable SYMENOW, G CHRISTOPHER PA Unavailable Unavailable SYMENOW, G CHRISTOPHER PA Unavailable Unavailable SYMENOW, G CHRISTOPHER PA Unavailable Unavailable SYMENOW, G CHRISTOPHER PA Unavailable Unavailable SYMENOW, G CHRISTOPHER PA Unavailable Unavailable SYMENOW, G CHRISTOPHER PA Unavailable Unavailable SYMENOW, G CHRISTOPHER PA Unavailable Unavailable SYMENOW, G CHRISTOPHER PA Unavailable Unavailable SYMENOW, G CHRISTOPHER PA Unavailable Unavailable SYMENOW, G CHRISTOPHER PA Unavailable Unavailable SYMENOW, G CHRISTOPHER PA Unavailable Unavailable SYMENOW, G CHRISTOPHER PA Unavailable Unavailable SYMENOW, G CHRISTOPHER PA Unavailable Unavailable Macsherry, Debby HIMS MANAGER Unavailable Unavailable Macsherry, Debby HIMS MANAGER Unavailable Unavailable Macsherry, Debby HIMS MANAGER Unavailable Unavailable Macsherry, Debby HIMS MANAGER Unavailable Unavailable Macsherry, Debby HIMS MANAGER Unavailable Unavailable Macsherry, Debby HIMS MANAGER Unavailable Unavailable Macsherry, Debby HIMS MANAGER Unavailable Unavailable Macsherry, Debby HIMS MANAGER Unavailable Unavailable Macsherry, Debby HIMS MANAGER Unavailable Unavailable Macsherry, Debby HIMS MANAGER Unavailable Unavailable Macsherry, Debby HIMS MANAGER Unavailable Unavailable Macsherry, Debby HIMS MANAGER Unavailable Unavailable Macsherry, Debby HIMS MANAGER Unavailable Unavailable Macsherry, Debby HIMS MANAGER Unavailable Unavailable Macsherry, Debby HIMS MANAGER Unavailable Unavailable Macsherry, Debby HIMS MANAGER Unavailable Unavailable Macsherry, Debby HIMS MANAGER Unavailable Unavailable Macsherry, Debby HIMS MANAGER Unavailable Unavailable Macsherry, Debby HIMS MANAGER Unavailable Unavailable Macsherry, Debby HIMS MANAGER Unavailable Unavailable Macsherry, Debby HIMS MANAGER Unavailable Unavailable Macsherry, Debby HIMS MANAGER Unavailable Unavailable Macsherry, Debby HIMS MANAGER Unavailable Unavailable Macsherry, Debby HIMS MANAGER Unavailable Unavailable Sung, M Malena PA-C Unavailable Unavailable Sung, M Malena PA-C Unavailable Unavailable Sung, M Malena PA-C Unavailable Unavailable Sung, M Malena PA-C Unavailable Unavailable Sung, M Malena PA-C Unavailable Unavailable Sung, M Malena PA-C Unavailable Unavailable Sung, M Malena PA-C Unavailable Unavailable Sung, M Malena PA-C Unavailable Unavailable Sung, M Malena PA-C Unavailable Unavailable Sung, M Malena PA-C Unavailable Unavailable Sung, M Malena PA-C Unavailable Unavailable Sung, M Malena PA-C Unavailable Unavailable Sung, M Malena PA-C Unavailable Unavailable Sung, M Malena PA-C Unavailable Unavailable Sung, M Malena PA-C Unavailable Unavailable Sung, M Malena PA-C Unavailable Unavailable Sung, M Malena PA-C Unavailable Unavailable Sung, M Malena PA-C Unavailable Unavailable Sung, M Malena PA-C Unavailable Unavailable Sung, M Malena PA-C Unavailable Unavailable Sung, M Malena PA-C Unavailable Unavailable Sung, M Malena PA-C Unavailable Unavailable Sung, M Malena PA-C Unavailable Unavailable FLYNN, JUNIOR JELANI RPA-C Unavailable Unavailable FLYNN, JUNIOR JELANI RPA-C Unavailable Unavailable FLYNN, JUNIOR JELANI RPA-C Unavailable Unavailable FLYNN, JUNIOR JELANI RPA-C Unavailable Unavailable FLYNN, JUNIOR JELANI RPA-C Unavailable Unavailable FLYNN, JUNIOR JELANI RPA-C Unavailable Unavailable FLYNN, JUNIOR JELANI RPA-C Unavailable Unavailable FLYNN, JUNIOR JELANI RPA-C Unavailable Unavailable FLYNN, JUNIOR JELANI RPA-C Unavailable Unavailable FLYNN, JUNIOR JELANI RPA-C Unavailable Unavailable FLYNN, JUNIOR JELANI RPA-C Unavailable Unavailable FLYNN, JUNIOR JELANI RPA-C Unavailable Unavailable FLYNN, JUNIOR JELANI RPA-C Unavailable Unavailable FLYNN, JUNIOR JELANI RPA-C Unavailable Unavailable FLYNN, JUNIOR JELANI RPA-C Unavailable Unavailable FLYNN, JUNIOR JELANI RPA-C Unavailable Unavailable FLYNN, JUNIOR JELANI RPA-C Unavailable Unavailable FLYNN, JUNIOR JELANI RPA-C Unavailable Unavailable FLYNN, JUNIOR JELANI RPA-C Unavailable Unavailable FLYNN, JUNIOR JELANI RPA-C Unavailable Unavailable FLYNN, JUNIOR JELANI RPA-C Unavailable Unavailable FLYNN, JUNIOR JELANI RPA-C Unavailable Unavailable FLYNN, JUNIOR JELANI RPA-C Unavailable Unavailable FLYNN, JUNIOR JELANI RPA-C Unavailable Unavailable FLYNN, JUNIOR JELANI RPA-C Unavailable Unavailable FLYNN, JUNIOR JELANI RPA-C Unavailable Unavailable FLYNN, JUNIOR JELANI RPA-C Unavailable Unavailable FLYNN, JUNIOR JELANI RPA-C Unavailable Unavailable FLYNN, JUNIOR JELANI RPA-C Unavailable Unavailable FLYNN, JUNIOR JELANI RPA-C Unavailable Unavailable FLYNN, JUNIOR JELANI RPA-C Unavailable Unavailable FLYNN, JUNIOR JELANI RPA-C Unavailable Unavailable FLYNN, JUNIOR JELANI RPA-C Unavailable Unavailable FLYNN, JUNIOR JELANI RPA-C Unavailable Unavailable FLYNN, JUNIOR JELANI RPA-C Unavailable Unavailable FLYNN, JUNIOR JELANI RPA-C Unavailable Unavailable FLYNN, JUNIOR JELANI RPA-C Unavailable Unavailable FLYNN, JUNIOR JELANI RPA-C Unavailable Unavailable NYLA MCCOLLUM Unavailable Unavailable Mckeon, W Asim RPA-C Unavailable Unavailable Mckeon, W Asim RPA-C Unavailable Unavailable Mckeon, W Asim RPA-C Unavailable Unavailable Mckeon, W Asim RPA-C Unavailable Unavailable Mckeon, W Asim RPA-C Unavailable Unavailable Mckeon, W Asim RPA-C Unavailable Unavailable Mckeon, W Asim RPA-C Unavailable Unavailable Mckeon, W Asim RPA-C Unavailable Unavailable Mckeon, W Asim RPA-C Unavailable Unavailable Mckeon, W Asim RPA-C Unavailable Unavailable Mckeon, W Asim RPA-C Unavailable Unavailable Mckeon, W Asim RPA-C Unavailable Unavailable Mckeon, W Asim RPA-C Unavailable Unavailable Mckeon, W Asim RPA-C Unavailable Unavailable Mckeon, W Asim RPA-C Unavailable Unavailable Mckeon, W Asim RPA-C Unavailable Unavailable Barry, L Lori RPA Unavailable Unavailable Barry, L Lori RPA Unavailable Unavailable Barry, L Lori RPA Unavailable Unavailable Barry, L Lori RPA Unavailable Unavailable Barry, L Lori RPA Unavailable Unavailable Barry, L Lori RPA Unavailable Unavailable Barry, L Lori RPA Unavailable Unavailable Barry, L Lori RPA Unavailable Unavailable Barry, L Lori RPA Unavailable Unavailable Barry, L Lori RPA Unavailable Unavailable Barry, L Lori RPA Unavailable Unavailable Barry, L Lori RPA Unavailable Unavailable Barry, L Lori RPA Unavailable Unavailable Barry, L Lori RPA Unavailable Unavailable Barry, L Lori RPA Unavailable Unavailable Barry, L Lori RPA Unavailable Unavailable Barry, L Lori RPA Unavailable Unavailable Barry, L Lori RPA Unavailable Unavailable Barry, L Lori RPA Unavailable Unavailable Barry, L Lori RPA Unavailable Unavailable Barry, L Lori RPA Unavailable Unavailable Barry, L Lori RPA Unavailable Unavailable Barry, L Lori RPA Unavailable Unavailable Barry, L Lori RPA Unavailable Unavailable Barry, L Lori RPA Unavailable Unavailable Barry, L Lori RPA Unavailable Unavailable Barry, L Lori RPA Unavailable Unavailable Barry, L Lori RPA Unavailable Unavailable Barry, L Lori RPA Unavailable Unavailable Barry, L Lori RPA Unavailable Unavailable Barry, L Lori RPA Unavailable Unavailable Barry, L Lori RPA Unavailable Unavailable Jeannine, P Khalid MD Unavailable Unavailable Jeannine, P Khalid MD Unavailable Unavailable Jeannine, P Khalid MD Unavailable Unavailable Jeannine, P Khalid MD Unavailable Unavailable Jeannine, P Khalid MD Unavailable Unavailable Jeannine, P Khalid MD Unavailable Unavailable Jeannine, P Khalid MD Unavailable Unavailable Jeannine, P Khalid MD Unavailable Unavailable Jeannine, P Khalid MD Unavailable Unavailable Jeannine, P Khalid MD Unavailable Unavailable Jeannine, P Khalid MD Unavailable Unavailable Jeannine, P Khalid MD Unavailable Unavailable Jeannine, P Khalid MD Unavailable Unavailable Jeannine, P Khalid MD Unavailable Unavailable Jeannine, P Khalid MD Unavailable Unavailable Jeannine, P Khalid MD Unavailable Unavailable Jeannine, P Khalid MD Unavailable Unavailable Jeannine, P Khalid MD Unavailable Unavailable Jeannine, P Khalid MD Unavailable Unavailable Jeannine, P Khalid MD Unavailable Unavailable Jeannine, P Khalid MD Unavailable Unavailable Jeannine, P Khalid MD Unavailable Unavailable Jeannine, P Khalid MD Unavailable Unavailable Jeannine, P Khalid MD Unavailable Unavailable Jeannine, P Khalid MD Unavailable Unavailable Jeannine, P Khalid MD Unavailable Unavailable Jeannine, P Khalid MD Unavailable Unavailable Jeannine, P Khalid MD Unavailable Unavailable Jeannine, P Khalid MD Unavailable Unavailable Jeannine, P Khalid MD Unavailable Unavailable Jeannine, P Khalid MD Unavailable Unavailable Jeannine, P Khalid MD Unavailable Unavailable Jeannine, P Khalid MD Unavailable Unavailable Jeannine, P Khalid MD Unavailable Unavailable Jeannine, P Khalid MD Unavailable Unavailable Jeannine, P Khalid MD Unavailable Unavailable Jeannine, P Khalid MD Unavailable Unavailable Jeannine, P Khalid MD Unavailable Unavailable Jeannine, P Khalid MD Unavailable Unavailable Jeannine, P Khalid MD Unavailable Unavailable Jeannine, P Khalid MD Unavailable Unavailable Jeannine, P Khalid MD Unavailable Unavailable Jeannine, P Khalid MD Unavailable Unavailable Jeannine, P Khalid MD Unavailable Unavailable Jeannine, P Khalid MD Unavailable Unavailable Jeannine, P Khalid MD Unavailable Unavailable Jeannine, P Khalid MD Unavailable Unavailable Jeannine, P Khalid MD Unavailable Unavailable Jeannine, P Khalid MD Unavailable Unavailable Jeannine, P Khalid MD Unavailable Unavailable Lori, A Malena SVP RESEARCH & EBUSINESS OPERATIONS Unavailable Unavailable Lori, A Malena SVP RESEARCH & EBUSINESS OPERATIONS Unavailable Unavailable Lori, A Malena SVP RESEARCH & EBUSINESS OPERATIONS Unavailable Unavailable Lori, A Malena SVP RESEARCH & EBUSINESS OPERATIONS Unavailable Unavailable Lori, A Malena SVP RESEARCH & EBUSINESS OPERATIONS Unavailable Unavailable Lori, A Malena SVP RESEARCH & EBUSINESS OPERATIONS Unavailable Unavailable Lori, A Malena SVP RESEARCH & EBUSINESS OPERATIONS Unavailable Unavailable Lori, A Malena SVP RESEARCH & EBUSINESS OPERATIONS Unavailable Unavailable Lori, A Malena SVP RESEARCH & EBUSINESS OPERATIONS Unavailable Unavailable Lori, A Malena SVP RESEARCH & EBUSINESS OPERATIONS Unavailable Unavailable Lori, A Malena SVP RESEARCH & EBUSINESS OPERATIONS Unavailable Unavailable Lori, A Malena SVP RESEARCH & EBUSINESS OPERATIONS Unavailable Unavailable Lori, A Malena SVP RESEARCH & EBUSINESS OPERATIONS Unavailable Unavailable Lori, A Malena SVP RESEARCH & EBUSINESS OPERATIONS Unavailable Unavailable Lori, A Malena SVP RESEARCH & EBUSINESS OPERATIONS Unavailable Unavailable Lori, A Malena SVP RESEARCH & EBUSINESS OPERATIONS Unavailable Unavailable Lori, A Malena SVP RESEARCH & EBUSINESS OPERATIONS Unavailable Unavailable Lori, A Malena SVP RESEARCH & EBUSINESS OPERATIONS Unavailable Unavailable Lori, A Malena SVP RESEARCH & EBUSINESS OPERATIONS Unavailable Unavailable Lori, A Malena SVP RESEARCH & EBUSINESS OPERATIONS Unavailable Unavailable Lori, A Malena SVP RESEARCH & EBUSINESS OPERATIONS Unavailable Unavailable Lori, A Malena SVP RESEARCH & EBUSINESS OPERATIONS Unavailable Unavailable Lori, A Malena SVP RESEARCH & EBUSINESS OPERATIONS Unavailable Unavailable Lori, A Malena SVP RESEARCH & EBUSINESS OPERATIONS Unavailable Unavailable Lori, A Malena SVP RESEARCH & EBUSINESS OPERATIONS Unavailable Unavailable Lori, A Malena SVP RESEARCH & EBUSINESS OPERATIONS Unavailable Unavailable Lori, A Malena SVP RESEARCH & EBUSINESS OPERATIONS Unavailable Unavailable Lori, A Malena SVP RESEARCH & EBUSINESS OPERATIONS Unavailable Unavailable Lori, A Malena SVP RESEARCH & EBUSINESS OPERATIONS Unavailable Unavailable Lori, A Malena SVP RESEARCH & EBUSINESS OPERATIONS Unavailable Unavailable Lori, A Malena SVP RESEARCH & EBUSINESS OPERATIONS Unavailable Unavailable Lori, A Malena SVP RESEARCH & EBUSINESS OPERATIONS Unavailable Unavailable Lori, A Malena SVP RESEARCH & EBUSINESS OPERATIONS Unavailable Unavailable Lori, A Malena SVP RESEARCH & EBUSINESS OPERATIONS Unavailable Unavailable Lori, A Malena SVP RESEARCH & EBUSINESS OPERATIONS Unavailable Unavailable Lori, A Malena SVP RESEARCH & EBUSINESS OPERATIONS Unavailable Unavailable Lori, A Malena SVP RESEARCH & EBUSINESS OPERATIONS Unavailable Unavailable Lori, A Malena SVP RESEARCH & EBUSINESS OPERATIONS Unavailable Unavailable Lori, A Malena SVP RESEARCH & EBUSINESS OPERATIONS Unavailable Unavailable Lori, A Malena SVP RESEARCH & EBUSINESS OPERATIONS Unavailable Unavailable Lori, A Malena SVP RESEARCH & EBUSINESS OPERATIONS Unavailable Unavailable Lori, A Malena SVP RESEARCH & EBUSINESS OPERATIONS Unavailable Unavailable Lori, A Malena SVP RESEARCH & EBUSINESS OPERATIONS Unavailable Unavailable Lori, A Malena SVP RESEARCH & EBUSINESS OPERATIONS Unavailable Unavailable CRENSHAW, DELPHI JIMENEZ Unavailable Unavailable RAMILA, E ROC HIMS MANAGER Unavailable Unavailable RAMILA, E ROC HIMS MANAGER Unavailable Unavailable RAMILA, E ROC HIMS MANAGER Unavailable Unavailable RAMILA, E ROC HIMS MANAGER Unavailable Unavailable RAMILA, E ROC HIMS MANAGER Unavailable Unavailable RAMILA, E ROC HIMS MANAGER Unavailable Unavailable RAMILA, E ROC HIMS MANAGER Unavailable Unavailable RAMILA, E ROC HIMS MANAGER Unavailable Unavailable RAMILA, E ROC HIMS MANAGER Unavailable Unavailable RAMILA, E ROC HIMS MANAGER Unavailable Unavailable RAMILA, E ROC HIMS MANAGER Unavailable Unavailable RAMILA, E ROC HIMS MANAGER Unavailable Unavailable RAMILA, E ROC HIMS MANAGER Unavailable Unavailable RAMILA, E ROC HIMS MANAGER Unavailable Unavailable RAMILA, E ROC HIMS MANAGER Unavailable Unavailable RAMILA, E ROC HIMS MANAGER Unavailable Unavailable RAMILA, E ROC HIMS MANAGER Unavailable Unavailable RAMILA, E ROC HIMS MANAGER Unavailable Unavailable RAMILA, E ROC HIMS MANAGER Unavailable Unavailable RAMILA, E ROC HIMS MANAGER Unavailable Unavailable RAMILA, E ROC HIMS MANAGER Unavailable Unavailable RAMILA, E ROC HIMS MANAGER Unavailable Unavailable RAMILA, E ROC HIMS MANAGER Unavailable Unavailable SARAH HOGAN PA Unavailable Unavailable SARAH HOGAN PA Unavailable Unavailable SARAH HOGAN PA Unavailable Unavailable SARAH HOGAN PA Unavailable Unavailable SARAH HOGAN PA Unavailable Unavailable SARAH HOGAN PA Unavailable Unavailable SARAH HOGAN PA Unavailable Unavailable SARAH HOGAN PA Unavailable Unavailable SAMIRA, SARAH GIAN PA Unavailable Unavailable SAMIRA, SARAH GIAN PA Unavailable Unavailable SAMIRA, SARAH GIAN PA Unavailable Unavailable SAMIRA, SARAH GIAN PA Unavailable Unavailable SAMIRA, SARAH GIAN PA Unavailable Unavailable SAMIRA, SARAH GIAN PA Unavailable Unavailable SAMIRA, SARAH GIAN PA Unavailable Unavailable SAMIRA, SARAH GIAN PA Unavailable Unavailable SAMIRA, SARAH GIAN PA Unavailable Unavailable SAMIRA, SARAH GIAN PA Unavailable Unavailable SAMIRA, SARAH GIAN PA Unavailable Unavailable ASMIRA, SARAH GIAN PA Unavailable Unavailable SAMIRA, SARAH GIAN PA Unavailable Unavailable Re-disclosure Warning The records that you are about to access may contain information from federally-assisted alcohol or drug abuse programs. If such information is present, then the following federally mandated warning applies: This information has been disclosed to you from records protected by federal confidentiality rules (42 CFR part 2). The federal rules prohibit you from making any further disclosure of this information unless further disclosure is expressly permitted by the written consent of the person to whom it pertains or as otherwise permitted by 42 CFR part 2. A general authorization for the release of medical or other information is NOT sufficient for this purpose. The Federal rules restrict any use of the information to criminally investigate or prosecute any alcohol or drug abuse patient.The records that you are about to access may contain highly sensitive health information, the redisclosure of which is protected by Article 27-F of the [facility] Public Health law. If you continue you may have access to information: Regarding HIV / AIDS; Provided by facilities licensed or operated by the [facility] Office of Mental Health; or Provided by the [facility] Office for People With Developmental Disabilities. If such information is present, then the following [facility] mandated warning applies: This information has been disclosed to you from confidential records which are protected by state law. State law prohibits you from making any further disclosure of this information without the specific written consent of the person to whom it pertains, or as otherwise permitted by law. Any unauthorized further disclosure in violation of state law may result in a fine or intermediate sentence or both. A general authorization for the release of medical or other information is NOT sufficient authorization for further disc losure. Allergies and Adverse Reactions Type Description Substance Reaction Status Data Source(s ) Drug allergy Fish Oil Drug allergy anaphylaxis Active eCW1 ([facility]) Drug allergy Cetirizine HCl Cetirizine Unknown Active eCW1 ([facility]) Amlodipine Besylate Amlodipine Besylate Amlodipine 10 MG Oral Ta blet leg swelling Active eCW1 ([facility]) Drug allergy Benzonatate benzonatate 150 MG Oral Capsule Unknown A ctive eCW1 ([facility]) Prednisone Prednisone Prednisone sugar rises Active eCW1 ([facility]) fenofibrate fenofibrate fenofibrate Unknown Active eCW1 ([facility]) oxycodone oxycodone Oxycodone Hydrochloride 10 MG Oral Tablet Unkno wn Active eCW1 ([facility]) tamsulosin tamsulosin Tamsulosin hydrochloride 0.4 MG Oral Caps ule Unknown Active eCW1 ([facility]) medical tape medical tape medical tape rash Active eCW1 ([facility]) statin's statin's statin's cramps Active eCW1 ([facility]) lipitor lipitor atorvastatin 80 MG Oral Tablet [Lipitor] leg sw elling Active eCW1 ([facility]) medical tape medical tape medical tape rash Active eCW1 ([facility]) statin's statin's statin's cramps Active eCW1 ([facility]) lipitor lipitor atorvastatin 80 MG Oral Tablet [Lipitor] leg sw elling Active eCW1 ([facility]) Prednisone Prednisone Prednisone sugar rises Active eCW1 ([facility]) fenofibrate fenofibrate fenofibrate Unknown Active eCW1 ([facility]) oxycodone oxycodone Oxycodone Hydrochloride 10 MG Oral Tablet Unkno wn Active eCW1 ([facility]) tamsulosin tamsulosin Tamsulosin hydrochloride 0.4 MG Oral Caps ule Unknown Active eCW1 ([facility]) Encounters Encounter Providers Location Date Indications Data Source(s ) Outpatient [facility] 06/04/2020 12:00:00 AM EST eCW1 ([facility]) Outpatient [facility] 06/03/2020 12:00:00 AM EST eCW1 ([facility]) Outpatient [facility] 05/30/2020 12:00:00 AM EST eCW1 ([facility]) Outpatient [facility] 05/27/2020 12:00:00 AM EST eCW1 ([facility]) Outpatient [facility] 05/27/2020 12:00:00 AM EST eCW1 ([facility]) Outpatient [facility] 05/22/2020 12:00:00 AM EST eCW1 ([facility]) Outpatient [facility] 05/15/2020 12:00:00 AM EST eCW1 ([facility]) Outpatient [facility] 05/13/2020 12:00:00 AM EST eCW1 ([facility]) Outpatient [facility] 05/10/2020 12:00:00 AM EST eCW1 ([facility]) Outpatient Attender: Malena Nyrer: Malena Sandoval [facility] 05/09/2020 02:29:00 PM EST - 05/09/2020 02:29:00 PM EST [facility] Outpatient [facility] 05/09/2020 12:00:00 AM EST eCW1 ([facility]) Outpatient [facility] 05/06/2020 12:00:00 AM EST eCW1 ([facility]) Outpatient [facility] 04/23/2020 12:00:00 AM EST eCW1 ([facility]) Outpatient Attender: Malena Sandoval [facility] 04/22/2020 09:39 :00 AM EST [facility] Outpatient [facility] 04/22/2020 12:00:00 AM EST eCW1 ([facility]) Outpatient Attender: Lori Fong/Vidal/Jax/R eindl 04/15/2020 12:15:00 PM EST [facility]) Outpatient Attender: Lori Sharpang/Vidal/Jax/R eindl 04/03/2020 01:30:00 PM EDT [facility] ([facility]) Outpatient [facility] 03/19/2020 12:00:00 AM EDT eCW1 ([facility]) Outpatient Attender: Lori Barry RPA Ajit/Vidal/Jax/R eindl 03/13/2020 09:30:00 AM EDT [facility] ([facility]) Outpatient Attender: Malena VALENTINO 03/11/2020 02:30 :00 PM EDT [facility] Outpatient [facility] 03/11/2020 12:00:00 AM EDT eCW1 ([facility]) Outpatient Attender: Lori Barry RPA Ajit/Vidal/Jax/R eindl 01/29/2020 11:30:00 AM EDT [facility] ([facility]) Outpatient [facility] 01/10/2020 12:00:00 AM EDT eCW1 ([facility]) Outpatient Attender: Malena Almaraz PA-C 01/08/2020 09:03 :00 AM EDT [facility] Outpatient [facility] 01/08/2020 12:00:00 AM EDT eCW1 ([facility]) Outpatient Attender: Lori Sharpang/Vidal/Jax/R eindl 12/27/2019 11:00:00 AM EDT [facility] ([facility]) Outpatient Attender: Yasmine Fong/Sasha/Jax/ Reindl 12/14/2019 10:15:00 AM EDT [facility] ([facility]) Outpatient Attender: Malena VALENTINO 11/20/2019 09:14 :00 AM EDT [facility] Outpatient [facility] 11/20/2019 12:00:00 AM EDT eCW1 ([facility]) Outpatient [facility] 11/20/2019 12:00:00 AM EDT eCW1 ([facility]) [facility] 10/31/2019 12:00:00 AM EDT eCW1 ([facility]) [facility] 10/25/2019 12:00:00 AM EDT eCW1 ([facility]) Outpatient Attender: Yasmine Fong/Vidal/Jax/ Reindl 10/16/2019 03:00:00 PM EDT MEDENT ([facility]) Outpatient Attender: Yasmine Fong/Vidal/Jax/ Reindl 09/18/2019 09:15:00 AM EDT [facility] ([facility]) Outpatient Attender: Lori Barry RPA Ajit/Vidal/Jax/R eindl 09/06/2019 09:15:00 AM EDT MEDENT ([facility]) Outpatient Attender: Yasmine Fong/Vidal/Jax/ Reindl 08/28/2019 01:00:00 PM EDT [facility] ([facility]) [facility] 08/23/2019 12:00:00 AM EDT eCW1 ([facility]) Outpatient Attender: Lori Fong/Vidal/Jax/R eindl 08/21/2019 09:15:00 AM EDT MEDENT ([facility]) Outpatient 08/14/2019 02:10:00 PM EDT [facility] Outpatient Attender: Malena Sandoval SVP RESEARCH & [employer]USINESS OPERATIONS 08/14/2019 09:34 :[address] [facility] C ENTER 08/14/2019 12:00:00 AM EDT eCW1 ([facility]) Outpatient Attender: Lori Sharpang/Vidal/Jax/R eindl 2019 12:00:00 PM EST MEDENT ([facility] 07/19/2019 12:00:00 AM EST eCW1 ([facility]) Outpatient Attender: Lori Barry RPA Ajit/Vidal/Jax/R eindl 07/12/2019 10:30:00 AM EST MEDENT ([facility]) Outpatient 07/07/2019 03:03:00 PM EST [facility] 07/03/2019 12:00:00 AM EST eCW1 ([facility]) [facility] 07/03/2019 12:00:00 AM EST eCW1 ([facility]) Outpatient 06/30/2019 02:26:00 PM EST [facility] Outpatient Attender: Lori Fong/Sasha/Jax/Negar eiraffy 06/12/2019 10:30:00 AM EST MEDENT ([facility] ) Outpatient Attender: Malena BRIONESP 05/15/2019 10:07 :[address] [facility] C ENTER 05/15/2019 12:00:00 AM EST eCW1 ([facility]) [facility] 05/15/2019 12:00:00 AM EST eCW1 ([facility]) [facility] 05/01/2019 12:00:00 AM EST eCW1 ([facility]) Outpatient Attender: Malena Sandoval [facility] 03/09/2019 03:04 :00 PM [facility] Outpatient Attender: Malena Sandoval [facility] 01/30/2019 01:39 :00 PM [facility] Outpatient Attender: JELANI DELCIDC 01/13/2019 01:59:00 PM [facility] Emergency Attender: JIMENEZ Schwartzerrer: Malena sherman [facility] 01/06/2019 06:23:00 PM EDT - 01/06/2019 06:23:00 PM [facility] pital Patient discharged. Outpatient Attender: Malena Sandoval FNPReferrer: Malena Sandoval [facility] EMERGENCY ROOM-[facility] 12/05/2018 10:56:00 AM EDT - 12/05/2018 10:56:00 AM [facility] Outpatient Attender: Malena Sandoval FNPReferrer: Malena Sandoval [facility] EM[facility]GENCY [facility] 11/17/2018 09:42:00 AM EDT - 11/17/2018 09:42:00 AM [facility] Emergency Attender: GIAN HOGAN PAReferrer: Jose A Sandoval [facility] EMERGENCY ROOM-ER 09/07/2018 11:06:00 AM EDT - 09/07/2018 03:30:00 PM [facility] Outpatient Attender: Gabitia Jeannine MDReferrer: Malena Radha sherman SVP RESEARCH & [employer]US[employer] OPERATIONS 10/08/2017 09:25:00 AM EDT - 10/08/2017 09:25:00 AM EDT [facility] spital Outpatient Attender: ROC MCGRATH NPReferrer: Priyankadevan miguel Lori SVP RESEARCH & [employer]USINESS [employer]PERATIONS EMERGENCY ROOM-[facility] 07/30/2017 10:42:00 AM EST - 07/30/2017 07:28:00 AM [facility] Emergency Attender: Asim Mckeon RPA-C EMERGENCY ROOM-ER 0 07/26/2016 10:20:00 PM EST - 07/26/2016 11:50:00 PM [facility] Outpatient Attender: JAG Baller: Debby lee NP 11/07/2014 02:07:00 PM [facility] Emergency Attender: ROBERT CHAN 11/21/2012 05:44:00 AM EDT - 11/21/2012 12:55:00 PM [facility] Medications Medication Brand Name Start Date Product Form Dose Route Admi nistrative Instructions Pharmacy Instructions Status Indications Reaction Description Data Source(s) Roller Walker - Roller Walker - 06/03/2020 12:00:00 AM EST active Roller Walker - eCW1 ([facility]) Roller Walker - Roller Walker - 06/03/2020 12:00:00 AM EST active Roller Walker - eCW1 ([facility]) Roller Walker - Roller Walker - 06/03/2020 12:00:00 AM EST active Roller Walker - eCW1 ([facility]) 50 mg 05/29/2020 12:00:00 AM EST tablet 60 TAKE ONE TABLET BY MOUTH TWICE A DAY NEEDED MAXIMUM DAILY DOSE = 2 TABLETS TAKE ONE TABLET BY MOUTH TWICE A DAY NEEDED MAXIMUM DAILY DOSE = 2 TABLETS SOLD: 05/29/2020 [facility] tramadol hydrochloride 50 MG Oral Tablet Tramadol HCl 50 MG Tramadol HCl 50 MG 05/27/2020 12:00:00 AM EST 1.0 {tablet_as_needed} active Tramadol HCl 50 MG eCW1 ([facility]) tramadol hydrochloride 50 MG Oral Tablet Tramadol HCl 50 MG Tramadol HCl 50 MG 05/27/2020 12:00:00 AM EST 1.0 {tablet_as_needed} active Tramadol HCl 50 MG eCW1 ([facility]) tramadol hydrochloride 50 MG Oral Tablet Tramadol HCl 50 MG Tramadol HCl 50 MG 05/27/2020 12:00:00 AM EST 1.0 {tablet_as_needed} active Tramadol HCl 50 MG eCW1 ([facility]) tramadol hydrochloride 50 MG Oral Tablet Tramadol HCl 50 MG Tramadol HCl 50 MG 05/27/2020 12:00:00 AM EST 1.0 {tablet_as_needed} active Tramadol HCl 50 MG eCW1 ([facility]) tramadol hydrochloride 50 MG Oral Tablet Tramadol HCl 50 MG Tramadol HCl 50 MG 05/27/2020 12:00:00 AM EST 1.0 {tablet_as_needed} active Tramadol HCl 50 MG eCW1 ([facility]) 50 mg 05/22/2020 12:00:00 AM EST tablet 10 TAKE ONE TABLET BY MOUTH TWICE A DAY NEEDED FOR PAIN MAXIMUM DAILY DOSE = 2 TAKE ONE TABLET BY MOUTH TWICE A DAY NEEDED FOR PAIN MAXIMUM DAILY DOSE = 2 SOLD: 05/22/2020 [facility] Prednisone 20 MG Oral Tablet PredniSONE 20 MG PredniSONE 20 MG 05/15/2020 12:00:00 AM EST 2.0 {tablet} active Pr edniSONE 20 MG eCW1 ([facility]) 20 mg 05/15/2020 12:00:00 AM EST tablet 10 TAKE TWO TABLETS BY MOUTH EVERY DAY FOR 5 DAYS TAKE TWO TABLETS BY MOUTH EVERY DAY FOR 5 DAYS SOLD: 020 [facility] Prednisone 20 MG Oral Tablet PredniSONE 20 MG PredniSONE 20 MG 05/15/2020 12:00:00 AM EST 2.0 {tablet} active Pr edniSONE 20 MG eCW1 ([facility]) Prednisone 20 MG Oral Tablet PredniSONE 20 MG PredniSONE 20 MG 05/15/2020 12:00:00 AM EST 2.0 {tablet} active Pr edniSONE 20 MG eCW1 ([facility]) Prednisone 20 MG Oral Tablet PredniSONE 20 MG PredniSONE 20 MG 05/15/2020 12:00:00 AM EST 2.0 {tablet} active Pr edniSONE 20 MG eCW1 ([facility]) Prednisone 20 MG Oral Tablet PredniSONE 20 MG PredniSONE 20 MG 05/15/2020 12:00:00 AM EST 2.0 {tablet} active Pr edniSONE 20 MG eCW1 ([facility]) Prednisone 20 MG Oral Tablet PredniSONE 20 MG PredniSONE 20 MG 05/15/2020 12:00:00 AM EST 2.0 {tablet} active Pr edniSONE 20 MG eCW1 ([facility]) Prednisone 20 MG Oral Tablet PredniSONE 20 MG PredniSONE 20 MG 05/15/2020 12:00:00 AM EST 2.0 {tablet} active Pr edniSONE 20 MG eCW1 ([facility]) Prednisone 20 MG Oral Tablet PredniSONE 20 MG PredniSONE 20 MG 05/15/2020 12:00:00 AM EST 2.0 {tablet} active Pr edniSONE 20 MG eCW1 ([facility]) Rollator Ultra-Light - Rollator Ultra-Light - 05/13/2020 12:00:[address] active Rollator Ultra-Light - eC W1 ([facility]) Rollator Ultra-Light - Rollator Ultra-Light - 05/13/2020 12:00:[address] active Rollator Ultra-Light - eC W1 ([facility]) Rollator Ultra-Light - Rollator Ultra-Light - 05/13/2020 12:00:[address] active Rollator Ultra-Light - eC W1 ([facility]) Rollator Ultra-Light - Rollator Ultra-Light - 05/13/2020 12:00:[address] active Rollator Ultra-Light - eC W1 ([facility]) Rollator Ultra-Light - Rollator Ultra-Light - 05/13/2020 12:00:[address] active Rollator Ultra-Light - eC W1 ([facility]) Rollator Ultra-Light - Rollator Ultra-Light - 05/13/2020 12:00:[address] active Rollator Ultra-Light - eC W1 ([facility]) Rollator Ultra-Light - Rollator Ultra-Light - 05/13/2020 12:00:[address] active Rollator Ultra-Light - eC W1 ([facility]) Rollator Ultra-Light - Rollator Ultra-Light - 05/13/2020 12:00:[address] active Rollator Ultra-Light - eC W1 ([facility]) Rollator Ultra-Light - Rollator Ultra-Light - 05/13/2020 12:00:[address] active Rollator Ultra-Light - eC W1 ([facility]) Diclofenac Sodium 0.01 MG/MG Topical Gel [Voltaren] Voltaren 1 % Voltaren 1 % 05/09/2020 12:00:00 AM EST 1.0 {application} active Voltaren 1 % eCW1 ([facility]) Diclofenac Sodium 0.01 MG/MG Topical Gel [Voltaren] Voltaren 1 % Voltaren 1 % 05/09/2020 12:00:00 AM EST 1.0 {application} active Voltaren 1 % eCW1 ([facility]) Diclofenac Sodium 0.01 MG/MG Topical Gel [Voltaren] Voltaren 1 % Voltaren 1 % 05/09/2020 12:00:00 AM EST 1.0 {application} active Voltaren 1 % eCW1 ([facility]) Diclofenac Sodium 0.01 MG/MG Topical Gel [Voltaren] Voltaren 1 % Voltaren 1 % 05/09/2020 12:00:00 AM EST 1.0 {application} active Voltaren 1 % eCW1 ([facility]) Diclofenac Sodium 0.01 MG/MG Topical Gel [Voltaren] Voltaren 1 % Voltaren 1 % 05/09/2020 12:00:00 AM EST 1.0 {application} active Voltaren 1 % eCW1 ([facility]) Diclofenac Sodium 0.01 MG/MG Topical Gel [Voltaren] Voltaren 1 % Voltaren 1 % 05/09/2020 12:00:00 AM EST 1.0 {application} active Voltaren 1 % eCW1 ([facility]) Diclofenac Sodium 0.01 MG/MG Topical Gel [Voltaren] Voltaren 1 % Voltaren 1 % 05/09/2020 12:00:00 AM EST 1.0 {application} active Voltaren 1 % eCW1 ([facility]) Diclofenac Sodium 0.01 MG/MG Topical Gel [Voltaren] Voltaren 1 % Voltaren 1 % 05/09/2020 12:00:00 AM EST 1.0 {application} active Voltaren 1 % eCW1 ([facility]) Diclofenac Sodium 0.01 MG/MG Topical Gel [Voltaren] Voltaren 1 % Voltaren 1 % 05/09/2020 12:00:00 AM EST 1.0 {application} active Voltaren 1 % eCW1 ([facility]) Diclofenac Sodium 0.01 MG/MG Topical Gel [Voltaren] Voltaren 1 % Voltaren 1 % 05/09/2020 12:00:00 AM EST 1.0 {application} active Voltaren 1 % eCW1 ([facility]) BLOOD SUGAR DIAGNOSTIC 01/11/2020 12:00:00 AM EDT strip 200 TEST TWO TIMES A DAY AND NEEDED TEST TWO TIMES A DAY AND NEEDED SOLD: 01/13/2020 [facility] 100 unit/mL 12/26/2019 12:00:00 AM EDT solution 40 INJECT 42 UNITS UNDER THE SKIN ONCE DAILY INJECT 42 UNITS UNDER THE SKIN ONCE DAILY SOLD: 12/27/2019 [facility] 100 unit/mL 12/26/2019 12:00:00 AM EDT solution 40 INJECT 42 UNITS UNDER THE SKIN ONCE DAILY INJECT 42 UNITS UNDER THE SKIN ONCE DAILY SOLD: 04/10/2020 [facility] 500 mg 12/03/2019 12:00:00 AM EDT tablet,chewable 270 CHEW ONE TABLET BY MOUTH THREE TIMES A DAY WITH MEALS CHEW ONE TABLET BY MOUTH THREE TIMES A D AY WITH MEALS SOLD: 12/05/2019 [facility] 40 mg 11/27/2019 12:00:00 AM EDT tablet,delayed release (DR/EC) 90 TAKE ONE TABLET BY MOUTH EVERY EVENING TAKE ONE TABLET BY MOUTH EVERY EVENING SOLD: 11/28/2019 [facility] 100 mg 10/31/2019 12:00:00 AM EDT capsule 180 TAKE ONE CAPSULE BY MOUTH TWICE A DAY NEEDED TAKE ONE CAPSULE BY MOUTH TWICE A DAY NEEDED SOLD: 11/05/2019 [facility] 100 mg 10/25/2019 12:00:00 AM EDT capsule 30 TAKE ONE CAPSULE BY MOUTH EVERY DAY NEEDED TAKE ONE CAPSULE BY MOUTH EVERY DAY NEEDED SOLD: 10/27/2019 [facility] Docusate Sodium 100 MG Oral Capsule Docusate Sodium 100 MG 0 10/25/2019 12:00:00 AM EDT active 1 capsule as need ed eCW1 ([facility]) Docusate Sodium 100 MG Oral Capsule Docusate Sodium 100 MG 0 10/25/2019 12:00:00 AM EDT active 1 capsule as need ed eCW1 ([facility]) 800 mg 10/24/2019 12:00:00 AM EDT tablet 180 TAKE ONE TABLET BY MOUTH TWO TIMES A DAY WITH MEAL TAKE ONE TABLET BY MOUTH TWO TIMES A DAY WITH MEAL FEMI [facility] 800 mg 09/27/2019 12:00:00 AM EDT tablet 30 TAKE ONE TABLET BY MOUTH EVERY DAY WITH A MEAL TAKE ONE TABLET BY MOUTH EVERY DAY WITH A MEAL SOLD: 020 [facility] 100 unit/mL 08/23/2019 12:00:00 AM EDT insulin pen 15 INJECT 4 TO 6 UNITS UNDER THE SKIN TWO TIMES A DAY INJECT 4 TO 6 UNITS UNDER THE SKIN TWO T IMES A DAY SOLD: 08/24/2019 [facility] 4 mg 08/23/2019 12:00:00 AM EDT tablet 30 TAKE ONE TABLET BY MOUTH EVERY DAY TAKE ONE TABLET BY MOUTH EVERY DAY SOLD: 08/24/2019 [facility] free style lite strips UNK 07/03/2019 12:00:00 AM EST active Dx: E11.22 eCW1 ([facility]) free style lite strips UNK 07/03/2019 12:00:00 AM EST active Dx: E11.22 eCW1 ([facility]) BLOOD SUGAR DIAGNOSTIC 07/03/2019 12:00:00 AM EST strip 200 TEST TWO TIMES A DAY AND NEEDED TEST TWO TIMES A DAY AND NEEDED SOLD: 07/05/2019 [facility] 250 mg 06/01/2019 12:00:00 AM EST tablet 5 TAKE ONE TABLET BY MOUTH EVERY DAY FOR 5 DAYS TAKE ONE TABLET BY MOUTH EVERY DAY FOR 5 DAYS SOLD: 06/01/2019 [facility] 150 mg 05/15/2019 12:00:00 AM EST tablet 90 TAKE ONE TABLET BY MOUTH EVERY DAY IN THE MORNING TAKE ONE TABLET BY MOUTH EVERY DAY IN THE MORNING SOLD : 05/16/2019 [facility] 40 mg 05/15/2019 12:00:00 AM EST tablet,delayed release (DR/EC) 90 TAKE ONE TABLET BY MOUTH EVERY DAY IN THE EVENING TAKE ONE TABLET BY MOUTH EVERY DAY IN THE EVENING SOLD: 05/16/2019 [facility] 40 mg 05/15/2019 12:00:00 AM EST tablet,delayed release (DR/EC) 90 TAKE ONE TABLET BY MOUTH EVERY DAY IN THE EVENING TAKE ONE TABLET BY MOUTH EVERY DAY IN THE EVENING SOLD: 08/24/2019 [facility] 100 mg 12/30/2018 12:00:00 AM EDT capsule 180 TAKE ONE CAPSULE BY MOUTH TWICE A DAY NEEDED TAKE ONE CAPSULE BY MOUTH TWICE A DAY NEEDED SOLD: 06/06/2019 [facility] 100 unit/mL 10/26/2018 12:00:00 AM EDT solution 40 INJECT 42 UNITS UNDER THE SKIN ONCE DAILY INJECT 42 UNITS UNDER THE SKIN ONCE DAILY SOLD: 06/08/2019 [facility] 100 unit/mL 10/26/2018 12:00:00 AM EDT solution 40 INJECT 42 UNITS UNDER THE SKIN ONCE DAILY INJECT 42 UNITS UNDER THE SKIN ONCE DAILY SOLD: 09/12/2019 [facility] Insurance Providers Payer name Policy type / Coverage type Policy ID Covered republican ID Covered republican's relationship to wyatt Policy Wyatt Plan Information EMEDNY [id number] SP [id number] MEDICARE [id number] SP [id number] MEDICAID [id number] S [id number] [facility] MEDICARE DIVISION [id number] S [id number] [place] [id number] S [id number] MEDICAID [id number] S [id number] MEDICAID [id number] S [id number] [facility] MEDICARE DIVISION [id number] S [id number] [place] [id number] S [id number] MEDICAID [id number] S [id number] [facility] MEDICARE DIVISION [id number] S [id number] [place] [id number] S [id number] MEDICAID [id number] S [id number] [facility] MEDICARE DIVISION [id number] S [id number] [place] [id number] S [id number] MEDICARE C [id number] S [id number] MEDICAID M [id number] S [id number] MEDICAID [id number] SP [id number] MEDICAID [id number] SP [id number] MEDICAID [id number] SP [id number] [facility] MEDICAID [id number] S [id number] ERIC CARE MEDICAID [id number] S [id number] ANSI-Medicaid [id number] ANSI-Commercial [id number] ANSI-Medicare Part B [id number] ANSI-Medicaid [id number] ANSI-Medicare Part B [id number] ANSI-Commercial [id number] ANSI-Medicare Part B [id number] ANSI-Medicaid [id number] ANSI-Commercial [id number] ANSI-Medicaid [id number] ANSI-Commercial [id number] ANSI-Medicare Part B [id number] ANSI-Commercial [id number] ANSI-Medicaid [id number] ANSI-Medicare Part B [id number] ANSI-Medicaid [id number] ANSI-Commercial [id number] ANSI-Medicare Part B [id number] ANSI-Medicare Part B [id number] ANSI-Medicaid [id number] ANSI-Commercial [id number] ANSI-Medicaid [id number] ANSI-Medicare Part B [id number] ANSI-Commercial [id number] ANSI-Medicare Part B [id number] ANSI-Medicaid [id number] ANSI-Commercial [id number] ANSI-Medicare Part B [id number] ANSI-Commercial [id number] ANSI-Medicaid [id number] ANSI-Medicare Part B [id number] ANSI-Medicaid [id number] ANSI-Commercial [id number] ANSI-Commercial [id number] ANSI-Medicaid [id number] ANSI-Medicare Part B [id number] ANSI-Commercial [id number] ANSI-Commercial [id number] ANSI-Commercial [id number] ANSI-Medicaid [id number] ANSI-Medicare Part B [id number] ANSI-Commercial 0e179q4z-834b-7142-ed57-k0742175r5v7 8y876w8l-425b-4799-pc12-j6340400p1b4 ANSI-Commercial 1647jid3-5332-39zo-1541-2x241kk72840 8652cgt8-5228-63gf-5134-2k326id67137 ANSI-Commercial 57303353-24c4-54g5-2148-z2xv11n6348h 89915469-86o8-37x9-0632-j5vv28w5936v ANSI-Commercial 4t41818z-168h-6b84-5b7z-4j68525ej36z 0z46615e-054i-0y98-6y6n-9y27764dx67t ANSI-Commercial 15t98658-112r-849x-5749-2d694tvp817n 75a98376-890h-634q-3215-0p375oxg063y ANSI-Medicaid [id number] ANSI-Medicare Part B [id number] [facility] MEDICARE DIVISION [id number] S [id number] MEDICARE - [place] [id number] S [id number] MEDICARE [id number] SP [id number] ANSI-Commercial [id number]-17r6-01lc-[id number]-51s2-10tu-[id number] ANSI-Medicare Part B [id number] ANSI-Medicaid [id number] ANSI-Commercial [id number]-cue0-nls6x976687v m78727c5-3m62-9q8g-rcm4-gyz1y961559t ANSI-Commercial 665t428v-ata0-7v15-h227-7994v7781k4r 673c733g-fdx4-0b42-i380-6492z0803t3f ANSI-Commercial lukz9c96-9i96-07tw-87a0-81h805wg8641 gmsd2v37-9a14-48fa-64a6-46v440er1284 ANSI-Commercial zo1q0549-ls60-02z7-3792-379056270a8m sz2k2209-ab77-29z8-6563-938833348e8i ANSI-Commercial 800072fl-9qa8-7735-9148-1256y2g0nd6m 053597gy-7ey2-9312-3658-1347w5b0aj3u ANSI-Medicare Part B [id number] ANSI-Medicaid [id number] ANSI-Commercial d6w7mi14-w736-81c2-1omp-[id number] h2d2ab77-w117-55p2-5ams-[id number] ANSI-Medicaid [id number] ANSI-Commercial 3394987x-0674-86j7-of56-1f8gs590po8s 4271500r-4806-09v5-jk04-0g9jz607hf9d ANSI-Commercial 6i703mf0-hww7-68g9-1179-98snm7a5j031 8e248hy6-pvc7-06k7-1378-45oqc9e9d017 ANSI-Medicare Part B [id number] ANSI-Commercial 604i8la9-28yc-43ks-8xh6-293p68c7ptt3 013u9gs5-67sj-88uy-4gb0-832x11r6awf0 ANSI-Commercial yd6e7375-g24f-843g-t939-3t9e3d9c8l94 hr2j7631-n63t-410y-f702-8p4w9t5t8a16 ANSI-Commercial r8k29qv0-5922-3rj7-16h3-s3m525loh6sh j3f43mv0-4668-3yr8-44b7-f3b830fpt9gg ANSI-Medicare Part B [id number] ANSI-Medicaid [id number] ANSI-Commercial 5k2o1dvh-t824-42h4-f17n-e32ee7s62r62 8k1w4qjz-e232-01p9-d74c-e06vm0a54n87 ANSI-Medicare Part B [id number] ANSI-Medicaid [id number] ANSI-Commercial hrd1cwa1-3o63-6u85-r70a-96lfes89g406 hdt8huv4-8n31-3a07-t74z-11jpgj28z028 ANSI-Commercial 5qjy9ytj-g80j-5fz2-4v15-55ru073y033t 5zkv9puy-k18w-5pq0-0p29-55of992l724k ANSI-Commercial 00049ae1-dw97-1p0q-xu19-7qze44b0y8x9 89816pi8-ji65-9t3m-tw60-8qpq40q1t8i7 ANSI-Medicare Part B [id number] ANSI-Commercial [id number] ANSI-Medicaid [id number] ANSI-Commercial [id number] ANSI-Commercial [id number] ANSI-Commercial [id number] ANSI-Medicaid [id number] ANSI-Commercial [id number] ANSI-Medicare Part B [id number] ANSI-Medicaid [id number] ANSI-Commercial [id number] [facility] [id number] ANSI-Commercial [id number] ANSI-Commercial [id number] ANSI-Medicare Part B [id number] ANSI-Commercial [id number] ANSI-Medicaid [id number] ANSI-Commercial [id number] ANSI-Commercial [id number] MEDICAID [id number] S [id number] ANSI-Commercial [id number] ANSI-Commercial [id number] ANSI-Medicaid [id number] ANSI-Commercial [id number] [facility]-Medicare Part B [id number] ANSI-Commercial [id number] ANSI-Medicaid [id number] ANSI-Commercial [id number] [facility] [id number] ANSI-Commercial [id number] ANSI-Commercial [id number] ANSI-Medicare Part B [id number] ANSI-Medicaid [id number] ANSI-Commercial [id number] ANSI-Commercial [id number] ANSI-Commercial [id number] ANSI-Medicare Part B [id number] ANSI-Medicaid [id number] ERIC [id number] SP [id number] 300 MEDICAID [id number] SP [id number] MEDICARE [id number] SP [id number] MEDICARE C [id number] S [id number] MEDICARE [id number] S [id number] MEDICAID [id number] S [id number] MCRB [id number] S [id number] MEDICARE [id number] S [id number] MEDICARE [id number] S [id number] ERIC [id number] SP [id number] 300 MEDICAID [id number] S [id number] MEDICAID M [id number] Self [id number] MEDICARE A [id number] Self [id number] MEDICARE - [place] MCR [id number] S [id number] ERIC CARE MEDICARE [place] [id number] S [id number] ERIC I [id number] Self [id number] 300 [id number] Problems, Conditions, and Diagnoses Code Display Name Description Problem Type Effective Dates Data Source(s) M85.88 Other specified disorders of bone densit y and structure, other site OTH DISRD OF BONE DENSITY AND STRUCTURE, OTHER SIT Diagnosis 020 02:29:00 PM [facility] M16.12 Unilateral primary osteoarthritis, left hip UNILATERAL PRIMARY OSTEOARTHRITIS, LEFT HIP Diagnosis 05/09/2020 02:29:00 PM [facility] spital M25.552 Pain in left hip PAIN IN LEFT HIP Diagnosis 05/09/2020 02 :29:00 PM [facility] J06.9 Acute upper respiratory infection, unspe cified ACUTE UPPER RESPIRATORY INFECTION, UNSPECIFIED Diagnosis 04/22/2020 09:39:00 AM [facility] ital Z99.2 Dependence on renal dialysis DEPENDENCE ON RENAL DIALY SIS Diagnosis 03/11/2020 02:30:00 PM [facility] Z79.4 intermission coordinator (current) use of insulin ALF (CU RRENT) USE OF INSULIN Diagnosis 03/11/2020 02:30:00 PM [facility] R53.83 Other fatigue OTHER FATIGUE Diagnosis 03/11/2020 02:30:00 PM [facility] E55.9 Vitamin D deficiency, unspecified VITAMIN D DEFI CIENCY, UNSPECIFIED Diagnosis 03/11/2020 02:30:00 PM [facility] N18.6 End stage renal disease END STAGE RENAL DISEASE Diagno sis 03/11/2020 02:30:00 PM [facility] 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 TYPE 2 DIABETES MELLITUS W DIABETIC CHRONIC KIDNEY Diagnosis 03/11/2020 02:30:00 PM [facility] I12.0 Hypertensive chronic kidney disease with stage 5 chronic kidney disease or end stage renal disease HYP CHR KIDNEY DISEASE W STAGE 5 CHR KID FLAVIO DISEASE OR ESRD Diagnosis 03/11/2020 02:30:00 PM [facility] l I13.2 Hypertensive heart and chron ic kidney disease with heart failure and with stage 5 chronic kidney disease, or end stage renal disease HYP HRT CHR KDNY DIS W HRT FAIL AND W STG 5 CHR KDNY/ESRD Diagnosis 01/08/2020 09:03:00 AM [facility] Z53.29 Procedure and treatment not carried out because of patient's decision for other reasons PROC/TRTMT NOT CRD OUT BEC PT DECISION FOR OTH ALISON Diagnosis 08/14/2019 09:34:00 AM [facility] Z66 Do not resuscitate DO NOT RESUSCITATE Diagnosis 0 09:34:00 AM [facility] Z71.89 Other specified counseling OTHER SPECIFIED COUNSELING Diagnosis 08/14/2019 09:34:00 AM [facility] I50.9 Heart failure, unspecified HEART FAILURE, UNSPECIFIED Diagnosis 08/14/2019 09:34:00 AM [facility] E66.01 Morbid (severe) obesity due to excess ca lories MORBID (SEVERE) OBESITY DUE TO EXCESS CALORIES Diagnosis 08/14/2019 09:34:00 AM [facility] ital Z68.42 Body mass index (BMI) 45.0-49.9, adult B JO MASS INDEX (BMI) 45.0-49.9, ADULT Diagnosis 08/14/2019 09:34:00 AM [facility] l R53.81 Other malaise OTHER MALAISE Diagnosis 08/14/2019 09:34:00 AM [facility] Z00.00 Encounter for general adult medical examination without abnormal findings ENCNTR FOR GENERAL ADULT MEDICAL EXAM W/O ABNORMAL FINDINGS Diagnosis 08/14/2019 09:34:00 AM [facility] R11.2 Nausea with vomiting, unspecified NAUSEA WITH VO MITING, UNSPECIFIED Diagnosis 05/15/2019 10:07:00 AM [facility] Surgeries/Procedures Procedure Description Date Indications Data Source(s) Dialysis Circuit W/ Transluminal Balloon Angioplasty, [facility]ip era 04/05/2020 12:00:00 AM EDT [facility] ([facility]) Moderate Sedation Services; Same Phys Intl 15 Mins; PT >= 5 Years 04/05/2020 12:00:00 AM EDT [facility] ([facility]) Dialysis Circuit W/ Transluminal Balloon Angioplasty, [facility] era 02/02/2020 12:00:00 AM EDT [facility] ([facility]) Moderate Sedation Services; Same Phys Intl 15 Mins; PT >= 5 Years 02/02/2020 12:00:00 AM EDT [facility] ([facility]) Dialysis Circuit W/ Transluminal Balloon Angioplasty, [facility] era 12/15/2019 12:00:00 AM EDT [facility] ([facility]) Moderate Sedation Services; Same Phys Intl 15 Mins; PT >= 5 Years 12/15/2019 12:00:00 AM EDT [facility] ([facility]) Dialysis Circuit W/ Transluminal Balloon Angioplasty, [facility] era 09/13/2019 12:00:00 AM EDT [facility] ([facility]) Moderate Sedation Services; Same Phys Intl 15 Mins; PT >= 5 Years 09/13/2019 12:00:00 AM EDT [facility] ([facility]) Dialysis Circuit W/ Transluminal Balloon Angioplasty, [facility] 08/30/2019 12:00:00 AM EDT [facility] ([facility]) Moderate Sedation Services; Same Phys Intl 15 Mins; PT >= 5 Years 08/30/2019 12:00:00 AM EDT [facility] ([facility]) Annual wellness visit, includes a person alized prevention plan of service (pps), subsequent visit 08/14/2019 12:00:00 AM EDT eCW 1 ([facility]) ACP DISCUSS/DSCN MKR DOCD 08/14/2019 12:00:00 AM EDT eCW1 ([facility]) Influenza immunization administered or previously received 08/14/2019 12:00:00 AM EDT eCW1 ([facility]) PNEUMOC IMM ORDER/ADMIN 08/14/2019 12:00:00 AM EDT eCW1 ([facility]) Bmi is documented above normal parameters and a follow-up pl an is documented 08/14/2019 12:00:00 AM EDT eCW1 ([facility]) Screening for clinical depression is doc umented as negative, a follow-up plan is not required 08/14/2019 12:00:00 AM EDT eCW1 ([facility]) Pt scrn tbco id as non user 08/14/2019 12:00:00 AM EDT eCW1 ([facility]) TOBACCO NON-USER 08/14/2019 12:00:00 AM EDT eCW1 ([facility]) Dialysis Circuit W/ Transluminal Balloon Angioplasty, [facility] 08/11/2019 12:00:00 AM EST [facility] ([facility]) Moderate Sedation Services; Same Phys Intl 15 Mins; PT >= 5 Years 08/11/2019 12:00:00 AM EST [facility] ([facility]) Dialysis Circuit W/ Transluminal Balloon Angioplasty, [facility] era 08/01/2019 12:00:00 AM EST [facility] ([facility]) Moderate Sedation Services; Same Phys Intl 15 Mins; PT >= 5 Years 08/01/2019 12:00:00 AM EST [facility] ([facility]) Dialysis Circuit W/ Transluminal Balloon Angioplasty, [facility]ip eral 07/04/2019 12:00:00 AM EST [facility] ([facility]) Dialysis Circuit W/ Transluminal Balloon Angioplasty, Perip eral 06/27/2019 12:00:00 AM EST [facility] ([facility]) Translum Balloon Angio Central Dial Segment Through Dialys C ircui 06/27/2019 12:00:00 AM EST [facility] ([facility]) Moderate Sedation Services; Same Phys Intl 15 Mins; PT >= 5 Years 06/27/2019 12:00:00 AM EST [facility] ([facility]) Dialysis Circuit W/ Transluminal Balloon Angioplasty, Periph eral 05/19/2019 12:00:00 AM EST [facility] ([facility], ) Results ID Date Data Source [id number] 06/11/2020 02:18:00 PM EST [facility] Name Value Range Interpretation Code Description Data Kylah rce(s) Supporting Document(s) SARS coronavirus 2 RNA [Presence] in Res piratory specimen by CHIVO with probe detection NEGATIVE [facility] This lab was ordered by [facility] a nd reported by [facility]. ID Date Data Source [id number] 05/16/2020 02:42:00 PM EST [facility] Name Value Range Interpretation Code Description Data Kylah rce(s) Supporting Document(s) SARS coronavirus 2 RNA [Presence] in Res piratory specimen by CHIVO with probe detection [facility] This lab was ordered by [facility] a nd reported by [facility]. ID Date Data Source [id number] 05/10/2020 08:15:00 AM EST [facility] DATE OF EXAMINATION: 05/09/2020 15:21 EST TECHNIQUE: 1 views of the pelvis were obtained. HISTORY: Left hip pain Bones are moderately osteopenic. Moderate osteoarthritis is noted. There is noacute fracture or dislocation. IMPRESSION: Moderate osteopenia and osteoarthritis. Electronically signed in [id number] by: Mindy Doss M.D. 05/10/2020 8:09 EST Name Value Range Interpretation Code Description Data Kylah rce(s) Supporting Document(s) ID Date Data Source [id number] 05/09/2020 04:39:00 PM EST [facility] DATE OF EXAMINATION: 05/09/2020 15:19 EST TECHNIQUE: 2 views of the left hip were obtained. HISTORY: Pain FINDINGS: Bones are moderately osteopenic. Moderate osteoarthritis is noted. There is nofracture or dislocation. Moderate arterial calcification is seen. IMPRESSION: Moderate osteopenia and osteoarthritis. Electronically signed in PS360 by: Mindy Doss M.D. 05/09/2020 16:33 EST Name Value Range Interpretation Code Description Data Kylah rce(s) Supporting Document(s) ID Date Data Source [id number] 02/02/2020 03:22:00 PM EDT [facility] ([facility], ) Name Value Range Interpretation Code Description Data Kylah rce(s) Supporting Document(s) Glucose [Mass/volume] in Capillary blood by Glucometer 74 mg/dL 83-110 Below low normal [facility] ([facility]) ID Date Data Source [id number] 02/02/2020 01:07:00 PM EDT [facility] ([facility]) Name Value Range Interpretation Code Description Data Kylah rce(s) Supporting Document(s) Glucose [Mass/volume] in Capillary blood by Glucometer 81 mg/dL 83-110 Below low normal [facility] ([facility]) ID Date Data Source [id number] 12/15/2019 01:05:00 PM EDT [facility] ([facility]) Name Value Range Interpretation Code Description Data Kylah rce(s) Supporting Document(s) Glucose [Mass/volume] in Capillary blood by Glucometer 134 mg/dL 83-110 Above high normal [facility] ([facility]) ID Date Data Source [id number] 09/13/2019 05:27:00 PM EDT [facility] ([facility]) Name Value Range Interpretation Code Description Data Kylah rce(s) Supporting Document(s) Glucose [Mass/volume] in Capillary blood by Glucometer 104 mg/dL 83-110 Normal (applies to non-numeric results) [facility] ([facility]) ID Date Data Source [id number] 09/13/2019 02:56:00 PM EDT [facility] ([facility]) Name Value Range Interpretation Code Description Data Kylah rce(s) Supporting Document(s) Glucose [Mass/volume] in Capillary blood by Glucometer 63 mg/dL 83-110 Below low normal [facility] ([facility]) ID Date Data Source [id number] 08/30/2019 07:03:00 AM EDT [facility] ([facility]) Name Value Range Interpretation Code Description Data Kylah rce(s) Supporting Document(s) Glucose [Mass/volume] in Capillary blood by Glucometer 110 mg/dL 83-110 Normal (applies to non-numeric results) [facility] ([facility]) ID Date Data Source [id number] 08/01/2019 03:18:00 PM EST [facility] ([facility], ) Name Value Range Interpretation Code Description Data Kylah rce(s) Supporting Document(s) Glucose [Mass/volume] in Capillary blood by Glucometer 187 mg/dL 83-110 Above high normal [facility] ([facility]) ID Date Data Source [id number] 07/04/2019 02:43:00 PM EST [facility] ([facility]) Name Value Range Interpretation Code Description Data Kylah rce(s) Supporting Document(s) Glucose [Mass/volume] in Capillary blood by Glucometer 134 mg/dL 83-110 Above high normal [facility] ([facility]) Procedure Social History Code Duration Value Status Description Data Source(s ) Smoking 05/09/2020 12:00:00 AM EST Never Smoker completed Never S moker eCW1 ([facility]) Smoking 05/09/2020 12:00:00 AM EST Never Smoker completed Never S moker eCW1 ([facility]) Smoking 05/09/2020 12:00:00 AM EST Never Smoker completed Never S moker eCW1 ([facility]) Smoking 05/09/2020 12:00:00 AM EST Never Smoker completed Never S moker eCW1 ([facility]) Smoking 05/09/2020 12:00:00 AM EST Never Smoker completed Never S moker eCW1 ([facility]) Smoking 05/09/2020 12:00:00 AM EST Never Smoker completed Never S moker eCW1 ([facility]) Smoking 05/09/2020 12:00:00 AM EST Never Smoker completed Never S moker eCW1 ([facility]) Smoking 05/09/2020 12:00:00 AM EST Never Smoker completed Never S moker eCW1 ([facility]) Smoking 05/09/2020 12:00:00 AM EST Never Smoker completed Never S moker eCW1 ([facility]) Smoking 05/09/2020 12:00:00 AM EST Never Smoker completed Never S moker eCW1 ([facility]) Smoking 04/22/2020 12:00:00 AM EST Never Smoker completed Never S moker eCW1 ([facility]) Smoking 04/22/2020 12:00:00 AM EST Never Smoker completed Never S moker eCW1 ([facility]) Smoking 04/22/2020 12:00:00 AM EST Never Smoker completed Never S moker eCW1 ([facility]) Smoking 04/03/2020 12:00:00 AM EDT Non Smoker completed Non Smoke r [facility] ([facility], ) Smoking 03/11/2020 12:00:00 AM EDT Never Smoker completed Never S moker eCW1 ([facility]) Smoking 03/11/2020 12:00:00 AM EDT Never Smoker completed Never S moker eCW1 ([facility]) Smoking 01/08/2020 12:00:00 AM EDT Never Smoker completed Never S moker eCW1 ([facility]) Smoking 01/08/2020 12:00:00 AM EDT Never Smoker completed Never S moker eCW1 ([facility]) Smoking 11/20/2019 12:00:00 AM EDT Never Smoker completed Never S moker eCW1 ([facility]) Smoking 11/20/2019 12:00:00 AM EDT Never Smoker completed Never S moker eCW1 ([facility]) Vital Signs ID Date Data Source UNK Name Value Range Interpretation Code Description Data Source(s) Oxygen saturation in Arterial blood by Pulse oximetry 98 % 98 % eCW1 ([facility]) Respiratory rate 17 /min 17 /min eCW1 ([facility]) Heart rate 82 /min 82 /min eCW1 ([facility]) Body temperature 96.8 [degF] 96.8 [degF] eCW1 ( [facility]) Body mass index (BMI) [Ratio] 48.78 kg/m2 48.78 kg/m2 eCW1 ([facility]) Body weight 217.59 [lb_av] 217.59 [lb_av] eCW1 ([facility]) Body height 56.0 [in_i] 56.0 [in_i] eCW1 ([facility]) Body surface area Derived from formula 1.82 m2 1.82 m2 [facility] ([facility], ) Body weight 91.797 kg 91.797 kg [facility] ([facility]) [place] body weight 100 [lb_av] 100 [lb_av] [facility] T ([facility]) Body mass index (BMI) [Ratio] 43.0 kg/m2 43.0 k g/m2 [facility] ([facility]) Body weight 202.38 [lb_av] 202.38 [lb_av] [facility] T ([facility]) Body height 57.5 [in_i] 57.5 [in_i] [facility] ([facility]) 4'9.50" Diastolic blood pressure 62 mm[Hg] 62 mm[Hg] [facility] ([facility]) Systolic blood pressure 128 mm[Hg] 128 mm[Hg] [facility] Oxygen saturation in Arterial blood by Pulse oximetry 99 % 99 % eCW1 ([facility]) Respiratory rate 18 /min 18 /min eCW1 ([facility]) Heart rate 82 /min 82 /min eCW1 ([facility]) Body temperature 97.2 [degF] 97.2 [degF] eCW1 ( [facility]) Body mass index (BMI) [Ratio] 49.59 kg/m2 49.59 kg/m2 eCW1 ([facility]) Body weight 221.2 [lb_av] 221.2 [lb_av] eCW1 ([facility]) Body height 56.0 [in_i] 56.0 [in_i] eCW1 ([facility]) Body surface area Derived from formula 1.88 m2 1.88 m2 [facility] ([facility]) Body weight 99.452 kg 99.452 kg [facility] ([facility]) [place] body weight 100 [lb_av] 100 [lb_av] [facility] T ([facility]) Body mass index (BMI) [Ratio] 46.6 kg/m2 46.6 k g/m2 [facility] ([facility]) Body weight 219.25 [lb_av] 219.25 [lb_av] [facility] T ([facility]) Body height 57.5 [in_i] 57.5 [in_i] [facility]) .50" Diastolic blood pressure 72 mm[Hg] 72 mm[Hg] [facility] ([facility]) Systolic blood pressure 134 mm[Hg] 134 mm[Hg] [facility] Body weight 98.488 kg 98.488 kg [facility] ([facility]) [place] body weight 100 [lb_av] 100 [lb_av] [facility] T ([facility]) Body mass index (BMI) [Ratio] 46.2 kg/m2 46.2 k g/m2 [facility] ([facility]) Body weight 217.12 [lb_av] 217.12 [lb_av] [facility] T ([facility]) Body height 57.5 [in_i] 57.5 [in_i] [facility]) .50" Diastolic blood pressure 62 mm[Hg] 62 mm[Hg] [facility] ([facility]) Systolic blood pressure 125 mm[Hg] 125 mm[Hg] [facility] Body weight 99.055 kg 99.055 kg [facility] ([facility]) [place] body weight 100 [lb_av] 100 [lb_av] [facility] T ([facility]) Body mass index (BMI) [Ratio] 46.4 kg/m2 46.4 k g/m2 [facility] ([facility]) Body weight 218.38 [lb_av] 218.38 [lb_av] [facility] T ([facility]) Body height 57.5 [in_i] 57.5 [in_i] [facility]) 9.50" Diastolic blood pressure 66 mm[Hg] 66 mm[Hg] [facility] ([facility]) Systolic blood pressure 156 mm[Hg] 156 mm[Hg] [facility] Oxygen saturation in Arterial blood by Pulse oximetry 100 % 100 % eCW1 ([facility]) Respiratory rate 18 /min 18 /min eCW1 ([facility]) Heart rate 79 /min 79 /min eCW1 ([facility]) Body temperature 98.0 [degF] 98.0 [degF] eCW1 ( [facility]) Body mass index (BMI) [Ratio] 49.50 kg/m2 49.50 kg/m2 eCW1 ([facility]) Body weight 220.8 [lb_av] 220.8 [lb_av] eCW1 ([facility]) Body height 56.0 [in_i] 56.0 [in_i] eCW1 [facility] [place]) [place] body weight 100 [lb_av] 100 [lb_av] MEDEN T ([facility], ) Body height 57.5 [in_i] 57.5 [in_i] [facility] ([facility]) 4'9.50" Diastolic blood pressure 296 mm[Hg] 296 mm[Hg] [facility] ([facility]) Systolic blood pressure 155 mm[Hg] 155 mm[Hg] [facility] ([facility]) Body weight 99.452 kg 99.452 kg [facility] ([facility]) Body mass index (BMI) [Ratio] 46.6 kg/m2 46.6 k g/m2 [facility] ([facility]) Body weight 219.25 [lb_av] 219.25 [lb_av] MEDEN T ([facility]) Body height 57.5 [in_i] 57.5 [in_i] [facility] ([facility]) 4'9.50" Diastolic blood pressure 80 mm[Hg] 80 mm[Hg] [facility] ([facility]) Systolic blood pressure 120 mm[Hg] 120 mm[Hg] [facility] ([facility]) Oxygen saturation in Arterial blood by Pulse oximetry 99 % 99 % eCW1 ([facility] [place]) Respiratory rate 18 /min 18 /min eCW1 ([facility] [place]) Heart rate 68 /min 68 /min eCW1 ([facility]) Body temperature 97.6 [degF] 97.6 [degF] eCW1 ( [facility] [place]) Body mass index (BMI) [Ratio] 49.36 kg/m2 49.36 kg/m2 eCW1 ([facility] [place]) Body weight 220.2 [lb_av] 220.2 [lb_av] eCW1 ([facility]) Body height 56.0 [in_i] 56.0 [in_i] eCW1 ([facility] [place]) Body weight 99.395 kg 99.395 kg [facility] ([facility]) Body mass index (BMI) [Ratio] 46.6 kg/m2 46.6 k g/m2 [facility] ([facility]) Body weight 219.12 [lb_av] 219.12 [lb_av] MEDEN T ([facility]) Body height 57.5 [in_i] 57.5 [in_i] [facility] ([facility]) 4'9.50" Diastolic blood pressure 64 mm[Hg] 64 mm[Hg] [facility] ([facility]) Systolic blood pressure 130 mm[Hg] 130 mm[Hg] [facility] ([facility]) Body weight 98.148 kg 98.148 kg [facility] ([facility]) Body mass index (BMI) [Ratio] 46.0 kg/m2 46.0 k g/m2 [facility] ([facility]) Body weight 216.38 [lb_av] 216.38 [lb_av] MED[facility] T ([facility]) Body height 57.5 [in_i] 57.5 [in_i] [facility] ([facility]) 4'9.50" Diastolic blood pressure 73 mm[Hg] 73 mm[Hg] [facility] ([facility]) Systolic blood pressure 136 mm[Hg] 136 mm[Hg] M [facility] ([facility]) Oxygen saturation in Arterial blood by Pulse oximetry 99 % 99 % eCW1 ([facility] [place]) Respiratory rate 18 /min 18 /min eCW1 ([facility]) Heart rate 82 /min 82 /min eCW1 ([facility]) Body temperature 97.8 [degF] 97.8 [degF] eCW1 ( [facility] [place]) Body mass index (BMI) [Ratio] 49.68 kg/m2 49.68 kg/m2 eCW1 ([facility] [place]) Body weight 221.6 [lb_av] 221.6 [lb_av] eCW1 ([facility]) Body height 56.0 [in_i] 56.0 [in_i] eCW1 ([facility] [place]) Body weight 101.266 kg 101.266 kg [facility] Body mass index (BMI) [Ratio] 47.5 kg/m2 47.5 k g/m2 [facility] ([facility]) Body weight 223.25 [lb_av] 223.25 [lb_av] MEDEN T ([facility]) Body height 57.5 [in_i] 57.5 [in_i] [facility] ([facility]) 4'9.50" Body temperature 97.5 [degF] 97.5 [degF] [facility] ([facility]) Diastolic blood pressure 62 mm[Hg] 62 mm[Hg] [facility] ([facility]) Systolic blood pressure 126 mm[Hg] 126 mm[Hg] [facility] ([facility]) Body weight 220.50 [lb_av] 220.50 [lb_av] MED[facility] T ([facility]) Body height 57.5 [in_i] 57.5 [in_i] [facility] ([facility]) 4'9.50" Body temperature 97.7 [degF] 97.7 [degF] [facility] ([facility]) Body weight 100.019 kg 100.019 kg [facility] ([facility]) Body mass index (BMI) [Ratio] 46.9 kg/m2 46.9 k g/m2 [facility] ([facility]) Body weight 98.204 kg 98.204 kg [facility] ([facility]) Body mass index (BMI) [Ratio] 46.0 kg/m2 46.0 k g/m2 [facility] ([facility]) Body weight 216.50 [lb_av] 216.50 [lb_av] MEDEN T ([facility]) Body height 57.5 [in_i] 57.5 [in_i] [facility] ([facility]) 4'9.50" Body temperature 96.0 [degF] 96.0 [degF] [facility] ([facility]) Diastolic blood pressure 70 mm[Hg] 70 mm[Hg] [facility] ([facility]) Systolic blood pressure 110 mm[Hg] 110 mm[Hg] M [facility] ([facility]) Body weight 99.565 kg 99.565 kg [facility] ([facility]) Body mass index (BMI) [Ratio] 46.7 kg/m2 46.7 k g/m2 [facility] ([facility]) Body weight 219.50 [lb_av] 219.50 [lb_av] MED[facility] T ([facility]) Body height 57.5 [in_i] 57.5 [in_i] [facility] ([facility]) 4'9.50" Body temperature 97.4 [degF] 97.4 [degF] [facility] ([facility]) Diastolic blood pressure 70 mm[Hg] 70 mm[Hg] [facility]) Systolic blood pressure 144 mm[Hg] 144 mm[Hg] M [facility] ([facility]) Body weight 100.472 kg 100.472 kg [facility] ([facility]) Body mass index (BMI) [Ratio] 47.1 kg/m2 47.1 k g/m2 [facility] ([facility]) Body weight 221.50 [lb_av] 221.50 [lb_av] MED[facility] T ([facility]) Body height 57.5 [in_i] 57.5 [in_i] [facility] ([facility]) 4'9.50" Diastolic blood pressure 60 mm[Hg] 60 mm[Hg] [facility] ([facility]) Systolic blood pressure 115 mm[Hg] 115 mm[Hg] [facility] ([facility]) Deprecated Oxygen saturation in Capillary blood by Oximetry 98 % 98 % eCW1 ([facility] [place]) Respiratory rate 18 /min 18 /min eCW1 ([facility] [place]) Heart rate 65 /min 65 /min eCW1 ([facility]) Body temperature 97.7 [degF] 97.7 [degF] eCW1 ( [facility] [place]) Body mass index (BMI) [Ratio] 49.23 kg/m2 49.23 kg/m2 eCW1 ([facility] [place]) Body weight Measured 219.6 [lb_av] 219.6 [lb_av ] eCW1 ([facility] [place]) Body height 56.0 [in_us] 56.0 [in_us] W1 ([facility]) Body weight 97.751 kg 97.751 kg [facility] ([facility]) Body mass index (BMI) [Ratio] 45.8 kg/m2 45.8 k g/m2 [facility] ([facility]) Body weight 215.50 [lb_av] 215.50 [lb_av] MED[facility] T ([facility]) Body height 57.5 [in_i] 57.5 [in_i] [facility] ([facility]) 4'9.50" Diastolic blood pressure 72 mm[Hg] 72 mm[Hg] [facility] ([facility]) Systolic blood pressure 122 mm[Hg] 122 mm[Hg] [facility] ([facility]) Deprecated Oxygen saturation in Capillary blood by Oximetry 99 % 99 % eCW1 ([facility] [place]) Respiratory rate 18 /min 18 /min eCW1 ([facility] [place]) Heart rate 68 /min 68 /min eCW1 ([facility]) Body temperature 97.9 [degF] 97.9 [degF] eCW1 ( [facility] [place]) Body mass index (BMI) [Ratio] 49.50 kg/m2 49.50 kg/m2 eCW1 ([facility] [place]) Body weight Measured 220.8 [lb_av] 220.8 [lb_av ] eCW1 ([facility] [place]) Body height 56.0 [in_us] 56.0 [in_us] eCW1 ([facility]) ID Date Data Source [id number] 05/09/2020 02:29:00 PM EST [facility] Name Value Range Interpretation Code Description Data Source(s) WEIGHT 112.49 kilos 112.49 kilos [facility] HEIGHT 149.86 centimeters 149.86 centimeter [facility] WEIGHT 112.49 kilos 112.49 kilos [facility] HEIGHT 149.86 centimeters 149.86 centimeter [facility] Patient Treatment Plan of Care Planned Activity Planned Date Details Description Data Source (s) Felipa Weathers - 06/03/2020 12:00:00 AM EST eCW1 ([facility] [place]) Felipa Weathers - 06/03/2020 12:00:00 AM EST eCW1 ([facility] [place]) Felipa Weathers - 06/03/2020 12:00:00 AM EST eCW1 ([facility] [place]) tramadol hydrochloride 50 MG Oral Tablet 05/27/2020 12:00:00 AM EST eCW1 ([facility] [place]) tramadol hydrochloride 50 MG Oral Tablet 05/27/2020 12:00:00 AM EST eCW1 ([facility] [place]) tramadol hydrochloride 50 MG Oral Tablet 05/27/2020 12:00:00 AM EST eCW1 ([facility] [place]) tramadol hydrochloride 50 MG Oral Tablet 05/27/2020 12:00:00 AM EST eCW1 ([facility] [place]) tramadol hydrochloride 50 MG Oral Tablet 05/27/2020 12:00:00 AM EST eCW1 ([facility] [place]) Prednisone 20 MG Oral Tablet 05/15/2020 12:00:00 AM EST eCW1 ([facility] [place]) Prednisone 20 MG Oral Tablet 05/15/2020 12:00:00 AM EST eCW1 ([facility] [place]) Prednisone 20 MG Oral Tablet 05/15/2020 12:00:00 AM EST eCW1 ([facility] [place]) Prednisone 20 MG Oral Tablet 05/15/2020 12:00:00 AM EST eCW1 ([facility] [place]) Prednisone 20 MG Oral Tablet 05/15/2020 12:00:00 AM EST eCW1 ([facility] [place]) Prednisone 20 MG Oral Tablet 05/15/2020 12:00:00 AM EST eCW1 ([facility] [place]) Prednisone 20 MG Oral Tablet 05/15/2020 12:00:00 AM EST eCW1 ([facility] [place]) Prednisone 20 MG Oral Tablet 05/15/2020 12:00:00 AM EST eCW1 ([facility] [place]) Rollator Ultra-Light - 05/13/2020 12:00:00 AM EST eCW1 ([facility] [place]) Rollator Ultra-Light - 05/13/2020 12:00:00 AM EST eCW1 ([facility] [place]) Rollator Ultra-Light - 05/13/2020 12:00:00 AM EST eCW1 ([facility] [place]) Rollator Ultra-Light - 05/13/2020 12:00:00 AM EST eCW1 ([facility] [place]) Rollator Ultra-Light - 05/13/2020 12:00:00 AM EST eCW1 ([facility] [place]) Rollator Ultra-Light - 05/13/2020 12:00:00 AM EST eCW1 ([facility] [place]) Rollator Ultra-Light - 05/13/2020 12:00:00 AM EST eCW1 ([facility] [place]) Rollator Ultra-Light - 05/13/2020 12:00:00 AM EST eCW1 ([facility] [place]) Rollator Ultra-Light - 05/13/2020 12:00:00 AM EST eCW1 ([facility] [place]) Diclofenac Sodium 0.01 MG/MG Topical Gel [Voltaren] 05/09/20 12:00:00 AM EST eCW1 ([facility] [place]) Diclofenac Sodium 0.01 MG/MG Topical Gel [Voltaren] 05/09/20 12:00:00 AM EST eCW1 ([facility] [place]) Diclofenac Sodium 0.01 MG/MG Topical Gel [Voltaren] 05/09/20 12:00:00 AM EST eCW1 ([facility] [place]) Diclofenac Sodium 0.01 MG/MG Topical Gel [Voltaren] 05/09/20 12:00:00 AM EST eCW1 ([facility] [place]) Diclofenac Sodium 0.01 MG/MG Topical Gel [Voltaren] 05/09/20 12:00:00 AM EST eCW1 ([facility] [place]) Diclofenac Sodium 0.01 MG/MG Topical Gel [Voltaren] 05/09/20 12:00:00 AM EST eCW1 ([facility] [place]) Diclofenac Sodium 0.01 MG/MG Topical Gel [Voltaren] 05/09/20 12:00:00 AM EST eCW1 ([facility] [place]) Diclofenac Sodium 0.01 MG/MG Topical Gel [Voltaren] 05/09/20 12:00:00 AM EST eCW1 ([facility] [place]) Diclofenac Sodium 0.01 MG/MG Topical Gel [Voltaren] 05/09/20 12:00:00 AM EST eCW1 ([facility] [place]) Diclofenac Sodium 0.01 MG/MG Topical Gel [Voltaren] 05/09/20 12:00:00 AM EST eCW1 ([facility] [place]) Docusate Sodium 100 MG Oral Capsule 10/25/2019 12:00:00 AM EDT eCW1 ([facility] [place]) Docusate Sodium 100 MG Oral Capsule 10/25/2019 12:00:00 AM EDT eCW1 ([facility] [place]) free style lite strips 07/03/2019 12:00:00 AM EST eCW1 ([facility] [place])
[2020-06-17] MEDS ORDERED: BISACODYL 10 MG SUPP PR PRN (15:00)
[2020-06-17] MEDS ORDERED: GLUCAGON INJ 1MG VIAL SC PRN (15:00)
[2020-06-17] MEDS ORDERED: DEXTROSE 50% 50 ML SYRINGE IV PRN (15:00)
[2020-06-17] MEDS ORDERED: GLUCOSE 4GM CHEW TABLET PO PRN (15:00)
[2020-06-17] MEDS: REMEDY PHYTOPLEX Z-GUARD PASTE 113GM TUBE (FROM STOREROOM PRODUCT) TOP SCH ×2 (16:00→21:12)
[2020-06-17] MEDS: HumaLOG INSULIN (NovoLOG) PER UNIT SC SCH ×2 (17:24→21:00)
[2020-06-17] MEDS: ONDANSETRON 4 MG ORAL DISINTEGRATING TAB PO PRN ×2 (17:33→21:10)
[2020-06-17] MEDS ORDERED: RIVAROXABAN 10 MG TAB (XARELTO) PO SCH (18:00)
[2020-06-17 20:00] VITALS: BP 109/53
--- NOTE | 2020-06-17 20:52 | IPN ---
NEPHROLOGY PROGRESS NOTE DATE: 06/17/2020 SUBJECTIVE: The patient was seen and examined at the bedside today morning. She is afebrile and hemodynamically stable. She denies any acute complaints. She reports that she has started walking with the help of a walker with Physical Therapy, and she will probably be transferred to acute rehab today. OBJECTIVE: VITAL SIGNS: Temperature is 97.6 degrees Fahrenheit, blood pressure 119/54, pulse is 100, respiratory rate of 24, saturating 96% on room air. INTAKE AND OUTPUT: There is no output recorded. Weight in the bed scale is 96.6 kg. PHYSICAL EXAMINATION: GENERAL APPEARANCE: The patient is awake, alert, oriented x3, sitting up in the sofa, in no apparent distress. HEAD AND NECK: Extraocular muscles intact. Pupils are equally round and reactive to light. Mucous membranes are moist. Neck is supple. There is no jugular venous distention. CARDIOVASCULAR: S1, S2, regular rate. EXTREMITIES: Trace edema of the bilateral lower extremities. RESPIRATORY: Chest is clear to auscultation bilaterally. Bilaterally currently no rales or rhonchi. ABDOMEN: Soft, positive bowel sounds, nontender, no organomegaly. MUSCULOSKELETAL: She has a dressing on the left hip. Normal range of motion of the extremities. CANTEEN ATTENDANT: No focal deficits. Power is 5/5 in all extremities. LAB REVIEW: CBC is from yesterday and BMP done today morning showed sodium of 136, potassium 4.7, chloride 99, bicarbonate 28, BUN 32, creatinine is 5.1. CURRENT INPATIENT MEDICATIONS: The patient's medications were all reviewed by myself. There is no significant change in the medications as compared with yesterday. ASSESSMENT AND PLAN: 1. End-stage renal disease the patient will be dialyzed tomorrow morning according to her regular schedule. Ultrafiltration goal will be around one and a half to two kg as tolerated by her blood pressure. 2. Secondary hyperparathyroidism - continue current dose of Calcitriol 0.25 mcg p.o. Wednesday, Wednesday, Wednesday. 3. Atrial fibrillation heart rate is controlled. Okay to continue current dose of Xarelto 10 mg p.o. daily. 4. Anemia and end-stage renal disease - hemoglobin level is stable at 10. Continue current dose of Aranesp with dialysis. MTDD
[2020-06-17] MEDS: ACETAMINOPHEN 500 MG TAB PO SCH (21:00)
[2020-06-17] MEDS: DOCUSATE SODIUM 100MG CAPSULE PO SCH (21:10)
[2020-06-17] MEDS: VITAMIN D 1,000 INTERNATIONAL UNITS TABLET PO SCH (21:10)
[2020-06-17] MEDS: LACTOBACILLUS ACIDOPHILUS CAP (BACID) PO SCH (21:10)
[2020-06-17] MEDS: SENNA 8.6 MG TAB (SENOKOT) PO SCH (21:10)
[2020-06-17] MEDS: traMADol 50 MG TAB PO PRN (21:11)
[2020-06-18 06:00] VITALS: BP 121/71
[2020-06-18 07:17] LABS: BASO # 0.1 10^3/uL (0.0-0.2); BASO % 1.1 % (0.0-1.0); EOS # 0.3 10^3/uL (0.0-0.5); EOS % 3.5 % (0.0-3.0); HEMATOCRIT 34.5 % (36.0-47.0); LYMPH # 1.4 10^3/uL (1.5-5.0); LYMPH % 14.1 % (24.0-44.0); MEAN CORPUSCULAR HEMOGLOBIN 29.7 pg (27.0-33.0); MEAN CORPUSCULAR VOLUME 102.4 fl (80.0-96.0); MONO # 0.8 10^3/uL (0.0-0.8); MONO % 8.1 % (0.0-5.0); NEUTROPHILS # 6.8 10^3/uL (1.5-8.5); NEUTROPHILS % 69.9 % (36.0-66.0); PLATELET COUNT, AUTOMATED 186 10^3/uL (150-450); RED BLOOD COUNT 3.37 10^6/uL (4.00-5.40); WHITE BLOOD COUNT 9.8 10^3/uL (4.0-10.0)
[2020-06-18 07:44] LABS: ALBUMIN 2.3 GM/DL (3.2-5.2); ALT/SGPT < 6 U/L (12-78); BILIRUBIN,TOTAL 0.4 MG/DL (0.2-1.0); BLOOD UREA NITROGEN 42 MG/DL (7-18); CALCIUM LEVEL 9.7 MG/DL (8.8-10.2); CARBON DIOXIDE LEVEL 26 MEQ/L (21-32); CHLORIDE LEVEL 98 MEQ/L (98-107); CREATININE FOR GFR 6.34 MG/DL (0.55-1.30); GLOMERULAR FILTRATION RATE 6.8 (>39); GLUCOSE, FASTING 120 MG/DL (70-100); SODIUM LEVEL 132 MEQ/L (136-145); TOTAL PROTEIN 7.3 GM/DL (6.4-8.2)
[2020-06-18] MEDS ORDERED: SODIUM CHLORIDE 0.9% 1000ML IV PRN (08:00)
[2020-06-18] MEDS ORDERED: LIDOCAINE 1% SDV 5ML VIAL SC PRN (08:00)
[2020-06-18] MEDS: REMEDY PHYTOPLEX Z-GUARD PASTE 113GM TUBE (FROM STOREROOM PRODUCT) TOP SCH ×3 (09:00→21:00)
[2020-06-18] MEDS: LACTOBACILLUS ACIDOPHILUS CAP (BACID) PO SCH ×4 (09:03→21:03)
[2020-06-18] MEDS: VITAMIN B COMPLEX/VIT C CAP PO SCH (09:03)
[2020-06-18] MEDS: LEVEMIR (INSULIN DETEMIR) 1 UNITS/0.01ML SC SCH (09:04)
[2020-06-18] MEDS: HumaLOG INSULIN (NovoLOG) PER UNIT SC SCH ×4 (09:05→21:00)
[2020-06-18] MEDS: FOLIC ACID 1 MG TAB PO SCH (09:05)
[2020-06-18] MEDS: DOCUSATE SODIUM 100MG CAPSULE PO SCH ×2 (09:05→21:02)
[2020-06-18] MEDS: ACETAMINOPHEN 500 MG TAB PO SCH ×3 (09:09→21:03)
[2020-06-18] MEDS: traMADol 50 MG TAB PO PRN (09:23)
[2020-06-18] MEDS: METOPROLOL TART 25 MG TABLET PO SCH ×2 (10:12→21:03)
[2020-06-18] MEDS: SUCRALFATE 1 GM TAB PO SCH ×3 (12:00→21:03)
--- NOTE | 2020-06-18 12:14 | HPEPDOC ---
Fiscal Accountant Note DATE OF ADMISSION: 06-17-20 DATE OF SERVICE: 06-18-20 TIME OF ADMISSION: Please refer to physician's admission order. SOURCE OF ADMISSION INFORMATION: [facility] record and patient CHIEF COMPLAINT: left hip fracture HISTORY OF PRESENT ILLNESS: 79F pmh ESRD, DM, chronic anemia, endometrial cancer, who fell at home without pre-syncopal symptoms or head trauma and presented to [facility] ED on 06-11-20 complaining of left leg pain and difficulty walking. She was found to have an Acute angulated left femoral neck fracture on xray, was evaluated by medicine and cleared for surgery. She underwent a left hip hemiarthroplasty on 06-12-20 without complication. There was concern for possible bony metastatic lesion so pathology was sent. There was question of PVCs vs irregular atrial contractions for which no intervention was initiated. She was evaluated by therapy, found to have impairment sin mobility and ADLs below her baseline and was deemed medically appropriate for discharge to ARU. REVIEW OF SYSTEMS: The following is a completed review of systems and has been reviewed. Review of systems otherwise unremarkable. PAIN: Patient self reports left hip pain EYES: No recent vision changes. EARS, NOSE, & THROAT: No throat pain, or dysphagia, or rhinorrhea CARDIOVASCULAR: Denies chest pain or palpitations PULMONARY: Denies shortness of breath GASTROINTESTINAL: Denies constipation/diarrhea GENITOURINARY: oliguric MUSCULOSKELETAL: left hip fracture NEUROLOGICAL:denies tremor or paresthesias HEMATOLOGICAL:+anemia SKIN: abdominal laceration PSYCHIATRIC: Unremarkable All other review of systems found to be negative. PAST MEDICAL HISTORY: As per [facility] ALLERGIES: Please see below. MEDICATIONS: Please see below. SOCIAL HISTORY: no etoh/illicit drugs/smoking DIET: low sodium PHYSICAL EXAMINATION: VITAL SIGNS: Please see below. GENERAL: Pleasant and cooperative. No acute distress. HEENT: PERRL. Extraocular movements intact. Clear conjunctiva CARDIOVASCULAR: Irregular rate and rhythm. No murmurs, rubs, or gallops LUNGS: Clear to auscultation bilaterally. No wheezes. No rhonchi ABDOMEN: Soft, nontender, nondistended. Positive bowel sounds. Normal active bowel sounds, healing wound NEUROLOGICAL: Alert and oriented times three. Cranial nerves II through XII grossly intact. Sensation grossly intact EXTREMITIES: 5\5 strength bilateral upper extremities. 5\5 strength right lower extremity. 5/5 strength in left ankle DF/EHL and PF (limited due to surgery) SKIN: left hip incision with serous drainage, no annie-wound induration/ erythema LABORATORY DATA: Please see below. IMAGING:Imaging documentation personally reviewed by record FUNCTIONAL STATUS: Premorbid: Independent with all activities of daily life as well as mobility On Admission: contact guard for bed mobiltiy, ambulation, toileting, min assist dressing GOALS: Mod-I bed mobility, stairs, dressing, ambulating, toileting, bathing ASSESSMENT:79-year-old F with past medical history of ESRD on HD who presents status post fall with left hip fracture PLAN: 1.Rehab- PT/OT advance mobility and ADLs, stretch/strengthen/maintain ROM all 4limbs 2. Ortho- s/p left hip hemiarthroplasty- WBAT and precautions ordered 3. Cardiac- patient found to be in afib on initial eval, will start eliquis and metoprolol, patient denies history of bleeding -monitor for RVR -fluid restrict and daily weights for fluid management 4. Resp- monitor for infection 5. ENdo- hx of DM c/u insulin 6. Renal -ESRD on HD, renal consulted 7. Heme- anemia f chronic disease, renal following, venofer/aranesp per their management 8. Pain- tylenol and tramadol 9. DVT ppx- will switch from ppx Xarelto to treatment dose of Eliquis for afib 10. GI ppx- sucralfate 11. Dispo- TBD POST ADMISSION PHYSICIAN EVALUATION: Medical and functional status: Description of medical status, medical assessment: As above. Rehabilitation diagnosis and current and prior cold morbid medical conditions as above. Risk of complications and plans to mitigate them as above. Description of functional status current status is as above. Prior status as above. Status compared to preadmission: There are no clinically significant differences between the patient's current status and the information described on the preadmission screening document. Treatment plan anticipated: Treatment plan is as described above. Required disciplines including physical therapy, occupational therapy, others as noted above Intensity of services: 3 hours a day, 6 days a week. Special considerations: There are no specific special or safety considerations that would likely preclude immediate implementation of an intensive rehabilitation program or subsequently influence the plan of care. ATTESTATION: Considering all the information above, it is my best judgment that this patient requires intensive rehabilitation therapy as described above and an inpatient hospital environment due to the complexity of nursing, medical, and rehabilitation needs required by the patient. Furthermore, this patient can reasonably be expected to participate in an benefit from an inpatient rehabilitation stay with an interdisciplinary team approach to the delivery of rehabilitation care under the direction and supervision of rehabilitation physician PROGNOSIS: good ESTIMATED LENGTH OF STAY:10-14 days. PROJECTED DISCHARGE DESTINATION: Home with family support and any durable medical equipment required to increase functional safety and mobility TIME SPENT COUNSELING AND COORDINATING INITIAL CARE: Greater than 70 minutes. Vital Signs Vital Sign - Last 24 Hours 06/17/20 06/17/20 06/17/20 06/17/20 14:10 20:00 21:11 21:41 Temp 97.6 97.3 Pulse 100 95 Resp 24 20 20 20 B/P (MAP) 119/54 (75) 109/53 (71) Pulse Ox 96 93 O2 Delivery Room Air Room Air 06/18/20 06/18/20 06:00 09:23 Temp 97.4 Pulse 97 Resp 20 22 B/P (MAP) 121/71 (88) Pulse Ox 94 O2 Delivery Room Air Room Air Laboratory Data CBC/BMP Laboratory Tests 06/18/20 07:04 Labs 24H Laboratory Tests 2 06/17/20 21:00: Bedside Glucose (Misc Panel) 97 06/18/20 05:55: Bedside Glucose (Misc Panel) 123H 06/18/20 07:04: Immature Granulocyte % (Auto) 3.3H, Neutrophils (%) (Auto) 69.9H, Lymphocytes (%) (Auto) 14.1L, Monocytes (%) (Auto) 8.1H, Eosinophils (%) (Auto) 3.5H, Ba sophils (%) (Auto) 1.1H, Neutrophils # (Auto) 6.8, Lymphocytes # (Auto) 1.4L, Monocytes # (Auto) 0.8, Eosinophils # (Auto) 0.3, Basophils # (Auto) 0.1, Nucleated Red Blood Cells % (auto) 1.6H, Anion Gap 8, Glomerular Filtration Rate 6.8L, Calcium Level 9.7, Total Bilirubin 0.4, Aspartate Amino Transf (AST/SGOT) 14, Alanine Aminotransferase (ALT/SGPT) < 6L, Alkaline Phosphatase 32L, Total Protein 7.3, Albumin 2.3L, Albumin/Globulin Ratio 0.5L 06/18/20 11:15: Bedside Glucose (Misc Panel) 148H FSBS Laboratory Tests Test 06/17/20 21:00 06/18/20 05:55 06/18/20 11:15 Range/Units Bedside Glucose (Misc Panel) 97 123 148 83-110 MG/DL Home Medications Scheduled Acetaminophen (Acetaminophen 8 Hour) 650 Mg Tablet.er, 1,000 MG PO TID Biotin (Biotin) 5,000 Mcg Tab.rapdis, 5,000 MCG PO QHS, (Reported) Calcitriol (Calcitriol) 0.25 Mcg Capsule, 0.25 MCG PO 3XW, (Reported) , , SAT AT DIALYSIS Cholecalciferol (Vitamin D3) (Vitamin D3) 1,000 Unit Tablet, 5,000 UNITS PO QHS, (Reported) Docusate Sodium (Docusate Sodium) 100 Mg Cap, 100 MG PO 3XW, (Reported) DAILY AFTER DIALYSIS WED//WED Docusate Sodium (Colace) 100 Mg Capsule, 100 MG PO 4XWK, (Reported) BID ON Wed Folic Acid/Vit B Complex and C (Dialyvite 800 Tablet) 0.8 Mg Tablet, 1 TAB PO QHS, (Reported) Insulin Glargine,Hum.rec.anlog (Lantus Solostar) 100 Unit/1 Ml Insuln.pen, 30 UNITS SC DAILY, (Reported) Insulin Human Lispro (Humalog) 1 Units/0.01 Ml Inj, 1 DOSE SC ACHS, (Reported) PER SLIDING SCALE Red Yeast Rice (Red Yeast Rice) 600 Mg Tablet, 600 MG PO QHS, (Reported) Rivaroxaban (Xarelto) 10 Mg Tablet, 10 MG PO DAILY Scheduled PRN Tramadol HCl (Tramadol HCl) 50 Mg Tablet, 1 TAB PO Q4H PRN for PAIN Allergies Coded Allergies: cetirizine (Verified Allergy, Intermediate, RASH, 02/22/19) amlodipine (Verified Allergy, Unknown, 03/04/20) pantoprazole (Verified Allergy, Unknown, 03/04/20) Zjfjhxp-Kid-Ide Reductase Inhibitor (Verified Adverse Reaction, Intermediate, CRAMPS, 02/07/19) atorvastatin (Verified Adverse Reaction, Intermediate, CRAMPS, 01/07/19) prednisolone (Verified Adverse Reaction, Intermediate, ELEVATES BLOOD SUGAR, PT DIABETIC, 02/07/19) TAPE (Verified Adverse Reaction, Mild, ITCHING, 05/07/18) oxycodone (Verified Adverse Reaction, Mild, CONSTIPATION, 01/07/19) benzonatate (Verified Adverse Reaction, Unknown, PER PT HAD A PROBLEM WITH IT BUT UNSURE WHY, 01/07/19) fenofibrate (Verified Adverse Reaction, Unknown, PER PT HAD A PROBLEM WITH IT BUT UNSURE WHY, 01/07/19) tamsulosin (Verified Adverse Reaction, Unknown, PER PT HAD A PROBLEM BUT UNSURE WHAT IT WAS, 02/07/19) A-FIB/CHADSVASC A-FIB History Current/History of A-Fib/PAF?: No Current PO Anticoag Therapy: No SCOOBY HAWKINS MD Jun 18, 2020 12:14
[2020-06-18] MEDS: ONDANSETRON 4 MG ORAL DISINTEGRATING TAB PO PRN (12:27)
[2020-06-18] MEDS: IRON SUCROSE 100MG 5ML VIAL (J1756 PER 1MG) IV SCH (13:28)
[2020-06-18 14:00] VITALS: BP 105/54
--- NOTE | 2020-06-18 16:24 | IPNPDOC ---
Text Note Date of Service The patient was seen on 06/18/20. NOTE Subjective: Patient is a 79-year-old female with a PMHx of Endometrial CA, IDDM2, Chronic anemia, A. fib, ESRD on HD (TTS) who presented to the emergency room on 06/11/2020 after she had fallen and sustained a left hip pain in the emergency room, patient was found to have a left hip fracture. She was admitted to the hospital service for further evaluation and treatment and eventually underwent surgery on 06/12/[address] Moncho Castillo. Patient was subsequently discharged from the hospital service on 06/17/2020 and admitted to the acute rehabilitation unit. Hospitalist service was called for further medical comanagement. Patient was seen and examined at the bedside. Patient was seen during dialysis. She denies any chest pain, palpitations, nausea, vomiting, abdominal pain or diarrhea. This morning patient was started on metoprolol by ARU after she had an EKG that had revealed possibility of atrial fibrillation Objective: Vitals (See below) General: Lying in bed, no acute distress, comfortable, AAOx3 HEENT: NC, AT CVS: RRR, +S1S2 Lungs: Fair air entry b/l, -w/r/r Abdomen: Soft, ND, NT Extremities: Pitting edema noted, - Calf tenderness Assessment and plan: Left femoral neck fracture/Left hip pain - s/p Left hip hemiarthroplasty on 06/12/2020 - Pain control and physical therapy as per ARU / Orthopedic team Arrhythmia/A. fib - Hx of a sinus arrhythmia and PVCs as per documentation - Patient has been started on metoprolol 25 twice a day with hold parameters - Continue with full anticoagulation with Xarelto ESRD on HD (TTS) - Nephrology on consultation IDDM2 - c/w ISS Chronic anemia - Hg remains stable DVT prophylaxis - c/w full anticoagulation with Xarelto Disposition: - As per ARU Annemarie SAUCEDO, I+O Annemarie SAUCEDO, I+O Laboratory Tests 06/18/20 07:04 Vital Signs Date Time Temp Pulse Resp B/P (MAP) Pulse Ox O2 Delivery O2 Flow Rate FiO2 06/18/20 09:23 22 Room Air 06/18/20 06:00 97.4 97 121/71 (88) 94 I&O- Last 24 Hours up to 6 AM 06/18/20 06:00 Intake Total 220 ml Output Total 150 ml Balance 70 ml SCOTTIE RANKIN MD Jun 18, 2020 16:24
--- NOTE | 2020-06-18 19:39 | ECGEPIP ---
[facility] Test Date: 2020-06-18 Pat Name: HILLARY VAZQUEZ Department: Room: [place] [address] Gender: Female Table Attendant: LUCINA : 1940 Requested By: SCOOBY HAWKINS Order Number: [id number] Reading MD: Braydon Kay Measurements Intervals [place] Rate: 99 P: IA: 0 QRS: -65 QRSD: 140 T: 121 QT: 385 QTc: 494 Interpretive Statements ATRIAL FIBRILLATION RIGHT BUNDLE BRANCH BLOCK LEFT ANTERIOR FASCICULAR BLOCK POSSIBLE LEFT VENTRICULAR HYPERTROPHY NON-SPECIFIC STT ABNORMALITIES SIMILAR TO 06/13/20 Electronically Signed on 06-18-2020 19:40:02 EST by Braydon Kay
[2020-06-18 20:00] VITALS: BP 120/52
[2020-06-18] MEDS: APIXABAN 5 MG TAB (ELIQUIS) PO SCH (21:02)
[2020-06-18] MEDS: VITAMIN D 1,000 INTERNATIONAL UNITS TABLET PO SCH (21:03)
[2020-06-18] MEDS: SENNA 8.6 MG TAB (SENOKOT) PO SCH (21:03)
[2020-06-19 06:04] VITALS: BP 101/48
[2020-06-19] MEDS: HumaLOG INSULIN (NovoLOG) PER UNIT SC SCH ×4 (07:30→21:00)
[2020-06-19] MEDS: LACTOBACILLUS ACIDOPHILUS CAP (BACID) PO SCH ×4 (07:52→21:01)
[2020-06-19] MEDS: SUCRALFATE 1 GM TAB PO SCH ×4 (07:52→21:01)
[2020-06-19] MEDS: APIXABAN 5 MG TAB (ELIQUIS) PO SCH ×2 (07:52→21:01)
[2020-06-19] MEDS: CALCITRIOL 0.25 MCG CAP (S0169) PO SCH (07:52)
[2020-06-19] MEDS: FOLIC ACID 1 MG TAB PO SCH (07:52)
[2020-06-19] MEDS: DOCUSATE SODIUM 100MG CAPSULE PO SCH ×2 (07:53→21:02)
[2020-06-19] MEDS: VITAMIN B COMPLEX/VIT C CAP PO SCH (07:53)
[2020-06-19] MEDS: ACETAMINOPHEN 500 MG TAB PO SCH ×3 (07:53→21:00)
[2020-06-19] MEDS: REMEDY PHYTOPLEX Z-GUARD PASTE 113GM TUBE (FROM STOREROOM PRODUCT) TOP SCH ×3 (07:54→21:03)
[2020-06-19] MEDS: LEVEMIR (INSULIN DETEMIR) 1 UNITS/0.01ML SC SCH (07:56)
[2020-06-19] MEDS: METOPROLOL TART 25 MG TABLET PO SCH ×2 (08:27→21:02)
[2020-06-19] MEDS: traMADol 50 MG TAB PO PRN (08:32)
--- NOTE | 2020-06-19 08:40 | IPN ---
PROGRESS NOTE DATE: 06/18/2020 SUBJECTIVE: Patient was seen and examined at the bedside today morning in the rehabilitation unit. She was sitting in the wheelchair when I saw her. She had just come back up from doing her physical therapy. Today is patient's regular day of dialysis. OBJECTIVE: Vital signs: Temperature is 97.2 degrees Fahrenheit, blood pressure 105/54, pulse is 74, respiratory rate of 16, saturating 98% on room air. Intake and output: Urine output is not recorded. Weight in the bed scale is 98.5 kg. PHYSICAL EXAMINATION: General: Patient is awake, alert, oriented times three, sitting up in the wheelchair. Head and neck exam: Extraocular muscles intact. Pupils equally round and reactive to light. Mucous membranes are moist. Neck is supple. There is no jugular venous distension (JVD). Cardiovascular: S1, S2, irregularly irregular rate. Trace edema of the bilateral lower extremities. Respiratory: Chest is clear to auscultation bilaterally. Bilateral equal air entry. No rales or rhonchi. Abdomen: Soft, obese, positive bowel sounds. Musculoskeletal: She has a dressing on the left hip. Otherwise, no clubbing or cyanosis. Central nervous system (LAND APPRAISER): No focal deficits. Power is 5/5 in all extremities. LABORATORY REVIEW: CBC showed WBC 9.8, hemoglobin is 10, platelets are 186. BMP showed sodium 132, potassium 5, chloride 98, bicarbonate 26, BUN 42, creatinine is 6.3. CURRENT INPATIENT MEDICATIONS: Patient's medications were all reviewed by myself. She has been started on Eliquis 5 mg by mouth twice a day and metoprolol 25 mg by mouth twice a day. ASSESSMENT AND PLAN: 1. End-stage renal disease. Patient is due for dialysis today. Ultrafiltration goal is 1.5 liters today as tolerated by her blood pressure. 2. Atrial fibrillation. Heart rate is controlled at this time. She is on metoprolol and Eliquis. 3. Anemia in end-stage renal disease. Hemoglobin level is stable. Continue current dose of Aranesp with dialysis along with Venofer. 4. Status post left hip hemiarthroplasty. Patient is getting physical therapy. She is walking with the help of walker now.
[2020-06-19 10:07] LABS: BASO # 0.1 10^3/uL (0.0-0.2); BASO % 0.8 % (0.0-1.0); EOS # 0.3 10^3/uL (0.0-0.5); EOS % 2.9 % (0.0-3.0); HEMATOCRIT 34.3 % (36.0-47.0); HEMOGLOBIN 10.2 g/dl (12.0-15.5); LYMPH # 1.2 10^3/uL (1.5-5.0); MEAN CORPUSCULAR HEMOGLOBIN 30.5 pg (27.0-33.0); MEAN CORPUSCULAR HGB CONC 29.7 g/dl (32.0-36.5); MEAN CORPUSCULAR VOLUME 102.7 fl (80.0-96.0); MONO # 0.9 10^3/uL (0.0-0.8); MONO % 10.4 % (0.0-5.0); NEUTROPHILS # 6.3 10^3/uL (1.5-8.5); NEUTROPHILS % 70.8 % (36.0-66.0); PLATELET COUNT, AUTOMATED 203 10^3/uL (150-450); RED BLOOD COUNT 3.34 10^6/uL (4.00-5.40)
[2020-06-19] MEDS: ONDANSETRON 4 MG ORAL DISINTEGRATING TAB PO PRN ×3 (10:08→21:52)
[2020-06-19 10:43] LABS: CALCIUM LEVEL 8.5 MG/DL (8.8-10.2); CREATININE FOR GFR 4.03 MG/DL (0.55-1.30); GLOMERULAR FILTRATION RATE 11.4 (>39); POTASSIUM SERUM 4.1 MEQ/L (3.5-5.1)
--- NOTE | 2020-06-19 13:21 | IPNPDOC ---
PM&R Progress Note DATE OF SERVICE: Jun 19, 2020 [employer] Progress Note Subjective: Patient reports feeling nauseous today, denies constipation, fevers, or chills, and that zofran seems to be helping. REVIEW OF SYSTEMS: The following is a completed review of systems and has been reviewed. Review of systems otherwise unremarkable. PAIN: Patient self reports left hip pain EYES: No recent vision changes. EARS, NOSE, & THROAT: No throat pain, or dysphagia, or rhinorrhea CARDIOVASCULAR: Denies chest pain or palpitations PULMONARY: Denies shortness of breath GASTROINTESTINAL: Denies constipation/diarrhea GENITOURINARY: oliguric MUSCULOSKELETAL: left hip fracture NEUROLOGICAL:denies tremor or paresthesias HEMATOLOGICAL:+anemia SKIN: abdominal laceration PSYCHIATRIC: Unremarkable All other review of systems found to be negative. PHYSICAL EXAMINATION: VITAL SIGNS: Please see below. GENERAL: Pleasant and cooperative. No acute distress. HEENT: PERRL. Extraocular movements intact. Clear conjunctiva CARDIOVASCULAR: Irregular rate and rhythm. No murmurs, rubs, or gallops LUNGS: Clear to auscultation bilaterally. No wheezes. No rhonchi ABDOMEN: Soft, nontender, nondistended. Positive bowel sounds. Normal active bowel sounds, healing wound NEUROLOGICAL: Alert and oriented times three. Cranial nerves II through XII grossly intact. Sensation grossly intact EXTREMITIES: 5\5 strength bilateral upper extremities. 5\5 strength right lower extremity. 5/5 strength in left ankle DF/EHL and PF (limited due to surgery) SKIN: left hip incision with serous drainage, no annie-wound induration/ erythema ASSESSMENT:79-year-old F with past medical history of ESRD on HD who presents status post fall with left hip fracture PLAN: 1.Rehab- PT/OT advance mobility and ADLs, stretch/strengthen/maintain ROM all 4limbs 2. Ortho- s/p left hip hemiarthroplasty- WBAT and precautions ordered 3. Cardiac- patient found to be in afib on initial eval , c/u eliquis and metoprolol, patient denies history of bleeding -monitor for RVR -fluid restrict and daily weights for fluid management 4. Resp- monitor for infection 5. ENdo- hx of DM c/u insulin 6. Renal -ESRD on HD, renal consulted 7. Heme- anemia of chronic disease, renal following, venofer/aranesp per their management 8. Pain- tylenol and tramadol 9. DVT ppx- switched from ppx Xarelto to treatment dose of Eliquis for afib 10. GI ppx- sucralfate, zofran prn nausea 11. Dispo- 07-01-20 to home, progressing towards goals Allergies Coded Allergies: cetirizine (Verified Allergy, Intermediate, RASH, 02/22/19) amlodipine (Verified Allergy, Unknown, 03/04/20) pantoprazole (Verified Allergy, Unknown, 03/04/20) Zibyjac-Wtf-Ukn Reductase Inhibitor (Verified Adverse Reaction, Intermediate, CRAMPS, 02/07/19) atorvastatin (Verified Adverse Reaction, Intermediate, CRAMPS, 01/07/19) prednisolone (Verified Adverse Reaction, Intermediate, ELEVATES BLOOD SUGAR, PT DIABETIC, 02/07/19) TAPE (Verified Adverse Reaction, Mild, ITCHING, 05/07/18) oxycodone (Verified Adverse Reaction, Mild, CONSTIPATION, 01/07/19) benzonatate (Verified Adverse Reaction, Unknown, PER PT HAD A PROBLEM WITH IT BUT UNSURE WHY, 01/07/19) fenofibrate (Verified Adverse Reaction, Unknown, PER PT HAD A PROBLEM WITH IT BUT UNSURE WHY, 01/07/19) tamsulosin (Verified Adverse Reaction, Unknown, PER PT HAD A PROBLEM BUT UNSURE WHAT IT WAS, 02/07/19) Vital Signs Vital Signs Date Time Temp Pulse Resp B/P (MAP) Pulse Ox O2 Delivery O2 Flow Rate FiO2 06/19/20 09:02 18 06/19/20 08:27 74 106/62 06/19/20 06:04 97.3 95 Room Air Laboratory Data CBC/BMP Laboratory Tests 06/19/20 09:32 Labs 24H Laboratory Tests 2 06/18/20 17:22: Bedside Glucose (Misc Panel) 96 06/18/20 20:26: Bedside Glucose (Misc Panel) 132H 06/19/20 05:09: Bedside Glucose (Misc Panel) 85 06/19/20 09:32: Immature Granulocyte % (Auto) 2.1, Neutrophils (%) (Auto) 70.8H, Lymphocytes (%) (Auto) 13.0L, Monocytes (%) (Auto) 10.4H, Eosinophils (%) (Auto) 2.9, Basophils (%) (Auto) 0.8, Neutrophils # (Auto) 6.3, Lymphocytes # (Auto) 1.2L, Monocytes # (Auto) 0.9H, Eosinophils # (Auto) 0.3, Basophils # (Auto) 0.1, Nucleated Red Blood Cells % (auto) 0.7H, Anion Gap 9, Glomerular Filtration Rate 11.4L, Calcium Level 8.5L 06/19/20 11:30: Bedside Glucose (Misc Panel) 168H Current Medications Current Medications Current Medications Medications (Trade) Dose Ordered Sig/Princess Route PRN Reason Start Time Stop Time Status Last Admin Dose Admin Acetaminophen (Tylenol Tab) 1,000 mg TID PO 06/17/20 21:00 06/19/20 07:53 Apixaban (Eliquis) 5 mg BID PO 06/18/20 21:00 06/19/20 07:52 Bisacodyl (Dulcolax Suppository) 10 mg DAILYPRN PRN [place] CONSTIPATION 06/17/20 15:00 Calcitriol (Rocaltrol) 0.25 mcg MoWeFr PO 06/17/20 09:00 06/19/20 07:52 Darbepoetin Maurizio (Aranesp (Dialysis Use)) 100 mcg HD IV 06/17/20 20:30 Dextrose (Dextrose 50%) 25 ml ASDIRECTED PRN IV SEE LABEL COMMENTS 06/17/20 15:00 Docusate Sodium (Colace) 100 mg BID PO 06/17/20 21:00 06/19/20 07:53 Folic Acid (Folic Acid) 1 mg DAILY PO 06/18/20 09:00 06/19/20 07:52 Glucagon (Glucagon) 1 mg ASDIRECTED PRN SC SEE LABEL COMMENTS 06/17/20 15:00 Glucose (Glucose) 16 GM ASDIRECTED PRN PO SEE LABEL COMMENTS 06/17/20 15:00 Heparin Sodium (Heparin) Please refer to ... ASDIRECTED XX 06/18/20 08:00 06/19/20 07:59 DC Heparin Sodium (Heparin) dose as per volume indica... ASDIRECTED PRN IV SEE LABEL COMMENTS 06/18/20 08:00 06/18/20 20:44 DC Insulin Detemir (Levemir Insulin) 15 units DAILY SC 06/18/20 09:00 06/18/20 09:04 Insulin Human Lispro (HumaLOG INSULIN) SEE PROTOCOL TABLE AC SC 06/17/20 17:30 06/19/20 12:13 Insulin Human Lispro (HumaLOG INSULIN) SEE PROTOCOL TABLE QHS SC 06/17/20 21:00 Iron (Venofer) 100 mg HD IV 06/17/20 20:45 06/18/20 13:28 Lactobacillus Acidophilus (Bacid) 1 ea WMHS PO 06/17/20 21:00 06/19/20 12:06 Lidocaine HCl (Lidocaine 1% Sdv) 0.5 ml ASDIRECTED PRN SC SEE LABEL COMMENTS 06/18/20 08:00 06/18/20 20:44 DC Metoprolol Tartrate (Lopressor) 25 mg BID PO 06/18/20 09:00 06/18/20 21:03 Ondansetron HCl (Zofran Odt) 4 mg Q4HP PRN PO NAUSEA OR VOMITING 06/17/20 15:00 06/19/20 10:08 Polyethylene Glycol (Miralax) 1 pkt DAILY PRN PO CONSTIPATION 06/17/20 15:00 Rivaroxaban (Xarelto) 10 mg DAILY@1800 PO 06/17/20 18:00 06/18/20 11:54 DC 06/17/20 21:10 Senna (Senokot) 1 tab QHS PO 06/17/20 21:00 06/18/20 21:03 Sodium Chloride (Nacl 0.9%) 200 ml ASDIRECTED PRN IV SEE LABEL COMMENTS 06/18/20 08:00 06/19/20 07:59 DC Sucralfate (Carafate) 1 gm ACHS PO 06/18/20 12:00 06/19/20 12:06 Tramadol HCl (Ultram) 50 mg Q4HP PRN PO MODERATE PAIN (PS 5-7) 06/17/20 15:00 06/19/20 08:32 Vitamin B Complex/ Vitamin C (Therapeutic B Complex w/C) 1 cap DAILY PO 06/18/20 09:00 06/19/20 07:53 Vitamin D (Vitamin D) 5,000 units QHS PO 06/17/20 21:00 06/18/20 21:03 SCOOBY HAWKINS MD Jun 19, 2020 13:21
[2020-06-19 14:00] VITALS: BP 102/48
[2020-06-19 20:00] VITALS: BP 116/57
[2020-06-19] MEDS: VITAMIN D 1,000 INTERNATIONAL UNITS TABLET PO SCH (21:00)
[2020-06-19] MEDS: SENNA 8.6 MG TAB (SENOKOT) PO SCH (21:01)
[2020-06-19 21:02] VITALS: BP_DIAS 57
[2020-06-20 06:22] VITALS: BP 107/48
[2020-06-20] MEDS: SUCRALFATE 1 GM TAB PO SCH (08:00)
[2020-06-20] MEDS ORDERED: LIDOCAINE 1% SDV 5ML VIAL SC PRN (08:00)
[2020-06-20] MEDS ORDERED: SODIUM CHLORIDE 0.9% 1000ML IV PRN (08:00)
[2020-06-20] MEDS: REMEDY PHYTOPLEX Z-GUARD PASTE 113GM TUBE (FROM STOREROOM PRODUCT) TOP SCH ×3 (08:00→20:51)
[2020-06-20] MEDS: LACTOBACILLUS ACIDOPHILUS CAP (BACID) PO SCH ×4 (08:00→20:51)
[2020-06-20 09:00] VITALS: BP_SYST 107
[2020-06-20] MEDS: DOCUSATE SODIUM 100MG CAPSULE PO SCH (09:00)
[2020-06-20] MEDS: VITAMIN B COMPLEX/VIT C CAP PO SCH (09:00)
[2020-06-20] MEDS: FOLIC ACID 1 MG TAB PO SCH (09:00)
[2020-06-20] MEDS: METOPROLOL TART 25 MG TABLET PO SCH (09:00)
[2020-06-20] MEDS: ACETAMINOPHEN 500 MG TAB PO SCH (09:00)
[2020-06-20] MEDS: HumaLOG INSULIN (NovoLOG) PER UNIT SC SCH ×4 (09:17→20:33)
[2020-06-20] MEDS: LEVEMIR (INSULIN DETEMIR) 1 UNITS/0.01ML SC SCH (09:18)
[2020-06-20] MEDS: APIXABAN 5 MG TAB (ELIQUIS) PO SCH ×2 (10:10→20:51)
--- NOTE | 2020-06-20 12:06 | IPNPDOC ---
PM&R Progress Note DATE OF SERVICE: Jun 20, 2020 [employer] Operator Progress Note Subjective: Patient reports she felt nauseous last night and vomited up some phlegm and a little bit of food, stating this has been occurring since Wednesday. She states she feels this way every time after taking a medication. REVIEW OF SYSTEMS: The following is a completed review of systems and has been reviewed. Review of systems otherwise unremarkable. PAIN: Patient self reports left hip pain EYES: No recent vision changes. EARS, NOSE, & THROAT: No throat pain, or dysphagia, or rhinorrhea CARDIOVASCULAR: Denies chest pain or palpitations PULMONARY: Denies shortness of breath GASTROINTESTINAL: Denies constipation/diarrhea, +nausea GENITOURINARY: oliguric MUSCULOSKELETAL: left hip fracture NEUROLOGICAL:denies tremor or paresthesias HEMATOLOGICAL:+anemia SKIN: abdominal laceration PSYCHIATRIC: Unremarkable All other review of systems found to be negative. PHYSICAL EXAMINATION: VITAL SIGNS: Please see below. GENERAL: Pleasant and cooperative. No acute distress. HEENT: PERRL. Extraocular movements intact. Clear conjunctiva. tongue moist CARDIOVASCULAR: Irregular rate and rhythm. No murmurs, rubs, or gallops LUNGS: Clear to auscultation bilaterally. No wheezes. No rhonchi ABDOMEN: Soft, nontender, nondistended. Positive bowel sounds. Normal active bowel sounds, healing wound NEUROLOGICAL: Alert and oriented times three. Cranial nerves II through XII grossly intact. Sensation grossly intact EXTREMITIES: 5\5 strength bilateral upper extremities. 5\5 strength right lower extremity. 5/5 strength in left ankle DF/EHL and PF (limited due to surgery) SKIN: left hip incision with serous drainage, no annie-wound induration/ erythema ASSESSMENT:79-year-old F with past medical history of ESRD on HD who presents status post fall with left hip fracture PLAN: 1.Rehab- PT/OT advance mobility and ADLs, stretch/strengthen/maintain ROM all 4limbs 2. Ortho- s/p left hip hemiarthroplasty- WBAT and precautions ordered 3. Cardiac- patient found to be in afib on initial eval , c/u eliquis and metoprolol, patient denies history of bleeding -monitor for RVR -fluid restrict and daily weights for fluid management 4. Resp- monitor for infection 5. ENdo- hx of DM c/u insulin 6. Renal -ESRD on HD, renal consulted 7. Heme- anemia of chronic disease, renal following, venofer/aranesp per their management 8. Pain- tylenol and tramadol 9. DVT ppx- switched from ppx Xarelto to treatment dose of Eliquis for afib 10. GI ppx- zofran prn nausea -will d/c sucralfate, vitamin B complex, tylenol, senna/colace, and vitamin D as patient reporting nausea and vomiting after medication administration the past 3 days and see if her symptoms improve- she is able to tolerate therapy and does not appear dehydrated 11. Dispo- 07-01-20 to home, progressing towards goals Allergies Coded Allergies: cetirizine (Verified Allergy, Intermediate, RASH, 02/22/19) amlodipine (Verified Allergy, Unknown, 03/04/20) pantoprazole (Verified Allergy, Unknown, 03/04/20) Slsovyz-Gbj-Brc Reductase Inhibitor (Verified Adverse Reaction, Intermediate, CRAMPS, 02/07/19) atorvastatin (Verified Adverse Reaction, Intermediate, CRAMPS, 01/07/19) prednisolone (Verified Adverse Reaction, Intermediate, ELEVATES BLOOD SUGAR, PT DIABETIC, 02/07/19) TAPE (Verified Adverse Reaction, Mild, ITCHING, 05/07/18) oxycodone (Verified Adverse Reaction, Mild, CONSTIPATION, 01/07/19) benzonatate (Verified Adverse Reaction, Unknown, PER PT HAD A PROBLEM WITH IT BUT UNSURE WHY, 01/07/19) fenofibrate (Verified Adverse Reaction, Unknown, PER PT HAD A PROBLEM WITH IT BUT UNSURE WHY, 01/07/19) tamsulosin (Verified Adverse Reaction, Unknown, PER PT HAD A PROBLEM BUT UNSURE WHAT IT WAS, 02/07/19) Vital Signs Vital Signs Date Time Temp Pulse Resp B/P (MAP) Pulse Ox O2 Delivery O2 Flow Rate FiO2 06/20/20 09:00 72 06/20/20 06:22 97.4 18 107/48 (67) 95 Room Air Laboratory Data Labs 24H Laboratory Tests 2 06/19/20 16:46: Bedside Glucose (Misc Panel) 106 06/19/20 20:06: Bedside Glucose (Misc Panel) 125H 06/20/20 06:51: Bedside Glucose (Misc Panel) 120H 06/20/20 11:57: Bedside Glucose (Misc Panel) 204H Current Medications Current Medications Current Medications Medications (Trade) Dose Ordered Sig/Princess Route PRN Reason Start Time Stop Time Status Last Admin Dose Admin Acetaminophen (Tylenol Tab) 1,000 mg TID PO 06/17/20 21:00 06/20/20 11:56 DC 06/19/20 17:29 Apixaban (Eliquis) 5 mg BID PO 06/18/20 21:00 06/20/20 10:10 Bisacodyl (Dulcolax Suppository) 10 mg DAILYPRN PRN [place] CONSTIPATION 06/17/20 15:00 Calcitriol (Rocaltrol) 0.25 mcg MoWeFr PO 06/17/20 09:00 06/19/20 07:52 Darbepoetin Maurizio (Aranesp (Dialysis Use)) 100 mcg HD IV 06/17/20 20:30 Dextrose (Dextrose 50%) 25 ml ASDIRECTED PRN IV SEE LABEL COMMENTS 06/17/20 15:00 Docusate Sodium (Colace) 100 mg BID PO 06/17/20 21:00 06/20/20 11:56 DC 06/19/20 21:02 Folic Acid (Folic Acid) 1 mg DAILY PO 06/18/20 09:00 06/19/20 07:52 Glucagon (Glucagon) 1 mg ASDIRECTED PRN SC SEE LABEL COMMENTS 06/17/20 15:00 Glucose (Glucose) 16 GM ASDIRECTED PRN PO SEE LABEL COMMENTS 06/17/20 15:00 Heparin Sodium (Heparin) Please refer to ... ASDIRECTED XX 06/18/20 08:00 06/19/20 07:59 DC Heparin Sodium (Heparin) Please refer to ... ASDIRECTED XX 06/20/20 08:00 06/21/20 07:59 Heparin Sodium (Heparin) dose as per volume indica... ASDIRECTED PRN IV SEE LABEL COMMENTS 06/18/20 08:00 06/18/20 20:44 DC Heparin Sodium (Heparin) dose as per volume indica... ASDIRECTED PRN IV SEE LABEL COMMENTS 06/20/20 08:00 06/20/20 21:14 Insulin Detemir (Levemir Insulin) 15 units DAILY SC 06/18/20 09:00 06/20/20 09:18 Insulin Human Lispro (HumaLOG INSULIN) SEE PROTOCOL TABLE AC SC 06/17/20 17:30 06/20/20 09:17 Insulin Human Lispro (HumaLOG INSULIN) SEE PROTOCOL TABLE QHS SC 06/17/20 21:00 Iron (Venofer) 100 mg HD IV 06/17/20 20:45 06/18/20 13:28 Lactobacillus Acidophilus (Bacid) 1 ea WMHS PO 06/17/20 21:00 06/19/20 21:01 Lidocaine HCl (Lidocaine 1% Sdv) 0.5 ml ASDIRECTED PRN SC SEE LABEL COMMENTS 06/18/20 08:00 06/18/20 20:44 DC Lidocaine HCl (Lidocaine 1% Sdv) 0.5 ml ASDIRECTED PRN SC SEE LABEL COMMENTS 06/20/20 08:00 06/20/20 21:14 Metoprolol Tartrate (Lopressor) 25 mg BID PO 06/18/20 09:00 06/19/20 21:02 Ondansetron HCl (Zofran Odt) 4 mg Q4HP PRN PO NAUSEA OR VOMITING 06/17/20 15:00 06/19/20 21:52 Polyethylene Glycol (Miralax) 1 pkt DAILY PRN PO CONSTIPATION 06/17/20 15:00 Rivaroxaban (Xarelto) 10 mg DAILY@1800 PO 06/17/20 18:00 06/18/20 11:54 DC 06/17/20 21:10 Senna (Senokot) 1 tab QHS PO 06/17/20 21:00 06/20/20 11:56 DC 06/19/20 21:01 Sodium Chloride (Nacl 0.9%) 200 ml ASDIRECTED PRN IV SEE LABEL COMMENTS 06/18/20 08:00 06/19/20 07:59 DC Sodium Chloride (Nacl 0.9%) 200 ml ASDIRECTED PRN IV SEE LABEL COMMENTS 06/20/20 08:00 06/21/20 07:59 Sucralfate (Carafate) 1 gm ACHS PO 06/18/20 12:00 06/20/20 11:56 DC 06/19/20 21:01 Tramadol HCl (Ultram) 50 mg Q4HP PRN PO MODERATE PAIN (PS 5-7) 06/17/20 15:00 06/19/20 08:32 Vitamin B Complex/ Vitamin C (Therapeutic B Complex w/C) 1 cap DAILY PO 06/18/20 09:00 06/20/20 11:56 DC 06/19/20 07:53 Vitamin D (Vitamin D) 5,000 units QHS PO 06/17/20 21:00 06/20/20 11:56 DC 06/19/20 21:00 SCOOBY HAWKINS MD Jun 20, 2020 12:06
[2020-06-20] MEDS: ONDANSETRON 4 MG ORAL DISINTEGRATING TAB PO PRN ×2 (12:13→17:38)
[2020-06-20 14:00] VITALS: BP_SYST 124; BP_SYST 132; BP_DIAS 47; BP_DIAS 61
[2020-06-20] MEDS: IRON SUCROSE 100MG 5ML VIAL (J1756 PER 1MG) IV SCH (14:06)
[2020-06-20 20:15] VITALS: BP 102/52
[2020-06-20] MEDS: traMADol 50 MG TAB PO PRN (20:51)
--- NOTE | 2020-06-20 23:02 | IPN ---
NEPHROLOGY PROGRESS NOTE DATE: 06/20/2020 SUBJECTIVE: The patient was seen and examined at the bedside today morning in the Rehab Unit. Today is her regular day of dialysis. The patient was feeling bad today that she refused her morning medications and that his not her usual routine. She explained to me that ever since she was transferred to the Rehab Unit the morning medications that she is receiving, she does not feel well for about half an hour after taking the medications. She feels like there are some new medications that are changed from her home regimen that might be causing some of her symptoms, and she requested me to go over her medication list. The patient will be going for dialysis in the afternoon today. OBJECTIVE: VITAL SIGNS: Temperature is 98.2 degrees Fahrenheit, blood pressure 102/52, pulse is 87, respiratory rate of 18, saturating 93% on room air. INTAKE AND OUTPUT: There is no urine output recorded today. Weight in the bed scale is 96.3 kg. PHYSICAL EXAMINATION: GENERAL APPEARANCE: The patient is awake, alert, oriented x3, laying in bed in no apparent distress. HEAD AND NECK: Extraocular muscles intact. Pupils are equally round and reactive to light. Mucous membranes are moist. Neck is supple. There is no jugular venous distention. CARDIOVASCULAR: S1, S2, irregular rate. EXTREMITIES: Trace edema of the bilateral lower extremities. RESPIRATORY: Chest is clear to auscultation bilaterally. Bilaterally currently no rales or rhonchi. ABDOMEN: Soft, obese, positive bowel sounds, nontender, no organomegaly. MUSCULOSKELETAL: No clubbing, no cyanosis. Pulses are 2+. Decreased range of movement of the left hip because of recent surgery. CURRENT INPATIENT MEDICATIONS: The patient's medications were all reviewed by myself. I see that the patient has not received the Metoprolol in the last 24 hours. She is only receiving it once a day. Her heart rate is controlled. I have stopped the Metoprolol now, especially since the patient is complaining of some side effects with the new medications. Her Carafate, Senna, and vitamins were also stopped by the Rehab Team. She continues to be on Eliquis. ASSESSMENT AND PLAN: 1. End-stage renal disease the patient will be dialyzed today in the afternoon. Ultrafiltration goal will be around one liter as tolerated by her blood pressure. 2. Anemia and end-stage renal disease - The patient is getting Aranesp and Venofer with dialysis. Hemoglobin level is stable. 3. Atrial fibrillation - heart rate is controlled. Metoprolol is being stopped. If she goes into atrial fibrillation with rapid ventricular response, she will be started on Digoxin instead. Continue current dose of Eliquis. 4. Diabetes mellitus type 2 - continue insulin sliding scale and insulin Lispro. 5. Status post left hip hemiarthroplasty - The patient is getting physical therapy as per Rehab.
[2020-06-21] MEDS: traMADol 50 MG TAB PO PRN ×2 (05:16→21:25)
[2020-06-21 06:00] VITALS: BP 103/56
[2020-06-21] MEDS: HumaLOG INSULIN (NovoLOG) PER UNIT SC SCH ×4 (07:30→21:00)
[2020-06-21] MEDS: ONDANSETRON 4 MG ORAL DISINTEGRATING TAB PO PRN ×2 (07:45→21:25)
[2020-06-21] MEDS: REMEDY PHYTOPLEX Z-GUARD PASTE 113GM TUBE (FROM STOREROOM PRODUCT) TOP SCH ×3 (09:00→21:24)
[2020-06-21] MEDS: LEVEMIR (INSULIN DETEMIR) 1 UNITS/0.01ML SC SCH (09:00)
[2020-06-21] MEDS: APIXABAN 5 MG TAB (ELIQUIS) PO SCH ×2 (09:11→21:26)
[2020-06-21] MEDS: LACTOBACILLUS ACIDOPHILUS CAP (BACID) PO SCH ×4 (09:11→21:25)
[2020-06-21] MEDS: FOLIC ACID 1 MG TAB PO SCH (09:12)
[2020-06-21] MEDS: CALCITRIOL 0.25 MCG CAP (S0169) PO SCH (09:12)
[2020-06-21 10:12] LABS: BASO # 0.1 10^3/uL (0.0-0.2); BASO % 0.7 % (0.0-1.0); EOS # 0.3 10^3/uL (0.0-0.5); EOS % 2.2 % (0.0-3.0); HEMATOCRIT 34.3 % (36.0-47.0); HEMOGLOBIN 10.3 g/dl (12.0-15.5); LYMPH # 0.9 10^3/uL (1.5-5.0); LYMPH % 7.8 % (24.0-44.0); MONO # 0.8 10^3/uL (0.0-0.8); MONO % 7.1 % (0.0-5.0); NEUTROPHILS # 9.3 10^3/uL (1.5-8.5); NEUTROPHILS % 80.7 % (36.0-66.0); PLATELET COUNT, AUTOMATED 247 10^3/uL (150-450); RED BLOOD COUNT 3.43 10^6/uL (4.00-5.40); WHITE BLOOD COUNT 11.5 10^3/uL (4.0-10.0)
[2020-06-21] MEDS ORDERED: NS 500 ML IV ONE (10:30)
[2020-06-21] MEDS ORDERED: ISOVUE-370 76% 100ML VIAL As Ordered ONE (10:53)
[2020-06-21 10:57] LABS: CALCIUM LEVEL 8.3 MG/DL (8.8-10.2); CREATININE FOR GFR 3.44 MG/DL (0.55-1.30); GLOMERULAR FILTRATION RATE 13.7 (>39)
--- NOTE | 2020-06-21 11:43 | REP ---
INDICATION: vomiting-r/o obstruction/ perforation COMPARISON: 03/04/2020. TECHNIQUE: CT Scan of the abdomen and pelvis was performed without intravenous contrast. Sagittal and coronal reconstruction images performed. FINDINGS: Lung bases: There are mild basilar atelectatic changes with a few tiny calcified granulomas. There is mild cardiomegaly. Liver: Grossly unremarkable. Gallbladder: Unremarkable. Spleen: Grossly unremarkable.. Adrenals: Normal. Pancreas: Diffuse pancreatic calcifications are present compatible with chronic pancreatitis. Kidneys: There is significant renal atrophy bilaterally. There is no hydronephrosis. Multiple renal calcifications are seen bilaterally. A 6 mm calcification is seen at the left ureteropelvic junction. A 1 cm left renal cyst is seen anteriorly. There appears to be a subcentimeter cyst in the most superior aspect of left kidney. There is a 1.6 cm hyperdense nodule in the left lower pole representing either a hyperdense cyst or solid nodule. Small and large bowel: There is no evidence of free intraperitoneal air or obstruction. Free fluid: None. Abdominal aorta: No aneurysm. Adenopathy: None. Appendix: Not inflamed. Osseous structures: There are degenerative changes of the spine without compression deformity. Metallic left hip prosthesis is present. Pelvis: No gross mass. Evaluation of pelvis is limited due to artifact from the left hip prosthesis. IMPRESSION: No free air, free fluid or bowel obstruction. Significant renal atrophy. Diffuse renal calcifications. Hyperdense nodule lower pole left kidney 1.6 cm in diameter may represent a hyperdense cyst or solid nodule. Recommend ultrasound to further evaluate. <Electronically signed by Robles Flores > 06/21/20 [id number]
[2020-06-21] MEDS: PROMETHAZINE INJ 25 MG/ML VIAL (J2550) IV PRN (13:00)
[2020-06-21 14:00] VITALS: BP 127/61
[2020-06-21 20:00] VITALS: BP 130/50
[2020-06-22 05:43] VITALS: BP 102/52
[2020-06-22] MEDS ORDERED: SODIUM CHLORIDE 0.9% 1000ML IV PRN (08:00)
[2020-06-22] MEDS ORDERED: LIDOCAINE 1% SDV 5ML VIAL SC PRN (08:00)
[2020-06-22] MEDS: LEVEMIR (INSULIN DETEMIR) 1 UNITS/0.01ML SC SCH (08:39)
[2020-06-22] MEDS: LACTOBACILLUS ACIDOPHILUS CAP (BACID) PO SCH ×4 (08:40→20:59)
[2020-06-22] MEDS: FOLIC ACID 1 MG TAB PO SCH (08:40)
[2020-06-22] MEDS: ONDANSETRON 4 MG ORAL DISINTEGRATING TAB PO PRN ×2 (08:40→16:31)
[2020-06-22] MEDS: APIXABAN 5 MG TAB (ELIQUIS) PO SCH ×2 (08:40→20:59)
[2020-06-22] MEDS: REMEDY PHYTOPLEX Z-GUARD PASTE 113GM TUBE (FROM STOREROOM PRODUCT) TOP SCH ×3 (08:43→21:00)
[2020-06-22] MEDS: HumaLOG INSULIN (NovoLOG) PER UNIT SC SCH ×4 (08:44→20:59)
[2020-06-22 09:04] LABS: BASO # 0.1 10^3/uL (0.0-0.2); BASO % 0.8 % (0.0-1.0); EOS # 0.4 10^3/uL (0.0-0.5); EOS % 3.9 % (0.0-3.0); HEMATOCRIT 31.6 % (36.0-47.0); HEMOGLOBIN 9.7 g/dl (12.0-15.5); LYMPH # 1.2 10^3/uL (1.5-5.0); LYMPH % 12.1 % (24.0-44.0); MEAN CORPUSCULAR HEMOGLOBIN 30.5 pg (27.0-33.0); MEAN CORPUSCULAR HGB CONC 30.7 g/dl (32.0-36.5); MEAN CORPUSCULAR VOLUME 99.4 fl (80.0-96.0); MONO % 9.8 % (0.0-5.0); NEUTROPHILS # 7.1 10^3/uL (1.5-8.5); NEUTROPHILS % 71.2 % (36.0-66.0); PLATELET COUNT, AUTOMATED 252 10^3/uL (150-450); RED BLOOD COUNT 3.18 10^6/uL (4.00-5.40); WHITE BLOOD COUNT 9.9 10^3/uL (4.0-10.0)
[2020-06-22] MEDS: DARBEPOETIN 100 MCG/0.5 ML *DIALYSIS* SYRINGE (J0882) IV SCH (13:31)
[2020-06-22 14:00] VITALS: BP 127/63
--- NOTE | 2020-06-22 14:07 | IPNPDOC ---
Subjective Date Seen The patient was seen on 06/22/20. Subjective Chief Complaint/HPI Patient was seen at bedside today. She states that she is doing much better. She states that her abdominal pain and nausea has improved. She states that she was able to have a complete meal. Nursing staff does not report any overnight events. General: Denies: ROS Unobtainable, Chills, Night Sweats, Fatigue, Malaise, Normal Appetite, Other Symptoms Constitutional: Denies: Chills, Fever, Malaise, Night Sweats, Weakness, Fatigue, Weight Loss, Lethargy, Other Gastrointestinal: Denies: Nausea, Vomiting, Abdominal Pain Objective Physical Examination General Exam: Positive: Alert, Cooperative Eye Exam: Positive: Conjunctiva & lids normal ENT Exam: Positive: Atraumatic Neck Exam: Positive: Supple Chest Exam: Positive: Clear to auscultation, Normal air movement; Negative: Rales, Rhonchi, Wheezing Heart Exam: Positive: Rate Normal, Irregular Rhythm; Negative: Gallops, Murmurs, Rubs Abdomen Exam: Positive: Normal bowel sounds, Soft; Negative: Tenderness Extremity Exam: Positive: Edema (+1 pitting edema legs bilaterally up to knees) Assessment /Plan Assessment # End-stage renal disease: Patient is scheduled to be dialyzed today. # Anemia and end-stage renal disease - The patient is getting Aranesp and Venofer with dialysis. Hemoglobin level is stable. # Atrial fibrillation - heart rate is controlled. Metoprolol is being stopped. If she goes into atrial fibrillation with rapid ventricular response, she will be started on Digoxin instead. Continue current dose of Eliquis. # T2DM: continue insulin sliding scale and insulin Lispro. # Status post left hip hemiarthroplasty: Continue rehabilitation Plan/VTE VTE Prophylaxis Ordered?: Yes (patient is on Eliquis) GME ATTESTATION My faculty preceptor for this patient encounter was physically present during the encounter and was fully available. All aspects of the patient interview, examination, medical decision making process, and medical care plan development were reviewed and approved by the faculty preceptor. The faculty preceptor is aware and concurs with the plan as stated in the body of this note and will attest to such by his/her cosignature. VS, I&O, 24H, Fishbone Vital Signs/I&O Vital Signs Date Time Temp Pulse Resp B/P (MAP) Pulse Ox O2 Delivery O2 Flow Rate FiO2 06/22/20 05:43 97.7 85 20 102/52 (69) 96 Room Air I&O- Last 24 Hours up to 6 AM 06/22/20 06:00 Intake Total 510 ml Balance 510 ml Laboratory Data 24H LABS Laboratory Tests 2 06/21/20 16:07: Bedside Glucose (Misc Panel) 106 06/21/20 20:24: Bedside Glucose (Misc Panel) 140H 06/22/20 05:19: Bedside Glucose (Misc Panel) 138H 06/22/20 08:22: Immature Granulocyte % (Auto) 2.2, Neutrophils (%) (Auto) 71.2H, Lymphocytes (%) (Auto) 12.1L, Monocytes (%) (Auto) 9.8H, Eosinophils (%) (Auto) 3.9H, Basophils (%) (Auto) 0.8, Neutrophils # (Auto) 7.1, Lymphocytes # (Auto) 1.2L, Monocytes # (Auto) 1.0H, Eosinophils # (Auto) 0.4, Basophils # (Auto) 0.1, Nucleated Red Blood Cells % (auto) 0.0 06/22/20 11:17: Bedside Glucose (Misc Panel) 121H CBC/BMP Laboratory Tests 06/22/20 08:22 Microbiology Microbiology 06/21/20 Blood Culture, Received Pending 06/21/20 Blood Culture - Preliminary, Resulted No growth after 24 hours . All specim... Attending Note Attending Note ESRD Afib s/p Lt hip hemiarthroplasty HD today with UF goal~1Kg. Metoprolol stopped due to weakness and soft BP. Cont eliquis. Duncan Rosado DO Jun 22, 2020 14:07 ARMANDO ROSADO MD Jun 23, 2020 15:59
--- NOTE | 2020-06-22 14:22 | IPNPDOC ---
PM&R Progress Note DATE OF SERVICE: Jun 22, 2020 Pelt Inspector Progress Note Subjective: Patient reports she feels better with the phenergen and after receiving fluids yesterday. She reports no further abdominal symptoms. REVIEW OF SYSTEMS: The following is a completed review of systems and has been reviewed. Review of systems otherwise unremarkable. PAIN: Patient self reports left hip pain EYES: No recent vision changes. EARS, NOSE, & THROAT: No throat pain, or dysphagia, or rhinorrhea CARDIOVASCULAR: Denies chest pain or palpitations PULMONARY: Denies shortness of breath GASTROINTESTINAL: Denies constipation/diarrhea, +nausea GENITOURINARY: oliguric MUSCULOSKELETAL: left hip fracture NEUROLOGICAL:denies tremor or paresthesias HEMATOLOGICAL:+anemia SKIN: abdominal laceration PSYCHIATRIC: Unremarkable All other review of systems found to be negative. PHYSICAL EXAMINATION: VITAL SIGNS: Please see below. GENERAL: Pleasant and cooperative. No acute distress. HEENT: PERRL. Extraocular movements intact. Clear conjunctiva. tongue moist CARDIOVASCULAR: Irregular rate and rhythm. No murmurs, rubs, or gallops LUNGS: Clear to auscultation bilaterally. No wheezes. No rhonchi ABDOMEN: Soft, nontender, nondistended. Positive bowel sounds. Normal active bowel sounds, healing wound NEUROLOGICAL: Alert and oriented times three. Cranial nerves II through XII grossly intact. Sensation grossly intact EXTREMITIES: 5\5 strength bilateral upper extremities. 5\5 strength right lower extremity. 5/5 strength in left ankle DF/EHL and PF (limited due to surgery) SKIN: left hip incision with serous drainage, no annie-wound induration/ erythema ASSESSMENT:79-year-old F with past medical history of ESRD on HD who presents status post fall with left hip fracture PLAN: 1.Rehab- PT/OT advance mobility and ADLs, stretch/strengthen/maintain ROM all 4limbs 2. Ortho- s/p left hip hemiarthroplasty- WBAT and precautions ordered 3. Cardiac- patient found to be in afib on initial eval , c/u eliquis and metoprolol, patient denies history of bleeding -monitor for RVR -fluid restrict and daily weights for fluid management 4. Resp- monitor for infection 5. ENdo- hx of DM c/u insulin 6. Renal -ESRD on HD, renal consulted 7. Heme- anemia of chronic disease, renal following, venofer/aranesp per their management 8. Pain- tylenol and tramadol 9. DVT ppx- switched from ppx Xarelto to treatment dose of Eliquis for afib 10. GI ppx- zofran prn nausea and IV phenergen- nausea resolved, CT abd/pelvis 06-21-20 negative for obstruction/perforation, patient reporting she feels much better today, s/p 500cc gentle IVF 06-21-20 for ongoing vomiting which has resolved -d/c'd sucralfate, vitamin B complex, tylenol, senna/colace, and vitamin D as may have been contributing to nausea, patient feeling better she is able to tolerate therapy 11. Dispo- 07-01-20 to home, progressing towards goals Allergies Coded Allergies: cetirizine (Verified Allergy, Intermediate, RASH, 02/22/19) amlodipine (Verified Allergy, Unknown, 03/04/20) pantoprazole (Verified Allergy, Unknown, 03/04/20) Qjzjlyu-Mty-Trj Reductase Inhibitor (Verified Adverse Reaction, Intermediate, CRAMPS, 02/07/19) atorvastatin (Verified Adverse Reaction, Intermediate, CRAMPS, 01/07/19) prednisolone (Verified Adverse Reaction, Intermediate, ELEVATES BLOOD SUGAR, PT DIABETIC, 02/07/19) TAPE (Verified Adverse Reaction, Mild, ITCHING, 05/07/18) oxycodone (Verified Adverse Reaction, Mild, CONSTIPATION, 01/07/19) benzonatate (Verified Adverse Reaction, Unknown, PER PT HAD A PROBLEM WITH IT BUT UNSURE WHY, 01/07/19) fenofibrate (Verified Adverse Reaction, Unknown, PER PT HAD A PROBLEM WITH IT BUT UNSURE WHY, 01/07/19) tamsulosin (Verified Adverse Reaction, Unknown, PER PT HAD A PROBLEM BUT U NSURE WHAT IT WAS, 02/07/19) Vital Signs Vital Signs Date Time Temp Pulse Resp B/P (MAP) Pulse Ox O2 Delivery O2 Flow Rate FiO2 06/22/20 14:00 97.9 72 20 127/63 (84) 97 Room Air Laboratory Data CBC/BMP Laboratory Tests 06/22/20 08:22 Labs 24H Laboratory Tests 2 06/21/20 16:07: Bedside Glucose (Misc Panel) 106 06/21/20 20:24: Bedside Glucose (Misc Panel) 140H 06/22/20 05:19: Bedside Glucose (Misc Panel) 138H 06/22/20 08:22: Immature Granulocyte % (Auto) 2.2, Neutrophils (%) (Auto) 71.2H, Lymphocytes (%) (Auto) 12.1L, Monocytes (%) (Auto) 9.8H, Eosinophils (%) (Auto) 3.9H, Basophils (%) (Auto) 0.8, Neutrophils # (Auto) 7.1, Lymphocytes # (Auto) 1.2L, Monocytes # (Auto) 1.0H, Eosinophils # (Auto) 0.4, Basophils # (Auto) 0.1, Nucleated Red Blood Cells % (auto) 0.0 06/22/20 11:17: Bedside Glucose (Misc Panel) 121H Microbiology Microbiology 06/21/20 Blood Culture, Received Pending 06/21/20 Blood Culture - Preliminary, Resulted No growth after 24 hours . All specim... Current Medications Current Medications Current Medications Medications (Trade) Dose Ordered Sig/Princess Route PRN Reason Start Time Stop Time Status Last Admin Dose Admin Acetaminophen (Tylenol Tab) 1,000 mg TID PO 06/17/20 21:00 06/20/20 11:56 DC 06/19/20 17:29 Apixaban (Eliquis) 5 mg BID PO 06/18/20 21:00 06/22/20 08:40 Bisacodyl (Dulcolax Suppository) 10 mg DAILYPRN PRN [place] CONSTIPATION 06/17/20 15:00 Calcitriol (Rocaltrol) 0.25 mcg MoWeFr PO 06/17/20 09:00 06/21/20 09:12 Darbepoetin Maurizio (Aranesp (Dialysis Use)) 100 mcg HD IV 06/17/20 20:30 06/22/20 13:31 Dextrose (Dextrose 50%) 25 ml ASDIRECTED PRN IV SEE LABEL COMMENTS 06/17/20 15:00 Docusate Sodium (Colace) 100 mg BID PO 06/17/20 21:00 06/20/20 11:56 DC 06/19/20 21:02 Folic Acid (Folic Acid) 1 mg DAILY PO 06/18/20 09:00 06/22/20 08:40 Glucagon (Glucagon) 1 mg ASDIRECTED PRN SC SEE LABEL COMMENTS 06/17/20 15:00 Glucose (Glucose) 16 GM ASDIRECTED PRN PO SEE LABEL COMMENTS 06/17/20 15:00 Heparin Sodium (Heparin) Please refer to ... ASDIRECTED XX 06/18/20 08:00 06/19/20 07:59 DC Heparin Sodium (Heparin) Please refer to ... ASDIRECTED XX 06/20/20 08:00 06/21/20 07:59 DC Heparin Sodium (Heparin) Please refer to ... ASDIRECTED XX 06/22/20 08:00 06/23/20 07:59 Heparin Sodium (Heparin) dose as per volume indica... ASDIRECTED PRN IV SEE LABEL COMMENTS 06/18/20 08:00 06/18/20 20:44 DC Heparin Sodium (Heparin) dose as per volume indica... ASDIRECTED PRN IV SEE LABEL COMMENTS 06/20/20 08:00 06/20/20 21:14 DC Heparin Sodium (Heparin) dose as per volume indica... ASDIRECTED PRN IV SEE LABEL COMMENTS 06/22/20 08:00 06/22/20 22:14 Insulin Detemir (Levemir Insulin) 15 units DAILY SC 06/18/20 09:00 06/22/20 08:39 Insulin Human Lispro (HumaLOG INSULIN) SEE PROTOCOL TABLE AC SC 06/17/20 17:30 06/22/20 12:17 Insulin Human Lispro (HumaLOG INSULIN) SEE PROTOCOL TABLE QHS SC 06/17/20 21:00 Iron (Venofer) 100 mg HD IV 06/17/20 20:45 06/20/20 14:06 Lactobacillus Acidophilus (Bacid) 1 ea WMHS PO 06/17/20 21:00 06/22/20 12:15 Lidocaine HCl (Lidocaine 1% Sdv) 0.5 ml ASDIRECTED PRN SC SEE LABEL COMMENTS 06/18/20 08:00 06/18/20 20:44 DC Lidocaine HCl (Lidocaine 1% Sdv) 0.5 ml ASDIRECTED PRN SC SEE LABEL COMMENTS 06/20/20 08:00 06/20/20 21:14 DC Lidocaine HCl (Lidocaine 1% Sdv) 0.5 ml ASDIRECTED PRN SC SEE LABEL COMMENTS 06/22/20 08:00 06/22/20 22:14 Metoprolol Tartrate (Lopressor) 25 mg BID PO 06/18/20 09:00 06/20/20 12:44 DC 06/19/20 21:02 Ondansetron HCl (Zofran Odt) 4 mg Q4HP PRN PO NAUSEA OR VOMITING 06/17/20 15:00 06/22/20 08:40 Polyethylene Glycol (Miralax) 1 pkt DAILY PRN PO CONSTIPATION 06/17/20 15:00 Promethazine HCl (PHENERGAN INJection) 25 mg Q6HP PRN IV NAUSEA 06/21/20 10:30 06/21/20 13:00 Rivaroxaban (Xarelto) 10 mg DAILY@1800 PO 06/17/20 18:00 06/18/20 11:54 DC 06/17/20 21:10 Senna (Senokot) 1 tab QHS PO 06/17/20 21:00 06/20/20 11:56 DC 06/19/20 21:01 Sodium Chloride (Nacl 0.9%) 200 ml ASDIRECTED PRN IV SEE LABEL COMMENTS 06/18/20 08:00 06/19/20 07:59 DC Sodium Chloride (Nacl 0.9%) 200 ml ASDIRECTED PRN IV SEE LABEL COMMENTS 06/20/20 08:00 06/21/20 07:59 DC 06/21/20 12:58 Sodium Chloride (Nacl 0.9%) 200 ml ASDIRECTED PRN IV SEE LABEL COMMENTS 06/22/20 08:00 06/23/20 07:59 Sucralfate (Carafate) 1 gm ACHS PO 06/18/20 12:00 06/20/20 11:56 DC 06/19/20 21:01 Tramadol HCl (Ultram) 50 mg Q4HP PRN PO MODERATE PAIN (PS 5-7) 06/17/20 15:00 06/21/20 21:25 Vitamin B Complex/ Vitamin C (Therapeutic B Complex w/C) 1 cap DAILY PO 06/18/20 09:00 06/20/20 11:56 DC 06/19/20 07:53 Vitamin D (Vitamin D) 5,000 units QHS PO 06/17/20 21:00 06/20/20 11:56 DC 06/19/20 21:00 SCOOBY HAWKINS MD Jun 22, 2020 14:22
[2020-06-22] MEDS: IRON SUCROSE 100MG 5ML VIAL (J1756 PER 1MG) IV SCH (14:34)
[2020-06-22] MEDS: traMADol 50 MG TAB PO PRN ×2 (16:32→20:59)
[2020-06-22 20:00] VITALS: BP 125/63
[2020-06-23 06:00] VITALS: BP 105/67
[2020-06-23] MEDS: LEVEMIR (INSULIN DETEMIR) 1 UNITS/0.01ML SC SCH (10:10)
[2020-06-23] MEDS: ONDANSETRON 4 MG ORAL DISINTEGRATING TAB PO PRN ×3 (10:10→22:30)
[2020-06-23] MEDS: FOLIC ACID 1 MG TAB PO SCH (10:10)
[2020-06-23] MEDS: HumaLOG INSULIN (NovoLOG) PER UNIT SC SCH ×4 (10:10→21:00)
[2020-06-23] MEDS: APIXABAN 5 MG TAB (ELIQUIS) PO SCH ×2 (10:11→22:28)
[2020-06-23] MEDS: LACTOBACILLUS ACIDOPHILUS CAP (BACID) PO SCH ×4 (10:11→21:00)
[2020-06-23] MEDS: traMADol 50 MG TAB PO PRN ×2 (10:11→22:29)
[2020-06-23] MEDS: REMEDY PHYTOPLEX Z-GUARD PASTE 113GM TUBE (FROM STOREROOM PRODUCT) TOP SCH ×3 (10:15→21:00)
[2020-06-23 14:30] VITALS: BP 110/50
[2020-06-23 21:00] VITALS: BP 122/65
[2020-06-23] MEDS: PROMETHAZINE INJ 25 MG/ML VIAL (J2550) IV PRN (21:53)
[2020-06-24 06:26] VITALS: BP 121/56
[2020-06-24] MEDS: APIXABAN 5 MG TAB (ELIQUIS) PO SCH ×2 (07:56→20:56)
[2020-06-24] MEDS: LACTOBACILLUS ACIDOPHILUS CAP (BACID) PO SCH ×4 (07:56→20:56)
[2020-06-24] MEDS: CALCITRIOL 0.25 MCG CAP (S0169) PO SCH (07:56)
[2020-06-24] MEDS: FOLIC ACID 1 MG TAB PO SCH (07:56)
[2020-06-24] MEDS: REMEDY PHYTOPLEX Z-GUARD PASTE 113GM TUBE (FROM STOREROOM PRODUCT) TOP SCH ×3 (07:57→20:52)
[2020-06-24] MEDS: HumaLOG INSULIN (NovoLOG) PER UNIT SC SCH ×4 (07:58→20:51)
[2020-06-24] MEDS: LEVEMIR (INSULIN DETEMIR) 1 UNITS/0.01ML SC SCH (07:58)
[2020-06-24 08:07] LABS: BASO # 0.1 10^3/uL (0.0-0.2); EOS # 0.4 10^3/uL (0.0-0.5); EOS % 3.9 % (0.0-3.0); HEMATOCRIT 31.2 % (36.0-47.0); HEMOGLOBIN 9.4 g/dl (12.0-15.5); LYMPH # 1.2 10^3/uL (1.5-5.0); LYMPH % 13.4 % (24.0-44.0); MEAN CORPUSCULAR HEMOGLOBIN 30.2 pg (27.0-33.0); MEAN CORPUSCULAR HGB CONC 30.1 g/dl (32.0-36.5); MEAN CORPUSCULAR VOLUME 100.3 fl (80.0-96.0); MONO % 10.3 % (0.0-5.0); NEUTROPHILS # 6.4 10^3/uL (1.5-8.5); NEUTROPHILS % 68.9 % (36.0-66.0); PLATELET COUNT, AUTOMATED 277 10^3/uL (150-450); RED BLOOD COUNT 3.11 10^6/uL (4.00-5.40); WHITE BLOOD COUNT 9.2 10^3/uL (4.0-10.0)
[2020-06-24 08:30] LABS: CALCIUM LEVEL 8.5 MG/DL (8.8-10.2); CREATININE FOR GFR 4.48 MG/DL (0.55-1.30); GLOMERULAR FILTRATION RATE 10.1 (>39); POTASSIUM SERUM 3.7 MEQ/L (3.5-5.1)
[2020-06-24] MEDS: traMADol 50 MG TAB PO PRN ×2 (10:21→14:01)
[2020-06-24 14:00] VITALS: BP 118/54
[2020-06-24 20:20] VITALS: BP 118/53
[2020-06-25 05:38] VITALS: BP 101/58
[2020-06-25] MEDS: LEVEMIR (INSULIN DETEMIR) 1 UNITS/0.01ML SC SCH (08:41)
[2020-06-25] MEDS: HumaLOG INSULIN (NovoLOG) PER UNIT SC SCH ×4 (08:41→20:55)
[2020-06-25] MEDS: FOLIC ACID 1 MG TAB PO SCH (08:42)
[2020-06-25] MEDS: APIXABAN 5 MG TAB (ELIQUIS) PO SCH ×2 (08:42→20:54)
[2020-06-25] MEDS: LACTOBACILLUS ACIDOPHILUS CAP (BACID) PO SCH ×4 (08:42→20:54)
[2020-06-25] MEDS: REMEDY PHYTOPLEX Z-GUARD PASTE 113GM TUBE (FROM STOREROOM PRODUCT) TOP SCH ×3 (08:44→20:55)
[2020-06-25] MEDS: traMADol 50 MG TAB PO PRN ×2 (09:12→20:54)
--- NOTE | 2020-06-25 09:59 | IPNPDOC ---
PM&R Progress Note DATE OF SERVICE: Jun 25, 2020 Test Engine Operator Progress Note Subjective: Patient seen in dialysis stating she thinks she has an allergy to Zofran as it did not help her nausea when she took it and she believes it made her nausea continue. REVIEW OF SYSTEMS: The following is a completed review of systems and has been reviewed. Review of systems otherwise unremarkable. PAIN: Patient self reports left hip pain EYES: No recent vision changes. EARS, NOSE, & THROAT: No throat pain, or dysphagia, or rhinorrhea CARDIOVASCULAR: Denies chest pain or palpitations PULMONARY: Denies shortness of breath GASTROINTESTINAL: Denies constipation/diarrhea GENITOURINARY: oliguric MUSCULOSKELETAL: left hip fracture NEUROLOGICAL:denies tremor or paresthesias HEMATOLOGICAL:+anemia SKIN: abdominal laceration PSYCHIATRIC: Unremarkable All other review of systems found to be negative. PHYSICAL EXAMINATION: VITAL SIGNS: Please see below. GENERAL: Pleasant and cooperative. No acute distress. HEENT: PERRL. Extraocular movements intact. Clear conjunctiva. tongue moist CARDIOVASCULAR: Irregular rate and rhythm. No murmurs, rubs, or gallops LUNGS: Clear to auscultation bilaterally. No wheezes. No rhonchi ABDOMEN: Soft, nontender, nondistended. Positive bowel sounds. Normal active bowel sounds, healing wound NEUROLOGICAL: Alert and oriented times three. Cranial nerves II through XII grossly intact. Sensation grossly intact EXTREMITIES: 5\5 strength bilateral upper extremities. 5\5 strength right lower extremity. 5/5 strength in left ankle DF/EHL and PF (limited due to surgery) SKIN: left hip incision with serous drainage, no annie-wound induration/ erythema ASSESSMENT:79-year-old F with past medical history of ESRD on HD who presents status post fall with left hip fracture PLAN: 1.Rehab- PT/OT advance mobility and ADLs, stretch/strengthen/maintain ROM all 4limbs 2. Ortho- s/p left hip hemiarthroplasty- WBAT and precautions ordered 3. Cardiac- patient found to be in afib on initial eval , c/u eliquis and metoprolol, patient denies history of bleeding -monitor for RVR -fluid restrict and daily weights for fluid management 4. Resp- monitor for infection 5. ENdo- hx of DM c/u insulin 6. Renal -ESRD on HD, renal consulted 7. Heme- anemia of chronic disease, renal following, venofer/aranesp per their management 8. Pain- tylenol and tramadol 9. DVT ppx- switched from ppx Xarelto to treatment dose of Eliquis for afib 10. GI ppx- nausea/vomiting has resolved, c/u IV phenergen prn, Zofran added to allergy/adverse reaction list as patient reporting she believes this made her nausea worse - nausea resolved, CT abd/pelvis 06-21-20 negative for obstruction/perforation, -d/c'd sucralfate, vitamin B complex, tylenol, senna/colace, and vitamin D as may have been contributing to nausea, patient feeling better she is able to tolerate therapy 11. Dispo- 07-01-20 to home, progressing towards goals Allergies Coded Allergies: cetirizine (Verified Allergy, Intermediate, RASH, 02/22/19) amlodipine (Verified Allergy, Unknown, 03/04/20) pantoprazole (Verified Allergy, Unknown, 03/04/20) Kyvrsak-Sxi-Pur Reductase Inhibitor (Verified Adverse Reaction, Intermediate, CRAMPS, 02/07/19) atorvastatin (Verified Adverse Reaction, Intermediate, CRAMPS, 01/07/19) prednisolone (Verified Adverse Reaction, Intermediate, ELEVATES BLOOD SUGAR, PT DIABETIC, 02/07/19) TAPE (Verified Adverse Reaction, Mild, ITCHING, 05/07/18) ondansetron (Verified Adverse Reaction, Mild, nausea, 06/25/20) oxycodone (Verified Adverse Reaction, Mild, CONSTIPATION, 01/07/19) benzonatate (Verified Adverse Reaction, Unknown, PER PT HAD A PROBLEM WITH IT BUT UNSURE WHY, 01/07/19) fenofibrate (Verified Adverse Reaction, Unknown, PER PT HAD A PROBLEM WITH IT BUT UNSURE WHY, 01/07/19) tamsulosin (Verified Adverse Reaction, Unknown, PER PT HAD A PROBLEM BUT UNSURE WHAT IT WAS, 02/07/19) Vital Signs Vital Signs Date Time Temp Pulse Resp B/P (MAP) Pulse Ox O2 Delivery O2 Flow Rate FiO2 06/25/20 09:12 18 06/25/20 05:38 98.3 90 101/58 (72) 94 Room Air Laboratory Data Labs 24H Laboratory Tests 2 06/24/20 11:07: Bedside Glucose (Misc Panel) 141H 06/24/20 16:23: Bedside Glucose (Misc Panel) 160H 06/24/20 20:06: Bedside Glucose (Misc Panel) 137H 06/25/20 05:59: Bedside Glucose (Misc Panel) 155H Microbiology Microbiology 06/21/20 Blood Culture - Preliminary, Resulted No Growth after 72 hours. All specime... 06/21/20 Blood Culture - Preliminary, Resulted No Growth after 72 hours. All specime... Current Medications Current Medications Current Medications Medications (Trade) Dose Ordered Sig/Princess Route PRN Reason Start Time Stop Time Status Last Admin Dose Admin Acetaminophen (Tylenol Tab) 1,000 mg TID PO 06/17/20 21:00 06/20/20 11:56 DC 06/19/20 17:29 Apixaban (Eliquis) 5 mg BID PO 06/18/20 21:00 06/25/20 08:42 Bisacodyl (Dulcolax Suppository) 10 mg DAILYPRN PRN [place] CONSTIPATION 06/17/20 15:00 Calcitriol (Rocaltrol) 0.25 mcg MoWeFr PO 06/17/20 09:00 06/24/20 07:56 Darbepoetin Maurizio (Aranesp (Dialysis Use)) 100 mcg HD IV 06/17/20 20:30 06/22/20 13:31 Dextrose (Dextrose 50%) 25 ml ASDIRECTED PRN IV SEE LABEL COMMENTS 06/17/20 15:00 Docusate Sodium (Colace) 100 mg BID PO 06/17/20 21:00 06/20/20 11:56 DC 06/19/20 21:02 Folic Acid (Folic Acid) 1 mg DAILY PO 06/18/20 09:00 06/25/20 08:42 Glucagon (Glucagon) 1 mg ASDIRECTED PRN SC SEE LABEL COMMENTS 06/17/20 15:00 Glucose (Glucose) 16 GM ASDIRECTED PRN PO SEE LABEL COMMENTS 06/17/20 15:00 Heparin Sodium (Heparin) Please refer to ... ASDIRECTED XX 06/18/20 08:00 06/19/20 07:59 DC Heparin Sodium (Heparin) Please refer to ... ASDIRECTED XX 06/20/20 08:00 06/21/20 07:59 DC Heparin Sodium (Heparin) Please refer to ... ASDIRECTED XX 06/22/20 08:00 06/23/20 07:59 DC Heparin Sodium (Heparin) dose as per volume indica... ASDIRECTED PRN IV SEE LABEL COMMENTS 06/18/20 08:00 06/18/20 20:44 DC Heparin Sodium (Heparin) dose as per volume indica... ASDIRECTED PRN IV SEE LABEL COMMENTS 06/20/20 08:00 06/20/20 21:14 DC Heparin Sodium (Heparin) dose as per volume indica... ASDIRECTED PRN IV SEE LABEL COMMENTS 06/22/20 08:00 06/22/20 22:14 DC Insulin Detemir (Levemir Insulin) 15 units DAILY SC 06/18/20 09:00 06/25/20 08:41 Insulin Human Lispro (HumaLOG INSULIN) SEE PROTOCOL TABLE AC SC 06/17/20 17:30 06/25/20 08:41 Insulin Human Lispro (HumaLOG INSULIN) SEE PROTOCOL TABLE QHS SC 06/17/20 21:00 Iron (Venofer) 100 mg HD IV 06/17/20 20:45 06/22/20 14:34 Lactobacillus Acidophilus (Bacid) 1 ea WMHS PO 06/17/20 21:00 06/25/20 08:42 Lidocaine HCl (Lidocaine 1% Sdv) 0.5 ml ASDIRECTED PRN SC SEE LABEL COMMENTS 06/18/20 08:00 06/18/20 20:44 DC Lidocaine HCl (Lidocaine 1% Sdv) 0.5 ml ASDIRECTED PRN SC SEE LABEL COMMENTS 06/20/20 08:00 06/20/20 21:14 DC Lidocaine HCl (Lidocaine 1% Sdv) 0.5 ml ASDIRECTED PRN SC SEE LABEL COMMENTS 06/22/20 08:00 06/22/20 22:14 DC Metoprolol Tartrate (Lopressor) 25 mg BID PO 06/18/20 09:00 06/20/20 12:44 DC 06/19/20 21:02 Ondansetron HCl (Zofran Odt) 4 mg Q4HP PRN PO NAUSEA OR VOMITING 06/17/20 15:00 06/23/20 22:30 Polyethylene Glycol (Miralax) 1 pkt DAILY PRN PO CONSTIPATION 06/17/20 15:00 Promethazine HCl (PHENERGAN INJection) 25 mg Q6HP PRN IV NAUSEA 06/21/20 10:30 06/23/20 21:53 Rivaroxaban (Xarelto) 10 mg DAILY@1800 PO 06/17/20 18:00 06/18/20 11:54 DC 06/17/20 21:10 Senna (Senokot) 1 tab QHS PO 06/17/20 21:00 06/20/20 11:56 DC 06/19/20 21:01 Sodium Chloride (Nacl 0.9%) 200 ml ASDIRECTED PRN IV SEE LABEL COMMENTS 06/18/20 08:00 06/19/20 07:59 DC Sodium Chloride (Nacl 0.9%) 200 ml ASDIRECTED PRN IV SEE LABEL COMMENTS 06/20/20 08:00 06/21/20 07:59 DC 06/21/20 12:58 Sodium Chloride (Nacl 0.9%) 200 ml ASDIRECTED PRN IV SEE LABEL COMMENTS 06/22/20 08:00 06/23/20 07:59 DC Sucralfate (Carafate) 1 gm ACHS PO 06/18/20 12:00 06/20/20 11:56 DC 06/19/20 21:01 Tramadol HCl (Ultram) 50 mg Q4HP PRN PO MODERATE PAIN (PS 5-7) 06/17/20 15:00 06/25/20 09:12 Vitamin B Complex/ Vitamin C (Therapeutic B Complex w/C) 1 cap DAILY PO 06/18/20 09:00 06/20/20 11:56 DC 06/19/20 07:53 Vitamin D (Vitamin D) 5,000 units QHS PO 06/17/20 21:00 06/20/20 11:56 DC 06/19/20 21:00 SCOOBY HAWKINS MD Jun 25, 2020 09:59
[2020-06-25] MEDS ORDERED: LIDOCAINE 1% SDV 5ML VIAL SC PRN (10:00)
[2020-06-25] MEDS ORDERED: SODIUM CHLORIDE 0.9% 1000ML IV PRN (10:00)
[2020-06-25] MEDS: IRON SUCROSE 100MG 5ML VIAL (J1756 PER 1MG) IV SCH (13:05)
[2020-06-25 14:00] VITALS: BP 106/59
[2020-06-25 20:00] VITALS: BP 109/53
--- NOTE | 2020-06-25 20:31 | IPN ---
PROGRESS NOTE DATE: 06/25/2020 SUBJECTIVE: Karolyn is seen and examined this afternoon in the hemodialysis unit receiving her maintenance treatment. She reports rehabilitation is going well. She has no complaints. She denies shortness of breath. Her pain is adequately controlled. Her dialysis treatment is uneventful. Temperature 96.7, pulse 86, respiratory rate 22, blood pressure 106/59, saturating 96% on room air. Intake yesterday was 610. Dialysis today removed 1 liters. Weight in the bed scale today is not recorded. General: Patient is seen awake, alert, oriented, receiving her treatment in no apparent distress. Extraocular muscles are intact. Tongue is moist. Neck is supple. Jugular veins are not elevated. Heart sounds S1, S2, irregular heart sounds. There is trace edema of the legs. Lungs are clear to auscultation bilaterally. No crackle, rales, or rhonchus. Abdomen is soft, obese, and nontender. There are bowel sounds. Musculoskeletal: No clubbing or cyanosis. Peripheral pulse is palpable. She has decreased range of motion of left hip because of recent surgery. Dialysis access: Her fistula is patent and presently in use. Skin: Warm and dry. Normal turgor. Neurologic: Oriented times three. Interactive at baseline mentation. LABORATORY DATA: White count 9.2, hemoglobin 9.4, platelets 277. Sodium 134, potassium 3.7, bicarbonate 28. INPATIENT MEDICATIONS: Reviewed by myself, and no changes as compared to yesterday. PROBLEMS: 1. End-stage renal disease, on hemodialysis on a Wednesday, , Wednesday schedule. Patient is dialyzed today. One liter of fluid is removed. Her electrolytes and volume status are acceptable. No change is being made to the current prescription. 2. Anemia of end-stage renal disease. Hemoglobin level is below target (10-11). She continues on Aranesp, and she is receiving Venofer with dialysis as well. 3. Atrial fibrillation. Patient is anticoagulated with Eliquis, and she is not on any rate-controlling medications, but pulse is acceptable. She previously did not tolerate addition of beta roshan. 4. Status post left hip hemiarthroplasty. Patient is progressing with physical therapy as per rehabilitation medicine. 5. Hyponatremia. It is mild, and it is related to dialysis. Continue current prescription and continue 1800 mL fluid restriction. 6. Secondary hyperparathyroidism of renal orgin. The patient continues on calcitriol.
[2020-06-26 05:59] VITALS: BP 110/51
[2020-06-26 07:30] LABS: BASO # 0.1 10^3/uL (0.0-0.2); BASO % 1.1 % (0.0-1.0); EOS # 0.4 10^3/uL (0.0-0.5); EOS % 4.4 % (0.0-3.0); HEMATOCRIT 33.7 % (36.0-47.0); HEMOGLOBIN 10.2 g/dl (12.0-15.5); LYMPH # 1.3 10^3/uL (1.5-5.0); LYMPH % 15.5 % (24.0-44.0); MEAN CORPUSCULAR HEMOGLOBIN 30.9 pg (27.0-33.0); MEAN CORPUSCULAR HGB CONC 30.3 g/dl (32.0-36.5); MEAN CORPUSCULAR VOLUME 102.1 fl (80.0-96.0); MONO # 0.9 10^3/uL (0.0-0.8); MONO % 11.2 % (0.0-5.0); NEUTROPHILS # 5.5 10^3/uL (1.5-8.5); NEUTROPHILS % 66.4 % (36.0-66.0); PLATELET COUNT, AUTOMATED 282 10^3/uL (150-450); WHITE BLOOD COUNT 8.3 10^3/uL (4.0-10.0)
[2020-06-26 07:49] LABS: CALCIUM LEVEL 8.6 MG/DL (8.8-10.2); CREATININE FOR GFR 3.71 MG/DL (0.55-1.30); GLOMERULAR FILTRATION RATE 12.5 (>39); POTASSIUM SERUM 3.9 MEQ/L (3.5-5.1)
[2020-06-26] MEDS: HumaLOG INSULIN (NovoLOG) PER UNIT SC SCH ×4 (08:05→21:00)
[2020-06-26] MEDS: CALCITRIOL 0.25 MCG CAP (S0169) PO SCH (08:06)
[2020-06-26] MEDS: LEVEMIR (INSULIN DETEMIR) 1 UNITS/0.01ML SC SCH (08:06)
[2020-06-26] MEDS: LACTOBACILLUS ACIDOPHILUS CAP (BACID) PO SCH ×4 (08:06→21:46)
[2020-06-26] MEDS: APIXABAN 5 MG TAB (ELIQUIS) PO SCH ×2 (08:06→21:45)
[2020-06-26] MEDS: FOLIC ACID 1 MG TAB PO SCH (08:06)
[2020-06-26] MEDS: REMEDY PHYTOPLEX Z-GUARD PASTE 113GM TUBE (FROM STOREROOM PRODUCT) TOP SCH ×3 (08:07→21:46)
[2020-06-26] MEDS: traMADol 50 MG TAB PO PRN ×3 (08:09→21:45)
--- NOTE | 2020-06-26 11:19 | IPNPDOC ---
PM&R Progress Note DATE OF SERVICE: Jun 26, 2020 Department Clerk Progress Note Subjective: Patient reporting she is feeling well overall and does not have worsening left hip pain, fevers, or chills. Her appetite is improving. REVIEW OF SYSTEMS: The following is a completed review of systems and has been reviewed. Review of systems otherwise unremarkable. PAIN: Patient self reports left hip pain EYES: No recent vision changes. EARS, NOSE, & THROAT: No throat pain, or dysphagia, or rhinorrhea CARDIOVASCULAR: Denies chest pain or palpitations PULMONARY: Denies shortness of breath GASTROINTESTINAL: Denies constipation/diarrhea GENITOURINARY: oliguric MUSCULOSKELETAL: left hip fracture NEUROLOGICAL:denies tremor or paresthesias HEMATOLOGICAL:+anemia SKIN: abdominal laceration PSYCHIATRIC: Unremarkable All other review of systems found to be negative. PHYSICAL EXAMINATION: VITAL SIGNS: Please see below. GENERAL: Pleasant and cooperative. No acute distress. HEENT: PERRL. Extraocular movements intact. Clear conjunctiva. tongue moist CARDIOVASCULAR: Irregular rate and rhythm. No murmurs, rubs, or gallops LUNGS: Clear to auscultation bilaterally. No wheezes. No rhonchi ABDOMEN: Soft, nontender, nondistended. Positive bowel sounds. Normal active bowel sounds, healing wound NEUROLOGICAL: Alert and oriented times three. Cranial nerves II through XII grossly intact. Sensation grossly intact EXTREMITIES: 5\5 strength bilateral upper extremities. 5\5 strength right lower extremity. 5/5 strength in left ankle DF/EHL and PF (limited due to surgery) SKIN: left hip incision with minimal serous drainage, no annie-wound induration/ erythema ASSESSMENT:79-year-old F with past medical history of ESRD on HD who presents status post fall with left hip fracture PLAN: 1.Rehab- PT/OT advance mobility and ADLs, stretch/strengthen/maintain ROM all 4limbs 2. Ortho- s/p left hip hemiarthroplasty- WBAT and precautions ordered 3. Cardiac- patient found to be in afib on initial eval , c/u eliquis and metoprolol, patient denies history of bleeding -monitor for RVR -fluid restrict and daily weights for fluid management 4. Resp- monitor for infection 5. ENdo- hx of DM c/u insulin 6. Renal -ESRD on HD, renal consulted 7. Heme- anemia of chronic disease, renal following, venofer/aranesp per their management 8. Pain- tylenol and tramadol 9. DVT ppx- switched from ppx Xarelto to treatment dose of Eliquis for afib 10. GI ppx- nausea/vomiting has resolved, c/u IV phenergen prn, Zofran added to allergy/adverse reaction list as patient reporting she believes this made her nausea worse - nausea resolved, CT abd/pelvis 06-21-20 negative for obstruction/perforation, -d/c'd sucralfate, vitamin B complex, tylenol, senna/colace, and vitamin D as may have been contributing to nausea, patient feeling better she is able to tolerate therapy 11. Dispo- 07-01-20 to home, progressing towards goals Allergies Coded Allergies: cetirizine (Verified Allergy, Intermediate, RASH, 02/22/19) amlodipine (Verified Allergy, Unknown, 03/04/20) pantoprazole (Verified Allergy, Unknown, 03/04/20) Flucflp-Ixe-Iov Reductase Inhibitor (Verified Adverse Reaction, Intermediate, CRAMPS, 02/07/19) atorvastatin (Verified Adverse Reaction, Intermediate, CRAMPS, 01/07/19) prednisolone (Verified Adverse Reaction, Intermediate, ELEVATES BLOOD SUGAR, PT DIABETIC, 02/07/19) TAPE (Verified Adverse Reaction, Mild, ITCHING, 05/07/18) ondansetron (Verified Adverse Reaction, Mild, nausea, 06/25/20) oxycodone (Verified Adverse Reaction, Mild, CONSTIPATION, 01/07/19) benzonatate (Verified Adverse Reaction, Unknown, PER PT HAD A PROBLEM WITH IT BUT UNSURE WHY, 01/07/19) fenofibrate (Verified Adverse Reaction, Unknown, PER PT HAD A PROBLEM WITH IT BUT UNSURE WHY, 01/07/19) tamsulosin (Verified Adverse Reaction, Unknown, PER PT HAD A PROBLEM BUT UNSURE WHAT IT WAS, 02/07/19) Vital Signs Vital Signs Date Time Temp Pulse Resp B/P (MAP) Pulse Ox O2 Delivery O2 Flow Rate FiO2 06/26/20 08:09 20 Room Air 06/26/20 05:59 96.2 82 110/51 (70) 96 Laboratory Data CBC/BMP Laboratory Tests 06/26/20 07:03 Labs 24H Laboratory Tests 2 06/25/20 11:54: Bedside Glucose (Misc Panel) 291H 06/25/20 16:08: Bedside Glucose (Misc Panel) 84 06/25/20 20:18: Bedside Glucose (Misc Panel) 122H 06/26/20 06:14: Bedside Glucose (Misc Panel) 127H 06/26/20 07:03: Immature Granulocyte % (Auto) 1.4, Neutrophils (%) (Auto) 66.4H, Lymphocytes (%) (Auto) 15.5L, Monocytes (%) (Auto) 11.2H, Eosinophils (%) (Auto) 4.4H, Basophils (%) (Auto) 1.1H, Neutrophils # (Auto) 5.5, Lymphocytes # (Auto) 1.3L, Monocytes # (Auto) 0.9H, Eosinophils # (Auto) 0.4, Basophils # (Auto) 0.1, Nucleated Red Blood Cells % (auto) 0.5H, Anion Gap 9, Glomerular Filtration Rate 12.5L, Calcium Level 8.6L Microbiology Microbiology 06/21/20 Blood Culture - Preliminary, Resulted No Growth after 72 hours. All specime... 06/21/20 Blood Culture - Preliminary, Resulted No Growth after 72 hours. All specime... Current Medications Current Medications Current Medications Medications (Trade) Dose Ordered Sig/Princess Route PRN Reason Start Time Stop Time Status Last Admin Dose Admin Acetaminophen (Tylenol Tab) 1,000 mg TID PO 06/17/20 21:00 06/20/20 11:56 DC 06/19/20 17:29 Apixaban (Eliquis) 5 mg BID PO 06/18/20 21:00 06/26/20 08:06 Bisacodyl (Dulcolax Suppository) 10 mg DAILYPRN PRN [place] CONSTIPATION 06/17/20 15:00 Calcitriol (Rocaltrol) 0.25 mcg MoWeFr PO 06/17/20 09:00 06/26/20 08:06 Darbepoetin Maurizio (Aranesp (Dialysis Use)) 100 mcg HD IV 06/17/20 20:30 06/22/20 13:31 Dextrose (Dextrose 50%) 25 ml ASDIRECTED PRN IV SEE LABEL COMMENTS 06/17/20 15:00 Docusate Sodium (Colace) 100 mg BID PO 06/17/20 21:00 06/20/20 11:56 DC 06/19/20 21:02 Folic Acid (Folic Acid) 1 mg DAILY PO 06/18/20 09:00 06/26/20 08:06 Glucagon (Glucagon) 1 mg ASDIRECTED PRN SC SEE LABEL COMMENTS 06/17/20 15:00 Glucose (Glucose) 16 GM ASDIRECTED PRN PO SEE LABEL COMMENTS 06/17/20 15:00 Heparin Sodium (Heparin) Please refer to ... ASDIRECTED XX 06/18/20 08:00 06/19/20 07:59 DC Heparin Sodium (Heparin) Please refer to ... ASDIRECTED XX 06/20/20 08:00 06/21/20 07:59 DC Heparin Sodium (Heparin) Please refer to ... ASDIRECTED XX 06/22/20 08:00 06/23/20 07:59 DC Heparin Sodium (Heparin) Please refer to ... ASDIRECTED XX 06/25/20 10:00 06/26/20 09:59 DC Heparin Sodium (Heparin) dose as per volume indica... ASDIRECTED PRN IV SEE LABEL COMMENTS 06/18/20 08:00 06/18/20 20:44 DC Heparin Sodium (Heparin) dose as per volume indica... ASDIRECTED PRN IV SEE LABEL COMMENTS 06/20/20 08:00 06/20/20 21:14 DC Heparin Sodium (Heparin) dose as per volume indica... ASDIRECTED PRN IV SEE LABEL COMMENTS 06/22/20 08:00 06/22/20 22:14 DC Insulin Detemir (Levemir Insulin) 15 units DAILY SC 06/18/20 09:00 06/26/20 08:06 Insulin Human Lispro (HumaLOG INSULIN) SEE PROTOCOL TABLE AC SC 06/17/20 17:30 06/26/20 08:05 Insulin Human Lispro (HumaLOG INSULIN) SEE PROTOCOL TABLE QHS SC 06/17/20 21:00 Iron (Venofer) 100 mg HD IV 06/17/20 20:45 06/25/20 13:05 Lactobacillus Acidophilus (Bacid) 1 ea WMHS PO 06/17/20 21:00 06/26/20 08:06 Lidocaine HCl (Lidocaine 1% Sdv) 0.5 ml ASDIRECTED PRN SC SEE LABEL COMMENTS 06/18/20 08:00 06/18/20 20:44 DC Lidocaine HCl (Lidocaine 1% Sdv) 0.5 ml ASDIRECTED PRN SC SEE LABEL COMMENTS 06/20/20 08:00 06/20/20 21:14 DC Lidocaine HCl (Lidocaine 1% Sdv) 0.5 ml ASDIRECTED PRN SC SEE LABEL COMMENTS 06/22/20 08:00 06/22/20 22:14 DC Lidocaine HCl (Lidocaine 1% Sdv) 0.5 ml ASDIRECTED PRN SC SEE LABEL COMMENTS 06/25/20 10:00 06/26/20 09:59 DC Metoprolol Tartrate (Lopressor) 25 mg BID PO 06/18/20 09:00 06/20/20 12:44 DC 06/19/20 21:02 Ondansetron HCl (Zofran Odt) 4 mg Q4HP PRN PO NAUSEA OR VOMITING 06/17/20 15:00 06/25/20 17:51 DC 06/23/20 22:30 Polyethylene Glycol (Miralax) 1 pkt DAILY PRN PO CONSTIPATION 06/17/20 15:00 Promethazine HCl (PHENERGAN INJection) 25 mg Q6HP PRN IV NAUSEA 06/21/20 10:30 06/23/20 21:53 Rivaroxaban (Xarelto) 10 mg DAILY@1800 PO 06/17/20 18:00 06/18/20 11:54 DC 06/17/20 21:10 Senna (Senokot) 1 tab QHS PO 06/17/20 21:00 06/20/20 11:56 DC 06/19/20 21:01 Sodium Chloride (Nacl 0.9%) 200 ml ASDIRECTED PRN IV SEE LABEL COMMENTS 06/18/20 08:00 06/19/20 07:59 DC Sodium Chloride (Nacl 0.9%) 200 ml ASDIRECTED PRN IV SEE LABEL COMMENTS 06/20/20 08:00 06/21/20 07:59 DC 06/21/20 12:58 Sodium Chloride (Nacl 0.9%) 200 ml ASDIRECTED PRN IV SEE LABEL COMMENTS 06/22/20 08:00 06/23/20 07:59 DC Sodium Chloride (Nacl 0.9%) 200 ml ASDIRECTED PRN IV SEE LABEL COMMENTS 06/25/20 10:00 06/26/20 09:59 DC Sucralfate (Carafate) 1 gm ACHS PO 06/18/20 12:00 06/20/20 11:56 DC 06/19/20 21:01 Tramadol HCl (Ultram) 50 mg Q4HP PRN PO MODERATE PAIN (PS 5-7) 06/17/20 15:00 06/26/20 08:09 Vitamin B Complex/ Vitamin C (Therapeutic B Complex w/C) 1 cap DAILY PO 06/18/20 09:00 06/20/20 11:56 DC 06/19/20 07:53 Vitamin D (Vitamin D) 5,000 units QHS PO 06/17/20 21:00 06/20/20 11:56 DC 06/19/20 21:00 SCOOBY HAWKINS MD Jun 26, 2020 11:19
[2020-06-26 14:00] VITALS: BP 115/52
[2020-06-26 20:00] VITALS: BP 110/49
[2020-06-26] MEDS: MIRALAX *UNIT DOSE* 17GM PACKET PO PRN (21:45)
[2020-06-27 06:00] VITALS: BP 132/64
[2020-06-27] MEDS: LACTOBACILLUS ACIDOPHILUS CAP (BACID) PO SCH ×4 (08:05→20:38)
[2020-06-27] MEDS: APIXABAN 5 MG TAB (ELIQUIS) PO SCH ×2 (08:05→20:38)
[2020-06-27] MEDS: FOLIC ACID 1 MG TAB PO SCH (08:05)
[2020-06-27] MEDS: traMADol 50 MG TAB PO PRN ×2 (08:07→20:38)
[2020-06-27] MEDS: HumaLOG INSULIN (NovoLOG) PER UNIT SC SCH ×4 (08:07→20:39)
[2020-06-27] MEDS: REMEDY PHYTOPLEX Z-GUARD PASTE 113GM TUBE (FROM STOREROOM PRODUCT) TOP SCH ×3 (08:08→20:39)
[2020-06-27] MEDS: LEVEMIR (INSULIN DETEMIR) 1 UNITS/0.01ML SC SCH (08:08)
[2020-06-27] MEDS ORDERED: LIDOCAINE 1% SDV 5ML VIAL SC PRN (12:45)
[2020-06-27] MEDS ORDERED: SODIUM CHLORIDE 0.9% 1000ML IV PRN (12:45)
[2020-06-27 14:00] VITALS: BP 122/60
--- NOTE | 2020-06-27 16:03 | IPN ---
NEPHROLOGY PROGRESS NOTE DATE: 06/27/2020 SUBJECTIVE: The patient was seen and examined this afternoon in the hemodialysis unit receiving her treatment. She offers no complaints and reports rehab is going well and denies shortness of breath or any troubles with her appetite or bowels. PHYSICAL EXAMINATION: VITAL SIGNS: Temperature 96.8, pulse 80, respiratory rate 19, blood pressure 122/60, saturating 98% on room air. INTAKE AND OUTPUT: Intake yesterday was one liter. Weight in the bed scale today is 93.7 kg. Goal fluid removal today with dialysis is 1 to 1.5 liters as tolerated by hemodynamics. GENERAL APPEARANCE: This patient is seen receiving her treatment awake, alert, oriented, elderly female in no apparent distress. HEENT: The extraocular muscles are intact. Tongue is moist. NECK: Supple. Jugular veins are not elevated. HEART: Irregular, S1, S2. There is trace leg edema. LUNGS: Clear to auscultation bilaterally. No crackles, rales or rhonchus. ABDOMEN: Soft, obese and nontender. There are bowel sounds. MUSCULOSKELETAL: No clubbing or cyanosis. Peripheral pulse is palpable. She has a dressing over the left hip because of recent surgery. Dialysis access per fistula is patent and in use. SKIN: Warm and dry, normal turgor. NEUROLOGICAL: Oriented x3, interactive at baseline mentation. LABORATORY STUDIES: Today's laboratory studies show a white count of 8.3, hemoglobin 10.2, platelet count 282. Sodium 136, potassium 3.9, bicarbonate 29. INPATIENT MEDICATIONS: The patient's medications were reviewed by myself and no change noted as compared to the past few days. PROBLEMS: 1. End-stage renal disease on hemodialysis on Wednesday, , Wednesday schedule - The patient is tolerating her treatment without issue. Her fistula is in good use. Electrolytes are acceptable. She is well dialyzed. No changes being made to the current prescription. We are removing one to one and a half liters of fluid today. 2. Anemia of end-stage renal disease - The patient is receiving Aranesp and iron with hemodialysis and her hemoglobin has come up to goal. 3. Atrial fibrillation she is anticoagulated with Eliquis and she is not requiring any rate controlling medications. She previously did not tolerate addition of beta roshan. 4. Status post left hip hemiarthroplasty - The patient is progressing with physical therapy as per Rehabilitation Medicine. 5. Secondary hyperparathyroidism of renal origin she continues on Calcitriol, and I will get a phosphorous level.
[2020-06-27 20:00] VITALS: BP 119/51
[2020-06-28 06:00] VITALS: BP 104/53
[2020-06-28] MEDS: HumaLOG INSULIN (NovoLOG) PER UNIT SC SCH ×4 (07:30→21:00)
[2020-06-28] MEDS: LACTOBACILLUS ACIDOPHILUS CAP (BACID) PO SCH ×4 (08:00→21:01)
[2020-06-28] MEDS: APIXABAN 5 MG TAB (ELIQUIS) PO SCH ×2 (10:02→21:01)
[2020-06-28] MEDS: LEVEMIR (INSULIN DETEMIR) 1 UNITS/0.01ML SC SCH (10:02)
[2020-06-28] MEDS: FOLIC ACID 1 MG TAB PO SCH (10:02)
[2020-06-28] MEDS: CALCITRIOL 0.25 MCG CAP (S0169) PO SCH (10:04)
[2020-06-28] MEDS: REMEDY PHYTOPLEX Z-GUARD PASTE 113GM TUBE (FROM STOREROOM PRODUCT) TOP SCH ×3 (10:07→21:02)
[2020-06-28 10:52] LABS: BASO # 0.1 10^3/uL (0.0-0.2); BASO % 1.1 % (0.0-1.0); EOS # 0.2 10^3/uL (0.0-0.5); EOS % 2.4 % (0.0-3.0); HEMOGLOBIN 11.1 g/dl (12.0-15.5); LYMPH # 0.9 10^3/uL (1.5-5.0); LYMPH % 10.9 % (24.0-44.0); MEAN CORPUSCULAR HEMOGLOBIN 30.8 pg (27.0-33.0); MEAN CORPUSCULAR VOLUME 102.8 fl (80.0-96.0); MONO # 0.7 10^3/uL (0.0-0.8); MONO % 8.6 % (0.0-5.0); NEUTROPHILS # 6.5 10^3/uL (1.5-8.5); NEUTROPHILS % 76.2 % (36.0-66.0); PLATELET COUNT, AUTOMATED 261 10^3/uL (150-450); WHITE BLOOD COUNT 8.5 10^3/uL (4.0-10.0)
[2020-06-28 11:13] LABS: CALCIUM LEVEL 9.2 MG/DL (8.8-10.2); CREATININE FOR GFR 3.61 MG/DL (0.55-1.30); GLOMERULAR FILTRATION RATE 12.9 (>39); PHOSPHORUS LEVEL 2.6 MG/DL (2.5-4.9); POTASSIUM SERUM 4.9 MEQ/L (3.5-5.1)
[2020-06-28] MEDS: traMADol 50 MG TAB PO PRN (12:34)
[2020-06-28 14:00] VITALS: BP 137/60
[2020-06-28] MEDS: MIRALAX *UNIT DOSE* 17GM PACKET PO PRN (17:23)
[2020-06-28 20:00] VITALS: BP 130/66
[2020-06-28] MEDS: NYSTATIN 100,000 UNITS/GM TOPICAL PWD 15 GM TOP SCH (21:01)
[2020-06-29] MEDS: traMADol 50 MG TAB PO PRN ×3 (00:30→21:35)
[2020-06-29 06:00] VITALS: BP 106/63
[2020-06-29] MEDS: LEVEMIR (INSULIN DETEMIR) 1 UNITS/0.01ML SC SCH (09:00)
[2020-06-29] MEDS: HumaLOG INSULIN (NovoLOG) PER UNIT SC SCH ×4 (09:08→21:00)
[2020-06-29] MEDS: APIXABAN 5 MG TAB (ELIQUIS) PO SCH ×2 (09:10→21:35)
[2020-06-29] MEDS: FOLIC ACID 1 MG TAB PO SCH (09:10)
[2020-06-29] MEDS: LACTOBACILLUS ACIDOPHILUS CAP (BACID) PO SCH ×4 (09:10→21:35)
[2020-06-29] MEDS: REMEDY PHYTOPLEX Z-GUARD PASTE 113GM TUBE (FROM STOREROOM PRODUCT) TOP SCH ×3 (09:11→21:35)
[2020-06-29] MEDS: NYSTATIN 100,000 UNITS/GM TOPICAL PWD 15 GM TOP SCH ×2 (09:11→21:36)
--- NOTE | 2020-06-29 13:06 | IPNPDOC ---
PM&R Progress Note DATE OF SERVICE: Jun 28, 2020 Trouble Locator Test Desk Progress Note Subjective: Patient reports she is ready to go home on Wednesday and feels better overall. REVIEW OF SYSTEMS: The following is a completed review of systems and has been reviewed. Review of systems otherwise unremarkable. PAIN: Patient self reports left hip pain EYES: No recent vision changes. EARS, NOSE, & THROAT: No throat pain, or dysphagia, or rhinorrhea CARDIOVASCULAR: Denies chest pain or palpitations PULMONARY: Denies shortness of breath GASTROINTESTINAL: Denies constipation/diarrhea GENITOURINARY: oliguric MUSCULOSKELETAL: left hip fracture NEUROLOGICAL:denies tremor or paresthesias HEMATOLOGICAL:+anemia SKIN: abdominal laceration PSYCHIATRIC: Unremarkable All other review of systems found to be negative. PHYSICAL EXAMINATION: VITAL SIGNS: Please see below. GENERAL: Pleasant and cooperative. No acute distress. HEENT: PERRL. Extraocular movements intact. Clear conjunctiva. tongue moist CARDIOVASCULAR: Irregular rate and rhythm. No murmurs, rubs, or gallops LUNGS: Clear to auscultation bilaterally. No wheezes. No rhonchi ABDOMEN: Soft, nontender, nondistended. Positive bowel sounds. Normal active bowel sounds, healing wound NEUROLOGICAL: Alert and oriented times three. Cranial nerves II through XII grossly intact. Sensation grossly intact EXTREMITIES: 5\5 strength bilateral upper extremities. 5\5 strength right lower extremity. 5/5 strength in left ankle DF/EHL and PF (limited due to surgery) SKIN: left hip incision with minimal serous drainage, no annie-wound induration/ erythema ASSESSMENT:79-year-old F with past medical history of ESRD on HD who presents status post fall with left hip fracture PLAN: 1.Rehab- PT/OT advance mobility and ADLs, stretch/strengthen/maintain ROM all 4limbs 2. Ortho- s/p left hip hemiarthroplasty- WBAT and precautions ordered 3. Cardiac- patient found to be in afib on initial eval , c/u eliquis and metoprolol, patient denies history of bleeding -monitor for RVR -fluid restrict and daily weights for fluid management 4. Resp- monitor for infection 5. ENdo- hx of DM c/u insulin 6. Renal -ESRD on HD, renal consulted 7. Heme- anemia of chronic disease, renal following, venofer/aranesp per their management 8. Pain- tylenol and tramadol 9. DVT ppx- switched from ppx Xarelto to treatment dose of Eliquis for afib 10. GI ppx- nausea/vomiting has resolved, c/u IV phenergen prn, Zofran added to allergy/adverse reaction list as patient reporting she believes this made her nausea worse - nausea resolved, CT abd/pelvis 06-21-20 negative for obstruction/perforation, -d/c'd sucralfate, vitamin B complex, tylenol, senna/colace, and vitamin D as may have been contributing to nausea, patient feeling better she is able to tolerate therapy 11. Dispo- 07-01-20 to home, progressing towards goals Allergies Coded Allergies: cetirizine (Verified Allergy, Intermediate, RASH, 02/22/19) amlodipine (Verified Allergy, Unknown, 03/04/20) pantoprazole (Verified Allergy, Unknown, 03/04/20) Cnjxuzk-Ukc-Efe Reductase Inhibitor (Verified Adverse Reaction, Intermediate, CRAMPS, 02/07/19) atorvastatin (Verified Adverse Reaction, Intermediate, CRAMPS, 01/07/19) prednisolone (Verified Adverse Reaction, Intermediate, ELEVATES BLOOD SUGAR, PT DIABETIC, 02/07/19) TAPE (Verified Adverse Reaction, Mild, ITCHING, 05/07/18) ondansetron (Verified Adverse Reaction, Mild, nausea, 06/25/20) oxycodone (Verified Adverse Reaction, Mild, CONSTIPATION, 01/07/19) benzonatate (Verified Adverse Reaction, Unknown, PER PT HAD A PROBLEM WITH IT BUT UNSURE WHY, 01/07/19) fenofibrate (Verified Adverse Reaction, Unknown, PER PT HAD A PROBLEM WITH IT BUT UNSURE WHY, 01/07/19) tamsulosin (Verified Adverse Reaction, Unknown, PER PT HAD A PROBLEM BUT UNSURE WHAT IT WAS, 02/07/19) Vital Signs Vital Signs Date Time Temp Pulse Resp B/P (MAP) Pulse Ox O2 Delivery O2 Flow Rate FiO2 06/29/20 12:24 18 Room Air 06/29/20 06:00 98.0 78 106/63 (77) 97 Laboratory Data Labs 24H Laboratory Tests 2 06/28/20 16:26: Bedside Glucose (Misc Panel) 84 06/28/20 19:50: Bedside Glucose (Misc Panel) 123H 06/29/20 05:39: Bedside Glucose (Misc Panel) 143H 06/29/20 11:27: Bedside Glucose (Misc Panel) 219H Microbiology Microbiology 06/21/20 Blood Culture - Final, Complete NO GROWTH AFTER 5 DAYS 06/21/20 Blood Culture - Final, Complete NO GROWTH AFTER 5 DAYS Current Medications Current Medications Current Medications Medications (Trade) Dose Ordered Sig/Princess Route PRN Reason Start Time Stop Time Status Last Admin Dose Admin Acetaminophen (Tylenol Tab) 1,000 mg TID PO 06/17/20 21:00 06/20/20 11:56 DC 06/19/20 17:29 Apixaban (Eliquis) 5 mg BID PO 06/18/20 21:00 06/29/20 09:10 Bisacodyl (Dulcolax Suppository) 10 mg DAILYPRN PRN UT CONSTIPATION 06/17/20 15:00 06/26/20 21:45 Calcitriol (Rocaltrol) 0.25 mcg MoWeFr PO 06/17/20 09:00 06/28/20 10:04 Darbepoetin Maurizio (Aranesp (Dialysis Use)) 100 mcg HD IV 06/17/20 20:30 06/22/20 13:31 Dextrose (Dextrose 50%) 25 ml ASDIRECTED PRN IV SEE LABEL COMMENTS 06/17/20 15:00 Docusate Sodium (Colace) 100 mg BID PO 06/17/20 21:00 06/20/20 11:56 DC 06/19/20 21:02 Folic Acid (Folic Acid) 1 mg DAILY PO 06/18/20 09:00 06/29/20 09:10 Glucagon (Glucagon) 1 mg ASDIRECTED PRN SC SEE LABEL COMMENTS 06/17/20 15:00 Glucose (Glucose) 16 GM ASDIRECTED PRN PO SEE LABEL COMMENTS 06/17/20 15:00 Heparin Sodium (Heparin) Please refer to ... ASDIRECTED XX 06/18/20 08:00 06/19/20 07:59 DC Heparin Sodium (Heparin) Please refer to ... ASDIRECTED XX 06/20/20 08:00 06/21/20 07:59 DC Heparin Sodium (Heparin) Please refer to ... ASDIRECTED XX 06/22/20 08:00 06/23/20 07:59 DC Heparin Sodium (Heparin) Please refer to ... ASDIRECTED XX 06/25/20 10:00 06/26/20 09:59 DC Heparin Sodium (Heparin) Please refer to ... ASDIRECTED XX 06/27/20 12:45 06/28/20 12:44 DC Heparin Sodium (Heparin) dose as per volume indica... ASDIRECTED PRN IV SEE LABEL COMMENTS 06/18/20 08:00 06/18/20 20:44 DC Heparin Sodium (Heparin) dose as per volume indica... ASDIRECTED PRN IV SEE LABEL COMMENTS 06/20/20 08:00 06/20/20 21:14 DC Heparin Sodium (Heparin) dose as per volume indica... ASDIRECTED PRN IV SEE LABEL COMMENTS 06/22/20 08:00 06/22/20 22:14 DC Insulin Detemir (Levemir Insulin) 15 units DAILY SC 06/18/20 09:00 06/28/20 10:02 Insulin Human Lispro (HumaLOG INSULIN) SEE PROTOCOL TABLE AC SC 06/17/20 17:30 06/29/20 11:55 Insulin Human Lispro (HumaLOG INSULIN) SEE PROTOCOL TABLE QHS SC 06/17/20 21:00 Iron (Venofer) 100 mg HD IV 06/17/20 20:45 06/27/20 11:03 DC 06/25/20 13:05 Lactobacillus Acidophilus (Bacid) 1 ea WMHS PO 06/17/20 21:00 06/29/20 11:55 Lidocaine HCl (Lidocaine 1% Sdv) 0.5 ml ASDIRECTED PRN SC SEE LABEL COMMENTS 06/18/20 08:00 06/18/20 20:44 DC Lidocaine HCl (Lidocaine 1% Sdv) 0.5 ml ASDIRECTED PRN SC SEE LABEL COMMENTS 06/20/20 08:00 06/20/20 21:14 DC Lidocaine HCl (Lidocaine 1% Sdv) 0.5 ml ASDIRECTED PRN SC SEE LABEL COMMENTS 06/22/20 08:00 06/22/20 22:14 DC Lidocaine HCl (Lidocaine 1% Sdv) 0.5 ml ASDIRECTED PRN SC SEE LABEL COMMENTS 06/25/20 10:00 06/26/20 09:59 DC Lidocaine HCl (Lidocaine 1% Sdv) 0.5 ml ASDIRECTED PRN SC SEE LABEL COMMENTS 06/27/20 12:45 06/28/20 12:44 DC Metoprolol Tartrate (Lopressor) 25 mg BID PO 06/18/20 09:00 06/20/20 12:44 DC 06/19/20 21:02 Nystatin (Mycostatin Powder, Nystop) under breasts BID TOP 06/28/20 21:00 06/29/20 09:11 Ondansetron HCl (Zofran Odt) 4 mg Q4HP PRN PO NAUSEA OR VOMITING 06/17/20 15:00 06/25/20 17:51 DC 06/23/20 22:30 Polyethylene Glycol (Miralax) 1 pkt DAILY PRN PO CONSTIPATION 06/17/20 15:00 06/28/20 17:23 Promethazine HCl (PHENERGAN INJection) 25 mg Q6HP PRN IV NAUSEA 06/21/20 10:30 06/23/20 21:53 Rivaroxaban (Xarelto) 10 mg DAILY@1800 PO 06/17/20 18:00 06/18/20 11:54 DC 06/17/20 21:10 Senna (Senokot) 1 tab QHS PO 06/17/20 21:00 06/20/20 11:56 DC 06/19/20 21:01 Sodium Chloride (Nacl 0.9%) 200 ml ASDIRECTED PRN IV SEE LABEL COMMENTS 06/18/20 08:00 06/19/20 07:59 DC Sodium Chloride (Nacl 0.9%) 200 ml ASDIRECTED PRN IV SEE LABEL COMMENTS 06/20/20 08:00 06/21/20 07:59 DC 06/21/20 12:58 Sodium Chloride (Nacl 0.9%) 200 ml ASDIRECTED PRN IV SEE LABEL COMMENTS 06/22/20 08:00 06/23/20 07:59 DC Sodium Chloride (Nacl 0.9%) 200 ml ASDIRECTED PRN IV SEE LABEL COMMENTS 06/25/20 10:00 06/26/20 09:59 DC Sodium Chloride (Nacl 0.9%) 200 ml ASDIRECTED PRN IV SEE LABEL COMMENTS 06/27/20 12:45 06/28/20 12:44 DC Sucralfate (Carafate) 1 gm ACHS PO 06/18/20 12:00 06/20/20 11:56 DC 06/19/20 21:01 Tramadol HCl (Ultram) 50 mg Q4HP PRN PO MODERATE PAIN (PS 5-7) 06/17/20 15:00 06/29/20 12:24 Vitamin B Complex/ Vitamin C (Therapeutic B Complex w/C) 1 cap DAILY PO 06/18/20 09:00 06/20/20 11:56 DC 06/19/20 07:53 Vitamin D (Vitamin D) 5,000 units QHS PO 06/17/20 21:00 06/20/20 11:56 DC 06/19/20 21:00 SCOOBY HAWKINS MD Jun 29, 2020 13:06
[2020-06-29] MEDS ORDERED: CALC1CAP31 PO (14:24)
[2020-06-29] MEDS ORDERED: TRAM50TA2 PO (14:24)
[2020-06-29] MEDS ORDERED: RISATAB3 PO (14:24)
[2020-06-29] MEDS ORDERED: ELIQ5TAB PO (14:24)
[2020-06-29] MEDS ORDERED: LANTINJ4 SC (14:24)
[2020-06-29] MEDS ORDERED: FOLI1TAB11 PO (14:24)
[2020-06-29] MEDS: DARBEPOETIN 100 MCG/0.5 ML *DIALYSIS* SYRINGE (J0882) IV SCH (15:20)
--- NOTE | 2020-06-29 16:55 | IPN ---
PROGRESS NOTE DATE: 06/29/2020 Mrs. Holloway is seen this morning on her bedside. She is feeling well and denies any new complaints. She was admitted with left hip fracture following a fall and underwent surgery. She is currently undergoing acute rehabilitation. She is on chronic maintenance hemodialysis on Wednesday, , Wednesday schedule. She is due for dialysis today. PHYSICAL EXAMINATION: Temperature 98.0 degrees Fahrenheit, heart rate 78 per minute, respiratory rate 18 per minute, blood pressure 106/63 mmHg, and oxygen saturation 97% on room air. Head is atraumatic. Neck supple and jugular venous distention (JVD) not abnormally elevated. Heart sounds are regular and lungs clear to auscultation. Abdomen soft and nontender, and bowel sounds are normal. Extremities without any cyanosis or clubbing. Right arm arteriovenous (AV) fistula is patent. I removed her bandage from last dialysis. Neurologically, she is awake, alert, and oriented times three. Labs done yesterday revealed a hemoglobin of 11.1, hematocrit 37.0. Sodium was 133, potassium 4.9, BUN 12, and creatinine 3.6. Calcium 9.2 and phosphorus 2.6. PROBLEMS: 1. End-stage renal disease. Patient is due for dialysis today and will be dialyzed this afternoon. 2. Hypertension. Blood pressure seems very well controlled and perhaps slightly on the soft side. She is currently not on any antihypertensive medications. 3. Anemia. Her anemia has been improved and stable. She is receiving Aranesp, and we will consider putting it on hold, as her hemoglobin was 11.1 yesterday. Complete blood count (CBC) will be checked again next week. 4. Left hip fracture, status post surgery. Patient is currently undergoing acute rehabilitation and making good progress. 5. Diabetes. Her diabetes seems to be reasonably well controlled, and she will continue with current medical care. 6. Hypophosphatemia. Probably she is not eating well here in the hospital. She is not on any phosphate binders.
[2020-06-29 17:35] VITALS: BP 112/68
[2020-06-29 20:00] VITALS: BP 106/57
[2020-06-30 05:59] VITALS: BP 103/51
[2020-06-30] MEDS: LACTOBACILLUS ACIDOPHILUS CAP (BACID) PO SCH ×4 (08:00→21:10)
[2020-06-30] MEDS: FOLIC ACID 1 MG TAB PO SCH (08:31)
[2020-06-30] MEDS: APIXABAN 5 MG TAB (ELIQUIS) PO SCH ×2 (08:31→21:10)
[2020-06-30] MEDS: traMADol 50 MG TAB PO PRN ×3 (08:32→21:10)
[2020-06-30] MEDS: HumaLOG INSULIN (NovoLOG) PER UNIT SC SCH ×4 (08:32→20:10)
[2020-06-30] MEDS: LEVEMIR (INSULIN DETEMIR) 1 UNITS/0.01ML SC SCH (08:33)
[2020-06-30] MEDS: NYSTATIN 100,000 UNITS/GM TOPICAL PWD 15 GM TOP SCH ×2 (08:34→21:00)
[2020-06-30] MEDS: REMEDY PHYTOPLEX Z-GUARD PASTE 113GM TUBE (FROM STOREROOM PRODUCT) TOP SCH ×3 (08:34→21:00)
[2020-06-30] MEDS ORDERED: PROMETHAZINE 25 MG TAB PO PRN (09:45)
--- NOTE | 2020-06-30 10:29 | REP ---
INDICATION: nausea abd discomfort. COMPARISON: None. FINDINGS: KUB shows the intestinal gas pattern to be nonspecific. The organ silhouettes insofar as delineated are unremarkable. There is no evidence of free intraperitoneal air. CALCIFICATIONS ARE SEEN SUPERIMPOSED OVER THE NEPHRIC SILHOUETTE REGION BILATERALLY. IMPRESSION: Nonspecific. <Electronically signed by Ariel Ford > 06/30/20 1023
[2020-06-30] MEDS: MIRALAX *UNIT DOSE* 17GM PACKET PO PRN (11:03)
[2020-06-30 14:00] VITALS: BP 93/52
--- NOTE | 2020-06-30 17:48 | IPN ---
PROGRESS NOTE DATE: 06/30/2020 Mrs. Holloway is seen this morning on her bedside. She is currently sitting in the chair and reports feeling nauseated. She underwent hemodialysis yesterday afternoon, which she tolerated well. She reports feeling nauseated through the night and again this morning. No dyspnea or chest pain reported. PHYSICAL EXAMINATION: Temperature 98.3 degrees Fahrenheit, heart rate 90 per minute, respiratory rate 18 per minute, blood pressure 103/50 mmHg, oxygen saturation 95% on room air. HEAD: Atraumatic. NECK: Supple and without jugular venous distention (JVD) or thyroid enlargement. HEART SOUNDS: Irregular in rhythm. LUNGS: Clear to auscultation. ABDOMEN: Soft and nontender. Bowel sounds are normal. EXTREMITIES: Without any cyanosis or clubbing. Right arm arteriovenous (AV) fistula is patent. NEUROLOGIC: She is at her baseline mentation without any focal deficits. LABORATORY DATA: Patient did not have any new laboratories done today. PROBLEMS: 1. End-stage renal disease. Patient was dialyzed yesterday and will be scheduled for next dialysis on Wednesday. 2. Nausea. Most likely this is related to post-dialysis volume depletion. Patient is being encouraged to increase her fluid intake. I would recommend treating her symptomatically. 3. Anemia. Her anemia has been stable and does not need any intervention. CBC will be rechecked next week. 4. Left hip fracture status post surgery. Patient is undergoing acute rehabilitation and making progress.
[2020-06-30 20:00] VITALS: BP 95/51
[2020-07-01 06:00] VITALS: BP 124/50
[2020-07-01] MEDS: LACTOBACILLUS ACIDOPHILUS CAP (BACID) PO SCH ×2 (08:06→12:51)
[2020-07-01] MEDS: APIXABAN 5 MG TAB (ELIQUIS) PO SCH (08:06)
[2020-07-01] MEDS: FOLIC ACID 1 MG TAB PO SCH (08:06)
[2020-07-01] MEDS: HumaLOG INSULIN (NovoLOG) PER UNIT SC SCH ×2 (08:07→12:51)
[2020-07-01] MEDS: LEVEMIR (INSULIN DETEMIR) 1 UNITS/0.01ML SC SCH (08:07)
[2020-07-01] MEDS: REMEDY PHYTOPLEX Z-GUARD PASTE 113GM TUBE (FROM STOREROOM PRODUCT) TOP SCH (08:08)
[2020-07-01] MEDS: NYSTATIN 100,000 UNITS/GM TOPICAL PWD 15 GM TOP SCH (08:08)
[2020-07-01] MEDS: CALCITRIOL 0.25 MCG CAP (S0169) PO SCH (08:13)
--- NOTE | 2020-07-01 10:34 | PMRDS ---
NAME: HILLARY VAZQUEZ [facility] WT ID#: [id number] JOB: [id number] RASHMI: 06/24/2020 ACCT: [id number] DOCTOR: SCOOBY HAWKINS MD PMR DISCHARGE SUMMARY DATE OF ADMISSION: 06/17/2020 DATE OF DISCHARGE: 07/01/2020 CHIEF COMPLAINT/DISCHARGE DIAGNOSIS: Left hip fracture. HISTORY OF PRESENT ILLNESS: This is a 79-year-old female with a past medical history of endstage renal disease, diabetes, chronic anemia, endometrial cancer, who fell at home without presyncopal symptoms or head trauma and presented to [facility] ED on 06/11/2020 complaining of left leg pain and difficulty walking. She was found to have "acute angulated left femoral neck fracture" on x-ray, was evaluated by Medicine and cleared for surgery. She underwent a left hip hemiarthroplasty on 06/12/2020 without complication. There was concern for possible bony metastatic lesions, pathology was sent. There was question of PVCs versus irregular atrial contractions for which no intervention was initiated. She was evaluated by therapy and found to have impairments in mobility and ADLs below her baseline and deemed medically appropriate for discharge to ARU. PAST MEDICAL HISTORY: As per HPI. HOSPITAL COURSE: The patient was admitted and enrolled in a comprehensive PT/OT program. She received 24 hour nursing supervision and weekly team meetings were held to discuss her progress. The patient was found to be in atrial fibrillation with confirmation done by EKG for which she was started on Eliquis and metoprolol. She was maintained on a fluid restriction and received dialysis without any complications. The patient did have episodes of nausea and vomiting which eventually was relieved with IV Phenergan. Patient was determined to have a Zofran allergy and was added to her allergy/adverse reaction list. CT of the abdomen on 06/21/2020 was negative for obstruction or perforation. She was able to tolerate p.o. comfortably from thereon. She made steady gains in therapy and was deemed medically and functionally stable to return home. DISCHARGE MEDICATIONS: As per instructions. FUNCTIONAL HISTORY ON DISCHARGE: Patient was modified independent for ambulation, min assist for functional transfers, contact guard for stairs. Thank you for this referral.
--- NOTE | 2020-07-08 11:18 | HPESKH ---
HISTORY AND PHYSICAL DATE OF ADMISSION: 06/17/2020 HISTORY OF PRESENT ILLNESS: This is a 79-year-old white female who fell and fractured her left hip. She underwent left hip hemiarthroplasty. She is going to [facility] for subacute rehab. She states she is currently up to the bathroom with assist. She does have a support structure at home. She has a daughter who is her designated caregiver and she also has a granddaughter at home who can help her. She does have significant other medical problems, but these appear to be stable. See past medical history below. PAST MEDICAL/SURGICAL HISTORY: 1. Endometrial cancer with previous hysterectomy. 2. Chronic renal failure and has been on dialysis for six to seven years. 3. Secondary hyperparathyroidism. 4. Ankle fracture (osteoporosis). 5. Chronic atrial fibrillation. 6. Bifascicular heart block (LAFB-RBBB). 7. Diabetes, which is currently being treated with basal insulin and coverage. She denies symptoms of neuropathy. 8. She currently has a dialysis graft right upper arm. She has a failed graft on the left arm. 9. Remote tonsillectomy. 10. She has had a previous echo, which suggests right ventricular overload, and I strongly suspect she may have ANGELES. MEDICATIONS: Her ventricular rate seems a little bit fast today. She is going to need a little in that regard and we will have to proceed cautiously with her bifascicular heart block. She gets Venofer and Aranesp with her dialysis for chronic anemia. She is on Xarelto for AFib. She is on Levemir and Humalog. She is not on any statins. I see an allergy to atorvastatin or what could be an allergy to atorvastatin. She is currently not on any active form of vitamin D given her chronic renal failure, osteoporosis, and history of fractures. Home medications are Calcitriol 0.25 mg a day, vitamin D 3 at 1000 unit tablets 5000 units at bedtime, Colace, folic acid. ALLERGIES: She says to HMG-COA REDUCTASE INHIBITORS SPECIFICALLY ATORVASTATIN. We will have to inquire about that. I think she would benefit from a statin. Allergic to AMLODIPINE (prior history of hypertension). TESSALON, FENOFIBRATE, ZYRTEC, OXYCODONE, PREDNISOLONE, PROTONIX. She also apparently has been on TAMSULOSIN for some indication and had a problem with that. FAMILY HISTORY: As per previous records. REVIEW OF SYSTEMS: The patient's current functional status is as above. Denies any specific symptoms at present. PHYSICAL EXAMINATION: VITAL SIGNS: Stable. Blood pressure is running into the low 100 range, respirations 16, O2 saturation on room air 95%, pulse about 100. GENERAL APPEARANCE: Obese white female. She is hirsute (chin). NECK: Very full. Cannot assess neck veins. CARDIAC: Irregularly irregular with a moderately fast ventricular response. CHEST: Clear. ABDOMEN: Morbidly obese. EXTREMITIES: Ankles are puffy. Peripheral pulses in the feet are difficult to appreciate. She denies symptoms of neuropathy. IMPRESSION/PLAN: 1. Status post left hip fracture with previous ankle fracture. 2. Osteoporosis/secondary hyperparathyroidism. Continue vitamin D replacement. 3. Chronic anemia thought to be secondary to chronic renal failure. I see in the past she has had several blood transfusions, but this is probably associated with procedures. 4. Suspected obstructive sleep apnea (ANGELES) and dilated right ventricle (RV) and increased central pressures on prior echo. 5. Chronic atrial fibrillation. I think she is going to need a touch of a beta-roshan with caution, as she does have bifascicular heart block. 6. Bifascicular heart block with left anterior fascicular block-right bundle branch block (LAFB-RBBB). 7. Chronic renal failure on dialysis. 8. Diabetes. Continue basal insulin. She is also currently on coverage, and she may have been on that at home as well. 9. Possible intolerances to statin. Patient would benefit from a statin. PLAN: Rehab. Will do a home sleep study and evaluate for ANGELES. I believe she has undocumented chronic right heart failure as well.
== END 2020-07-01 15:10 | disposition home health service (06) | DRG 559 ==
LOC: M PM&R 14:10
PROVIDERS: ADMIT Physical Medicine & Rehabilitation; ATTEND Physical Medicine & Rehabilitation
DX: S72.002D Fracture of unspecified part of neck of left femur, subsequent encounter for closed fracture with routine healing (principal); N18.6 End stage renal disease; E87.1 Hypo-osmolality and hyponatremia; N25.81 Secondary hyperparathyroidism of renal origin; E11.22 Type 2 diabetes mellitus with diabetic chronic kidney disease; D63.1 Anemia in chronic kidney disease; Z85.42 Personal history of malignant neoplasm of other parts of uterus; Z79.4 Long term (current) use of insulin; Z79.01 Long term (current) use of anticoagulants; Z79.899 Other long term (current) drug therapy; Z88.5 Allergy status to narcotic agent; Z88.8 Allergy status to other drugs, medicaments and biological substances; Z91.048 Other nonmedicinal substance allergy status; I48.91 Unspecified atrial fibrillation; Z96.642 Presence of left artificial hip joint; W18.30XD Fall on same level, unspecified, subsequent encounter; Y92.009 Unspecified place in unspecified non-institutional (private) residence as the place of occurrence of the external cause

== ENCOUNTER 2021-02-17 10:48 | Inpatient (IN) | payer MEDICARE, MEDICAID ==
[~2021-02-17] VITALS: Ht 147.3 cm; Wt 90.0 kg
[~2021-02-17 10:48] MED LIST changes: +ELIQ5TAB PO; +FOLI1TAB11 PO; +LOSA50TA28 PO; -LOSA50TA88 PO; +OMEP40CA4 PO; -OMEP40CA97 PO; +RISATAB3 PO
[2021-02-17 11:57] LABS: BASO # 0.1 10^3/uL (0.0-0.2); BASO % 0.7 % (0.0-1.0); EOS # 0.1 10^3/uL (0.0-0.5); EOS % 0.7 % (0.0-3.0); HEMATOCRIT 33.5 % (36.0-47.0); HEMOGLOBIN 10.6 g/dl (12.0-15.5); LYMPH % 11.3 % (24.0-44.0); MEAN CORPUSCULAR HEMOGLOBIN 31.6 pg (27.0-33.0); MEAN CORPUSCULAR HGB CONC 31.6 g/dl (32.0-36.5); MONO # 0.4 10^3/uL (0.0-0.8); MONO % 4.4 % (2.0-8.0); PLATELET COUNT, AUTOMATED 134 10^3/uL (150-450); RED BLOOD COUNT 3.35 10^6/uL (4.00-5.40); WHITE BLOOD COUNT 8.5 10^3/uL (4.0-10.0)
[2021-02-17 12:41] LABS: ALBUMIN 2.8 GM/DL (3.2-5.2); ALT/SGPT 31 U/L (12-78); BILIRUBIN,DIRECT 0.1 MG/DL (0.0-0.2); BILIRUBIN,TOTAL 0.3 MG/DL (0.2-1.0); BLOOD UREA NITROGEN 25 MG/DL (7-18); CALCIUM LEVEL 8.4 MG/DL (8.8-10.2); CARBON DIOXIDE LEVEL 21 MEQ/L (21-32); CHLORIDE LEVEL 102 MEQ/L (98-107); CK-MB VALUE MASS 1.6 NG/ML (<3.6); CPK CREATINE PHOSPHOKINASE 97 U/L (26-192); CREATININE FOR GFR 6.05 MG/DL (0.55-1.30); GLOMERULAR FILTRATION RATE 7.1 (>32); GLUCOSE, FASTING 200 MG/DL (70-100); MB/CK RELATIVE INDEX 1.65 (< OR =4); POTASSIUM SERUM 5.1 MEQ/L (3.5-5.1); SODIUM LEVEL 132 MEQ/L (136-145); TOTAL PROTEIN 7.4 GM/DL (6.4-8.2); TROPONIN I < 0.02 NG/ML (< 0.10)
[2021-02-17] MEDS ORDERED: LEVALBUTEROL 1.25 MG/0.5 ML CONCENTRATE NEB NEB ONE (13:25)
[2021-02-17] MEDS ORDERED: NS 500 ML IV ONE (13:25)
[2021-02-17] MEDS ORDERED: ACETAMINOPHEN TAB 650MG DOSE (2X325MG) PO ONE (13:25)
[2021-02-17] MEDS ORDERED: ACET-683 PO (13:49)
[2021-02-17] MEDS ORDERED: CALC1CAP31 PO (13:49)
[2021-02-17] MEDS ORDERED: RISATAB3 PO (13:49)
[2021-02-17] MEDS ORDERED: RENV2TAB PO (13:49)
[2021-02-17] MEDS ORDERED: FOLI1TAB11 PO (13:49)
[2021-02-17] MEDS ORDERED: INSULANT SC (13:49)
[2021-02-17] MEDS ORDERED: HOME MED LIST COMPLETE! XX SCH (13:50)
[2021-02-17] MEDS: NS 1,000 ML IV SCH ×2 (14:03→21:25)
[2021-02-17] MEDS ORDERED: ACETAMINOPHEN 500 MG TAB PO PRN (15:00)
[2021-02-17] MEDS ORDERED: DEXTROSE 50% 50 ML SYRINGE IV PRN (15:00)
[2021-02-17] MEDS ORDERED: GLUCAGON INJ 1MG VIAL SC PRN (15:00)
[2021-02-17] MEDS ORDERED: METOPROLOL 5 MG/5 ML VIAL IV PRN (15:00)
[2021-02-17] MEDS ORDERED: GLUCOSE 4GM CHEW TABLET PO PRN (15:00)
[2021-02-17] MEDS ORDERED: LEVALBUTEROL 1.25 MG/0.5 ML CONCENTRATE NEB INH PRN (15:25)
[2021-02-17] MEDS: guaiFENesin ER 600 MG TAB PO SCH ×2 (17:53→23:30)
[2021-02-17] MEDS: METOPROLOL TART 25 MG TABLET PO SCH ×2 (17:53→23:29)
[2021-02-17] MEDS: HumaLOG INSULIN (NovoLOG) PER UNIT SC SCH ×2 (17:54→21:00)
[2021-02-17] MEDS: LACTOBACILLUS ACIDOPHILUS CAP (BACID) PO SCH ×2 (17:54→23:25)
[2021-02-17] MEDS: (RENVELA) SEVELAMER **CARBONate** 800 MG TAB PO SCH (18:00)
[2021-02-17] MEDS: VITAMIN D 1,000 INTERNATIONAL UNITS TABLET PO SCH (23:26)
[2021-02-17] MEDS: FOLIC ACID 1 MG TAB PO SCH (23:26)
[2021-02-18] MEDS: METOPROLOL TART 25 MG TABLET PO SCH (05:38)
[2021-02-18 06:32] LABS: HEMATOCRIT 31.9 % (36.0-47.0); HEMOGLOBIN 10.3 g/dl (12.0-15.5); MEAN CORPUSCULAR HEMOGLOBIN 32.3 pg (27.0-33.0); MEAN CORPUSCULAR HGB CONC 32.3 g/dl (32.0-36.5); PLATELET COUNT, AUTOMATED 125 10^3/uL (150-450); RED BLOOD COUNT 3.19 10^6/uL (4.00-5.40); WHITE BLOOD COUNT 8.2 10^3/uL (4.0-10.0)
[2021-02-18 06:58] LABS: ALBUMIN 2.6 GM/DL (3.2-5.2); BLOOD UREA NITROGEN 38 MG/DL (7-18); CALCIUM LEVEL 8.2 MG/DL (8.8-10.2); CARBON DIOXIDE LEVEL 21 MEQ/L (21-32); CHLORIDE LEVEL 102 MEQ/L (98-107); GLOMERULAR FILTRATION RATE 5.9 (>32); GLUCOSE, FASTING 213 MG/DL (70-100); MAGNESIUM LEVEL 2.4 MG/DL (1.8-2.4); PHOSPHORUS LEVEL 4.3 MG/DL (2.5-4.9); POTASSIUM SERUM 5.4 MEQ/L (3.5-5.1); SODIUM LEVEL 136 MEQ/L (136-145)
[2021-02-18] MEDS: MIDODRINE 5 MG TAB PO SCH ×3 (08:00→18:16)
[2021-02-18] MEDS: (RENVELA) SEVELAMER **CARBONate** 800 MG TAB PO SCH ×3 (08:00→18:30)
[2021-02-18] MEDS: HumaLOG INSULIN (NovoLOG) PER UNIT SC SCH ×4 (08:33→20:34)
[2021-02-18] MEDS: LEVEMIR (INSULIN DETEMIR) 1 UNITS/0.01ML SC SCH (08:34)
[2021-02-18] MEDS: LACTOBACILLUS ACIDOPHILUS CAP (BACID) PO SCH ×3 (08:35→20:17)
[2021-02-18] MEDS: guaiFENesin ER 600 MG TAB PO SCH ×2 (08:35→20:18)
[2021-02-18 13:29] LABS: HEPATITIS B SURFACE ANTIGEN NEGATIVE (NEGATIVE)
[2021-02-18 18:15] VITALS: BP 128/95
[2021-02-18 20:00] VITALS: BP 116/53
[2021-02-18 20:08] LABS: INR 1.08; PROTHROMBIN TIME 14.4 SECONDS (12.7-14.5)
[2021-02-18 20:09] LABS: PARTIAL THROMBOPLASTIN TIME 39.1 SECONDS (25.9-37.0)
[2021-02-18] MEDS: VITAMIN D 1,000 INTERNATIONAL UNITS TABLET PO SCH (20:17)
[2021-02-18] MEDS: FOLIC ACID 1 MG TAB PO SCH (20:18)
[2021-02-18 20:21] VITALS: BP 116/53
[2021-02-18] MEDS ORDERED: atenoloL 50 MG TAB PO SCH (21:00)
[2021-02-19] VITALS: BP 105/52
[2021-02-19 04:00] VITALS: BP 98/53
[2021-02-19 05:36] LABS: HEMATOCRIT 31.1 % (36.0-47.0); HEMOGLOBIN 10.2 g/dl (12.0-15.5); MEAN CORPUSCULAR HEMOGLOBIN 32.1 pg (27.0-33.0); MEAN CORPUSCULAR HGB CONC 32.8 g/dl (32.0-36.5); MEAN CORPUSCULAR VOLUME 97.8 fl (80.0-96.0); PLATELET COUNT, AUTOMATED 148 10^3/uL (150-450); RED BLOOD COUNT 3.18 10^6/uL (4.00-5.40); WHITE BLOOD COUNT 9.8 10^3/uL (4.0-10.0)
[2021-02-19 06:14] LABS: ALBUMIN 2.5 GM/DL (3.2-5.2); CALCIUM LEVEL 7.8 MG/DL (8.8-10.2); CREATININE FOR GFR 4.46 MG/DL (0.55-1.30); GLOMERULAR FILTRATION RATE 10.1 (>32); MAGNESIUM LEVEL 2.2 MG/DL (1.8-2.4)
[2021-02-19 08:00] VITALS: BP 90/58
[2021-02-19] MEDS ORDERED: METOPROLOL TART 25 MG TABLET PO SCH (09:00)
[2021-02-19] MEDS: LEVEMIR (INSULIN DETEMIR) 1 UNITS/0.01ML SC SCH (09:00)
[2021-02-19] MEDS: HumaLOG INSULIN (NovoLOG) PER UNIT SC SCH ×4 (09:40→20:59)
[2021-02-19] MEDS: LACTOBACILLUS ACIDOPHILUS CAP (BACID) PO SCH ×3 (10:04→20:58)
[2021-02-19] MEDS: DIGOXIN 0.125 MG TAB PO SCH (10:04)
[2021-02-19] MEDS: (RENVELA) SEVELAMER **CARBONate** 800 MG TAB PO SCH ×3 (10:05→18:13)
[2021-02-19] MEDS: MIDODRINE 5 MG TAB PO SCH ×3 (10:06→18:17)
[2021-02-19] MEDS: guaiFENesin ER 600 MG TAB PO SCH ×2 (10:08→20:58)
[2021-02-19] MEDS: APIXABAN 2.5 MG TAB (ELIQUIS) PO SCH ×2 (10:08→20:59)
[2021-02-19 12:25] VITALS: BP 94/52
[2021-02-19 17:53] VITALS: BP 104/57
[2021-02-19 20:00] VITALS: BP 111/44
[2021-02-19] MEDS: VITAMIN D 1,000 INTERNATIONAL UNITS TABLET PO SCH (20:58)
[2021-02-19] MEDS: FOLIC ACID 1 MG TAB PO SCH (20:59)
[2021-02-20] VITALS: BP 122/53
[2021-02-20 04:00] VITALS: BP 144/60
[2021-02-20 05:49] LABS: HEMATOCRIT 31.6 % (36.0-47.0); HEMOGLOBIN 10.4 g/dl (12.0-15.5); MEAN CORPUSCULAR HEMOGLOBIN 32.2 pg (27.0-33.0); MEAN CORPUSCULAR HGB CONC 32.9 g/dl (32.0-36.5); MEAN CORPUSCULAR VOLUME 97.8 fl (80.0-96.0); PLATELET COUNT, AUTOMATED 168 10^3/uL (150-450); RED BLOOD COUNT 3.23 10^6/uL (4.00-5.40); WHITE BLOOD COUNT 8.3 10^3/uL (4.0-10.0)
[2021-02-20 06:45] LABS: ALBUMIN 2.5 GM/DL (3.2-5.2); CALCIUM LEVEL 7.8 MG/DL (8.8-10.2); CREATININE FOR GFR 5.68 MG/DL (0.55-1.30); DIGOXIN LEVEL 0.5 NG/ML (0.5-2.0); GLOMERULAR FILTRATION RATE 7.7 (>32); MAGNESIUM LEVEL 2.2 MG/DL (1.8-2.4); PHOSPHORUS LEVEL 3.2 MG/DL (2.5-4.9); POTASSIUM SERUM 4.5 MEQ/L (3.5-5.1)
[2021-02-20 08:00] VITALS: BP 114/53
[2021-02-20] MEDS: LEVEMIR (INSULIN DETEMIR) 1 UNITS/0.01ML SC SCH (08:11)
[2021-02-20] MEDS: LACTOBACILLUS ACIDOPHILUS CAP (BACID) PO SCH ×3 (08:16→20:21)
[2021-02-20] MEDS: (RENVELA) SEVELAMER **CARBONate** 800 MG TAB PO SCH ×3 (08:16→17:37)
[2021-02-20] MEDS: HumaLOG INSULIN (NovoLOG) PER UNIT SC SCH ×4 (08:16→20:22)
[2021-02-20] MEDS: guaiFENesin ER 600 MG TAB PO SCH ×2 (08:16→20:21)
[2021-02-20] MEDS: DIGOXIN 0.125 MG TAB PO SCH (08:17)
[2021-02-20] MEDS: APIXABAN 2.5 MG TAB (ELIQUIS) PO SCH ×2 (08:17→20:22)
[2021-02-20] MEDS: MIDODRINE 5 MG TAB PO SCH ×3 (08:17→17:37)
[2021-02-20] MEDS ORDERED: ELIQ2.5T PO (09:20)
[2021-02-20] MEDS ORDERED: DIGO0.123 PO (09:20)
[2021-02-20 13:55] VITALS: BP 138/58
[2021-02-20 17:41] VITALS: BP 94/51
[2021-02-20] MEDS: VITAMIN D 1,000 INTERNATIONAL UNITS TABLET PO SCH (20:21)
[2021-02-20] MEDS: FOLIC ACID 1 MG TAB PO SCH (20:22)
[2021-02-21] MEDS ORDERED: DIGO0.123 PO (00:47)
[2021-02-21] MEDS ORDERED: FOLI1TAB11 PO (00:47)
[2021-02-21] MEDS ORDERED: ELIQ2.5T PO (00:47)
[2021-02-21] MEDS ORDERED: BIOT5TAB3 PO (00:47)
[2021-02-21 08:09] LABS: HEMATOCRIT 34.9 % (36.0-47.0); HEMOGLOBIN 11.4 g/dl (12.0-15.5); MEAN CORPUSCULAR HEMOGLOBIN 32.1 pg (27.0-33.0); MEAN CORPUSCULAR HGB CONC 32.7 g/dl (32.0-36.5); MEAN CORPUSCULAR VOLUME 98.3 fl (80.0-96.0); PLATELET COUNT, AUTOMATED 197 10^3/uL (150-450); RED BLOOD COUNT 3.55 10^6/uL (4.00-5.40); WHITE BLOOD COUNT 9.1 10^3/uL (4.0-10.0)
[2021-02-21 08:25] LABS: ALBUMIN 2.7 GM/DL (3.2-5.2); CALCIUM LEVEL 8.6 MG/DL (8.8-10.2); CREATININE FOR GFR 4.26 MG/DL (0.55-1.30); GLOMERULAR FILTRATION RATE 10.7 (>32); MAGNESIUM LEVEL 2.2 MG/DL (1.8-2.4); PHOSPHORUS LEVEL 2.7 MG/DL (2.5-4.9); POTASSIUM SERUM 4.7 MEQ/L (3.5-5.1)
[2021-02-21] MEDS ORDERED: CALCITRIOL 0.25 MCG CAP (S0169) PO SCH (18:00)
== END 2021-02-20 22:43 | DRG 308 ==
LOC: M ED 10:48 → M ED INP 14:05 → ENRESERV 02-18 13:45 → M PCU 02-18 18:15
PROVIDERS: ADMIT Internal Medicine; ATTEND General Practice
PROC: 5A1D70Z Performance of Urinary Filtration, Intermittent, Less than 6 Hours Per Day (ICD-10-PCS; principal; 2021-02-18)
DX: I48.91 Unspecified atrial fibrillation (principal); N18.6 End stage renal disease; N25.81 Secondary hyperparathyroidism of renal origin; I13.2 Hypertensive heart and chronic kidney disease with heart failure and with stage 5 chronic kidney disease, or end stage renal disease; B97.4 Respiratory syncytial virus as the cause of diseases classified elsewhere; D63.1 Anemia in chronic kidney disease; I50.9 Heart failure, unspecified; E11.9 Type 2 diabetes mellitus without complications; I95.9 Hypotension, unspecified; Z79.4 Long term (current) use of insulin; E78.5 Hyperlipidemia, unspecified; Z85.42 Personal history of malignant neoplasm of other parts of uterus; M19.90 Unspecified osteoarthritis, unspecified site; Z79.899 Other long term (current) drug therapy; Z88.8 Allergy status to other drugs, medicaments and biological substances; E87.5 Hyperkalemia

== ENCOUNTER 2021-02-20 12:41 | Inpatient (IN) | payer MEDICARE, MEDICAID ==
[~2021-02-20] VITALS: Ht 147.3 cm; Wt 85.6 kg
[~2021-02-20 12:41] MED LIST changes: +DIGO0.123 PO; +ELIQ2.5T PO; -LOSA50TA28 PO; +LOSA50TA88 PO
[2021-02-20] MEDS ORDERED: DEXTROSE 50% 50 ML SYRINGE IV PRN (13:50)
[2021-02-20] MEDS ORDERED: BISACODYL 10 MG SUPP PR PRN (13:50)
[2021-02-20] MEDS ORDERED: GLUCOSE 4GM CHEW TABLET PO PRN (13:50)
[2021-02-20] MEDS ORDERED: HumaLOG INSULIN (NovoLOG) PER UNIT SC SCH (13:50)
[2021-02-20] MEDS ORDERED: GLUCAGON INJ 1MG VIAL SC PRN (13:50)
[2021-02-20 22:45] VITALS: BP 123/57
[2021-02-21] MEDS ORDERED: ELIQ2.5T PO (00:47)
[2021-02-21] MEDS ORDERED: BIOT5TAB3 PO (00:47)
[2021-02-21] MEDS ORDERED: FOLI1TAB11 PO (00:47)
[2021-02-21] MEDS ORDERED: DIGO0.123 PO (00:47)
[2021-02-21] MEDS ORDERED: HOME MED LIST COMPLETE! XX SCH (00:50)
[2021-02-21] MEDS ORDERED: MIRALAX *UNIT DOSE* 17GM PACKET PO PRN (01:00)
[2021-02-21 06:00] VITALS: BP 115/66
[2021-02-21 06:38] LABS: BASO # 0.1 10^3/uL (0.0-0.2); BASO % 0.8 % (0.0-1.0); EOS # 0.3 10^3/uL (0.0-0.5); EOS % 4.1 % (0.0-3.0); HEMATOCRIT 34.5 % (36.0-47.0); HEMOGLOBIN 11.3 g/dl (12.0-15.5); LYMPH # 1.8 10^3/uL (1.5-5.0); LYMPH % 21.3 % (24.0-44.0); MEAN CORPUSCULAR HGB CONC 32.8 g/dl (32.0-36.5); MEAN CORPUSCULAR VOLUME 97.7 fl (80.0-96.0); MONO # 0.7 10^3/uL (0.0-0.8); MONO % 8.9 % (2.0-8.0); NEUTROPHILS # 5.3 10^3/uL (1.5-8.5); NEUTROPHILS % 63.2 % (36.0-66.0); PLATELET COUNT, AUTOMATED 190 10^3/uL (150-450); RED BLOOD COUNT 3.53 10^6/uL (4.00-5.40); WHITE BLOOD COUNT 8.4 10^3/uL (4.0-10.0)
[2021-02-21 07:10] LABS: ALBUMIN 2.7 GM/DL (3.2-5.2); BILIRUBIN,TOTAL 0.7 MG/DL (0.2-1.0); CALCIUM LEVEL 8.8 MG/DL (8.8-10.2); CREATININE FOR GFR 4.02 MG/DL (0.55-1.30); GLOMERULAR FILTRATION RATE 11.4 (>32); TOTAL PROTEIN 6.8 GM/DL (6.4-8.2)
[2021-02-21] MEDS: LEVALBUTEROL HFA 45MCG/ACT 15 GM INHALER INH SCH ×4 (07:19→20:13)
[2021-02-21] MEDS: HumaLOG INSULIN (NovoLOG) PER UNIT SC SCH ×3 (08:45→17:30)
[2021-02-21] MEDS: (RENVELA) SEVELAMER **CARBONate** 800 MG TAB PO SCH ×3 (08:46→17:28)
[2021-02-21] MEDS: DOCUSATE SODIUM 100MG CAPSULE PO SCH ×2 (08:46→20:49)
[2021-02-21] MEDS: LEVEMIR (INSULIN DETEMIR) 1 UNITS/0.01ML SC SCH (08:46)
[2021-02-21] MEDS: LACTOBACILLUS ACIDOPHILUS CAP (BACID) PO SCH ×3 (08:47→20:49)
[2021-02-21] MEDS: MIDODRINE 5 MG TAB PO SCH ×3 (08:47→17:29)
[2021-02-21] MEDS: VITAMIN D 1,000 INTERNATIONAL UNITS TABLET PO SCH (08:47)
[2021-02-21] MEDS: guaiFENesin ER 600 MG TAB PO SCH ×3 (08:47→20:49)
[2021-02-21] MEDS: APIXABAN 2.5 MG TAB (ELIQUIS) PO SCH ×2 (08:47→20:49)
[2021-02-21] MEDS: DIGOXIN 0.125 MG TAB PO SCH (08:48)
[2021-02-21] MEDS: MULTIVITAMINS/MINERALS THERAP 1 TAB PO SCH (08:48)
[2021-02-21] MEDS: NEPHRO-VIT TAB (NEPHROCAPS) PO SCH (08:48)
[2021-02-21] MEDS: ACETAMINOPHEN TAB 650MG DOSE (2X325MG) PO PRN (08:49)
[2021-02-21] MEDS: REMEDY PHYTOPLEX Z-GUARD PASTE 113GM TUBE (FROM STOREROOM PRODUCT) TOP SCH ×3 (08:50→20:49)
--- NOTE | 2021-02-21 10:52 | HPEPDOC ---
It Consultant Note DATE OF ADMISSION: 02-20-21 DATE OF SERVICE: 02-21-21 TIME OF ADMISSION: Please refer to physician's admission order. SOURCE OF ADMISSION INFORMATION: [facility] record and patient CHIEF COMPLAINT: new onset AFib with RSV infection HISTORY OF PRESENT ILLNESS: 80F pmh ESRD on HD with secondary hyperparathyroidism, DM, Afib, anemia of chronic disease, HTN, OA, endometrial cancer s/p hysterectomy presented to [facility] ED on 02-17-21 with worsening shortness of breath and cough and found to be in RVR . Her Covid panel was negative, however she did test positive for RSV and was diuresed for CHF exacerbation. She had low blood pressures and was started on digoxin to better control her heart rate. She was found to be weak, below her baseline for endurance and mobility and deemed appropriate for discharge to ARU on 02-20-21. REVIEW OF SYSTEMS: The following is a completed review of systems and has been reviewed. Review of systems otherwise unremarkable. PAIN: Patient self reports no pain EYES: No recent vision changes EARS, NOSE, & THROAT: No throat pain, or dysphagia, or rhinorrhea CARDIOVASCULAR: Denies chest pain or palpitations PULMONARY: Denies shortness of breath GASTROINTESTINAL: Denies constipation/diarrhea GENITOURINARY: anuric MUSCULOSKELETAL: generalized weakness NEUROLOGICAL: denies paresthesias HEMATOLOGICAL: +anemia SKIN: denies rash PSYCHIATRIC: Unremarkable All other review of systems found to be negative. PAST MEDICAL HISTORY: as per HPI PAST SURGICAL HISTORY: as per HPI right ankle surgery, tonsillectomy, AV fistula, left hip fracture s/p hemiarthroplasty ALLERGIES: Please see below. MEDICATIONS: Please see below. FAMILY HISTORY: emphysema, arthritis, and colon cancer SOCIAL HISTORY: no etoh smoker/illicit drugs DIET: low salt PHYSICAL EXAMINATION: VITAL SIGNS: Please see below. GENERAL: Pleasant and cooperative. No acute distress. HEENT: PERRL. Extraocular movements intact. Clear conjunctiva CARDIOVASCULAR: Irregular rate and rhythm. No murmurs, rubs, or gallops LUNGS: Clear to auscultation bilaterally. No wheezes. No rhonchi ABDOMEN: Soft, nontender, nondistended. Positive bowel sounds. Normal active bowel sounds NEUROLOGICAL: Alert and oriented times three. Cranial nerves II through XII grossly intact. Sensation grossly intact EXTREMITIES: 5\5 strength bilateral upper extremities. 5-\5 strength right lower extremity.5-/5 strength in left lower extremity. LABORATORY DATA: Please see below. IMAGING: Imaging documentation personally reviewed by record FUNCTIONAL STATUS: Premorbid: Mod-Independent with all activities of daily life as well as mobility On Admission: contact guard to standby assist for bed mobility , ambulation, functional transfers, dressing GOALS: Mod-I for bed mobility, functional transfers, ambulation community distances, bathing, toileting ASSESSMENT:80-year-old F with past medical history of ESRD on HD who presents status post Afib with RVR in setting of RV infection PLAN: 1. Rehab- PTOT advance mobility and ADLs, strengthen/stretch/maintain ROM all 4 limbs 2. Cardiac- hx of AFib with soft BPs, cont eliquis, digoxin -hypotension cont midodrine -chronic diastolic CHF cont fluid restriction, daily weights, dialysis 3. Resp- cont supportive care for RSV infection- XOpenex and guaifenesin, incentive spirometry 4. REnal- cont dialysis- renal following -Renvela for secondary hyperparathyroidism 5. Endo- cont insulin and ISS for DM, monitor for hyperglycemia 6. GI ppx- protonix 7. DVT ppx- on eliquis 8. Pain- tylenol 9. Dispo- TBD POST ADMISSION PHYSICIAN EVALUATION: Medical and functional status: Description of medical status, medical assessment: As above. Rehabilitation diagnosis and current and prior cold morbid medical conditions as above. Risk of complications and plans to mitigate them as above. Description of functional status current status is as above. Prior status as above. Status compared to preadmission: There are no clinically significant differences between the patient's current status and the information described on the preadmission screening document. Treatment plan anticipated: Treatment plan is as described above. Required disciplines including physical therapy, occupational therapy, others as noted above. Intensity of services: 3 hours a day, 6 days a week. Special considerations: There are no specific special or safety considerations that would likely preclude immediate implementation of an intensive rehabilitation program or subsequently influence the plan of care. ATTESTATION: Considering all the information above, it is my best judgment that this patient requires intensive rehabilitation therapy as described above and an inpatient hospital environment due to the complexity of nursing, medical, and rehabilitation needs required by the patient. Furthermore, this patient can reasonably be expected to participate in an benefit from an inpatient rehabilitation stay with an interdisciplinary team approach to the delivery of rehabilitation care under the direction and supervision of rehabilitation physician PROGNOSIS: Excellent ESTIMATED LENGTH OF STAY:7-10 days. PROJECTED DISCHARGE DESTINATION: Home with family support and any durable medical equipment required to increase functional safety and mobility TIME SPENT COUNSELING AND COORDINATING INITIAL CARE: Greater than 70 minutes. Vital Signs Vital Sign - Last 24 Hours 02/20/21 02/21/21 02/21/21 22:45 06:00 08:48 Temp 100.1 99.1 Pulse 72 83 88 Resp 17 20 B/P (MAP) 123/57 (79) 115/66 (82) Pulse Ox 96 98 O2 Delivery Room Air Room Air Laboratory Data CBC/BMP Laboratory Tests 02/21/21 05:35 Labs 24H Laboratory Tests 2 02/21/21 05:35: Immature Granulocyte % (Auto) 1.7, Neutrophils (%) (Auto) 63.2, Lymphocytes (%) (Auto) 21.3L, Monocytes (%) (Auto) 8.9H, Eosinophils (%) (Auto) 4.1H, Basophils (%) (Auto) 0.8, Neutrophils # (Auto) 5.3, Lymphocytes # (Auto) 1.8, Monocytes # (Auto) 0.7, Eosinophils # (Auto) 0.3, Basophils # (Auto) 0.1, Nucleated Red Blood Cells % (auto) 0.5H, Anion Gap 10, Glomerular Filtration Rate 11.4L, Aniket cium Level 8.8, Total Bilirubin 0.7, Aspartate Amino Transf (AST/SGOT) 24, Alanine Aminotransferase (ALT/SGPT) 38, Alkaline Phosphatase 29L, Total Protein 6.8, Albumin 2.7L, Albumin/Globulin Ratio 0.7L 02/21/21 06:17: Bedside Glucose (Misc Panel) 175H FSBS Laboratory Tests Test 02/21/21 06:17 Range/Units Bedside Glucose (Misc Panel) 175 83-110 MG/DL Home Medications Scheduled Apixaban (Eliquis) 2.5 Mg Tablet, 2.5 MG PO BID, (Reported) Biotin (Biotin) 5 Mg Tablet, 5 MG PO QHS, (Reported) Calcitriol (Calcitriol) 0.25 Mcg Capsule, 0.25 MCG PO 1XWK, (Reported) GIVEN ONCE A WEEK AT DIALYSIS Cholecalciferol (Vitamin D3) (Vitamin D3) 1,000 Unit Tablet, 5,000 UNITS PO QHS, (Reported) Digoxin (Digoxin) 125 Mcg Tablet, 125 MCG PO DAILY, (Reported) Folic Acid (Folic Acid) 1 Mg Tablet, 1 MG PO DAILY, (Reported) Folic Acid/Vit B Complex and C (Dialyvite 800 Tablet) 0.8 Mg Tablet, 1 TAB PO QHS, (Reported) Insulin Glargine (Lantus) 100 Unit/1 Ml Vial, 31 UNITS SC DAILY, (Reported) Insulin Human Lispro (Humalog) 1 Units/0.01 Ml Inj, 1 DOSE SC ACHS, (Reported) PER SLIDING SCALE L.acidoph/L.bulg/B.bif/S.therm (Katina-Bid Caplet) 1 Each Tablet, 1 TAB PO TID, (Reported) Red Yeast Rice (Red Yeast Rice) 600 Mg Tablet, 600 MG PO QHS, (Reported) Sevelamer Carbonate (Renvela) 800 Mg Tablet, 800 MG PO WM, (Reported) Scheduled PRN Acetaminophen (Acetaminophen) 500 Mg Tablet, 1,000 MG PO Q8H PRN for PAIN LEVEL 1-5, (Reported) Docusate Sodium (Docusate Sodium) 100 Mg Cap, 100 MG PO 3XW PRN for CONSTIPATION, (Reported) DAILY AFTER DIALYSIS E//WED Allergies Coded Allergies: cetirizine (Verified Allergy, Intermediate, RASH, 02/22/19) amlodipine (Verified Allergy, Unknown, 03/04/20) pantoprazole (Verified Allergy, Unknown, 03/04/20) Fmfpaow-Kaa-Clc Reductase Inhibitor (Verified Adverse Reaction, Intermediate, CRAMPS, 02/07/19) atorvastatin (Verified Adverse Reaction, Intermediate, CRAMPS, 01/07/19) prednisolone (Verified Adverse Reaction, Intermediate, ELEVATES BLOOD SUGAR, PT DIABETIC, 02/07/19) TAPE (Verified Adverse Reaction, Mild, ITCHING, 05/07/18) ondansetron (Verified Adverse Reaction, Mild, nausea, 06/25/20) oxycodone (Verified Adverse Reaction, Mild, CONSTIPATION, 01/07/19) benzonatate (Verified Adverse Reaction, Unknown, PER PT HAD A PROBLEM WITH IT BUT UNSURE WHY, 01/07/19) fenofibrate (Verified Adverse Reaction, Unknown, PER PT HAD A PROBLEM WITH IT BUT UNSURE WHY, 01/07/19) tamsulosin (Verified Adverse Reaction, Unknown, PER PT HAD A PROBLEM BUT UNSURE WHAT IT WAS, 02/07/19) A-FIB/CHADSVASC A-FIB History Current/History of A-Fib/PAF?: Yes Current PO Anticoag Therapy: Yes SCOOBY HAWKINS MD Feb 21, 2021 10:51
[2021-02-21 14:00] VITALS: BP 103/55
--- NOTE | 2021-02-21 14:12 | REP ---
INDICATION: low grade fever. COMPARISON: 02/17/2021. TECHNIQUE: Single portable AP view of the chest was performed. FINDINGS: There is mild cardiomegaly. There is no acute infiltrate. There is mild calcification and tortuosity of the thoracic aorta. The mediastinal silhouette is unchanged. A stent is seen in the left subclavian and axillary region. IMPRESSION: No acute pulmonary disease.Stable cardiomegaly. <Electronically signed by Robles Flores > 02/21/21 [id number]
--- NOTE | 2021-02-21 16:44 | IPNPDOC ---
Date Seen The patient was seen on 02/21/21. Progress Note SUBJECTIVE: pt had low grade temp 100.1 and persistent cough productive of white sputum but unchanged from admission no shortness of breath and denies any chills. Patient complains of pain when she ambulates at the toe rated at 3 out of 10 when resting and 6 out of 10 when she is ambulating. Tolerating and does not want any changes in her pain medications OBJECTIVE: VITAL SIGNS: See below GENERAL: Appears comfortable supine at 30 degree angle no distress HEENT/NECK: No JVD. Anicteric no jaundice no cervical lymphadenopathy thyromegaly moist mucous membranes LUNGS: Diminished with coarse rhonchi and expiratory wheezing. HEART: S1 and S2, irregularly irregular, not tachycardic. ABDOMEN: Obese, soft, nontender and nondistended. EXTREMITIES: Positive edema. LABORATORY DATA/MICROBIOLOGY AND IMAGING STUDIES: Have been reviewed. ASSESSMENT AND PLAN: This is an 80-year-old female with endstage renal disease on maintenance dialysis on Wednesday, and Wednesday, insulin dependent Type 2 diabetes, admitted on 02/17 with new onset atrial fibrillation with rapid ventricular response. Active issues are as follows: 1. Atrial fibrillation with RVR, new onset Controlled on digoxin and on Eliquis for CVA prophylaxis Patient had episodes of hypotension with metoprolol which has been discontinued 2. Endstage renal disease on maintenance dialysis on Wednesday, and Wednesday patient is requesting transportation to be confirmed as outpatient for Wednesday PFS consulted 3. CHF, preserved systolic ejection fraction. on maintenance dialysis 4. Respiratory syncytial virus, contact precautions. 5. Endstage renal disease on maintenance dialysis. Nephrology consulted for dialysis needs. 6. Anemia of chronic disease. No acute indication for RBC transfusion currently. On Eliquis, monitor for GI bleed. 7. Insulin dependent diabetes, on sliding scale with coverage. Fingersticks, consistent carbohydrate, renal diet. 8. Hypertension, stable 9. Dyslipidemia, chronic. 10.History of endometrial cancer status post hysterectomy. 11.Secondary hyperparathyroidism secondary to renal disease, chronic. 12.Osteoarthritis, chronic. 13. Low grade fever panculture obtain a chest x-ray incentive spirometry monitor for further symptoms and no empiric antibiotics VS, I&O, 24H, Fishbone Vital Signs/I&O Vital Signs Date Time Temp Pulse Resp B/P (MAP) Pulse Ox O2 Delivery O2 Flow Rate FiO2 02/21/21 08:48 88 02/21/21 06:00 99.1 20 115/66 (82) 98 Room Air I&O- Last 24 Hours up to 6 AM 02/21/21 06:00 Intake Total 30 ml Balance 30 ml Laboratory Data 24H LABS Laboratory Tests 2 02/21/21 05:35: Immature Granulocyte % (Auto) 1.7, Neutrophils (%) (Auto) 63.2, Lymphocytes (%) (Auto) 21.3L, Monocytes (%) (Auto) 8.9H, Eosinophils (%) (Auto) 4.1H, Basophils (%) (Auto) 0.8, Neutrophils # (Auto) 5.3, Lymphocytes # (Auto) 1.8, Monocytes # (Auto) 0.7, Eosinophils # (Auto) 0.3, Basophils # (Auto) 0.1, Nucleated Red Blood Cells % (auto) 0.5H, Anion Gap 10, Glomerular Filtration Rate 11.4L, Calcium Level 8.8, Total Bilirubin 0.7, Aspartate Amino Transf (AST/SGOT) 24, Alanine Aminotransferase (ALT/SGPT) 38, Alkaline Phosphatase 29L, Total Protein 6.8, Albumin 2.7L, Albumin/Globulin Ratio 0.7L 02/21/21 06:17: Bedside Glucose (Misc Panel) 175H 02/21/21 11:19: Bedside Glucose (Misc Panel) 238H CBC/BMP Laboratory Tests 02/21/21 05:35 TOLU MORALES MD Feb 21, 2021 13:37
[2021-02-21] MEDS ORDERED: CALCITRIOL 0.25 MCG CAP (S0169) PO SCH (18:00)
[2021-02-21 20:00] VITALS: BP 124/53
[2021-02-21] MEDS: SENNA 8.6 MG TAB (SENOKOT) PO SCH (20:49)
--- NOTE | 2021-02-21 21:42 | IPN ---
PROGRESS NOTE DATE: 02/21/2021 SUBJECTIVE: Mrs. Holloway is seen this morning on her bedside. She is sitting in the chair at the time of my visit. She denies any dyspnea, chest pain, nausea or vomiting. She had low-grade fever up to 100.1 last evening, however, this morning she is afebrile. PHYSICAL EXAMINATION: VITALS: Temperature now 99 degrees Fahrenheit, heart rate 83 per minute, respiratory rate 20 per minute, blood pressure 115/66 mmHg, oxygen saturation 98% on room air. HEENT: Head is atraumatic. Neck is supple and JVD not abnormally elevated sitting upright. LUNGS: Clear to auscultation. HEART: Sounds are irregular due to atrial fibrillation. ABDOMEN: Soft, obese and nontender. Bowel sounds are normal. EXTREMITIES: Without any cyanosis or clubbing. Her right upper arm AV fistula is patent. She also has an AV fistula in the left arm, which is currently not being used. She does not have any lower extremity edema. NEUROLOGIC: She is awake, alert and oriented x3. LABORATORY STUDIES: Today's labs show WBC 8.4, hemoglobin 11.3, hematocrit 34.5. Sodium 135, potassium 5.0, BUN 25 and creatinine 4.0. PROBLEMS: 1. End-stage renal disease: Patient is regularly dialyzed on Wednesday, and Wednesday schedule. She was dialyzed yesterday and will plan her next dialysis on February 22, which is her regular day. 2. Atrial fibrillation with rapid ventricular rate: Her ventricular rate is now very well controlled and she is doing very well. She is on Digoxin 0.125 mg daily along with Eliquis 2.5 mg b.i.d. We will check her Digoxin level tomorrow. I feel that at some point we will have to cut down her Digoxin dose to three times a week in view of her end-stage renal disease. 3. Hypotension: She has chronic low blood pressure and has been on Midodrine 10 mg t.i.d., which should be continued. At present, her blood pressure has been well controlled. 4. Generalized weakness and deconditioning: Patient is now in acute rehab and she is making progress already. 5. Congestive heart failure: Volume status has improved and optimized with dialysis. She had frequent dialysis this week. Now we will continue with three times a week dialysis.
[2021-02-22 06:00] VITALS: BP 117/53
[2021-02-22] MEDS: LEVALBUTEROL HFA 45MCG/ACT 15 GM INHALER INH SCH ×4 (07:24→18:26)
[2021-02-22] MEDS: HumaLOG INSULIN (NovoLOG) PER UNIT SC SCH ×3 (07:30→17:31)
[2021-02-22] MEDS: DOCUSATE SODIUM 100MG CAPSULE PO SCH ×2 (09:00→20:10)
[2021-02-22] MEDS: LEVEMIR (INSULIN DETEMIR) 1 UNITS/0.01ML SC SCH (09:00)
[2021-02-22] MEDS: REMEDY PHYTOPLEX Z-GUARD PASTE 113GM TUBE (FROM STOREROOM PRODUCT) TOP SCH ×3 (09:00→20:11)
[2021-02-22] MEDS: VITAMIN D 1,000 INTERNATIONAL UNITS TABLET PO SCH (09:51)
[2021-02-22] MEDS: (RENVELA) SEVELAMER **CARBONate** 800 MG TAB PO SCH ×3 (09:51→17:31)
[2021-02-22] MEDS: APIXABAN 2.5 MG TAB (ELIQUIS) PO SCH ×2 (09:51→20:10)
[2021-02-22] MEDS: NEPHRO-VIT TAB (NEPHROCAPS) PO SCH (09:51)
[2021-02-22] MEDS: LACTOBACILLUS ACIDOPHILUS CAP (BACID) PO SCH ×3 (09:51→20:10)
[2021-02-22] MEDS: guaiFENesin ER 600 MG TAB PO SCH ×3 (09:51→20:10)
[2021-02-22] MEDS: MULTIVITAMINS/MINERALS THERAP 1 TAB PO SCH (09:51)
[2021-02-22] MEDS: DIGOXIN 0.125 MG TAB PO SCH (09:52)
[2021-02-22] MEDS: MIDODRINE 5 MG TAB PO SCH ×3 (09:52→17:34)
--- NOTE | 2021-02-22 12:39 | IPNPDOC ---
Text Note Date of Service The patient was seen on 02/22/21. NOTE SUBJECTIVE: The patient is comfortably laying in her bed, in no acute distress. Has no complaints today. Really tired after having a physical therapy this morning. OBJECTIVE: GENERAL: The patient is awake, alert and oriented to person, place and time, answering questions appropriately. HEENT/NECK: Positive JVD. She is able to speak in full sentences. No use of respiratory accessory muscles. No pallor or icterus. No jaundice. No tripod positioning, currently flat in bed with one pillow. LUNGS: Diminished with coarse rhonchi and expiratory wheezing. HEART: S1 and S2, irregularly irregular, not tachycardic. ABDOMEN: Obese, soft, nontender and nondistended. EXTREMITIES: Positive edema. ASSESSMENT AND PLAN: This is an 80-year-old female with endstage renal disease on maintenance dialysis on Wednesday, and Wednesday, insulin dependent Type 2 diabetes, admitted on 02/17 with new onset atrial fibrillation with rapid ventricular response. Patient is being discharged to ARU for improvement of generalized weakness and deconditioning. Active issues followed by nephrology are as follows: 1. End-stage renal disease: Patient is regularly dialyzed on Wednesday, and Wednesday schedule. Will be getting her dialysis today. 2. Atrial fibrillation with rapid ventricular rate: Her ventricular rate is now very well controlled and she is doing very well. She is on Digoxin 0.125 mg daily along with Eliquis 2.5 mg b.i.d. Patient's digoxin level came back to 25. Continue current dosage. 3. Hypotension: She has chronic low blood pressure and has been on Midodrine 10 mg t.i.d., which should be continued. At present, her blood pressure has been well controlled. 4. Generalized weakness and deconditioning: Patient is now in acute rehab and she is making progress already. 5. Congestive heart failure: Volume status has improved and optimized with dialysis. She had frequent dialysis this week. VS,Fishbone, I+O VS, Fishbone, I+O Vital Signs Date Time Temp Pulse Resp B/P (MAP) Pulse Ox O2 Delivery O2 Flow Rate FiO2 02/22/21 09:52 72 02/22/21 06:00 97.5 18 117/53 (74) 95 Room Air I&O- Last 24 Hours up to 6 AM 02/22/21 05:59 Intake Total 510 ml Balance 510 ml Elder Wilks MD Feb 22, 2021 12:35
[2021-02-22 17:17] VITALS: BP 115/57
[2021-02-22 20:00] VITALS: BP 115/44
[2021-02-22] MEDS: SENNA 8.6 MG TAB (SENOKOT) PO SCH (20:10)
[2021-02-23 04:46] VITALS: BP 129/59
[2021-02-23] MEDS: LEVALBUTEROL HFA 45MCG/ACT 15 GM INHALER INH SCH ×4 (08:22→19:38)
[2021-02-23] MEDS: LEVEMIR (INSULIN DETEMIR) 1 UNITS/0.01ML SC SCH (08:38)
[2021-02-23] MEDS: VITAMIN D 1,000 INTERNATIONAL UNITS TABLET PO SCH (08:39)
[2021-02-23] MEDS: NEPHRO-VIT TAB (NEPHROCAPS) PO SCH (08:39)
[2021-02-23] MEDS: guaiFENesin ER 600 MG TAB PO SCH ×3 (08:39→21:07)
[2021-02-23] MEDS: LACTOBACILLUS ACIDOPHILUS CAP (BACID) PO SCH ×3 (08:39→21:07)
[2021-02-23] MEDS: MULTIVITAMINS/MINERALS THERAP 1 TAB PO SCH (08:39)
[2021-02-23] MEDS: HumaLOG INSULIN (NovoLOG) PER UNIT SC SCH ×3 (08:39→17:30)
[2021-02-23] MEDS: (RENVELA) SEVELAMER **CARBONate** 800 MG TAB PO SCH ×3 (08:39→17:54)
[2021-02-23] MEDS: APIXABAN 2.5 MG TAB (ELIQUIS) PO SCH ×2 (08:39→21:07)
[2021-02-23] MEDS: DIGOXIN 0.125 MG TAB PO SCH (08:40)
[2021-02-23] MEDS: MIDODRINE 5 MG TAB PO SCH ×3 (08:40→17:55)
[2021-02-23] MEDS: REMEDY PHYTOPLEX Z-GUARD PASTE 113GM TUBE (FROM STOREROOM PRODUCT) TOP SCH ×3 (08:40→21:00)
[2021-02-23] MEDS: DOCUSATE SODIUM 100MG CAPSULE PO SCH ×2 (08:44→21:00)
[2021-02-23 14:00] VITALS: BP 121/58
--- NOTE | 2021-02-23 18:23 | IPN ---
NEPHROLOGY PROGRESS NOTE DATE: 02/23/2021 SUBJECTIVE: Mrs. Holloway is seen this morning on her bedside. She is currently sitting in the chair. She denies any nausea, vomiting, dyspnea or chest pain. She was dialyzed yesterday and 2.5 liters of fluid was removed with some problem at the end, when she developed low blood pressure and nausea. Her treatment was terminated just a few minutes before finishing her time. PHYSICAL EXAMINATION: VITAL SIGNS: Temperature 97.1 degrees Fahrenheit, heart rate 75 per minute, respiratory rate 18 per minute, blood pressure 129/60 mmHg, oxygen saturation 97% on room air. HEAD: Atraumatic. NECK: Supple and without jugular venous distention (JVD) or thyroid enlargement. HEART SOUNDS: Irregular in rhythm. LUNGS: Clear to auscultation. ABDOMEN: Soft and nontender. Bowel sounds are normal. EXTREMITIES: Without any cyanosis or clubbing. She does not have any peripheral edema. Right arm arteriovenous (AV) fistula is patent and she also has an old fistula in her left arm which is also patent. NEUROLOGIC: She is awake, alert and oriented times three. LABORATORY DATA: Patient did not have any new labs done today. PROBLEMS: 1. End-stage renal disease. Patient is regularly dialyzed on Wednesday, , Wednesday schedule. She just received her dialysis yesterday and is doing well. Next dialysis will be scheduled for Wednesday. 2. Congestive heart failure. Volume status is very well compensated and we will continue to manage it with dialysis. 3. Atrial fibrillation with rapid ventricular rate. Her heart rate is well controlled now with digoxin 0.125 mg daily and she remains on Eliquis 2.5 mg twice a day. Her digoxin dose will probably need to be adjusted. Yesterday, her digoxin level was only 0.5. 4. Hypotension. Blood pressure has been much better since she has been on midodrine 10 mg three times a day, which will be continued. 5. Anemia. She has mild anemia, which has been stable at baseline and is being managed with dialysis. 6. Deconditioning and weakness. Patient is currently undergoing acute rehabilitation.
[2021-02-23 20:00] VITALS: BP 127/68
[2021-02-23] MEDS: SENNA 8.6 MG TAB (SENOKOT) PO SCH (21:00)
[2021-02-24 06:09] LABS: BASO # 0.1 10^3/uL (0.0-0.2); BASO % 0.9 % (0.0-1.0); EOS # 0.6 10^3/uL (0.0-0.5); EOS % 5.1 % (0.0-3.0); HEMATOCRIT 34.2 % (36.0-47.0); HEMOGLOBIN 11.2 g/dl (12.0-15.5); LYMPH # 2.1 10^3/uL (1.5-5.0); LYMPH % 19.1 % (24.0-44.0); MEAN CORPUSCULAR HEMOGLOBIN 31.7 pg (27.0-33.0); MEAN CORPUSCULAR HGB CONC 32.7 g/dl (32.0-36.5); MEAN CORPUSCULAR VOLUME 96.9 fl (80.0-96.0); MONO % 9.2 % (2.0-8.0); NEUTROPHILS # 6.9 10^3/uL (1.5-8.5); NEUTROPHILS % 63.9 % (36.0-66.0); PLATELET COUNT, AUTOMATED 212 10^3/uL (150-450); RED BLOOD COUNT 3.53 10^6/uL (4.00-5.40); WHITE BLOOD COUNT 10.9 10^3/uL (4.0-10.0)
[2021-02-24 06:29] VITALS: BP 119/69
[2021-02-24 06:42] LABS: CALCIUM LEVEL 8.5 MG/DL (8.8-10.2); CREATININE FOR GFR 5.99 MG/DL (0.55-1.30); DIGOXIN LEVEL 0.8 NG/ML (0.5-2.0); GLOMERULAR FILTRATION RATE 7.2 (>32); POTASSIUM SERUM 4.4 MEQ/L (3.5-5.1)
[2021-02-24] MEDS: HumaLOG INSULIN (NovoLOG) PER UNIT SC SCH ×3 (07:30→17:11)
[2021-02-24] MEDS: LEVALBUTEROL HFA 45MCG/ACT 15 GM INHALER INH SCH ×4 (07:42→17:53)
[2021-02-24] MEDS: LEVEMIR (INSULIN DETEMIR) 1 UNITS/0.01ML SC SCH (08:42)
[2021-02-24] MEDS: VITAMIN D 1,000 INTERNATIONAL UNITS TABLET PO SCH (08:43)
[2021-02-24] MEDS: guaiFENesin ER 600 MG TAB PO SCH ×3 (08:44→20:19)
[2021-02-24] MEDS: DIGOXIN 0.125 MG TAB PO SCH (08:44)
[2021-02-24] MEDS: (RENVELA) SEVELAMER **CARBONate** 800 MG TAB PO SCH ×3 (08:44→17:10)
[2021-02-24] MEDS: LACTOBACILLUS ACIDOPHILUS CAP (BACID) PO SCH ×3 (08:44→20:19)
[2021-02-24] MEDS: NEPHRO-VIT TAB (NEPHROCAPS) PO SCH (08:44)
[2021-02-24] MEDS: APIXABAN 2.5 MG TAB (ELIQUIS) PO SCH ×2 (08:44→20:19)
[2021-02-24] MEDS: MIDODRINE 5 MG TAB PO SCH ×3 (08:46→17:11)
[2021-02-24] MEDS: REMEDY PHYTOPLEX Z-GUARD PASTE 113GM TUBE (FROM STOREROOM PRODUCT) TOP SCH ×3 (08:47→20:19)
[2021-02-24] MEDS: DOCUSATE SODIUM 100MG CAPSULE PO SCH ×2 (08:47→20:20)
[2021-02-24] MEDS: MULTIVITAMINS/MINERALS THERAP 1 TAB PO SCH (08:47)
--- NOTE | 2021-02-24 09:29 | IPNPDOC ---
PM&R Progress Note DATE OF SERVICE: Feb 24, 2021 Blueprint Assembler Progress Note Subjective: Patient reporting she is feeling good and is agreeable to stay through until Wednesday. She is concerned about needing her Walk-in paperwork filled out. REVIEW OF SYSTEMS: The following is a completed review of systems and has been reviewed. Review of systems otherwise unremarkable. PAIN: Patient self reports no pain EYES: No recent vision changes EARS, NOSE, & THROAT: No throat pain, or dysphagia, or rhinorrhea CARDIOVASCULAR: Denies chest pain or palpitations PULMONARY: Denies shortness of breath GASTROINTESTINAL: Denies constipation/diarrhea GENITOURINARY: anuric MUSCULOSKELETAL: generalized weakness NEUROLOGICAL: denies paresthesias HEMATOLOGICAL: +anemia SKIN: denies rash PSYCHIATRIC: Unremarkable All other review of systems found to be negative. PHYSICAL EXAMINATION: VITAL SIGNS: Please see below. GENERAL: Pleasant and cooperative. No acute distress. HEENT: PERRL. Extraocular movements intact. Clear conjunctiva CARDIOVASCULAR: Irregular rate and rhythm. No murmurs, rubs, or gallops LUNGS: Clear to auscultation bilaterally. No wheezes. No rhonchi ABDOMEN: Soft, nontender, nondistended. Positive bowel sounds. Normal active bowel sounds NEUROLOGICAL: Alert and oriented times three. Cranial nerves II through XII grossly intact. Sensation grossly intact EXTREMITIES: 5\5 strength bilateral upper extremities. 5-\5 strength right lower extremity.5-/5 strength in left lower extremity. ASSESSMENT:80-year-old F with past medical history of ESRD on HD who presents status post Afib with RVR in setting of RV infection PLAN: 1. Rehab- PTOT advance mobility and ADLs, strengthen/stretch/maintain ROM all 4 limbs, ambulating with RW 2. Cardiac- hx of AFib with soft BPs, cont eliquis, digoxin -hypotension cont midodrine -chronic diastolic CHF cont fluid restriction, daily weights, dialysis 3. Resp- cont supportive care for RSV infection- XOpenex and guaifenesin, incentive spirometry 4. REnal- cont dialysis- renal following -Renvela for secondary hyperparathyroidism 5. Endo- cont insulin and ISS for DM, monitor for hyperglycemia 6. GI ppx- protonix 7. DVT ppx- on eliquis 8. Pain- tylenol 9. Leukocytosis- mild, afebrile, no cough, patient anuric, blood cx pending 10. Dispo- TBD Allergies Coded Allergies: cetirizine (Verified Allergy, Intermediate, RASH, 02/22/19) amlodipine (Verified Allergy, Unknown, 03/04/20) pantoprazole (Verified Allergy, Unknown, 03/04/20) Dtcbivq-Gmw-Dsl Reductase Inhibitor (Verified Adverse Reaction, Intermediate, CRAMPS, 02/07/19) atorvastatin (Verified Adverse Reaction, Intermediate, CRAMPS, 01/07/19) prednisolone (Verified Adverse Reaction, Intermediate, ELEVATES BLOOD SUGAR, PT DIABETIC, 02/07/19) TAPE (Verified Adverse Reaction, Mild, ITCHING, 05/07/18) ondansetron (Verified Adverse Reaction, Mild, nausea, 06/25/20) oxycodone (Verified Adverse Reaction, Mild, CONSTIPATION, 01/07/19) benzonatate (Verified Adverse Reaction, Unknown, PER PT HAD A PROBLEM WITH IT BUT UNSURE WHY, 01/07/19) fenofibrate (Verified Adverse Reaction, Unknown, PER PT HAD A PROBLEM WITH IT BUT UNSURE WHY, 01/07/19) tamsulosin (Verified Adverse Reaction, Unknown, PER PT HAD A PROBLEM BUT UNSURE WHAT IT WAS, 02/07/19) Vital Signs Vital Signs Date Time Temp Pulse Resp B/P (MAP) Pulse Ox O2 Delivery O2 Flow Rate FiO2 02/24/21 08:44 60 02/24/21 06:29 97.5 18 119/69 (86) 95 Room Air Laboratory Data CBC/BMP Laboratory Tests 02/24/21 05:07 Labs 24H Laboratory Tests 2 02/23/21 11:22: Bedside Glucose (Misc Panel) 334H 02/23/21 16:32: Bedside Glucose (Misc Panel) 96 02/23/21 19:45: Bedside Glucose (Misc Panel) 186H 02/24/21 04:54: Bedside Glucose (Misc Panel) 100 02/24/21 05:07: Immature Granulocyte % (Auto) 1.8, Neutrophils (%) (Auto) 63.9, Lymphocytes (%) (Auto) 19.1L, Monocytes (%) (Auto) 9.2H, Eosinophils (%) (Auto) 5.1H, Basophils (%) (Auto) 0.9, Neutrophils # (Auto) 6.9, Lymphocytes # (Auto) 2.1, Monocytes # (Auto) 1.0H, Eosinophils # (Auto) 0.6H, Basophils # (Auto) 0.1, Nucleated Red Blood Cells % (auto) 0.0, Anion Gap 13, Glomerular Filtration Rate 7.2L, Calcium Level 8.5L, Digoxin Level 0.8 Microbiology Microbiology 02/21/21 Blood Culture - Preliminary, Resulted No Growth after 48 hours. All Specime... 02/21/21 Blood Culture - Preliminary, Resulted No Growth after 48 hours. All Specime... Current Medications Current Medications Current Medications Medications (Trade) Dose Ordered Sig/Princess Route PRN Reason Start Time Stop Time Status Last Admin Dose Admin Acetaminophen (Tylenol Tab) 650 mg Q4HP PRN PO fever/MILD PAIN (PS 1-4) 02/20/21 13:50 02/21/21 08:49 Apixaban (Eliquis) 2.5 mg BID PO 02/21/21 09:00 02/24/21 08:44 Bisacodyl (Dulcolax Suppository) 10 mg DAILYPRN PRN [place] CONSTIPATION 02/20/21 13:50 Calcitriol (Rocaltrol) 0.25 mcg Fr@1800 PO 02/21/21 18:00 02/21/21 17:29 Dextrose (Dextrose 50%) 25 ml ASDIRECTED PRN IV SEE LABEL COMMENTS 02/20/21 13:50 Digoxin (Lanoxin) 0.125 mg DAILY PO 02/21/21 09:00 02/24/21 08:44 Docusate Sodium (Colace) 100 mg BID PO 02/21/21 09:00 02/22/21 20:10 Glucagon (Glucagon) 1 mg ASDIRECTED PRN SC SEE LABEL COMMENTS 02/20/21 13:50 Glucose (Glucose) 16 GM ASDIRECTED PRN PO SEE LABEL COMMENTS 02/20/21 13:50 Guaifenesin (Mucinex Tab Er) 600 mg TID PO 02/21/21 09:00 02/24/21 08:44 Home Med (Home Med List Complete!) ASDIRECTED XX 02/21/21 00:50 02/21/21 00:50 DC Insulin Detemir (Levemir Insulin) 31 units DAILY SC 02/21/21 09:00 02/24/21 08:42 Insulin Human Lispro (HumaLOG INSULIN) SEE PROTOCOL TABLE AC SC 02/21/21 07:30 02/23/21 12:05 Insulin Human Lispro (HumaLOG INSULIN) SEE PROTOCOL TABLE Q6H SC 02/20/21 13:50 02/21/21 00:33 DC Lactobacillus Acidophilus (Bacid) 1 ea TID PO 02/21/21 09:00 02/24/21 08:44 Levalbuterol HCl (Xopenex Hfa) 2 puff RQID INH 02/21/21 08:00 02/24/21 07:42 Midodrine (Proamatine) 10 mg 08,12,16 PO 02/21/21 08:00 02/24/21 08:46 Multivitamins (Theragram-M) 1 tab DAILY PO 02/21/21 09:00 02/24/21 08:47 Polyethylene Glycol (Miralax) 1 pkt DAILY PRN PO CONSTIPATION 02/21/21 01:00 Senna (Senokot) 1 tab QHS PO 02/21/21 21:00 02/22/21 20:10 Sevelamer Carbonate (Renvela) 800 mg WM PO 02/21/21 08:00 02/24/21 08:44 Vitamin B Complex/ Vit C/Folic Acid (Nephro-Bhupinder Rx) 1 tab DAILY PO 02/21/21 09:00 02/24/21 08:44 Vitamin D (Vitamin D) 5,000 units DAILY PO 02/21/21 09:00 02/24/21 08:43 SCOOBY HAWKINS MD Feb 24, 2021 09:29
[2021-02-24 12:46] VITALS: BP 117/65
[2021-02-24 20:00] VITALS: BP 160/83
[2021-02-24] MEDS: SENNA 8.6 MG TAB (SENOKOT) PO SCH (20:19)
--- NOTE | 2021-02-24 21:57 | IPNPDOC ---
Subjective CC/HPI The patient is a 80-year-old female admitted with a reason for visit of New Onset A-Fib. Events since last encounter Sitting in sofa today, reports improving SOB but reports persistent cough General: Denies: ROS Unobtainable, Chills, Night Sweats, Fatigue, Malaise, Normal Appetite, Other Symptoms Constitutional: Denies: Chills, Fever, Malaise, Night Sweats, Weakness, Fatigue, Weight Loss, Lethargy, Other Eyes: Denies: Pain, Vision change, Conjunctivae inflammation, Eyelid inflammation, Redness, Other ENT: Denies: Head Aches, Ear Pain, Dysphagia, Sinus Congestion, Post Nasal Drip, Sore Throat, Epistaxis, Other Symptoms Skin: Denies: Rash, Lesions, Jaundice, Bruising, Itching, Dry, Breakdown, Nail Changes, Other Pulmonary: Reports: Dyspnea, Cough Cardiovascular: Reports: Palpitations; Denies: Chest Pain Gastrointestinal: Denies: Nausea, Vomiting, Abdominal Pain, Diarrhea, Constipation, Melena, Hematochezia, Other Symptoms Genitourinary: Denies: Dysuria, Frequency, Incontinence, Hematuria, Retention, Other Symptoms Hematologic: Denies: Bruising, Bleeding Excessively, Petecchia, Purpura, E nlarged Lymph Nodes, Other Hematologic Endocrine: Denies: Polydipsia, Polyphagia, Polyuria, Heat Intolerance, Cold Intolerance, Other Endocrine Sx Musculoskeletal: Denies: Neck Pain, Back Pain, Shoulder Pain, Arm Pain, Hand Pain, Leg Pain, Foot Pain, Joint Pain, Muscle Pain, Spasms, Other Symptoms Psych: Denies: Mood Normal, Anxiety, Depression, Memory Issues, Thoughts of Self Harm, Anger, Thoughts of Harming Other, Other Psych Objective Physical Examination General Exam: Alert, No Acute Distress EYE EXAM: PERRLA, Conjunctiva & lids normal, EOMI ENT EXAM: Atraumatic, Mucous membr. moist/pink Neck Exam: Supple, JVD Chest Exam: Clear to auscultation, Other (Decreased BS at bases) Heart Exam: Rate Normal, Irregular Rhythm ABDOMEN EXAM: Normal bowel sounds, Soft; No: Tenderness Extremity Exam: Clubbing; No: Cyanosis, Edema Skin Exam: Nl turgor and temperature; No: Rash Neuro Exam: Normal Gait, Normal Speech, Reflexes 2+ Psych Exam: Mental status NL, Mood NL Vital Signs/I&O Vital Signs Date Time Temp Pulse Resp B/P (MAP) Pulse Ox O2 Delivery O2 Flow Rate FiO2 02/24/21 12:46 117/65 (82) 02/24/21 08:44 60 02/24/21 06:29 97.5 18 95 Room Air I&O- Last 24 Hours up to 6 AM 02/24/21 06:00 Intake Total 840 ml Balance 840 ml Laboratory Data Labs 24H Laboratory Tests 2 02/24/21 04:54: Bedside Glucose (Misc Panel) 100 02/24/21 05:07: Immature Granulocyte % (Auto) 1.8, Neutrophils (%) (Auto) 63.9, Lymphocytes (%) (Auto) 19.1L, Monocytes (%) (Auto) 9.2H, Eosinophils (%) (Auto) 5.1H, Basophils (%) (Auto) 0.9, Neutrophils # (Auto) 6.9, Lymphocytes # (Auto) 2.1, Monocytes # (Auto) 1.0H, Eosinophils # (Auto) 0.6H, Basophils # (Auto) 0.1, Nucleated Red Blood Cells % (auto) 0.0, Anion Gap 13, Glomerular Filtration Rate 7.2L, Calcium Level 8.5L, Digoxin Level 0.8 02/24/21 12:21: Bedside Glucose (Misc Panel) 252H 02/24/21 16:53: Bedside Glucose (Misc Panel) 118H 02/24/21 20:23: Bedside Glucose (Misc Panel) 125H CBC/BMP Laboratory Tests 02/24/21 05:07 FSBS Laboratory Tests Test 02/24/21 04:54 02/24/21 12:21 02/24/21 16:53 02/24/21 20:23 Range/Units Bedside Glucose (Misc Panel) 100 252 118 125 83-110 MG/DL Current Medications Current Medications Medications (Trade) Dose Ordered Sig/Princess Route PRN Reason Start Time Stop Time Status Last Admin Dose Admin Acetaminophen (Tylenol Tab) 650 mg Q4HP PRN PO fever/MILD PAIN (PS 1-4) 02/20/21 13:50 02/21/21 08:49 Apixaban (Eliquis) 2.5 mg BID PO 02/21/21 09:00 02/24/21 20:19 Bisacodyl (Dulcolax Suppository) 10 mg DAILYPRN PRN [place] CONSTIPATION 02/20/21 13:50 Calcitriol (Rocaltrol) 0.25 mcg Fr@1800 PO 02/21/21 18:00 02/21/21 17:29 Dextrose (Dextrose 50%) 25 ml ASDIRECTED PRN IV SEE LABEL COMMENTS 02/20/21 13:50 Digoxin (Lanoxin) 0.125 mg DAILY PO 02/21/21 09:00 02/24/21 08:44 Docusate Sodium (Colace) 100 mg BID PO 02/21/21 09:00 02/22/21 20:10 Glucagon (Glucagon) 1 mg ASDIRECTED PRN SC SEE LABEL COMMENTS 02/20/21 13:50 Glucose (Glucose) 16 GM ASDIRECTED PRN PO SEE LABEL COMMENTS 02/20/21 13:50 Guaifenesin (Mucinex Tab Er) 600 mg TID PO 02/21/21 09:00 02/24/21 20:19 Heparin Sodium (Heparin) Please refer to ... ASDIRECTED XX 02/25/21 06:00 02/26/21 05:59 Home Med (Home Med List Complete!) ASDIRECTED XX 02/21/21 00:50 02/21/21 00:50 DC Insulin Detemir (Levemir Insulin) 31 units DAILY SC 02/21/21 09:00 02/24/21 08:42 Insulin Human Lispro (HumaLOG INSULIN) SEE PROTOCOL TABLE AC SC 02/21/21 07:30 02/24/21 17:11 Insulin Human Lispro (HumaLOG INSULIN) SEE PROTOCOL TABLE Q6H SC 02/20/21 13:50 02/21/21 00:33 DC Lactobacillus Acidophilus (Bacid) 1 ea TID PO 02/21/21 09:00 02/24/21 20:19 Levalbuterol HCl (Xopenex Hfa) 2 puff RQID INH 02/21/21 08:00 02/24/21 17:53 Lidocaine HCl (Lidocaine 1% Sdv) 0.5 ml ASDIRECTED PRN SC SEE LABEL COMMENTS 02/25/21 06:00 02/25/21 12:29 Midodrine (Proamatine) 10 mg 08,12,16 PO 02/21/21 08:00 02/24/21 17:11 Multivitamins (Theragram-M) 1 tab DAILY PO 02/21/21 09:00 02/24/21 08:47 Polyethylene Glycol (Miralax) 1 pkt DAILY PRN PO CONSTIPATION 02/21/21 01:00 Senna (Senokot) 1 tab QHS PO 02/21/21 21:00 02/22/21 20:10 Sevelamer Carbonate (Renvela) 800 mg WM PO 02/21/21 08:00 02/24/21 17:10 Vitamin B Complex/ Vit C/Folic Acid (Nephro-Bhupinder Rx) 1 tab DAILY PO 02/21/21 09:00 02/24/21 08:44 Vitamin D (Vitamin D) 5,000 units DAILY PO 02/21/21 09:00 02/24/21 08:43 Allergies Coded Allergies: cetirizine (Verified Allergy, Intermediate, RASH, 02/22/19) amlodipine (Verified Allergy, Unknown, 03/04/20) pantoprazole (Verified Allergy, Unknown, 03/04/20) Jcpvuhi-Ocn-Oqq Reductase Inhibitor (Verified Adverse Reaction, Intermediate, CRAMPS, 02/07/19) atorvastatin (Verified Adverse Reaction, Intermediate, CRAMPS, 01/07/19) prednisolone (Verified Adverse Reaction, Intermediate, ELEVATES BLOOD SUGAR, PT DIABETIC, 02/07/19) TAPE (Verified Adverse Reaction, Mild, ITCHING, 05/07/18) ondansetron (Verified Adverse Reaction, Mild, nausea, 06/25/20) oxycodone (Verified Adverse Reaction, Mild, CONSTIPATION, 01/07/19) benzonatate (Verified Adverse Reaction, Unknown, PER PT HAD A PROBLEM WITH IT BUT UNSURE WHY, 01/07/19) fenofibrate (Verified Adverse Reaction, Unknown, PER PT HAD A PROBLEM WITH IT BUT UNSURE WHY, 01/07/19) tamsulosin (Verified Adverse Reaction, Unknown, PER PT HAD A PROBLEM BUT UNSURE WHAT IT WAS, 02/07/19) Assessment/Plan Date Seen The patient was seen on 02/24/21 at 21:53. Plan / VTE VTE Prophylaxis Ordered?: Yes Plan Orders past 48 Hours Orders Fingerstick Blood Sugar (02/23/21 04:22) Fingerstick Blood Sugar (02/23/21 11:22) Fingerstick Blood Sugar (02/23/21 16:32) Fingerstick Blood Sugar (02/23/21 19:45) Digoxin Level (02/24/21 06:00) Fingerstick Blood Sugar (02/24/21 04:54) Cbc With Differential (02/26/21 06:00) Basic Metabolic Profile (02/26/21 06:00) Room Privileges (Pm&R) (02/24/21 12:16) Fingerstick Blood Sugar (02/24/21 12:21) Hemodialysis Acute Orders (02/25/21 06:00) Heparin (Heparin) (02/25/21 06:00) Lidocaine 1% Sdv (Lidocaine 1% Sdv) (02/25/21 06:00) Fingerstick Blood Sugar (02/24/21 16:53) Fingerstick Blood Sugar (02/24/21 20:23) Plan Text ESRd on HD Afib with RVR Anemia in ESRD chronic Hypotension HFrEF HD in AM and UF goal about 2.5Kg, Dig for Afib, dose Q 48 now, anemia controlled, Cont Midodrine, volume status optimized with HD. ARMANDO ADHIKARI MD Feb 24, 2021 21:57
[2021-02-25 06:00] VITALS: BP 118/53
[2021-02-25] MEDS ORDERED: LIDOCAINE 1% SDV 5ML VIAL SC PRN (06:00)
[2021-02-25] MEDS: HumaLOG INSULIN (NovoLOG) PER UNIT SC SCH ×3 (07:30→17:30)
[2021-02-25] MEDS: LEVEMIR (INSULIN DETEMIR) 1 UNITS/0.01ML SC SCH (07:49)
[2021-02-25] MEDS: (RENVELA) SEVELAMER **CARBONate** 800 MG TAB PO SCH ×3 (08:00→17:43)
[2021-02-25] MEDS: MIDODRINE 5 MG TAB PO SCH ×3 (08:00→17:43)
[2021-02-25] MEDS: DOCUSATE SODIUM 100MG CAPSULE PO SCH ×2 (09:00→20:44)
[2021-02-25] MEDS: APIXABAN 2.5 MG TAB (ELIQUIS) PO SCH ×2 (09:05→20:43)
[2021-02-25] MEDS: DIGOXIN 0.125 MG TAB PO SCH (09:05)
[2021-02-25] MEDS: LACTOBACILLUS ACIDOPHILUS CAP (BACID) PO SCH ×3 (09:05→20:43)
[2021-02-25] MEDS: VITAMIN D 1,000 INTERNATIONAL UNITS TABLET PO SCH (09:05)
[2021-02-25] MEDS: MULTIVITAMINS/MINERALS THERAP 1 TAB PO SCH (09:05)
[2021-02-25] MEDS: NEPHRO-VIT TAB (NEPHROCAPS) PO SCH (09:05)
[2021-02-25] MEDS: guaiFENesin ER 600 MG TAB PO SCH ×3 (09:06→20:43)
[2021-02-25] MEDS: REMEDY PHYTOPLEX Z-GUARD PASTE 113GM TUBE (FROM STOREROOM PRODUCT) TOP SCH ×3 (09:07→20:43)
[2021-02-25] MEDS: LEVALBUTEROL HFA 45MCG/ACT 15 GM INHALER INH SCH ×4 (09:24→20:23)
--- NOTE | 2021-02-25 10:14 | IPNPDOC ---
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 REVIEW OF SYSTEMS: The following is a completed review of systems and has been reviewed. Review of systems otherwise unremarkable. PAIN: Patient self reports no pain EYES: No recent vision changes EARS, NOSE, & THROAT: No throat pain, or dysphagia, or rhinorrhea CARDIOVASCULAR: Denies chest pain or palpitations PULMONARY: Denies shortness of breath, +cough GASTROINTESTINAL: Denies constipation/diarrhea GENITOURINARY: anuric MUSCULOSKELETAL: generalized weakness NEUROLOGICAL: denies paresthesias HEMATOLOGICAL: +anemia SKIN: denies rash PSYCHIATRIC: Unremarkable All other review of systems found to be negative. PHYSICAL EXAMINATION: VITAL SIGNS: Please see below. GENERAL: Pleasant and cooperative. No acute distress. HEENT: PERRL. Extraocular movements intact. Clear conjunctiva CARDIOVASCULAR: Irregular rate and rhythm. No murmurs, rubs, or gallops LUNGS: Clear to auscultation bilaterally. +apical wheeze ABDOMEN: Soft, nontender, nondistended. Positive bowel sounds. Normal active bowel sounds NEUROLOGICAL: Alert and oriented times three. Cranial nerves II through XII grossly intact. Sensation grossly intact EXTREMITIES: 5\5 strength bilateral upper extremities. 5-\5 strength right lower extremity.5-/5 strength in left lower extremity. ASSESSMENT:80-year-old F with past medical history of ESRD on HD who presents status post Afib with RVR in setting of RV infection PLAN: 1. Rehab- PTOT advance mobility and ADLs, strengthen/stretch/maintain ROM all 4 limbs, ambulating with RW 2. Cardiac- hx of AFib with soft BPs, cont eliquis, digoxin -hypotension cont midodrine -chronic diastolic CHF cont fluid restriction, daily weights, dialysis 3. Resp- cont supportive care for RSV infection- XOpenex and guaifenesin, incentive spirometry -patient complaining of cough today, most likely due to recent RSV infection, she appears clinically stable, will order CXR 4. REnal- cont dialysis- renal following -Renvela for secondary hyperparathyroidism 5. Endo- cont insulin and ISS for DM, FS running low, will cut down on Levemir dosing 6. GI ppx- protonix 7. DVT ppx- on eliquis 8. Pain- tylenol 9. Leukocytosis- mild, afebrile, patient anuric, blood cx negative 10. Dispo- 02-26-21 to home, progressing towards goals Allergies Coded Allergies: cetirizine (Verified Allergy, Intermediate, RASH, 02/22/19) amlodipine (Verified Allergy, Unknown, 03/04/20) pantoprazole (Verified Allergy, Unknown, 03/04/20) Ssnqntr-Dpr-Nbc Reductase Inhibitor (Verified Adverse Reaction, Intermediate, CRAMPS, 02/07/19) atorvastatin (Verified Adverse Reaction, Intermediate, CRAMPS, 01/07/19) prednisolone (Verified Adverse Reaction, Intermediate, ELEVATES BLOOD SUGA R, PT DIABETIC, 02/07/19) TAPE (Verified Adverse Reaction, Mild, ITCHING, 05/07/18) ondansetron (Verified Adverse Reaction, Mild, nausea, 06/25/20) oxycodone (Verified Adverse Reaction, Mild, CONSTIPATION, 01/07/19) benzonatate (Verified Adverse Reaction, Unknown, PER PT HAD A PROBLEM WITH IT BUT UNSURE WHY, 01/07/19) fenofibrate (Verified Adverse Reaction, Unknown, PER PT HAD A PROBLEM WITH IT BUT UNSURE WHY, 01/07/19) tamsulosin (Verified Adverse Reaction, Unknown, PER PT HAD A PROBLEM BUT UNSURE WHAT IT WAS, 02/07/19) Vital Signs Vital Signs Date Time Temp Pulse Resp B/P (MAP) Pulse Ox O2 Delivery O2 Flow Rate FiO2 02/25/21 09:05 78 02/25/21 06:00 97.6 17 118/53 (74) 97 Room Air Laboratory Data Labs 24H Laboratory Tests 2 02/24/21 12:21: Bedside Glucose (Misc Panel) 252H 02/24/21 16:53: Bedside Glucose (Misc Panel) 118H 02/24/21 20:23: Bedside Glucose (Misc Panel) 125H 02/25/21 05:56: Bedside Glucose (Misc Panel) 86 Microbiology Microbiology 02/21/21 Blood Culture - Preliminary, Resulted No Growth after 72 hours. All specime... 02/21/21 Blood Culture - Preliminary, Resulted No Growth after 72 hours. All specime... Current Medications Current Medications Current Medications Medications (Trade) Dose Ordered Sig/Princess Route PRN Reason Start Time Stop Time Status Last Admin Dose Admin Acetaminophen (Tylenol Tab) 650 mg Q4HP PRN PO fever/MILD PAIN (PS 1-4) 02/20/21 13:50 02/21/21 08:49 Apixaban (Eliquis) 2.5 mg BID PO 02/21/21 09:00 02/25/21 09:05 Bisacodyl (Dulcolax Suppository) 10 mg DAILYPRN PRN [place] CONSTIPATION 02/20/21 13:50 Calcitriol (Rocaltrol) 0.25 mcg Fr@1800 PO 02/21/21 18:00 02/21/21 17:29 Dextrose (Dextrose 50%) 25 ml ASDIRECTED PRN IV SEE LABEL COMMENTS 02/20/21 13:50 Digoxin (Lanoxin) 0.125 mg DAILY PO 02/21/21 09:00 02/25/21 09:05 Docusate Sodium (Colace) 100 mg BID PO 02/21/21 09:00 02/22/21 20:10 Glucagon (Glucagon) 1 mg ASDIRECTED PRN SC SEE LABEL COMMENTS 02/20/21 13:50 Glucose (Glucose) 16 GM ASDIRECTED PRN PO SEE LABEL COMMENTS 02/20/21 13:50 Guaifenesin (Mucinex Tab Er) 600 mg TID PO 02/21/21 09:00 02/25/21 09:06 Heparin Sodium (Heparin) Please refer to ... ASDIRECTED XX 02/25/21 06:00 02/26/21 05:59 Home Med (Home Med List Complete!) ASDIRECTED XX 02/21/21 00:50 02/21/21 00:50 DC Insulin Detemir (Levemir Insulin) 31 units DAILY SC 02/21/21 09:00 02/24/21 08:42 Insulin Human Lispro (HumaLOG INSULIN) SEE PROTOCOL TABLE AC SC 02/21/21 07:30 02/24/21 17:11 Insulin Human Lispro (HumaLOG INSULIN) SEE PROTOCOL TABLE Q6H SC 02/20/21 13:50 02/21/21 00:33 DC Lactobacillus Acidophilus (Bacid) 1 ea TID PO 02/21/21 09:00 02/25/21 09:05 Levalbuterol HCl (Xopenex Hfa) 2 puff RQID INH 02/21/21 08:00 9/20/21 17:53 Lidocaine HCl (Lidocaine 1% Sdv) 0.5 ml ASDIRECTED PRN SC SEE LABEL COMMENTS 02/25/21 06:00 02/25/21 12:29 Midodrine (Proamatine) 10 mg 08,12,16 PO 02/21/21 08:00 02/24/21 17:11 Multivitamins (Theragram-M) 1 tab DAILY PO 02/21/21 09:00 02/25/21 09:05 Polyethylene Glycol (Miralax) 1 pkt DAILY PRN PO CONSTIPATION 02/21/21 01:00 Senna (Senokot) 1 tab QHS PO 02/21/21 21:00 02/22/21 20:10 Sevelamer Carbonate (Renvela) 800 mg WM PO 02/21/21 08:00 02/24/21 17:10 Vitamin B Complex/ Vit C/Folic Acid (Nephro-Bhupinder Rx) 1 tab DAILY PO 02/21/21 09:00 02/25/21 09:05 Vitamin D (Vitamin D) 5,000 units DAILY PO 02/21/21 09:00 02/25/21 09:05 SCOOBY HAWKINS MD Feb 25, 2021 10:14
--- NOTE | 2021-02-25 12:59 | IPNPDOC ---
Subjective CC/HPI The patient is a 80-year-old female admitted with a reason for visit of [place] A-Fib. Events since last encounter Seen in the rehab room, getting exercise. cough is improving. HD due today General: Denies: ROS Unobtainable, Chills, Night Sweats, Fatigue, Malaise, Normal Appetite, Other Symptoms Constitutional: Denies: Chills, Fever, Malaise, Night Sweats, Weakness, Fatigue, Weight Loss, Lethargy, Other Eyes: Denies: Pain, Vision change, Conjunctivae inflammation, Eyelid inflammation, Redness, Other ENT: Denies: Head Aches, Ear Pain, Dysphagia, Sinus Congestion, Post Nasal Drip, Sore Throat, Epistaxis, Other Symptoms Skin: Denies: Rash, Lesions, Jaundice, Bruising, Itching, Dry, Breakdown, Nail Changes, Other Pulmonary: Reports: Cough Cardiovascular: Denies: Chest Pain, Palpitations, Orthopnea, Paroxysmal Noc. Dyspnea, Edema, Lt Headedness, Other Symptoms Gastrointestinal: Denies: Nausea, Vomiting, Abdominal Pain, Diarrhea, Constipation, Melena, Hematochezia, Other Symptoms Genitourinary: Denies: Dysuria, Frequency, Incontinence, Hematuria, Retention, Other Symptoms Hematologic: Denies: Bruising, Bleeding Excessively, Petecchia, Purpura, Enlarged Lymph Nodes, Other Hematologic Musculoskeletal: Denies: Neck Pain, Back Pain, Shoulder Pain, Arm Pain, Hand Pain, Leg Pain, Foot Pain, Joint Pain, Muscle Pain, Spasms, Other Symptoms Neurological: Reports: Weakness Psych: Reports: Mood Normal Objective Physical Examination General Exam: Alert, No Acute Distress EYE EXAM: PERRLA, Conjunctiva & lids normal, EOMI ENT EXAM: Atraumatic, Mucous membr. moist/pink Neck Exam: Supple, JVD Chest Exam: Clear to auscultation, Other (Decreased BS at bases) Heart Exam: Rate Normal, Irregular Rhythm ABDOMEN EXAM: Normal bowel sounds, Soft; No: Tenderness Extremity Exam: Clubbing; No: Cyanosis, Edema Skin Exam: Nl turgor and temperature; No: Rash Neuro Exam: Normal Gait, Normal Speech, Reflexes 2+ Psych Exam: Mental status NL, Mood NL Vital Signs/I&O Vital Signs Date Time Temp Pulse Resp B/P (MAP) Pulse Ox O2 Delivery O2 Flow Rate FiO2 02/25/21 09:05 78 02/25/21 06:00 97.6 17 118/53 (74) 97 Room Air I&O- Last 24 Hours up to 6 AM 02/25/21 06:00 Intake Total 900 ml Output Total 0 ml Balance 900 ml Laboratory Data Labs 24H Laboratory Tests 2 02/24/21 16:53: Bedside Glucose (Misc Panel) 118H 02/24/21 20:23: Bedside Glucose (Misc Panel) 125H 02/25/21 05:56: Bedside Glucose (Misc Panel) 86 02/25/21 11:48: Bedside Glucose (Misc Panel) 223H FSBS Laboratory Tests Test 02/24/21 16:53 02/24/21 20:23 02/25/21 05:56 02/25/21 11:48 Range/Units Bedside Glucose (Misc Panel) 118 125 86 223 83-110 MG/DL Current Medications Current Medications Medications (Trade) Dose Ordered Sig/Princess Route PRN Reason Start Time Stop Time Status Last Admin Dose Admin Acetaminophen (Tylenol Tab) 650 mg Q4HP PRN PO fever/MILD PAIN (PS 1-4) 02/20/21 13:50 02/21/21 08:49 Apixaban (Eliquis) 2.5 mg BID PO 02/21/21 09:00 02/25/21 09:05 Bisacodyl (Dulcolax Suppository) 10 mg DAILYPRN PRN WI CONSTIPATION 02/20/21 13:50 Calcitriol (Rocaltrol) 0.25 mcg Fr@1800 PO 02/21/21 18:00 02/21/21 17:29 Dextrose (Dextrose 50%) 25 ml ASDIRECTED PRN IV SEE LABEL COMMENTS 02/20/21 13:50 Digoxin (Lanoxin) 0.125 mg DAILY PO 02/21/21 09:00 02/25/21 09:05 Docusate Sodium (Colace) 100 mg BID PO 02/21/21 09:00 02/22/21 20:10 Glucagon (Glucagon) 1 mg ASDIRECTED PRN SC SEE LABEL COMMENTS 02/20/21 13:50 Glucose (Glucose) 16 GM ASDIRECTED PRN PO SEE LABEL COMMENTS 02/20/21 13:50 Guaifenesin (Mucinex Tab Er) 600 mg TID PO 02/21/21 09:00 02/25/21 09:06 Heparin Sodium (Heparin) Please refer to ... ASDIRECTED XX 02/25/21 06:00 02/26/21 05:59 Home Med (Home Med List Complete!) ASDIRECTED XX 02/21/21 00:50 02/21/21 00:50 DC Insulin Detemir (Levemir Insulin) 25 units DAILY SC 02/26/21 09:00 Insulin Detemir (Levemir Insulin) 31 units DAILY SC 02/21/21 09:00 02/25/21 10:10 DC 02/24/21 08:42 Insulin Human Lispro (HumaLOG INSULIN) SEE PROTOCOL TABLE AC SC 02/21/21 07:30 02/25/21 11:55 Insulin Human Lispro (HumaLOG INSULIN) SEE PROTOCOL TABLE Q6H SC 02/20/21 13:50 02/21/21 00:33 DC Lactobacillus Acidophilus (Bacid) 1 ea TID PO 02/21/21 09:00 02/25/21 09:05 Levalbuterol HCl (Xopenex Hfa) 2 puff RQID INH 02/21/21 08:00 02/25/21 11:24 Lidocaine HCl (Lidocaine 1% Sdv) 0.5 ml ASDIRECTED PRN SC SEE LABEL COMMENTS 02/25/21 06:00 02/25/21 12:29 DC Midodrine (Proamatine) 10 mg 08,12,16 PO 02/21/21 08:00 02/25/21 11:55 Multivitamins (Theragram-M) 1 tab DAILY PO 02/21/21 09:00 02/25/21 09:05 Polyethylene Glycol (Miralax) 1 pkt DAILY PRN PO CONSTIPATION 02/21/21 01:00 Senna (Senokot) 1 tab QHS PO 02/21/21 21:00 02/22/21 20:10 Sevelamer Carbonate (Renvela) 800 mg WM PO 02/21/21 08:00 02/25/21 11:55 Vitamin B Complex/ Vit C/Folic Acid (Nephro-Bhupinder Rx) 1 tab DAILY PO 02/21/21 09:00 02/25/21 09:05 Vitamin D (Vitamin D) 5,000 units DAILY PO 02/21/21 09:00 02/25/21 09:05 Allergies Coded Allergies: cetirizine (Verified Allergy, Intermediate, RASH, 02/22/19) amlodipine (Verified Allergy, Unknown, 03/04/20) pantoprazole (Verified Allergy, Unknown, 03/04/20) Uermhge-Zgh-Vrz Reductase Inhibitor (Verified Adverse Reaction, Intermediate, CRAMPS, 02/07/19) atorvastatin (Verified Adverse Reaction, Intermediate, CRAMPS, 01/07/19) prednisolone (Verified Adverse Reaction, Intermediate, ELEVATES BLOOD SUGAR, PT DIABETIC, 02/07/19) TAPE (Verified Adverse Reaction, Mild, ITCHING, 05/07/18) ondansetron (Verified Adverse Reaction, Mild, nausea, 06/25/20) oxycodone (Verified Adverse Reaction, Mild, CONSTIPATION, 01/07/19) benzonatate (Verified Adverse Reaction, Unknown, PER PT HAD A PROBLEM WITH IT BUT UNSURE WHY, 01/07/19) fenofibrate (Verified Adverse Reaction, Unknown, PER PT HAD A PROBLEM WITH IT BUT UNSURE WHY, 01/07/19) tamsulosin (Verified Adverse Reaction, Unknown, PER PT HAD A PROBLEM BUT UNSURE WHAT IT WAS, 02/07/19) Assessment/Plan Date Seen The patient was seen on 02/25/21 at 12:56. Plan / VTE VTE Prophylaxis Ordered?: Yes Plan Orders past 48 Hours Orders Fingerstick Blood Sugar (02/23/21 16:32) Fingerstick Blood Sugar (02/23/21 19:45) Digoxin Level (02/24/21 06:00) Fingerstick Blood Sugar (02/24/21 04:54) Cbc With Differential (02/26/21 06:00) Basic Metabolic Profile (02/26/21 06:00) Room Privileges (Pm&R) (02/24/21 12:16) Fingerstick Blood Sugar (02/24/21 12:21) Hemodialysis Acute Orders (02/25/21 06:00) Heparin (Heparin) (02/25/21 06:00) Lidocaine 1% Sdv (Lidocaine 1% Sdv) (02/25/21 06:00) Fingerstick Blood Sugar (02/24/21 16:53) Fingerstick Blood Sugar (02/24/21 20:23) Fingerstick Blood Sugar (02/25/21 05:56) Insulin Detemir (Levemir Insulin) (02/26/21 09:00) Fingerstick Blood Sugar (02/25/21 11:48) Plan Text ESRd on HD Afib with RVR Anemia in ESRD chronic Hypotension HFrEF Cough and SOB sec to recent RSV virus Mineral bone disease of ESRD. Secondary hyperparathyroidism HD today and UF goal about 2.5Kg, Dig for Afib, anemia controlled, Cont Midodrine, volume status optimized with HD. Cont Renvela and Vit D Analogs. ARMANDO ADHIKARI MD Feb 25, 2021 12:59
[2021-02-25] MEDS: COMBIVENT RESPIMAT 100-20MCG INHALER 4GM INH SCH ×2 (13:39→20:00)
[2021-02-25] MEDS: ACETAMINOPHEN TAB 650MG DOSE (2X325MG) PO PRN (15:50)
[2021-02-25 17:40] VITALS: BP 112/44
--- NOTE | 2021-02-25 18:02 | REP ---
INDICATION: r/o infiltrate, cough. COMPARISON: 02/21/2021 a portable exam TECHNIQUE: AP and lateral FINDINGS: The technique utilized in obtaining the radiograph has magnified the cardiac silhouette and attenuated the interstitial markings. The cardiomediastinal silhouette is unchanged. There is cardiomegaly accentuated by technique status quo. Lung sanon are unchanged. No acute patchy parenchymal opacities or pleural effusions have developed. There is no change in the osseous structures. IMPRESSION: There is no acute cardiopulmonary disease. <Electronically signed by Ariel Ford > 02/25/21 [id number]
[2021-02-25 20:00] VITALS: BP 120/58
[2021-02-25] MEDS: SENNA 8.6 MG TAB (SENOKOT) PO SCH (20:44)
[2021-02-26 06:00] VITALS: BP 101/53
[2021-02-26 06:47] LABS: BASO # 0.1 10^3/uL (0.0-0.2); BASO % 0.7 % (0.0-1.0); EOS # 0.4 10^3/uL (0.0-0.5); EOS % 4.1 % (0.0-3.0); HEMATOCRIT 33.8 % (36.0-47.0); HEMOGLOBIN 11.2 g/dl (12.0-15.5); LYMPH # 1.5 10^3/uL (1.5-5.0); LYMPH % 15.8 % (24.0-44.0); MEAN CORPUSCULAR HEMOGLOBIN 32.4 pg (27.0-33.0); MEAN CORPUSCULAR HGB CONC 33.1 g/dl (32.0-36.5); MEAN CORPUSCULAR VOLUME 97.7 fl (80.0-96.0); MONO % 10.1 % (2.0-8.0); NEUTROPHILS # 6.4 10^3/uL (1.5-8.5); NEUTROPHILS % 67.7 % (36.0-66.0); PLATELET COUNT, AUTOMATED 180 10^3/uL (150-450); RED BLOOD COUNT 3.46 10^6/uL (4.00-5.40); WHITE BLOOD COUNT 9.4 10^3/uL (4.0-10.0)
[2021-02-26 07:09] LABS: CALCIUM LEVEL 8.6 MG/DL (8.8-10.2); CREATININE FOR GFR 4.66 MG/DL (0.55-1.30); GLOMERULAR FILTRATION RATE 9.6 (>32); POTASSIUM SERUM 4.7 MEQ/L (3.5-5.1)
[2021-02-26] MEDS: LEVALBUTEROL HFA 45MCG/ACT 15 GM INHALER INH SCH ×2 (07:15→11:17)
[2021-02-26] MEDS: (RENVELA) SEVELAMER **CARBONate** 800 MG TAB PO SCH ×2 (08:00→11:48)
[2021-02-26] MEDS: guaiFENesin ER 600 MG TAB PO SCH (08:50)
[2021-02-26] MEDS: MIDODRINE 5 MG TAB PO SCH ×2 (08:50→11:48)
[2021-02-26] MEDS: VITAMIN D 1,000 INTERNATIONAL UNITS TABLET PO SCH (08:50)
[2021-02-26] MEDS: LACTOBACILLUS ACIDOPHILUS CAP (BACID) PO SCH (08:50)
[2021-02-26] MEDS: MULTIVITAMINS/MINERALS THERAP 1 TAB PO SCH (08:50)
[2021-02-26] MEDS: NEPHRO-VIT TAB (NEPHROCAPS) PO SCH (08:50)
[2021-02-26] MEDS: APIXABAN 2.5 MG TAB (ELIQUIS) PO SCH (08:51)
[2021-02-26] MEDS: DIGOXIN 0.125 MG TAB PO SCH (08:51)
[2021-02-26] MEDS: REMEDY PHYTOPLEX Z-GUARD PASTE 113GM TUBE (FROM STOREROOM PRODUCT) TOP SCH (08:53)
[2021-02-26] MEDS: HumaLOG INSULIN (NovoLOG) PER UNIT SC SCH ×2 (08:53→11:49)
[2021-02-26] MEDS: DOCUSATE SODIUM 100MG CAPSULE PO SCH (08:54)
[2021-02-26] MEDS ORDERED: LEVEMIR (INSULIN DETEMIR) 1 UNITS/0.01ML SC SCH (09:00)
--- NOTE | 2021-02-26 12:05 | REP ---
INDICATION: r/o infiltrate, cough. COMPARISON: Radiographs 02/25/2021. TECHNIQUE: CT chest performed without the use of intravenous contrast. Sagittal and coronal reconstruction images are performed. FINDINGS: Lungs: No infiltrate is seen in either lung. There is mild diffuse interstitial fibrotic change and scattered tiny calcified granulomas bilaterally. Mediastinum: There are 2 minimally prominent right paratracheal lymph nodes 1.1 cm in short axis.. Izzy: No gross adenopathy. Axilla: No gross adenopathy. Pleura: No effusion. Heart: Upper limits of normal in size. Thoracic aorta: No aneurysm. Upper abdominal structures: There is a small hiatal hernia. Visualized osseous structures: There are diffuse degenerative changes of the spine without compression deformity. There is diffuse sclerotic density throughout the osseous structures compatible with renal osteodystrophy. There is an ill-defined lucency at the posterior margin of the T1 vertebral body, similar appearing lucency in the posterior aspect of the T5 vertebral body, a couple of ill-defined central lucencies in the T9 vertebral body and a small rounded lucency along the inferior endplate of T11. The lucencies within T9 are unchanged since the prior CT of the abdomen 03/04/2020 and 05/07/2018. The finding in T1 is unchanged since the CT cervical spine 06/11/2020. The findings are felt to be secondary to the renal osteodystrophy, with areas of focal osteopenia/osteolysis. IMPRESSION: No acute infiltrate. 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 <Electronically signed by Robles Flores > 02/26/21 1201
[2021-02-26] MEDS ORDERED: D31000TA2 PO (12:15)
[2021-02-26] MEDS ORDERED: INSULANT SC (12:15)
[2021-02-26] MEDS ORDERED: DIAL800T3 PO (12:15)
[2021-02-26] MEDS ORDERED: ELIQ2.5T PO (12:15)
[2021-02-26] MEDS ORDERED: COMBAER6 INH (12:15)
[2021-02-26] MEDS ORDERED: MIDO5TA PO (12:15)
[2021-02-26] MEDS ORDERED: MUCI600T31 PO (12:15)
[2021-02-26] MEDS ORDERED: RENV2TAB PO (12:15)
[2021-02-26] MEDS ORDERED: CALC1CAP31 PO (12:15)
[2021-02-26] MEDS ORDERED: RISATAB3 PO (12:15)
[2021-02-26] MEDS ORDERED: DIGO0.123 PO (12:15)
[2021-02-26] MEDS ORDERED: BIOT5TAB3 PO (12:15)
== END 2021-02-26 13:49 | disposition home or self-care (01) | DRG 555 ==
LOC: M PM&R 22:45 → UNDOADMIN 22:45 → M 4MAIN 22:45
PROVIDERS: ADMIT Physical Medicine & Rehabilitation; ATTEND Physical Medicine & Rehabilitation
PROC: 5A1D70Z Performance of Urinary Filtration, Intermittent, Less than 6 Hours Per Day (ICD-10-PCS; principal; 2021-02-22)
DX: M62.81 Muscle weakness (generalized) (principal); N18.6 End stage renal disease; N25.81 Secondary hyperparathyroidism of renal origin; I13.2 Hypertensive heart and chronic kidney disease with heart failure and with stage 5 chronic kidney disease, or end stage renal disease; I50.32 Chronic diastolic (congestive) heart failure; E11.22 Type 2 diabetes mellitus with diabetic chronic kidney disease; I48.91 Unspecified atrial fibrillation; D63.1 Anemia in chronic kidney disease; M19.90 Unspecified osteoarthritis, unspecified site; Z99.2 Dependence on renal dialysis; Z74.09 Other reduced mobility; Z74.1 Need for assistance with personal care; Z79.01 Long term (current) use of anticoagulants; Z79.4 Long term (current) use of insulin; Z79.899 Other long term (current) drug therapy; Z88.8 Allergy status to other drugs, medicaments and biological substances; E78.5 Hyperlipidemia, unspecified; I95.9 Hypotension, unspecified

== ENCOUNTER 2021-08-30 09:56 | Emergency (ER) | payer MEDICARE, MEDICAID ==
[~2021-08-30] VITALS: Ht 142.2 cm; Wt 92.3 kg
[~2021-08-30 09:56] MED LIST changes: +BIOT5TAB3 PO; +COMBAER6 INH; -D31000TA2 PO; +LOSA50TA28 PO; -LOSA50TA88 PO; +MIDO5TA PO; +MUCI600T31 PO; +VITA100093 PO
[2021-08-30] MEDS ORDERED: IPRATROPIUM 0.5MG/ALBUTEROL 2.5MG INH SOL UD 3ML (DUONEB) NEB ONE (11:35)
[2021-08-30 13:16] VITALS: BP 122/54
[2021-09-01] MEDS ORDERED: PROAAER10 INH (18:45)
== END 2021-08-30 13:44 | disposition home or self-care (01) ==
LOC: M ED 09:56 → EDBD 09:56 → M ED 13:44
DX: B34.9 Viral infection, unspecified (principal); I51.9 Heart disease, unspecified; E11.9 Type 2 diabetes mellitus without complications; N18.9 Chronic kidney disease, unspecified; Z79.4 Long term (current) use of insulin; Z79.899 Other long term (current) drug therapy; Z88.5 Allergy status to narcotic agent; Z88.8 Allergy status to other drugs, medicaments and biological substances; Z91.048 Other nonmedicinal substance allergy status

== ENCOUNTER → 2022-01-23 | Outpatient (CLI) | payer MEDICARE, OTHER ==
[~2022-01-23] MED LIST changes: +ISOVUE-300 61% 50ML VIAL As Ordered ONE; +LIDOCAINE 1% MDV 20ML VIAL As Ordered ONE; +MIDAZOLAM INJ 2MG/2ML VIAL (J2250 PER 1MG) As Ordered ONE; +PROAAER10 INH; +REGL5TAB2 PO; +ceFAZolin 2 GM/D5W 50 ML IV BAG (J0690 PER 500MG) As Ordered ONE; +ceFAZolin SOD 2 GM in IV 1 EA IV ONE; +fentaNYL 100 MCG/2 ML INJECTION As Ordered ONE
[2022-01-23 07:55] LABS: HEMATOCRIT 33.7 % (36.0-47.0); HEMOGLOBIN 10.7 g/dl (12.0-15.5); MEAN CORPUSCULAR HEMOGLOBIN 31.8 pg (27.0-33.0); MEAN CORPUSCULAR HGB CONC 31.8 g/dl (32.0-36.5); MEAN CORPUSCULAR VOLUME 100.3 fl (80.0-96.0); PLATELET COUNT, AUTOMATED 121 10^3/uL (150-450); RED BLOOD COUNT 3.36 10^6/uL (4.00-5.40)
[2022-01-23 08:13] LABS: INR 1.04
[2022-01-23 08:19] LABS: CALCIUM LEVEL 9.2 MG/DL (8.8-10.2); CREATININE FOR GFR 4.44 MG/DL (0.55-1.30); GLOMERULAR FILTRATION RATE 10.1 (>32); POTASSIUM SERUM 4.3 MEQ/L (3.5-5.1)
[2022-01-23 09:20] VITALS: BP 178/75
== END ==
LOC: M IRPRO 07:00
PROVIDERS: ATTEND Surgery Vascular Surgery
DX: T82.590A Other mechanical complication of surgically created arteriovenous fistula, initial encounter (principal); N18.6 End stage renal disease; Z99.2 Dependence on renal dialysis
CPT/HCPCS: 36415; 36902; 80048; 85027; 85610; 86850; 86900; 86901; 87635; 99152; 99153; C1725; C1769; C1894; J0690; J1644; J2250; J3010; Q9967

== ENCOUNTER → 2022-05-20 | Outpatient (CLI) | payer MEDICARE, MEDICAID ==
[~2022-05-20] MED LIST changes: +HEPARIN 1,000UNITS/ML 10ML VIAL (FOR RADIOLOGY & DIALYSIS ONLY) As Ordered ONE; +METOCLOPRAMIDE INJ 10MG/2ML VIAL IV ONE; +VITMTA PO; -ceFAZolin 2 GM/D5W 50 ML IV BAG (J0690 PER 500MG) As Ordered ONE; +ceFAZolin 2 GM/D5W 50 ML IV BAG As Ordered ONE; +hydrALAZINE 20MG/ML 1ML VIAL As Ordered ONE
[2022-05-20 08:50] LABS: HEMATOCRIT 32.7 % (36.0-47.0); HEMOGLOBIN 10.4 g/dl (12.0-15.5); MEAN CORPUSCULAR HEMOGLOBIN 31.5 pg (27.0-33.0); MEAN CORPUSCULAR HGB CONC 31.8 g/dl (32.0-36.5); MEAN CORPUSCULAR VOLUME 99.1 fl (80.0-96.0); PLATELET COUNT, AUTOMATED 151 10^3/uL (150-450); WHITE BLOOD COUNT 7.2 10^3/uL (4.0-10.0)
[2022-05-20 09:21] LABS: CALCIUM LEVEL 8.9 MG/DL (8.3-10.6); CREATININE FOR GFR 4.17 MG/DL (0.55-1.30); GLOMERULAR FILTRATION RATE 10.9 (>32); POTASSIUM SERUM 3.7 MMOL/L (3.5-5.1)
[2022-05-20 09:52] LABS: INR 1.08; PROTHROMBIN TIME 14.2 SECONDS (12.5-14.5)
[2022-05-20 13:45] VITALS: BP 114/54
== END ==
LOC: M IRPRO 08:08
PROVIDERS: ATTEND Surgery Vascular Surgery
DX: N18.6 End stage renal disease (principal)
CPT/HCPCS: 36415; 36902; 80048; 85027; 85610; 86850; 86900; 86901; 87635; 99152; 99153; C1725; C1769; C1894; C2623; J0360; J0690; J1644; J2250; J2765; J3010

== ENCOUNTER 2022-05-29 22:16 | Emergency (ER) | payer MEDICARE, MEDICAID ==
[~2022-05-29 22:16] MED LIST changes: -HEPARIN 1,000UNITS/ML 10ML VIAL (FOR RADIOLOGY & DIALYSIS ONLY) As Ordered ONE; -ISOVUE-300 61% 50ML VIAL As Ordered ONE; -LIDOCAINE 1% MDV 20ML VIAL As Ordered ONE; -METOCLOPRAMIDE INJ 10MG/2ML VIAL IV ONE; -MIDAZOLAM INJ 2MG/2ML VIAL (J2250 PER 1MG) As Ordered ONE; -ceFAZolin 2 GM/D5W 50 ML IV BAG As Ordered ONE; -ceFAZolin SOD 2 GM in IV 1 EA IV ONE; -fentaNYL 100 MCG/2 ML INJECTION As Ordered ONE; -hydrALAZINE 20MG/ML 1ML VIAL As Ordered ONE
[2022-05-29 22:54] LABS: BASO # 0.1 10^3/uL (0.0-0.2); BASO % 0.9 % (0.0-1.0); EOS # 0.2 10^3/uL (0.0-0.5); EOS % 2.8 % (0.0-3.0); HEMATOCRIT 31.2 % (36.0-47.0); HEMOGLOBIN 9.8 g/dl (12.0-15.5); LYMPH % 15.7 % (24.0-44.0); MEAN CORPUSCULAR HEMOGLOBIN 31.3 pg (27.0-33.0); MEAN CORPUSCULAR HGB CONC 31.4 g/dl (32.0-36.5); MEAN CORPUSCULAR VOLUME 99.7 fl (80.0-96.0); MONO # 0.5 10^3/uL (0.0-0.8); MONO % 7.7 % (2.0-8.0); NEUTROPHILS # 4.6 10^3/uL (1.5-8.5); NEUTROPHILS % 72.1 % (36.0-66.0); PLATELET COUNT, AUTOMATED 145 10^3/uL (150-450); RED BLOOD COUNT 3.13 10^6/uL (4.00-5.40); WHITE BLOOD COUNT 6.4 10^3/uL (4.0-10.0)
[2022-05-29 23:16] LABS: MAGNESIUM LEVEL 2.1 MG/DL (1.8-2.4)
[2022-05-29 23:17] LABS: ALBUMIN 3.3 G/DL (3.2-5.2); ALKALINE PHOSPHATASE 35 U/L (46-116); ALT/SGPT < 9 U/L (7.0-40); AST/SGOT 29 U/L (<34); BILIRUBIN,TOTAL 0.5 MG/DL (0.3-1.2); BLOOD UREA NITROGEN 19 MG/DL (9-23); CALCIUM LEVEL 8.5 MG/DL (8.3-10.6); CARBON DIOXIDE LEVEL 27 MMOL/L (20-31); CHLORIDE LEVEL 97 MMOL/L (98-107); CREATININE FOR GFR 4.19 MG/DL (0.55-1.30); GLOMERULAR FILTRATION RATE 10.8 (>32); GLUCOSE, FASTING 116 MG/DL (74-106); POTASSIUM SERUM 3.1 MMOL/L (3.5-5.1); SODIUM LEVEL 140 MMOL/L (136-145); TOTAL PROTEIN 7.2 G/DL (5.7-8.2)
[2022-05-29 23:48] LABS: RSV AMPLIFICATION NEGATIVE (NEGATIVE)
[2022-05-30 01:16] VITALS: BP 164/80
[2022-05-30 01:27] LABS: CK-MB VALUE MASS < 1.0 NG/ML (<3.6)
[2022-05-30 01:29] LABS: CPK CREATINE PHOSPHOKINASE 61 U/L (34-145); MB/CK RELATIVE INDEX 1.63 (< OR =4)
[2022-05-30 02:29] LABS: CK-MB VALUE MASS < 1.0 NG/ML (<3.6)
[2022-05-30 02:33] LABS: CPK CREATINE PHOSPHOKINASE 79 U/L (34-145); MB/CK RELATIVE INDEX 1.26 (< OR =4)
== END 2022-05-30 08:00 | disposition home or self-care (01) ==
LOC: M ED 22:16 → EDBD 22:16 → M ED 05-30 08:00
DX: R53.1 Weakness (principal); I49.1 Atrial premature depolarization; I45.10 Unspecified right bundle-branch block; I44.4 Left anterior fascicular block; E11.9 Type 2 diabetes mellitus without complications; J44.9 Chronic obstructive pulmonary disease, unspecified; E78.5 Hyperlipidemia, unspecified; N18.9 Chronic kidney disease, unspecified; Z86.79 Personal history of other diseases of the circulatory system; Z79.84 Long term (current) use of oral hypoglycemic drugs; Z79.899 Other long term (current) drug therapy; Z88.1 Allergy status to other antibiotic agents; Z88.8 Allergy status to other drugs, medicaments and biological substances; Z91.048 Other nonmedicinal substance allergy status

== ENCOUNTER → 2022-09-09 | Outpatient (CLI) | payer MEDICAID, MEDICARE, OTHER | LOC: M RAD 12:38 | PROVIDERS: ATTEND Surgery | DX: L97.529 Non-pressure chronic ulcer of other part of left foot with unspecified severity (principal); E78.5 Hyperlipidemia, unspecified; M25.559 Pain in unspecified hip; Z96.642 Presence of left artificial hip joint ==

== ENCOUNTER → 2022-09-09 | Outpatient (CLI) | payer MEDICAID, MEDICARE, OTHER ==
[2022-09-09 14:35] LABS: CHOLESTEROL RISK RATIO 2.9 (<5)
== END ==
LOC: M RAD 12:41
PROVIDERS: ATTEND Physician Assistant Medical
DX: E78.5 Hyperlipidemia, unspecified (principal); M25.559 Pain in unspecified hip; Z96.642 Presence of left artificial hip joint

== ENCOUNTER 2022-09-24 21:46 | Inpatient (IN) | payer MEDICARE, MEDICAID ==
[~2022-09-24] VITALS: Ht 160 cm; Wt 95.7 kg
[2022-09-24] MEDS ORDERED: ACETAMINOPHEN TAB 650MG DOSE (2X325MG) PO ONE (22:00)
[2022-09-24] MEDS ORDERED: NS 500 ML IV ONE (22:05)
[2022-09-24] MEDS ORDERED: METOCLOPRAMIDE INJ 10MG/2ML VIAL IV ONE (22:05)
[2022-09-24 22:07] LABS: BASO # 0.1 10^3/uL (0.0-0.2); BASO % 0.5 % (0.0-1.0); EOS # 0.2 10^3/uL (0.0-0.5); EOS % 1.6 % (0.0-3.0); HEMATOCRIT 37.3 % (36.0-47.0); HEMOGLOBIN 11.8 g/dl (12.0-15.5); LYMPH # 0.8 10^3/uL (1.5-5.0); MEAN CORPUSCULAR HEMOGLOBIN 30.4 pg (27.0-33.0); MEAN CORPUSCULAR HGB CONC 31.6 g/dl (32.0-36.5); MEAN CORPUSCULAR VOLUME 96.1 fl (80.0-96.0); MONO # 0.7 10^3/uL (0.0-0.8); MONO % 5.2 % (2.0-8.0); NEUTROPHILS # 11.1 10^3/uL (1.5-8.5); NEUTROPHILS % 86.4 % (36.0-66.0); PLATELET COUNT, AUTOMATED 142 10^3/uL (150-450); RED BLOOD COUNT 3.88 10^6/uL (4.00-5.40); WHITE BLOOD COUNT 12.9 10^3/uL (4.0-10.0)
[2022-09-24 22:18] LABS: INR 1.06
[2022-09-24 22:32] LABS: ALBUMIN 3.5 G/DL (3.2-5.2); BILIRUBIN,DIRECT 0.3 MG/DL (<0.4); BILIRUBIN,TOTAL 0.6 MG/DL (0.3-1.2); CREATININE FOR GFR 3.13 MG/DL (0.55-1.30); GLOMERULAR FILTRATION RATE 15.1 (>32); POTASSIUM SERUM 3.6 MMOL/L (3.5-5.1); TOTAL PROTEIN 7.7 G/DL (5.7-8.2)
[2022-09-24] MEDS ORDERED: METOPROLOL 5 MG/5 ML VIAL IV PRN (23:45)
[2022-09-24] MEDS: METOPROLOL TART 25 MG TABLET PO ONE ×2 (23:53→23:54)
[2022-09-25] VITALS (15 sets, daily range): BP systolic 104–145; BP diastolic 44–68; O2SAT 92–97
[2022-09-25] MEDS ORDERED: cefTRIAXone SOD 1 GM in D5W MINI-BAG PLUS 50 ML IV ONE (01:05)
[2022-09-25] MEDS ORDERED: GLUCOSE 4GM CHEW TABLET PO PRN (03:25)
[2022-09-25] MEDS ORDERED: GLUCAGON INJ 1MG VIAL SC PRN (03:25)
[2022-09-25] MEDS ORDERED: NS 1,000 ML IV SCH (03:25)
[2022-09-25] MEDS ORDERED: DEXTROSE 50% 50ML SYRINGE IV PRN (03:25)
[2022-09-25] MEDS ORDERED: RENV2TAB PO (03:26)
[2022-09-25] MEDS ORDERED: D 50CAP2 PO (03:26)
[2022-09-25] MEDS ORDERED: MULT-40 PO (03:26)
[2022-09-25] MEDS ORDERED: REGL5TAB2 PO (03:26)
[2022-09-25] MEDS ORDERED: FOLI1TAB11 PO (03:26)
[2022-09-25] MEDS ORDERED: BIOT5TAB3 PO (03:26)
[2022-09-25] MEDS ORDERED: INSULANT SC (03:26)
[2022-09-25] MEDS ORDERED: HOME MED LIST COMPLETE! XX SCH (03:30)
[2022-09-25] MEDS ORDERED: AZITHROMYCIN 250MG TABLET PO SCH (04:00)
[2022-09-25] MEDS: HEPARIN SOD (PORCINE) 5000UNITS/ML 1ML VIAL/SYRINGE SC SCH ×3 (06:10→20:39)
[2022-09-25 06:36] LABS: FREE T4 1.02 NG/DL (0.89-1.76); THYROID STIMULATING HORMONE 5.474 uIU/ML (0.55-4.78)
[2022-09-25 07:41] LABS: BASO # 0.1 10^3/uL (0.0-0.2); BASO % 0.3 % (0.0-1.0); HEMATOCRIT 35.4 % (36.0-47.0); LYMPH # 0.6 10^3/uL (1.5-5.0); LYMPH % 2.4 % (24.0-44.0); MEAN CORPUSCULAR HEMOGLOBIN 30.4 pg (27.0-33.0); MEAN CORPUSCULAR HGB CONC 31.1 g/dl (32.0-36.5); MEAN CORPUSCULAR VOLUME 97.8 fl (80.0-96.0); MONO # 0.9 10^3/uL (0.0-0.8); NEUTROPHILS % 90.9 % (36.0-66.0); PLATELET COUNT, AUTOMATED 137 10^3/uL (150-450); RED BLOOD COUNT 3.62 10^6/uL (4.00-5.40); WHITE BLOOD COUNT 23.1 10^3/uL (4.0-10.0)
[2022-09-25] MEDS: (RENVELA) SEVELAMER **CARBONate** 800 MG TAB PO SCH ×2 (08:00→17:07)
[2022-09-25 08:25] LABS: ALBUMIN 3.1 G/DL (3.2-5.2); BILIRUBIN,TOTAL 0.7 MG/DL (0.3-1.2); CALCIUM LEVEL 8.7 MG/DL (8.3-10.6); CREATININE FOR GFR 3.6 MG/DL (0.55-1.30); GLOMERULAR FILTRATION RATE 12.9 (>32); MAGNESIUM LEVEL 1.9 MG/DL (1.8-2.4); TOTAL PROTEIN 7.2 G/DL (5.7-8.2)
[2022-09-25] MEDS: INSULIN LISPRO (NovoLOG) PER UNIT SC SCH ×4 (08:36→20:43)
[2022-09-25] MEDS: LEVEMIR (INSULIN DETEMIR) 1 UNITS/0.01ML SC SCH (08:44)
[2022-09-25] MEDS: METOPROLOL TART 12.5 MG PER 1/2 TAB PO SCH ×2 (08:44→20:42)
[2022-09-25] MEDS ORDERED: LIDOCAINE 1% SDV 5ML VIAL SC PRN (10:00)
[2022-09-25] MEDS ORDERED: SODIUM CHLORIDE 0.9% 1000ML IV PRN (10:00)
[2022-09-25] MEDS ORDERED: HEPARIN 1,000UNITS/ML 10ML VIAL (FOR RADIOLOGY & DIALYSIS ONLY) IV PRN (10:00)
[2022-09-25] MEDS ORDERED: HEPARIN 1,000UNITS/ML 10ML VIAL (FOR RADIOLOGY & DIALYSIS ONLY) XX SCH (10:00)
[2022-09-25] MEDS ORDERED: VANCOMYCIN HCL 1 MG in IV FLUID PLACE HOLDER 1 EA IV SCH (10:15)
[2022-09-25] MEDS ORDERED: PIPERACILLIN/TAZOBACTAM SOD 3.375 GM in D5W MINI-BAG PLUS 50 ML IV SCH (10:15)
[2022-09-25] MEDS ORDERED: PIPERACILLIN/TAZOBACTAM SOD 4.5 GM in D5W MINI-BAG PLUS 50 ML IV SCH (11:00)
[2022-09-25 12:15] LABS: CK-MB VALUE MASS < 1.0 NG/ML (<3.6)
[2022-09-25 12:16] LABS: CPK CREATINE PHOSPHOKINASE 75 U/L (34-145); MB/CK RELATIVE INDEX 1.33 (< OR =4)
[2022-09-25] MEDS ORDERED: VANCOMYCIN HCL 1,000 MG, VIAL MATE ADAPTER 1 EACH in D5W 250 ML IV ONE (13:00)
[2022-09-25 13:57] LABS: CK-MB VALUE MASS < 1.0 NG/ML (<3.6)
[2022-09-25 13:58] LABS: CPK CREATINE PHOSPHOKINASE 105 U/L (34-145); MB/CK RELATIVE INDEX 0.95 (< OR =4)
[2022-09-25 15:52] LABS: CK-MB VALUE MASS < 1.0 NG/ML (<3.6)
[2022-09-25 15:54] LABS: CPK CREATINE PHOSPHOKINASE 96 U/L (34-145); MB/CK RELATIVE INDEX 1.04 (< OR =4)
[2022-09-25] MEDS ORDERED: VANCOMYCIN HCL 500 MG in D5W MINI-BAG PLUS 100 ML IV ONE (16:00)
[2022-09-25] MEDS: FOLIC ACID 1MG TAB PO SCH (20:39)
[2022-09-25] MEDS: LACTOBACILLUS ACIDOPHILUS CAP (BACID) PO SCH (20:39)
[2022-09-26] VITALS (12 sets, daily range): BP systolic 90–127; BP diastolic 50–68; O2SAT 93–98
[2022-09-26] MEDS ORDERED: SODIUM CHLORIDE 0.9% 1000ML IV PRN (00:20)
[2022-09-26] MEDS ORDERED: LIDOCAINE 1% SDV 5ML VIAL SC PRN (00:20)
[2022-09-26] MEDS ORDERED: HEPARIN 1,000UNITS/ML 10ML VIAL (FOR RADIOLOGY & DIALYSIS ONLY) XX SCH (00:20)
[2022-09-26] MEDS ORDERED: HEPARIN 1,000UNITS/ML 10ML VIAL (FOR RADIOLOGY & DIALYSIS ONLY) IV PRN (00:20)
[2022-09-26] MEDS ORDERED: cefTRIAXone SOD 1 GM in D5W MINI-BAG PLUS 50 ML IV SCH (01:00)
[2022-09-26] MEDS: HEPARIN SOD (PORCINE) 5000UNITS/ML 1ML VIAL/SYRINGE SC SCH ×3 (05:33→20:11)
[2022-09-26 05:50] LABS: BASO # 0.1 10^3/uL (0.0-0.2); BASO % 0.5 % (0.0-1.0); EOS # 0.1 10^3/uL (0.0-0.5); EOS % 0.7 % (0.0-3.0); HEMATOCRIT 31.1 % (36.0-47.0); HEMOGLOBIN 9.8 g/dl (12.0-15.5); LYMPH # 1.1 10^3/uL (1.5-5.0); MEAN CORPUSCULAR HEMOGLOBIN 30.2 pg (27.0-33.0); MEAN CORPUSCULAR HGB CONC 31.5 g/dl (32.0-36.5); MONO % 7.2 % (2.0-8.0); NEUTROPHILS # 10.9 10^3/uL (1.5-8.5); PLATELET COUNT, AUTOMATED 129 10^3/uL (150-450); RED BLOOD COUNT 3.24 10^6/uL (4.00-5.40); WHITE BLOOD COUNT 13.2 10^3/uL (4.0-10.0)
[2022-09-26 06:10] LABS: VANCOMYCIN RANDOM 13.8 UG/ML
[2022-09-26 06:12] LABS: CALCIUM LEVEL 7.8 MG/DL (8.3-10.6); CREATININE FOR GFR 4.77 MG/DL (0.55-1.30); GLOMERULAR FILTRATION RATE 9.3 (>32)
[2022-09-26 07:23] LABS: C REACTIVE PROTEIN QUANTITATIV 14.4 MG/DL (<1.0)
[2022-09-26 07:24] LABS: ANTI-STREPTOLYSIN O QUANT 155.9 IU/ML (<195)
[2022-09-26] MEDS: INSULIN LISPRO (NovoLOG) PER UNIT SC SCH ×4 (07:30→20:03)
[2022-09-26] MEDS: (RENVELA) SEVELAMER **CARBONate** 800 MG TAB PO SCH ×2 (08:00→18:21)
[2022-09-26] MEDS: LACTOBACILLUS ACIDOPHILUS CAP (BACID) PO SCH ×2 (08:28→20:11)
[2022-09-26] MEDS: METOPROLOL TART 12.5 MG PER 1/2 TAB PO SCH ×2 (08:29→20:12)
[2022-09-26] MEDS: LEVEMIR (INSULIN DETEMIR) 1 UNITS/0.01ML SC SCH (08:29)
[2022-09-26] MEDS ORDERED: AZITHROMYCIN 250MG TABLET PO SCH (09:00)
[2022-09-26] MEDS ORDERED: DOXYCYCLINE HYCLATE 100MG TABLET PO SCH (09:00)
[2022-09-26] MEDS ORDERED: DEXTROSE IV ONE ×2 (13:00→14:00)
[2022-09-26] MEDS ORDERED: VANCOMYCIN HCL 750 MG IV ONE (13:00)
[2022-09-26] MEDS ORDERED: VANCOMYCIN 500 MG IV ONE (14:00)
[2022-09-26] MEDS ORDERED: VANCOMYCIN HCL 1,000 MG, VIAL MATE ADAPTER 1 EACH in D5W 250 ML IV SCH (16:00)
[2022-09-26] MEDS: FOLIC ACID 1MG TAB PO SCH (20:11)
[2022-09-27 03:37] VITALS: BP 113/57
[2022-09-27] MEDS: HEPARIN SOD (PORCINE) 5000UNITS/ML 1ML VIAL/SYRINGE SC SCH ×3 (05:40→20:55)
[2022-09-27 06:00] LABS: BASO # 0.1 10^3/uL (0.0-0.2); EOS # 0.3 10^3/uL (0.0-0.5); EOS % 3.2 % (0.0-3.0); HEMOGLOBIN 9.7 g/dl (12.0-15.5); LYMPH # 0.9 10^3/uL (1.5-5.0); LYMPH % 11.9 % (24.0-44.0); MEAN CORPUSCULAR HEMOGLOBIN 30.2 pg (27.0-33.0); MEAN CORPUSCULAR HGB CONC 31.3 g/dl (32.0-36.5); MEAN CORPUSCULAR VOLUME 96.6 fl (80.0-96.0); MONO # 0.9 10^3/uL (0.0-0.8); MONO % 11.1 % (2.0-8.0); NEUTROPHILS # 5.7 10^3/uL (1.5-8.5); NEUTROPHILS % 72.2 % (36.0-66.0); PLATELET COUNT, AUTOMATED 116 10^3/uL (150-450); RED BLOOD COUNT 3.21 10^6/uL (4.00-5.40); WHITE BLOOD COUNT 7.9 10^3/uL (4.0-10.0)
[2022-09-27 06:27] LABS: C REACTIVE PROTEIN QUANTITATIV 10.4 MG/DL (<1.0)
[2022-09-27 06:28] LABS: VANCOMYCIN RANDOM 21.9 UG/ML
[2022-09-27 06:29] LABS: CALCIUM LEVEL 8.2 MG/DL (8.3-10.6); CREATININE FOR GFR 4.09 MG/DL (0.55-1.30); GLOMERULAR FILTRATION RATE 11.1 (>32); POTASSIUM SERUM 4.1 MMOL/L (3.5-5.1)
[2022-09-27 07:53] VITALS: BP 117/56
[2022-09-27] MEDS: INSULIN LISPRO (NovoLOG) PER UNIT SC SCH ×4 (08:56→20:57)
[2022-09-27] MEDS: ASPIRIN 81MG ENTERIC TABLET PO SCH (08:56)
[2022-09-27] MEDS: LEVEMIR (INSULIN DETEMIR) 1 UNITS/0.01ML SC SCH (08:56)
[2022-09-27] MEDS: LACTOBACILLUS ACIDOPHILUS CAP (BACID) PO SCH ×2 (08:57→20:54)
[2022-09-27] MEDS: METOPROLOL TART 12.5 MG PER 1/2 TAB PO SCH ×2 (08:57→20:58)
[2022-09-27] MEDS: (RENVELA) SEVELAMER **CARBONate** 800 MG TAB PO SCH ×2 (08:57→17:49)
[2022-09-27 11:11] VITALS: BP 118/56
[2022-09-27 15:30] VITALS: BP 118/57
[2022-09-27] MEDS ORDERED: VANCOMYCIN HCL 1,000 MG, VIAL MATE ADAPTER 1 EACH in D5W 250 ML IV SCH (18:15)
[2022-09-27 20:47] VITALS: BP 121/55
[2022-09-27] MEDS: FOLIC ACID 1MG TAB PO SCH (20:54)
[2022-09-28 00:30] VITALS: BP 119/57
[2022-09-28 04:00] VITALS: BP 114/55
[2022-09-28] MEDS: HEPARIN SOD (PORCINE) 5000UNITS/ML 1ML VIAL/SYRINGE SC SCH ×3 (04:56→21:08)
[2022-09-28 06:10] LABS: BASO # 0.1 10^3/uL (0.0-0.2); BASO % 1.1 % (0.0-1.0); EOS # 0.3 10^3/uL (0.0-0.5); EOS % 4.9 % (0.0-3.0); HEMATOCRIT 31.5 % (36.0-47.0); HEMOGLOBIN 9.8 g/dl (12.0-15.5); LYMPH # 1.1 10^3/uL (1.5-5.0); LYMPH % 17.3 % (24.0-44.0); MEAN CORPUSCULAR HEMOGLOBIN 29.5 pg (27.0-33.0); MEAN CORPUSCULAR HGB CONC 31.1 g/dl (32.0-36.5); MEAN CORPUSCULAR VOLUME 94.9 fl (80.0-96.0); MONO # 0.6 10^3/uL (0.0-0.8); MONO % 9.6 % (2.0-8.0); NEUTROPHILS # 4.4 10^3/uL (1.5-8.5); PLATELET COUNT, AUTOMATED 135 10^3/uL (150-450); RED BLOOD COUNT 3.32 10^6/uL (4.00-5.40); WHITE BLOOD COUNT 6.6 10^3/uL (4.0-10.0)
[2022-09-28 06:32] LABS: C REACTIVE PROTEIN QUANTITATIV 6.6 MG/DL (<1.0); VANCOMYCIN RANDOM 20.4 UG/ML
[2022-09-28 06:33] LABS: CALCIUM LEVEL 8.3 MG/DL (8.3-10.6); CREATININE FOR GFR 5.23 MG/DL (0.55-1.30); GLOMERULAR FILTRATION RATE 8.4 (>32)
[2022-09-28] MEDS: INSULIN LISPRO (NovoLOG) PER UNIT SC SCH ×4 (07:30→21:00)
[2022-09-28 07:48] VITALS: BP 123/56
[2022-09-28] MEDS: LACTOBACILLUS ACIDOPHILUS CAP (BACID) PO SCH ×2 (08:04→21:08)
[2022-09-28] MEDS: (RENVELA) SEVELAMER **CARBONate** 800 MG TAB PO SCH ×2 (08:04→17:47)
[2022-09-28] MEDS: ASPIRIN 81MG ENTERIC TABLET PO SCH (08:04)
[2022-09-28] MEDS: METOPROLOL TART 12.5 MG PER 1/2 TAB PO SCH ×2 (08:04→21:00)
[2022-09-28] MEDS: LEVEMIR (INSULIN DETEMIR) 1 UNITS/0.01ML SC SCH (08:04)
[2022-09-28] MEDS: ACETAMINOPHEN TAB 650MG DOSE (2X325MG) PO PRN ×2 (11:58→23:24)
[2022-09-28 12:18] VITALS: BP 119/53
[2022-09-28] MEDS ORDERED: PILL CUTTER 1 EACH XX PRN (12:25)
[2022-09-28 15:51] VITALS: BP 110/60
[2022-09-28] MEDS: FAMOTIDINE 20 MG TAB PO SCH (17:48)
[2022-09-28] MEDS: ceFAZolin SOD 1 GM in D5W MINI-BAG PLUS 50 ML IV SCH (18:53)
[2022-09-28 20:00] VITALS: BP 131/61
[2022-09-28] MEDS ORDERED: FAMOTIDINE 40MG/5ML ORAL SUSPENSON 50ML BOTTLE PO SCH (21:00)
[2022-09-28] MEDS: FOLIC ACID 1MG TAB PO SCH (21:08)
[2022-09-29] VITALS (7 sets, daily range): BP systolic 110–136; BP diastolic 49–64
[2022-09-29] MEDS: LACTOBACILLUS ACIDOPHILUS CAP (BACID) PO SCH ×2 (06:06→21:13)
[2022-09-29] MEDS: ASPIRIN 81MG ENTERIC TABLET PO SCH (06:07)
[2022-09-29] MEDS: HEPARIN SOD (PORCINE) 5000UNITS/ML 1ML VIAL/SYRINGE SC SCH ×3 (06:13→21:14)
[2022-09-29] MEDS: (RENVELA) SEVELAMER **CARBONate** 800 MG TAB PO SCH ×2 (06:14→17:14)
[2022-09-29] MEDS: METOPROLOL TART 12.5 MG PER 1/2 TAB PO SCH ×2 (06:14→21:00)
[2022-09-29 06:23] LABS: BASO # 0.1 10^3/uL (0.0-0.2); BASO % 1.1 % (0.0-1.0); EOS # 0.3 10^3/uL (0.0-0.5); EOS % 5.3 % (0.0-3.0); HEMATOCRIT 31.8 % (36.0-47.0); MEAN CORPUSCULAR HEMOGLOBIN 29.8 pg (27.0-33.0); MEAN CORPUSCULAR HGB CONC 31.4 g/dl (32.0-36.5); MEAN CORPUSCULAR VOLUME 94.6 fl (80.0-96.0); MONO # 0.6 10^3/uL (0.0-0.8); MONO % 11.2 % (2.0-8.0); NEUTROPHILS # 3.5 10^3/uL (1.5-8.5); NEUTROPHILS % 62.8 % (36.0-66.0); PLATELET COUNT, AUTOMATED 149 10^3/uL (150-450); RED BLOOD COUNT 3.36 10^6/uL (4.00-5.40); WHITE BLOOD COUNT 5.6 10^3/uL (4.0-10.0)
[2022-09-29 06:47] LABS: CREATININE FOR GFR 6.13 MG/DL (0.55-1.30); MAGNESIUM LEVEL 2.2 MG/DL (1.8-2.4); POTASSIUM SERUM 4.3 MMOL/L (3.5-5.1)
[2022-09-29 06:48] LABS: C REACTIVE PROTEIN QUANTITATIV 4.4 MG/DL (<1.0)
[2022-09-29] MEDS ORDERED: HEPARIN 1,000UNITS/ML 10ML VIAL (FOR RADIOLOGY & DIALYSIS ONLY) IV PRN (07:15)
[2022-09-29] MEDS ORDERED: SODIUM CHLORIDE 0.9% 1000ML IV PRN (07:15)
[2022-09-29] MEDS ORDERED: HEPARIN 1,000UNITS/ML 10ML VIAL (FOR RADIOLOGY & DIALYSIS ONLY) XX SCH (07:15)
[2022-09-29] MEDS ORDERED: LIDOCAINE 1% SDV 5ML VIAL SC PRN (07:15)
[2022-09-29] MEDS: INSULIN LISPRO (NovoLOG) PER UNIT SC SCH ×4 (07:30→21:00)
[2022-09-29] MEDS: LEVEMIR (INSULIN DETEMIR) 1 UNITS/0.01ML SC SCH (07:50)
[2022-09-29] MEDS ORDERED: fentaNYL 100 MCG/2 ML INJECTION As Ordered ONE ×2 (12:04→14:17)
[2022-09-29] MEDS ORDERED: LIDOCAINE 1% MDV 20ML VIAL As Ordered ONE (12:05)
[2022-09-29] MEDS ORDERED: HEPARIN 1,000UNITS/ML 10ML VIAL (FOR RADIOLOGY & DIALYSIS ONLY) As Ordered ONE (12:05)
[2022-09-29] MEDS ORDERED: MIDAZOLAM INJ 2MG/2ML VIAL As Ordered ONE (12:05)
[2022-09-29] MEDS ORDERED: ISOVUE-300 61% 100ML VIAL As Ordered ONE (12:05)
[2022-09-29] MEDS ORDERED: NITROGLYCERIN IN D5W 25MG/250ML (100MCG/ML) As Ordered ONE (14:44)
[2022-09-29] MEDS ORDERED: ceFAZolin SOD 2 GM in IV 1 EA IV SCH (16:00)
[2022-09-29] MEDS: ceFAZolin SOD 1 GM in D5W MINI-BAG PLUS 50 ML IV SCH (17:14)
[2022-09-29] MEDS: FAMOTIDINE 20 MG TAB PO SCH (17:14)
[2022-09-29] MEDS: FOLIC ACID 1MG TAB PO SCH (21:13)
[2022-09-30 00:22] VITALS: BP 128/57
[2022-09-30 04:05] VITALS: BP 124/55
[2022-09-30] MEDS ORDERED: diphenhydrAMINE 50MG/ML VIAL IV ONE (05:25)
[2022-09-30] MEDS: (RENVELA) SEVELAMER **CARBONate** 800 MG TAB PO SCH ×2 (05:49→17:36)
[2022-09-30] MEDS: LACTOBACILLUS ACIDOPHILUS CAP (BACID) PO SCH ×2 (05:49→21:34)
[2022-09-30] MEDS: ASPIRIN 81MG ENTERIC TABLET PO SCH (05:49)
[2022-09-30] MEDS: HEPARIN SOD (PORCINE) 5000UNITS/ML 1ML VIAL/SYRINGE SC SCH ×3 (05:53→21:34)
[2022-09-30 06:06] LABS: BASO # 0.1 10^3/uL (0.0-0.2); BASO % 0.9 % (0.0-1.0); EOS # 0.3 10^3/uL (0.0-0.5); EOS % 4.9 % (0.0-3.0); HEMATOCRIT 30.8 % (36.0-47.0); HEMOGLOBIN 9.5 g/dl (12.0-15.5); LYMPH # 0.7 10^3/uL (1.5-5.0); LYMPH % 13.1 % (24.0-44.0); MEAN CORPUSCULAR HEMOGLOBIN 29.6 pg (27.0-33.0); MEAN CORPUSCULAR HGB CONC 30.8 g/dl (32.0-36.5); MONO # 0.5 10^3/uL (0.0-0.8); MONO % 8.7 % (2.0-8.0); NEUTROPHILS # 3.9 10^3/uL (1.5-8.5); NEUTROPHILS % 70.6 % (36.0-66.0); PLATELET COUNT, AUTOMATED 151 10^3/uL (150-450); RED BLOOD COUNT 3.21 10^6/uL (4.00-5.40); WHITE BLOOD COUNT 5.5 10^3/uL (4.0-10.0)
[2022-09-30] MEDS ORDERED: HEPARIN 1,000UNITS/ML 10ML VIAL (FOR RADIOLOGY & DIALYSIS ONLY) XX SCH (06:10)
[2022-09-30] MEDS ORDERED: LIDOCAINE 1% SDV 5ML VIAL SC PRN (06:10)
[2022-09-30] MEDS ORDERED: SODIUM CHLORIDE 0.9% 1000ML IV PRN (06:10)
[2022-09-30] MEDS ORDERED: HEPARIN 1,000UNITS/ML 10ML VIAL (FOR RADIOLOGY & DIALYSIS ONLY) IV PRN (06:10)
[2022-09-30 06:28] LABS: CALCIUM LEVEL 8.3 MG/DL (8.3-10.6); CREATININE FOR GFR 4.26 MG/DL (0.55-1.30); GLOMERULAR FILTRATION RATE 10.6 (>32); POTASSIUM SERUM 4.6 MMOL/L (3.5-5.1)
[2022-09-30 06:29] LABS: C REACTIVE PROTEIN QUANTITATIV 4.2 MG/DL (<1.0)
[2022-09-30] MEDS: ACETAMINOPHEN TAB 650MG DOSE (2X325MG) PO PRN (06:30)
[2022-09-30 07:30] VITALS: BP 112/54
[2022-09-30] MEDS: INSULIN LISPRO (NovoLOG) PER UNIT SC SCH ×4 (07:30→21:00)
[2022-09-30] MEDS: LEVEMIR (INSULIN DETEMIR) 1 UNITS/0.01ML SC SCH (07:39)
[2022-09-30] MEDS: METOPROLOL TART 12.5 MG PER 1/2 TAB PO SCH ×2 (07:39→21:00)
[2022-09-30] MEDS: EZETIMIBE 10MG TABLET (ZETIA) PO SCH (07:39)
[2022-09-30] MEDS ORDERED: CLOPIDOGREL 75 MG TAB PO STA (08:08)
[2022-09-30 12:36] VITALS: BP 123/56
[2022-09-30] MEDS: FAMOTIDINE 20 MG TAB PO SCH (17:36)
[2022-09-30] MEDS: ceFAZolin SOD 1 GM in D5W MINI-BAG PLUS 50 ML IV SCH (17:36)
[2022-09-30 20:16] VITALS: BP 117/52
[2022-09-30] MEDS: FOLIC ACID 1MG TAB PO SCH (21:34)
[2022-10-01] MEDS: ASPIRIN 81MG ENTERIC TABLET PO SCH ×2 (06:02→12:15)
[2022-10-01] MEDS: HEPARIN SOD (PORCINE) 5000UNITS/ML 1ML VIAL/SYRINGE SC SCH ×2 (06:02→14:00)
[2022-10-01 06:15] LABS: BASO # 0.1 10^3/uL (0.0-0.2); BASO % 0.9 % (0.0-1.0); EOS # 0.4 10^3/uL (0.0-0.5); EOS % 5.4 % (0.0-3.0); HEMATOCRIT 29.2 % (36.0-47.0); HEMOGLOBIN 9.3 g/dl (12.0-15.5); LYMPH % 14.5 % (24.0-44.0); MEAN CORPUSCULAR HEMOGLOBIN 30.4 pg (27.0-33.0); MEAN CORPUSCULAR HGB CONC 31.8 g/dl (32.0-36.5); MEAN CORPUSCULAR VOLUME 95.4 fl (80.0-96.0); MONO # 0.7 10^3/uL (0.0-0.8); MONO % 10.2 % (2.0-8.0); NEUTROPHILS # 4.4 10^3/uL (1.5-8.5); NEUTROPHILS % 66.6 % (36.0-66.0); PLATELET COUNT, AUTOMATED 145 10^3/uL (150-450); RED BLOOD COUNT 3.06 10^6/uL (4.00-5.40); WHITE BLOOD COUNT 6.5 10^3/uL (4.0-10.0)
[2022-10-01 06:34] LABS: C REACTIVE PROTEIN QUANTITATIV 3.8 MG/DL (<1.0); CALCIUM LEVEL 8.7 MG/DL (8.3-10.6); CREATININE FOR GFR 4.2 MG/DL (0.55-1.30); GLOMERULAR FILTRATION RATE 10.8 (>32); POTASSIUM SERUM 4.6 MMOL/L (3.5-5.1)
[2022-10-01] MEDS: INSULIN LISPRO (NovoLOG) PER UNIT SC SCH ×2 (06:46→12:16)
[2022-10-01] MEDS ORDERED: HEPARIN 1,000UNITS/ML 10ML VIAL (FOR RADIOLOGY & DIALYSIS ONLY) IV PRN (07:40)
[2022-10-01] MEDS ORDERED: SODIUM CHLORIDE 0.9% 1000ML IV PRN (07:40)
[2022-10-01] MEDS ORDERED: LIDOCAINE 1% SDV 5ML VIAL SC PRN (07:40)
[2022-10-01] MEDS ORDERED: HEPARIN 1,000UNITS/ML 10ML VIAL (FOR RADIOLOGY & DIALYSIS ONLY) XX SCH (07:40)
[2022-10-01] MEDS: (RENVELA) SEVELAMER **CARBONate** 800 MG TAB PO SCH (07:59)
[2022-10-01] MEDS ORDERED: CLOPIDOGREL 75 MG TAB PO SCH (09:00)
[2022-10-01] MEDS: ACETAMINOPHEN TAB 650MG DOSE (2X325MG) PO PRN (10:21)
[2022-10-01 11:57] VITALS: BP 118/57
[2022-10-01 12:15] VITALS: BP 118/52
[2022-10-01] MEDS: METOPROLOL TART 12.5 MG PER 1/2 TAB PO SCH (12:15)
[2022-10-01] MEDS: EZETIMIBE 10MG TABLET (ZETIA) PO SCH (12:16)
[2022-10-01] MEDS: LEVEMIR (INSULIN DETEMIR) 1 UNITS/0.01ML SC SCH (12:17)
[2022-10-01] MEDS: LACTOBACILLUS ACIDOPHILUS CAP (BACID) PO SCH (12:22)
[2022-10-01] MEDS ORDERED: INSULANT SC (15:26)
[2022-10-01] MEDS ORDERED: CLOP75TA2 PO (15:26)
[2022-10-01] MEDS ORDERED: METO1TAB87 PO (15:26)
[2022-10-01] MEDS ORDERED: ASPI81TAEC PO (15:26)
[2022-10-01] MEDS ORDERED: FAMO40TA3 PO (15:26)
[2022-10-01] MEDS ORDERED: EZET10TA21 PO (15:26)
[2022-10-03] MEDS ORDERED: ceFAZolin SOD 2 GM in IV 1 EA IV SCH (16:00)
[2022-10-03] MEDS ORDERED: ceFAZolin SOD 1 GM in D5W MINI-BAG PLUS 50 ML IV SCH (17:00)
== END 2022-10-01 16:52 | disposition home or self-care (01) | DRG 853 ==
LOC: EDBD 21:46 → M ED 21:46 → M ED INP 09-25 01:50 → M PCU 09-25 03:20
PROVIDERS: ADMIT Family Medicine; ATTEND Family Medicine
PROC: 047M3ZZ Dilation of Right Popliteal Artery, Percutaneous Approach (ICD-10-PCS; 2022-09-29)
PROC: 047T3ZZ Dilation of Right Peroneal Artery, Percutaneous Approach (ICD-10-PCS; 2022-09-29)
PROC: 04FL3ZZ Fragmentation of Left Femoral Artery, Percutaneous Approach (ICD-10-PCS; 2022-09-29)
PROC: 04FQ3ZZ Fragmentation of Left Anterior Tibial Artery, Percutaneous Approach (ICD-10-PCS; 2022-09-29)
PROC: B41FYZZ Fluoroscopy of Right Lower Extremity Arteries using Other Contrast (ICD-10-PCS; 2022-09-29)
PROC: 047K3ZZ Dilation of Right Femoral Artery, Percutaneous Approach (ICD-10-PCS; principal; 2022-09-29 11:00)
DX: A41.01 Sepsis due to Methicillin susceptible Staphylococcus aureus (principal); N18.6 End stage renal disease; I50.23 Acute on chronic systolic (congestive) heart failure; J81.1 Chronic pulmonary edema; E87.20 Acidosis, unspecified; I13.2 Hypertensive heart and chronic kidney disease with heart failure and with stage 5 chronic kidney disease, or end stage renal disease; I24.8 Other forms of acute ischemic heart disease; L03.116 Cellulitis of left lower limb; I45.2 Bifascicular block; J90 Pleural effusion, not elsewhere classified; J98.11 Atelectasis; N25.81 Secondary hyperparathyroidism of renal origin; I70.262 Atherosclerosis of native arteries of extremities with gangrene, left leg; D63.1 Anemia in chronic kidney disease; K21.9 Gastro-esophageal reflux disease without esophagitis; I48.0 Paroxysmal atrial fibrillation; E11.22 Type 2 diabetes mellitus with diabetic chronic kidney disease; M19.90 Unspecified osteoarthritis, unspecified site; Z88.8 Allergy status to other drugs, medicaments and biological substances; Z88.5 Allergy status to narcotic agent; Z79.82 Long term (current) use of aspirin; Z79.899 Other long term (current) drug therapy; Z79.4 Long term (current) use of insulin; Z66 Do not resuscitate

== ENCOUNTER → 2022-10-30 | Outpatient (CLI) | payer MEDICAID, MEDICARE, OTHER ==
[~2022-10-30] MED LIST changes: +ASPI81TAEC PO; +CLOP75TA2 PO; +D 50CAP2 PO; +EZET10TA21 PO; +FAMO40TA3 PO; +MULT-40 PO
== END ==
LOC: M RAD 09:41
PROVIDERS: ATTEND Surgery Vascular Surgery
DX: I73.9 Peripheral vascular disease, unspecified (principal)

== ENCOUNTER → 2022-12-02 | Outpatient (CLI) | payer MEDICARE ==
[~2022-12-02] MED LIST changes: +HEPARIN 1,000UNITS/ML 10ML VIAL (FOR RADIOLOGY & DIALYSIS ONLY) As Ordered ONE; +ISOVUE-300 61% 100ML VIAL As Ordered ONE; +LIDOCAINE 1% MDV 20ML VIAL As Ordered ONE; +METOCLOPRAMIDE INJ 10MG/2ML VIAL IV ONE; +MIDAZOLAM INJ 2MG/2ML VIAL As Ordered ONE; +ceFAZolin 2 GM/D5W 50 ML IV BAG As Ordered ONE; +ceFAZolin SOD 2 GM in IV 1 EA IV ONE; +fentaNYL 100 MCG/2 ML INJECTION As Ordered ONE
[2022-12-02 07:21] VITALS: TEMP 98.5
[2022-12-02 07:27] LABS: HEMATOCRIT 34.2 % (36.0-47.0); HEMOGLOBIN 10.5 g/dl (12.0-15.5); MEAN CORPUSCULAR HEMOGLOBIN 29.8 pg (27.0-33.0); MEAN CORPUSCULAR HGB CONC 30.7 g/dl (32.0-36.5); MEAN CORPUSCULAR VOLUME 97.2 fl (80.0-96.0); PLATELET COUNT, AUTOMATED 141 10^3/uL (150-450); RED BLOOD COUNT 3.52 10^6/uL (4.00-5.40); WHITE BLOOD COUNT 6.1 10^3/uL (4.0-10.0)
[2022-12-02 07:47] LABS: CALCIUM LEVEL 9.6 MG/DL (8.3-10.6); CREATININE FOR GFR 4.09 MG/DL (0.55-1.30); GLOMERULAR FILTRATION RATE 11.1 (>32); POTASSIUM SERUM 3.7 MMOL/L (3.5-5.1)
[2022-12-02 12:15] VITALS: BP 126/53; O2SAT 100
== END ==
LOC: M IRPRO 06:52
PROVIDERS: ATTEND Surgery Vascular Surgery
DX: N18.6 End stage renal disease (principal)
CPT/HCPCS: 36415; 36902; 80048; 85027; 86850; 86900; 86901; 99152; 99153; C1725; C1729; C1769; C1887; C1894; J0690; J2250; J3010; Q9967

== ENCOUNTER 2022-12-18 22:38 | Inpatient (IN) | payer MEDICARE, MEDICAID ==
[~2022-12-18] VITALS: Ht 149.9 cm; Wt 90.9 kg
[~2022-12-18 22:38] MED LIST changes: -HEPARIN 1,000UNITS/ML 10ML VIAL (FOR RADIOLOGY & DIALYSIS ONLY) As Ordered ONE; -ISOVUE-300 61% 100ML VIAL As Ordered ONE; -LIDOCAINE 1% MDV 20ML VIAL As Ordered ONE; -METOCLOPRAMIDE INJ 10MG/2ML VIAL IV ONE; -MIDAZOLAM INJ 2MG/2ML VIAL As Ordered ONE; -ceFAZolin 2 GM/D5W 50 ML IV BAG As Ordered ONE; -ceFAZolin SOD 2 GM in IV 1 EA IV ONE; -fentaNYL 100 MCG/2 ML INJECTION As Ordered ONE
[2022-12-19 00:56] LABS: BASO # 0.1 10^3/uL (0.0-0.2); EOS # 0.2 10^3/uL (0.0-0.5); EOS % 3.3 % (0.0-3.0); HEMATOCRIT 34.2 % (36.0-47.0); HEMOGLOBIN 10.7 g/dl (12.0-15.5); LYMPH % 17.7 % (24.0-44.0); MEAN CORPUSCULAR HEMOGLOBIN 30.2 pg (27.0-33.0); MEAN CORPUSCULAR HGB CONC 31.3 g/dl (32.0-36.5); MEAN CORPUSCULAR VOLUME 96.6 fl (80.0-96.0); MONO # 0.7 10^3/uL (0.0-0.8); NEUTROPHILS # 3.8 10^3/uL (1.5-8.5); NEUTROPHILS % 65.5 % (36.0-66.0); PLATELET COUNT, AUTOMATED 118 10^3/uL (150-450); RED BLOOD COUNT 3.54 10^6/uL (4.00-5.40); WHITE BLOOD COUNT 5.8 10^3/uL (4.0-10.0)
[2022-12-19 01:23] LABS: CK-MB VALUE MASS < 1.0 NG/ML (<3.6)
[2022-12-19 01:25] LABS: CPK CREATINE PHOSPHOKINASE 50 U/L (34-145)
[2022-12-19 01:26] LABS: ALBUMIN 3.2 G/DL (3.2-5.2); ALKALINE PHOSPHATASE 31 U/L (46-116); ALT/SGPT 9 U/L (7.0-40); AST/SGOT 22 U/L (<34); BILIRUBIN,DIRECT 0.3 MG/DL (<0.4); BILIRUBIN,TOTAL 0.5 MG/DL (0.3-1.2); BLOOD UREA NITROGEN 18 MG/DL (9-23); CARBON DIOXIDE LEVEL 29 MMOL/L (20-31); CHLORIDE LEVEL 99 MMOL/L (98-107); CREATININE FOR GFR 4.27 MG/DL (0.55-1.30); GLOMERULAR FILTRATION RATE 10.6 (>32); GLUCOSE, FASTING 193 MG/DL (74-106); POTASSIUM SERUM 3.6 MMOL/L (3.5-5.1); SODIUM LEVEL 140 MMOL/L (136-145); TOTAL PROTEIN 7.1 G/DL (5.7-8.2)
[2022-12-19 01:27] LABS: THYROID STIMULATING HORMONE 6.272 uIU/ML (0.55-4.78)
[2022-12-19 04:35] VITALS: O2SAT 92
[2022-12-19] MEDS ORDERED: GLUCAGON INJ 1MG VIAL SC PRN (04:50)
[2022-12-19] MEDS ORDERED: GLUCOSE 4GM CHEW TABLET PO PRN (04:50)
[2022-12-19] MEDS ORDERED: DEXTROSE 50% 50ML SYRINGE IV PRN (04:50)
[2022-12-19 06:06] LABS: ERYTHROCYTE SEDIMENTATION RATE 41 mm/hr (0-30)
[2022-12-19 06:15] LABS: FREE T4 0.95 NG/DL (0.89-1.76)
[2022-12-19] MEDS ORDERED: LIDOCAINE 1% SDV 5ML VIAL SC PRN (07:10)
[2022-12-19] MEDS ORDERED: HEPARIN 1,000UNITS/ML 10ML VIAL (FOR RADIOLOGY & DIALYSIS ONLY) IV PRN (07:10)
[2022-12-19] MEDS ORDERED: HEPARIN 1,000UNITS/ML 10ML VIAL (FOR RADIOLOGY & DIALYSIS ONLY) XX SCH (07:10)
[2022-12-19 07:28] LABS: INR 1.18; PARTIAL THROMBOPLASTIN TIME 40.9 SECONDS (24.8-34.2); PROTHROMBIN TIME 15.2 SECONDS (12.5-14.5)
[2022-12-19] MEDS: INSULIN LISPRO (NovoLOG) PER UNIT SC SCH ×4 (07:30→20:36)
[2022-12-19] MEDS: HEPARIN SOD (PORCINE) 5000UNITS/ML 1ML VIAL/SYRINGE SC SCH ×2 (07:46→21:00)
[2022-12-19] MEDS ORDERED: SANTYL OINT 30GM TOP SCH (09:00)
[2022-12-19] MEDS: SANTYL OINT 30GM TOP SCH (10:52)
[2022-12-19] MEDS ORDERED: PIPERACILLIN/TAZOBACTAM SOD 3.375 GM in D5W MINI-BAG PLUS 50 ML IV SCH (11:30)
[2022-12-19] MEDS ORDERED: MED REC COMMENT (11:51)
[2022-12-19 11:54] LABS: URIC ACID 3.7 MG/DL (3.1-7.8)
[2022-12-19] MEDS ORDERED: HOME MED LIST COMPLETE! XX SCH (12:00)
[2022-12-19 12:10] VITALS: BP 123/54; TEMP 97.5; O2SAT 96
[2022-12-19] MEDS: PIPERACILLIN/TAZOBACTAM SOD 4.5 GM in D5W MINI-BAG PLUS 50 ML IV SCH (12:33)
[2022-12-19] MEDS: ACETAMINOPHEN TAB 650MG DOSE (2X325MG) PO PRN (12:33)
[2022-12-19] MEDS: LEVEMIR (INSULIN DETEMIR) 1 UNITS/0.01ML SC SCH (13:53)
[2022-12-19 14:00] VITALS: BP 111/72; TEMP 97.5; O2SAT 98
[2022-12-19] MEDS: METOCLOPRAMIDE 5 MG TAB PO SCH (17:00)
[2022-12-19] MEDS: (RENVELA) SEVELAMER **CARBONate** 800 MG TAB PO SCH ×2 (17:00→21:00)
[2022-12-19] MEDS ORDERED: carisoprodoL 350 MG TAB PO PRN (20:45)
[2022-12-19] MEDS: DOCUSATE SODIUM 100MG CAPSULE PO SCH (21:00)
[2022-12-19] MEDS: FOLIC ACID 1MG TAB PO SCH (21:18)
[2022-12-19] MEDS: LACTOBACILLUS ACIDOPHILUS CAP (BACID) PO SCH (21:18)
[2022-12-19] MEDS: PERCOCET 5MG/325MG TAB PO PRN (21:20)
[2022-12-19 22:00] VITALS: BP 104/53; TEMP 97.5; O2SAT 98
[2022-12-19 22:57] VITALS: BP 111/58; TEMP 97.7; O2SAT 97
[2022-12-20] MEDS ORDERED: METOPROLOL TART 12.5 MG PER 1/2 TAB PO ONE
[2022-12-20] MEDS: PIPERACILLIN/TAZOBACTAM SOD 4.5 GM in D5W MINI-BAG PLUS 50 ML IV SCH ×3 (00:10→23:55)
[2022-12-20 00:11] VITALS: BP 113/57
[2022-12-20 00:47] LABS: CALCIUM LEVEL 8.1 MG/DL (8.3-10.6); CREATININE FOR GFR 3.3 MG/DL (0.55-1.30); GLOMERULAR FILTRATION RATE 14.2 (>32); POTASSIUM SERUM 4.2 MMOL/L (3.5-5.1)
[2022-12-20 06:00] VITALS: BP 100/40; TEMP 97.3; O2SAT 97
[2022-12-20 06:34] LABS: BASO # 0.1 10^3/uL (0.0-0.2); BASO % 1.5 % (0.0-1.0); EOS # 0.3 10^3/uL (0.0-0.5); EOS % 4.2 % (0.0-3.0); HEMATOCRIT 33.4 % (36.0-47.0); HEMOGLOBIN 10.3 g/dl (12.0-15.5); LYMPH # 0.9 10^3/uL (1.5-5.0); LYMPH % 15.3 % (24.0-44.0); MEAN CORPUSCULAR HEMOGLOBIN 30.3 pg (27.0-33.0); MEAN CORPUSCULAR HGB CONC 30.8 g/dl (32.0-36.5); MEAN CORPUSCULAR VOLUME 98.2 fl (80.0-96.0); MONO # 0.7 10^3/uL (0.0-0.8); MONO % 11.3 % (2.0-8.0); PLATELET COUNT, AUTOMATED 127 10^3/uL (150-450); WHITE BLOOD COUNT 5.9 10^3/uL (4.0-10.0)
[2022-12-20 06:57] LABS: ALBUMIN 2.8 G/DL (3.2-5.2); ALKALINE PHOSPHATASE 26 U/L (46-116); ALT/SGPT < 9 U/L (7.0-40); AST/SGOT 19 U/L (<34); BILIRUBIN,TOTAL 0.5 MG/DL (0.3-1.2); BLOOD UREA NITROGEN 15 MG/DL (9-23); CALCIUM LEVEL 8.1 MG/DL (8.3-10.6); CARBON DIOXIDE LEVEL 25 MMOL/L (20-31); CHLORIDE LEVEL 103 MMOL/L (98-107); CREATININE FOR GFR 3.61 MG/DL (0.55-1.30); GLOMERULAR FILTRATION RATE 12.8 (>32); GLUCOSE, FASTING 159 MG/DL (74-106); POTASSIUM SERUM 4.4 MMOL/L (3.5-5.1); SODIUM LEVEL 139 MMOL/L (136-145); TOTAL PROTEIN 6.5 G/DL (5.7-8.2)
[2022-12-20 08:16] LABS: CK-MB VALUE MASS 1.1 NG/ML (<3.6); MB/CK RELATIVE INDEX 2.55 (< OR =4)
[2022-12-20] MEDS: (RENVELA) SEVELAMER **CARBONate** 800 MG TAB PO SCH ×3 (08:34→20:14)
[2022-12-20] MEDS: DOCUSATE SODIUM 100MG CAPSULE PO SCH ×2 (08:34→20:14)
[2022-12-20] MEDS: METOCLOPRAMIDE 5 MG TAB PO SCH ×2 (08:34→17:19)
[2022-12-20] MEDS: HEPARIN SOD (PORCINE) 5000UNITS/ML 1ML VIAL/SYRINGE SC SCH ×2 (08:35→20:14)
[2022-12-20] MEDS: MIRALAX *UNIT DOSE* 17GM PACKET PO SCH (08:35)
[2022-12-20] MEDS: LEVEMIR (INSULIN DETEMIR) 1 UNITS/0.01ML SC SCH (08:35)
[2022-12-20] MEDS: INSULIN LISPRO (NovoLOG) PER UNIT SC SCH ×4 (08:36→19:46)
[2022-12-20] MEDS: SANTYL OINT 30GM TOP SCH (08:36)
[2022-12-20 14:50] VITALS: BP 92/43; TEMP 97.5; O2SAT 92
[2022-12-20] MEDS: ACETAMINOPHEN TAB 650MG DOSE (2X325MG) PO PRN (17:23)
[2022-12-20] MEDS: FOLIC ACID 1MG TAB PO SCH (20:14)
[2022-12-20] MEDS: LACTOBACILLUS ACIDOPHILUS CAP (BACID) PO SCH (20:14)
[2022-12-20 21:13] VITALS: BP 107/50; TEMP 97.5; O2SAT 95
[2022-12-20] MEDS: PERCOCET 5MG/325MG TAB PO PRN (22:32)
[2022-12-21 06:00] VITALS: BP 100/59; TEMP 97.3; O2SAT 96
[2022-12-21 06:33] LABS: HEMATOCRIT 33.5 % (36.0-47.0); HEMOGLOBIN 10.3 g/dl (12.0-15.5); MEAN CORPUSCULAR HEMOGLOBIN 29.9 pg (27.0-33.0); MEAN CORPUSCULAR HGB CONC 30.7 g/dl (32.0-36.5); MEAN CORPUSCULAR VOLUME 97.1 fl (80.0-96.0); PLATELET COUNT, AUTOMATED 118 10^3/uL (150-450); RED BLOOD COUNT 3.45 10^6/uL (4.00-5.40); WHITE BLOOD COUNT 6.2 10^3/uL (4.0-10.0)
[2022-12-21 06:51] LABS: ALBUMIN 2.7 G/DL (3.2-5.2); BILIRUBIN,TOTAL 0.6 MG/DL (0.3-1.2); CALCIUM LEVEL 8.7 MG/DL (8.3-10.6); CREATININE FOR GFR 4.7 MG/DL (0.55-1.30); GLOMERULAR FILTRATION RATE 9.5 (>32); POTASSIUM SERUM 4.5 MMOL/L (3.5-5.1); TOTAL PROTEIN 6.6 G/DL (5.7-8.2)
[2022-12-21] MEDS: DOCUSATE SODIUM 100MG CAPSULE PO SCH ×2 (08:42→21:51)
[2022-12-21] MEDS: METOCLOPRAMIDE 5 MG TAB PO SCH ×2 (08:42→17:33)
[2022-12-21] MEDS: (RENVELA) SEVELAMER **CARBONate** 800 MG TAB PO SCH ×3 (08:42→21:00)
[2022-12-21] MEDS: LEVEMIR (INSULIN DETEMIR) 1 UNITS/0.01ML SC SCH (08:43)
[2022-12-21] MEDS: HEPARIN SOD (PORCINE) 5000UNITS/ML 1ML VIAL/SYRINGE SC SCH ×2 (08:43→21:52)
[2022-12-21] MEDS: INSULIN LISPRO (NovoLOG) PER UNIT SC SCH ×4 (08:43→20:08)
[2022-12-21] MEDS: SANTYL OINT 30GM TOP SCH (08:44)
[2022-12-21] MEDS: MIRALAX *UNIT DOSE* 17GM PACKET PO SCH (08:44)
[2022-12-21] MEDS: ACETAMINOPHEN TAB 650MG DOSE (2X325MG) PO PRN (10:02)
[2022-12-21] MEDS: PERCOCET 5MG/325MG TAB PO PRN (11:27)
[2022-12-21 14:00] VITALS: BP 104/59; TEMP 97.3; O2SAT 97
[2022-12-21 20:04] VITALS: BP 109/42; TEMP 97.3; O2SAT 96
[2022-12-21] MEDS: IPRATROPIUM 0.5MG/ALBUTEROL 2.5MG INH SOL UD 3ML (DUONEB) NEB PRN (21:45)
[2022-12-21] MEDS: LACTOBACILLUS ACIDOPHILUS CAP (BACID) PO SCH (21:51)
[2022-12-21] MEDS: FOLIC ACID 1MG TAB PO SCH (21:51)
[2022-12-22] MEDS: PERCOCET 5MG/325MG TAB PO PRN (01:03)
[2022-12-22] MEDS ORDERED: SODIUM CHLORIDE 0.9% 1000ML IV PRN (04:25)
[2022-12-22] MEDS ORDERED: HEPARIN 1,000UNITS/ML 10ML VIAL (FOR RADIOLOGY & DIALYSIS ONLY) XX SCH (04:25)
[2022-12-22] MEDS ORDERED: LIDOCAINE 1% SDV 5ML VIAL SC PRN (04:25)
[2022-12-22] MEDS ORDERED: HEPARIN 1,000UNITS/ML 10ML VIAL (FOR RADIOLOGY & DIALYSIS ONLY) IV PRN (04:25)
[2022-12-22 05:31] VITALS: BP 131/59; TEMP 97.3; O2SAT 97
[2022-12-22 06:18] LABS: HEMATOCRIT 32.9 % (36.0-47.0); HEMOGLOBIN 10.2 g/dl (12.0-15.5); MEAN CORPUSCULAR HEMOGLOBIN 30.2 pg (27.0-33.0); MEAN CORPUSCULAR VOLUME 97.3 fl (80.0-96.0); PLATELET COUNT, AUTOMATED 115 10^3/uL (150-450); RED BLOOD COUNT 3.38 10^6/uL (4.00-5.40)
[2022-12-22] MEDS: (RENVELA) SEVELAMER **CARBONate** 800 MG TAB PO SCH ×3 (06:36→21:00)
[2022-12-22] MEDS: DOCUSATE SODIUM 100MG CAPSULE PO SCH ×2 (06:36→21:32)
[2022-12-22] MEDS: METOCLOPRAMIDE 5 MG TAB PO SCH ×2 (06:36→16:45)
[2022-12-22] MEDS: MIRALAX *UNIT DOSE* 17GM PACKET PO SCH (06:36)
[2022-12-22] MEDS: HEPARIN SOD (PORCINE) 5000UNITS/ML 1ML VIAL/SYRINGE SC SCH ×2 (06:37→21:32)
[2022-12-22 06:47] LABS: ALBUMIN 2.7 G/DL (3.2-5.2); ALKALINE PHOSPHATASE 23 U/L (46-116); ALT/SGPT < 9 U/L (7.0-40); AST/SGOT 18 U/L (<34); BILIRUBIN,TOTAL 0.5 MG/DL (0.3-1.2); BLOOD UREA NITROGEN 38 MG/DL (9-23); CALCIUM LEVEL 7.9 MG/DL (8.3-10.6); CARBON DIOXIDE LEVEL 20 MMOL/L (20-31); CHLORIDE LEVEL 99 MMOL/L (98-107); CREATININE FOR GFR 5.68 MG/DL (0.55-1.30); GLOMERULAR FILTRATION RATE 7.6 (>32); GLUCOSE, FASTING 111 MG/DL (74-106); POTASSIUM SERUM 4.8 MMOL/L (3.5-5.1); SODIUM LEVEL 133 MMOL/L (136-145); TOTAL PROTEIN 6.7 G/DL (5.7-8.2)
[2022-12-22] MEDS: SANTYL OINT 30GM TOP SCH (07:27)
[2022-12-22] MEDS: LEVEMIR (INSULIN DETEMIR) 1 UNITS/0.01ML SC SCH (07:27)
[2022-12-22] MEDS: INSULIN LISPRO (NovoLOG) PER UNIT SC SCH ×4 (07:28→21:00)
[2022-12-22 14:00] VITALS: BP 98/48; TEMP 97.2; O2SAT 99
[2022-12-22 19:47] VITALS: BP 113/52; TEMP 97.2; O2SAT 96
[2022-12-22] MEDS: LACTOBACILLUS ACIDOPHILUS CAP (BACID) PO SCH (21:32)
[2022-12-22] MEDS: FOLIC ACID 1MG TAB PO SCH (21:32)
[2022-12-23] MEDS: PERCOCET 5MG/325MG TAB PO PRN (04:35)
[2022-12-23 05:42] VITALS: BP 103/51; TEMP 97; O2SAT 94
[2022-12-23] MEDS: INSULIN LISPRO (NovoLOG) PER UNIT SC SCH ×4 (07:30→20:12)
[2022-12-23] MEDS: (RENVELA) SEVELAMER **CARBONate** 800 MG TAB PO SCH ×3 (09:11→20:38)
[2022-12-23] MEDS: METOCLOPRAMIDE 5 MG TAB PO SCH ×2 (09:11→16:57)
[2022-12-23] MEDS: MIRALAX *UNIT DOSE* 17GM PACKET PO SCH (09:12)
[2022-12-23] MEDS: DOCUSATE SODIUM 100MG CAPSULE PO SCH ×2 (09:12→20:37)
[2022-12-23] MEDS: LEVEMIR (INSULIN DETEMIR) 1 UNITS/0.01ML SC SCH (09:14)
[2022-12-23] MEDS: HEPARIN SOD (PORCINE) 5000UNITS/ML 1ML VIAL/SYRINGE SC SCH ×2 (09:14→20:38)
[2022-12-23] MEDS: SANTYL OINT 30GM TOP SCH (09:15)
[2022-12-23 14:00] VITALS: BP 103/50; TEMP 97.5; O2SAT 95
[2022-12-23] MEDS: ACETAMINOPHEN TAB 650MG DOSE (2X325MG) PO PRN (17:54)
[2022-12-23 19:56] VITALS: BP 138/43; TEMP 97.5; O2SAT 96
[2022-12-23] MEDS: IPRATROPIUM 0.5MG/ALBUTEROL 2.5MG INH SOL UD 3ML (DUONEB) NEB PRN (20:09)
[2022-12-23] MEDS: LACTOBACILLUS ACIDOPHILUS CAP (BACID) PO SCH (20:37)
[2022-12-23] MEDS: FOLIC ACID 1MG TAB PO SCH (20:37)
[2022-12-24] MEDS ORDERED: HEPARIN 1,000UNITS/ML 10ML VIAL (FOR RADIOLOGY & DIALYSIS ONLY) IV PRN (05:10)
[2022-12-24] MEDS ORDERED: SODIUM CHLORIDE 0.9% 1000ML IV PRN (05:10)
[2022-12-24] MEDS ORDERED: LIDOCAINE 1% SDV 5ML VIAL SC PRN (05:10)
[2022-12-24] MEDS ORDERED: HEPARIN 1,000UNITS/ML 10ML VIAL (FOR RADIOLOGY & DIALYSIS ONLY) XX SCH (05:10)
[2022-12-24] MEDS: DOCUSATE SODIUM 100MG CAPSULE PO SCH ×2 (05:24→22:00)
[2022-12-24] MEDS: HEPARIN SOD (PORCINE) 5000UNITS/ML 1ML VIAL/SYRINGE SC SCH ×2 (05:25→22:00)
[2022-12-24] MEDS: MIRALAX *UNIT DOSE* 17GM PACKET PO SCH (05:25)
[2022-12-24 05:59] VITALS: BP 149/65; TEMP 97.5; O2SAT 95
[2022-12-24 06:32] LABS: BASO # 0.1 10^3/uL (0.0-0.2); BASO % 1.5 % (0.0-1.0); EOS # 0.2 10^3/uL (0.0-0.5); EOS % 3.6 % (0.0-3.0); HEMATOCRIT 31.7 % (36.0-47.0); HEMOGLOBIN 10.2 g/dl (12.0-15.5); LYMPH % 18.1 % (24.0-44.0); MEAN CORPUSCULAR HEMOGLOBIN 30.9 pg (27.0-33.0); MEAN CORPUSCULAR HGB CONC 32.2 g/dl (32.0-36.5); MEAN CORPUSCULAR VOLUME 96.1 fl (80.0-96.0); MONO # 0.7 10^3/uL (0.0-0.8); MONO % 12.4 % (2.0-8.0); NEUTROPHILS # 3.5 10^3/uL (1.5-8.5); NEUTROPHILS % 63.5 % (36.0-66.0); PLATELET COUNT, AUTOMATED 130 10^3/uL (150-450); WHITE BLOOD COUNT 5.5 10^3/uL (4.0-10.0)
[2022-12-24 07:15] LABS: CALCIUM LEVEL 8.2 MG/DL (8.3-10.6); CREATININE FOR GFR 5.02 MG/DL (0.55-1.30); GLOMERULAR FILTRATION RATE 8.8 (>32); POTASSIUM SERUM 4.5 MMOL/L (3.5-5.1)
[2022-12-24] MEDS: (RENVELA) SEVELAMER **CARBONate** 800 MG TAB PO SCH ×4 (07:33→22:00)
[2022-12-24] MEDS: LEVEMIR (INSULIN DETEMIR) 1 UNITS/0.01ML SC SCH (07:34)
[2022-12-24] MEDS: METOCLOPRAMIDE 5 MG TAB PO SCH ×2 (07:34→16:56)
[2022-12-24] MEDS: INSULIN LISPRO (NovoLOG) PER UNIT SC SCH ×2 (07:34→12:00)
[2022-12-24] MEDS ORDERED: BISACODYL 10MG SUPP PR PRN (07:50)
[2022-12-24 14:00] VITALS: BP 139/64; TEMP 97.3; O2SAT 96
[2022-12-24] MEDS: SANTYL OINT 30GM TOP SCH (16:50)
[2022-12-24 20:33] VITALS: BP 135/65; TEMP 97.2; O2SAT 96
[2022-12-24 22:00] VITALS: O2SAT 97
[2022-12-24] MEDS: LACTOBACILLUS ACIDOPHILUS CAP (BACID) PO SCH (22:00)
[2022-12-24] MEDS: FOLIC ACID 1MG TAB PO SCH (22:00)
[2022-12-25] MEDS: ACETAMINOPHEN TAB 650MG DOSE (2X325MG) PO PRN ×4 (03:42→20:59)
[2022-12-25 05:45] VITALS: BP 130/46; TEMP 97.5; O2SAT 93
[2022-12-25 06:12] VITALS: O2SAT 93
[2022-12-25 06:20] LABS: BASO # 0.1 10^3/uL (0.0-0.2); BASO % 1.2 % (0.0-1.0); EOS # 0.3 10^3/uL (0.0-0.5); EOS % 4.8 % (0.0-3.0); HEMATOCRIT 31.6 % (36.0-47.0); HEMOGLOBIN 10.1 g/dl (12.0-15.5); LYMPH # 1.1 10^3/uL (1.5-5.0); LYMPH % 18.9 % (24.0-44.0); MEAN CORPUSCULAR HEMOGLOBIN 30.8 pg (27.0-33.0); MEAN CORPUSCULAR VOLUME 96.3 fl (80.0-96.0); MONO # 0.7 10^3/uL (0.0-0.8); MONO % 12.1 % (2.0-8.0); NEUTROPHILS # 3.5 10^3/uL (1.5-8.5); NEUTROPHILS % 62.5 % (36.0-66.0); PLATELET COUNT, AUTOMATED 139 10^3/uL (150-450); RED BLOOD COUNT 3.28 10^6/uL (4.00-5.40); WHITE BLOOD COUNT 5.6 10^3/uL (4.0-10.0)
[2022-12-25 06:45] LABS: CALCIUM LEVEL 8.3 MG/DL (8.3-10.6); CREATININE FOR GFR 3.57 MG/DL (0.55-1.30); POTASSIUM SERUM 4.1 MMOL/L (3.5-5.1)
[2022-12-25] MEDS: LEVEMIR (INSULIN DETEMIR) 1 UNITS/0.01ML SC SCH (07:34)
[2022-12-25] MEDS: HEPARIN SOD (PORCINE) 5000UNITS/ML 1ML VIAL/SYRINGE SC SCH ×2 (09:03→20:57)
[2022-12-25] MEDS: MIRALAX *UNIT DOSE* 17GM PACKET PO SCH (09:03)
[2022-12-25] MEDS: (RENVELA) SEVELAMER **CARBONate** 800 MG TAB PO SCH ×3 (09:03→20:56)
[2022-12-25] MEDS: METOCLOPRAMIDE 5 MG TAB PO SCH ×2 (09:03→17:37)
[2022-12-25] MEDS: DOCUSATE SODIUM 100MG CAPSULE PO SCH ×2 (09:03→21:00)
[2022-12-25] MEDS: SANTYL OINT 30GM TOP SCH (09:04)
[2022-12-25 14:00] VITALS: BP 126/47; TEMP 97.5; O2SAT 95
[2022-12-25 18:21] LABS: FREE KAPPA LIGHT CHAINS SERUM 235.2 mg/L (3.3-19.4); KAPPA/LAMBDA RATIO SERUM 1.24 (0.26-1.65)
[2022-12-25] MEDS: LACTOBACILLUS ACIDOPHILUS CAP (BACID) PO SCH (20:56)
[2022-12-25] MEDS: FOLIC ACID 1MG TAB PO SCH (20:56)
[2022-12-25 22:00] VITALS: BP 128/48; TEMP 97.1; O2SAT 94
[2022-12-26] MEDS ORDERED: SODIUM CHLORIDE 0.9% 1000ML IV PRN (00:55)
[2022-12-26] MEDS ORDERED: HEPARIN 1,000UNITS/ML 10ML VIAL (FOR RADIOLOGY & DIALYSIS ONLY) XX SCH (00:55)
[2022-12-26] MEDS ORDERED: HEPARIN 1,000UNITS/ML 10ML VIAL (FOR RADIOLOGY & DIALYSIS ONLY) IV PRN (00:55)
[2022-12-26] MEDS ORDERED: LIDOCAINE 1% SDV 5ML VIAL SC PRN (00:55)
[2022-12-26] MEDS: ACETAMINOPHEN TAB 650MG DOSE (2X325MG) PO PRN ×2 (03:33→08:12)
[2022-12-26 06:00] VITALS: BP 125/49; TEMP 97.2; O2SAT 97
[2022-12-26 06:21] LABS: BASO # 0.1 10^3/uL (0.0-0.2); BASO % 1.9 % (0.0-1.0); EOS # 0.2 10^3/uL (0.0-0.5); EOS % 4.6 % (0.0-3.0); HEMATOCRIT 31.9 % (36.0-47.0); HEMOGLOBIN 9.9 g/dl (12.0-15.5); LYMPH % 18.6 % (24.0-44.0); MEAN CORPUSCULAR HEMOGLOBIN 29.7 pg (27.0-33.0); MEAN CORPUSCULAR VOLUME 95.8 fl (80.0-96.0); MONO # 0.6 10^3/uL (0.0-0.8); NEUTROPHILS # 3.3 10^3/uL (1.5-8.5); NEUTROPHILS % 62.1 % (36.0-66.0); PLATELET COUNT, AUTOMATED 151 10^3/uL (150-450); RED BLOOD COUNT 3.33 10^6/uL (4.00-5.40); WHITE BLOOD COUNT 5.3 10^3/uL (4.0-10.0)
[2022-12-26] MEDS: METOCLOPRAMIDE 5 MG TAB PO SCH ×2 (06:50→17:01)
[2022-12-26] MEDS: (RENVELA) SEVELAMER **CARBONate** 800 MG TAB PO SCH ×4 (06:50→22:04)
[2022-12-26] MEDS: HEPARIN SOD (PORCINE) 5000UNITS/ML 1ML VIAL/SYRINGE SC SCH ×2 (06:50→22:04)
[2022-12-26 06:52] LABS: CALCIUM LEVEL 8.6 MG/DL (8.3-10.6); CREATININE FOR GFR 4.68 MG/DL (0.55-1.30); GLOMERULAR FILTRATION RATE 9.5 (>32); POTASSIUM SERUM 4.1 MMOL/L (3.5-5.1)
[2022-12-26] MEDS: LEVEMIR (INSULIN DETEMIR) 1 UNITS/0.01ML SC SCH (06:58)
[2022-12-26] MEDS: MIRALAX *UNIT DOSE* 17GM PACKET PO SCH (07:01)
[2022-12-26] MEDS: DOCUSATE SODIUM 100MG CAPSULE PO SCH ×2 (07:01→22:04)
[2022-12-26] MEDS: SANTYL OINT 30GM TOP SCH (08:12)
[2022-12-26 14:30] VITALS: BP 112/52; TEMP 97; O2SAT 97
[2022-12-26 21:00] VITALS: BP 108/55; TEMP 96.4; O2SAT 95
[2022-12-26] MEDS: LACTOBACILLUS ACIDOPHILUS CAP (BACID) PO SCH (22:04)
[2022-12-26] MEDS: FOLIC ACID 1MG TAB PO SCH (22:04)
[2022-12-26] MEDS: PERCOCET 5MG/325MG TAB PO PRN (22:05)
[2022-12-27] MEDS: ACETAMINOPHEN TAB 650MG DOSE (2X325MG) PO PRN ×3 (03:47→23:00)
[2022-12-27 06:00] VITALS: BP 110/48; TEMP 97.5; O2SAT 97
[2022-12-27] MEDS: HEPARIN SOD (PORCINE) 5000UNITS/ML 1ML VIAL/SYRINGE SC SCH ×2 (08:19→21:47)
[2022-12-27] MEDS: (RENVELA) SEVELAMER **CARBONate** 800 MG TAB PO SCH ×3 (08:19→21:47)
[2022-12-27] MEDS: DOCUSATE SODIUM 100MG CAPSULE PO SCH ×2 (08:19→21:47)
[2022-12-27] MEDS: METOCLOPRAMIDE 5 MG TAB PO SCH ×2 (08:19→16:44)
[2022-12-27] MEDS: LEVEMIR (INSULIN DETEMIR) 1 UNITS/0.01ML SC SCH (08:19)
[2022-12-27] MEDS: MIRALAX *UNIT DOSE* 17GM PACKET PO SCH (08:19)
[2022-12-27] MEDS: SANTYL OINT 30GM TOP SCH (08:20)
[2022-12-27 14:00] VITALS: BP 106/51; TEMP 97.5; O2SAT 95
[2022-12-27] MEDS: LACTOBACILLUS ACIDOPHILUS CAP (BACID) PO SCH (21:47)
[2022-12-27] MEDS: FOLIC ACID 1MG TAB PO SCH (21:47)
[2022-12-28] MEDS: PERCOCET 5MG/325MG TAB PO PRN ×2 (02:15→14:33)
[2022-12-28 06:00] VITALS: BP 102/45; TEMP 97.3; O2SAT 94
[2022-12-28] MEDS: METOCLOPRAMIDE 5 MG TAB PO SCH ×2 (07:57→17:49)
[2022-12-28] MEDS: (RENVELA) SEVELAMER **CARBONate** 800 MG TAB PO SCH (07:57)
[2022-12-28] MEDS: MIRALAX *UNIT DOSE* 17GM PACKET PO SCH (07:57)
[2022-12-28] MEDS: HEPARIN SOD (PORCINE) 5000UNITS/ML 1ML VIAL/SYRINGE SC SCH (07:57)
[2022-12-28] MEDS: LEVEMIR (INSULIN DETEMIR) 1 UNITS/0.01ML SC SCH (07:57)
[2022-12-28] MEDS: DOCUSATE SODIUM 100MG CAPSULE PO SCH (07:57)
[2022-12-28] MEDS: SANTYL OINT 30GM TOP SCH (07:58)
[2022-12-28] MEDS: ACETAMINOPHEN TAB 650MG DOSE (2X325MG) PO PRN ×2 (11:08→22:39)
[2022-12-28] MEDS ORDERED: LORazepam 1 MG TAB PO PRN (19:35)
[2022-12-28] MEDS ORDERED: MIRALAX *UNIT DOSE* 17GM PACKET PO PRN (19:35)
[2022-12-28] MEDS ORDERED: MORPHINE 10MG/0.5ML ORAL CONCENTRATE SOLUTION U/D SL PRN (19:35)
[2022-12-28] MEDS ORDERED: ONDANSETRON 4MG ORAL DISINTEGRATING TAB PO PRN (19:35)
[2022-12-29] MEDS: ACETAMINOPHEN TAB 650MG DOSE (2X325MG) PO PRN ×2 (06:28→23:03)
[2022-12-29] MEDS: METOCLOPRAMIDE 5 MG TAB PO SCH ×2 (08:54→17:51)
[2022-12-29] MEDS: SANTYL OINT 30GM TOP SCH (08:54)
[2022-12-29] MEDS: PERCOCET 5MG/325MG TAB PO PRN (11:38)
[2022-12-30] MEDS: ACETAMINOPHEN TAB 650MG DOSE (2X325MG) PO PRN (05:11)
[2022-12-30] MEDS: METOCLOPRAMIDE 5 MG TAB PO SCH ×2 (07:46→16:58)
[2022-12-30] MEDS: SANTYL OINT 30GM TOP SCH (07:47)
[2022-12-30] MEDS: PERCOCET 5MG/325MG TAB PO PRN (21:31)
[2022-12-31] MEDS: METOCLOPRAMIDE 5 MG TAB PO SCH ×2 (08:28→18:24)
[2022-12-31] MEDS: ACETAMINOPHEN TAB 650MG DOSE (2X325MG) PO PRN (08:29)
[2022-12-31] MEDS: SANTYL OINT 30GM TOP SCH (08:29)
[2022-12-31] MEDS: PERCOCET 5MG/325MG TAB PO PRN (23:16)
[2023-01-01] MEDS: METOCLOPRAMIDE 5 MG TAB PO SCH ×2 (10:15→18:25)
[2023-01-01] MEDS: SANTYL OINT 30GM TOP SCH (10:16)
[2023-01-01] MEDS: PROMETHAZINE 25 MG TAB PO PRN (22:47)
[2023-01-02] MEDS: METOCLOPRAMIDE 5 MG TAB PO SCH ×2 (09:37→17:31)
[2023-01-02] MEDS: SANTYL OINT 30GM TOP SCH (09:38)
[2023-01-02] MEDS: PERCOCET 5MG/325MG TAB PO PRN ×2 (09:40→17:32)
[2023-01-03] MEDS: PERCOCET 5MG/325MG TAB PO PRN ×4 (00:20→22:47)
[2023-01-03] MEDS: METOCLOPRAMIDE 5 MG TAB PO SCH ×2 (08:00→17:22)
[2023-01-03] MEDS: SANTYL OINT 30GM TOP SCH (08:01)
[2023-01-04] MEDS: METOCLOPRAMIDE 5 MG TAB PO SCH ×2 (09:18→17:50)
[2023-01-04] MEDS: PERCOCET 5MG/325MG TAB PO PRN ×2 (09:18→16:21)
[2023-01-04] MEDS: SANTYL OINT 30GM TOP SCH (09:19)
[2023-01-04] MEDS: PROMETHAZINE 25 MG TAB PO PRN (17:50)
[2023-01-05] MEDS: IPRATROPIUM 0.5MG/ALBUTEROL 2.5MG INH SOL UD 3ML (DUONEB) NEB PRN (06:17)
[2023-01-05] MEDS: METOCLOPRAMIDE 5 MG TAB PO SCH (07:30)
[2023-01-05] MEDS ORDERED: ACET1TAB55 PO (08:22)
[2023-01-05] MEDS ORDERED: ATIV1TAB10 PO ×2 (08:22→08:27)
[2023-01-05] MEDS ORDERED: PERCOCET PO (08:22)
[2023-01-05] MEDS ORDERED: SANT250O8 TOP (08:25)
[2023-01-05] MEDS: SANTYL OINT 30GM TOP SCH (09:00)
== END 2023-01-05 10:40 | disposition hospice, inpatient (51) | DRG 542 ==
LOC: M ED 22:38 → M ED INP 12-19 04:47 → M MS5PR 12-19 12:00
PROVIDERS: ADMIT Internal Medicine; ATTEND Internal Medicine
PROC: 5A1D70Z Performance of Urinary Filtration, Intermittent, Less than 6 Hours Per Day (ICD-10-PCS; principal; 2022-12-19)
PROC: 0JBR3ZZ Excision of Left Foot Subcutaneous Tissue and Fascia, Percutaneous Approach (ICD-10-PCS; 2022-12-21)
DX: C79.51 Secondary malignant neoplasm of bone (principal); N18.6 End stage renal disease; I13.2 Hypertensive heart and chronic kidney disease with heart failure and with stage 5 chronic kidney disease, or end stage renal disease; N25.81 Secondary hyperparathyroidism of renal origin; L03.116 Cellulitis of left lower limb; L97.528 Non-pressure chronic ulcer of other part of left foot with other specified severity; I50.22 Chronic systolic (congestive) heart failure; I48.20 Chronic atrial fibrillation, unspecified; K76.6 Portal hypertension; Z68.41 Body mass index [BMI] 40.0-44.9, adult; I45.2 Bifascicular block; M86.60 Other chronic osteomyelitis, unspecified site; Z66 Do not resuscitate; E11.22 Type 2 diabetes mellitus with diabetic chronic kidney disease; I50.810 Right heart failure, unspecified; G47.33 Obstructive sleep apnea (adult) (pediatric); E78.5 Hyperlipidemia, unspecified; E11.43 Type 2 diabetes mellitus with diabetic autonomic (poly)neuropathy; D63.1 Anemia in chronic kidney disease; M79.605 Pain in left leg; E11.621 Type 2 diabetes mellitus with foot ulcer; L03.032 Cellulitis of left toe; E11.51 Type 2 diabetes mellitus with diabetic peripheral angiopathy without gangrene; M19.90 Unspecified osteoarthritis, unspecified site; E11.69 Type 2 diabetes mellitus with other specified complication; R91.8 Other nonspecific abnormal finding of lung field; E66.01 Morbid (severe) obesity due to excess calories; I08.1 Rheumatic disorders of both mitral and tricuspid valves; I77.1 Stricture of artery; R62.7 Adult failure to thrive; I95.9 Hypotension, unspecified; G89.29 Other chronic pain; I70.212 Atherosclerosis of native arteries of extremities with intermittent claudication, left leg; K31.84 Gastroparesis; I27.20 Pulmonary hypertension, unspecified; Z90.79 Acquired absence of other genital organ(s); Z85.42 Personal history of malignant neoplasm of other parts of uterus; Z92.3 Personal history of irradiation; Z96.642 Presence of left artificial hip joint; Z79.4 Long term (current) use of insulin; Z79.899 Other long term (current) drug therapy; Z88.5 Allergy status to narcotic agent; Z88.6 Allergy status to analgesic agent; K74.60 Unspecified cirrhosis of liver; Z88.8 Allergy status to other drugs, medicaments and biological substances; Z20.822 Contact with and (suspected) exposure to COVID-19; Z91.048 Other nonmedicinal substance allergy status